=== PATIENT | female | born 1940 | race Caucasian/White ===

== ENCOUNTER 2018-04-20 10:36 | Emergency (ER) | payer OTHER, MEDICARE ==
--- OUTSIDE RECORDS SUMMARY | 2018-04-20 10:37 | XMS REPORT | Clinical Summary ---
:1940 Author Organization [facility] Address [address] [place] [address] Care Team Providers Name Role Phone Unavailable Primary Care Provider Unavailable Allergies Active Allergy Reactions Severity Noted Date Comments No Known Drug Allergies 01/16/2016 Current Medications Not on file Active Problems Not on file Family History Medical History Relation Name Comments Pancreatic cancer Father Relation Name Status Comments Father Social History Tobacco Use Types Packs/Day Years Used Date Never Smoker Alcohol Use Drinks/Week oz/Week Comments No Sex Assigned at Date Recorded Not on file Last Filed Vital Signs Not on file Plan of Treatment Health Maintenance Due Date Last Done Comments SHINGRIX VACCINE (#1) 1988 ZOSTER VACCINE 1998 PNEUMOCOCCAL POLYSACCHARIDE VACCINE AGE 65 AND OVER 2003 PNEUMOCOCCAL-13 2003 INFLUENZA VACCINE 02/19/2018 Results Not on fileafter 04/19/2017 Insurance Payer Benefit Plan / Group Subscriber ID Type Phone Address AARP AARP SUPPLEMENT xxxxxxxxxxx Commercial MEDICARE MEDICARE PART A AND B xxxxxxxxxx Medicare [place], [place] Home: Jim MONTILLA [phone] [place] [id number]
--- OUTSIDE RECORDS SUMMARY | 2018-04-20 10:39 | XMS REPORT | Continuity of Care Document ---
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, 2014 Active STATUS POST HYSTERECTOMY May 14, 2014 Active STATUS POST CHOLECYSTECTOMY May 14, 2014 Active STATUS POST APPENDECTOMY HX OF May 14, 2014 Active CERVICAL SPINAL STENOSIS May 14, 2014 Active CERVICAL RADICULOPATHY May 14, 2014 Active LOW BACK PAIN May 14, 2014 Active 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 14, 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 May 14, 2014 Active Procedures Date Description Comments May 14, 2014 smoking status never smoker May 14, 2014 smoking status Never smoker Aug 18, 2014 smoking status Never smoker December 16, 2014 smoking status Never smoker Medications Medication Instructions Start Date Status PREVACID 30 MG CPDR May 14, 2014 Active ATENOLOL 50 MG TABS 1 tab po bid May 14, 2014 Active CELEBREX 200 MG CAPS May 14, 2014 Active LEXAPRO 10 MG TABS May 14, 2014 Active LIPITOR 10 MG TABS May 14, 2014 Active PAMELOR 25 MG CAPS May 14, 2014 Active ASPIRIN 81 MG TABS May 14, 2014 Active TYLENOL WITH CODEINE #3 300-30 1 tab po q6h prn pain May 14, 2014 Inactive MG TABS LIDODERM 5 % PTCH apply to affected area 12h on May 14, 2014 Inactive 12h off per 24h period prn pain ZANAFLEX 4 MG TABS 1 tab q 8 hrs prn muscle spasms December 16, 2014 Active Vital Signs Date Description Test Result May 14, 2014 weight E&M - 3141-9 WEIGHT 196.4 lb May 14, 2014 height E&M - 8302-2 HEIGHT 65 in May 14, 2014 temperature E&M TEMPERATURE 96.4 deg f May 14, 2014 pulse rate E&M - 8867-4 PULSE RATE 57 /min May 14, 2014 blood pressure, systolic - 8480-6 BP SYSTOLIC 116 mm Hg May 14, 2014 blood pressure, diastolic - 8462-4 BP DIASTOLIC 67 mm Hg Aug 18, 2014 weight E&M - 3141-9 WEIGHT 197.2 lb Aug 18, 2014 temperature E&M TEMPERATURE 97.3 deg f Aug 18, 2014 respiratory rate E&M - 9279-1 RESP RATE 18 /min Aug 18, 2014 pulse rate E&M - 8867-4 PULSE RATE 62 /min Aug 18, 2014 height E&M - 8302-2 HEIGHT 65 in Aug 18, 2014 blood pressure, systolic - 8480-6 BP SYSTOLIC 97 mm Hg Aug 18, 2014 blood pressure, diastolic - 8462-4 BP DIASTOLIC 61 mm Hg May 15, 2014 weight E&M - 3141-9 WEIGHT 196 lb December 16, 2014 weight E&M - 3141-9 WEIGHT 200 lb December 16, 2014 temperature E&M TEMPERATURE 98.7 deg f December 16, 2014 respiratory rate E&M - 9279-1 RESP RATE 70 /min December 16, 2014 pulse rate E&M - 8867-4 PULSE RATE 18 /min December 16, 2014 height E&M - 8302-2 HEIGHT 65 in December 16, 2014 blood pressure, systolic - 8480-6 BP SYSTOLIC 134 mm Hg December 16, 2014 blood pressure, diastolic - 8462-4 BP DIASTOLIC 73 mm Hg
--- OUTSIDE RECORDS SUMMARY | 2018-04-20 10:39 | XMS REPORT | Continuity of Care Document ---
:1940 Author Organization Interface Problems Problem Status Onset Classification Date Comments Source Date Reported M54.5 - LOW BACK Active 06/10/20 [facility] PAIN 15 [place] 724.4 - Active 01/14/20 [facility] LUMBOSACRAL HEBER 15 [facility] ACUTE EMBOLISM AND Active 01/14/20 Condition 03/24/2015 [facility] THROMBOSIS OF 15 Neuro UNSPECIFIED DEEP VEINS OF UNSPECIFIED LOWER EXTREMITY SPONDYLOLISTHESIS, Active 01/13/20 Condition 03/24/2015 [facility] LUMBAR 15 Neuro LUMBAR Active 11/20/19 [place] SPODOLYTHIS, 15 Medical RIDICULOPATHY, LOW Center B STATUS POST KNEE Active 05/14/20 Condition 03/24/2015 [facility] REPLACEMENT 14 Neuro STATUS POST Active 05/14/20 Condition 03/24/2015 [facility] HYSTERECTOMY 14 Neuro STATUS POST Active 05/14/20 Condition 03/24/2015 [facility] CHOLECYSTECTOMY 14 Neuro STATUS POST Active 05/14/20 Condition 03/24/2015 [facility] APPENDECTOMY HX OF 14 Neuro CERVICAL SPINAL Active 05/14/20 Condition 03/24/2015 [facility] STENOSIS 14 Neuro CERVICAL Active 05/14/20 Condition 03/24/2015 [facility] RADICULOPATHY 14 Neuro LOW BACK PAIN Active 05/14/20 Condition 03/24/2015 [facility] 14 Neuro LUMBAR Active 05/14/20 Condition 03/24/2015 [facility] RADICULOPATHY 14 Neuro CERVICAL HNP W/O Active 05/14/20 Condition 03/24/2015 [facility] MYELOPHATHY 14 Neuro Low back Active 05/14/20 Problem 04/27/2017 Data OP[facility] pain<sup>1</sup> 14 migrated [facility] [place] [facility] OPID on 03/15/15. [place] Lumbar Active 05/14/20 Problem 04/27/2017 Data [facility] radiculopathy<sup> 14 migrated [facility] [place] 2</sup> from [facility] OPID on 03/15/15. [place] Spondylosis<sup>1< Active Problem 01/16/2015 1Lumbar OPID /sup> Kylah [place] OPID [place],[facility] Atrial Resolved Problem 06/25/2015 OP[facility] fibrillation Kylah [place] OP[facility] [place] GERD (<span Active Problem 06/25/2015 OPID ID="[id number]">C Kylah [place] onfirmed</span>) OPID [place] HLD (<span Active Problem 06/25/2015 OPID ID="[id number]">C Kylah [place] onfirmed</span>) OPID [place] HTN (<span Active Problem 06/25/2015 OPID ID="[id number]">C Kylah [place] onfirmed</span>) [facility] [place] Lumbar Active Problem 06/25/2015 [facility] radiculopathy [place] OP[facility] [place] Lumbar stenosis Active Problem 06/25/2015 OPID [place] OPID [place] Obesity Active Problem 06/25/2015 OPID [place] OPID [place] Pain Active Problem 06/25/2015 OPID [place] OPID [place] Atrial Resolved Problem 04/27/2017 [facility] [place] [facility] GERD (<span Active Problem 04/27/2017 OPID ID="[id number]">C Kylah [place] onfirmed</span>) [facility] OPID [facility] [place] [facility] HLD (<span Active Problem 04/27/2017 OPID ID="[id number]">C Kylah [place] onfirmed</span>) [facility] OPID [facility] [place] [facility] HTN (<span Active Problem 04/27/2017 OPID ID="[id number]">C [place],Kylah onfirmed</span>) [facility] OPID [facility] [place] [facility] Lumbar Active Problem 04/27/2017 OPID radiculopathy [facility] OPID [facility] [place] [facility] Lumbar stenosis Active Problem 04/27/2017 [facility] [place] [facility] Obesity Active Problem 04/27/2017 [facility], OP[facility] [place] [facility] Pain Active Problem 04/27/2017 JI [place],M [facility] [place] [facility], OPID [facility] [place] [facility] Spondylosis<sup>3< Active Problem 04/27/2017 Lumbar OPID /sup> [facility] [place] [facility], RAKANKassandra [place] LUMBOSACRAL Active [facility] SPONDYLOSIS [facility] LUMBOSACRAL Active [facility] NEURITIS NOS [facility] LUMBAGO Active [facility] Medications Medication Details Route Status Patient Ordering Order Source Instructions Provider Date ZANAFLEX 4 MG 1 tab q 8 hrs [facility] Active 2014 Neuro spasms tramadol 50 mg, 1 tab, No Longer 12/02/ [facility] hydrochloride 50 Route: PO, Drug Active 2014 Medical MG Oral Tablet form: TAB, Q6H, Center Dosing Weight 90.9, kg, PRN Pain Score 4-6, Start date: 12/01/14 21:03:00, Duration: 30 day, Stop date: 12/31/14 21:02:00Notes: . (Same As: Ultram) heparin 5,000 unit, 1 No Longer [facility] mL, Route: Active 2014 Medical SUB-Q, Drug Center form: INJ, Q8H, Dosing Weight 90.909, kg, Start date: 12/01/14 16:00:00, Duration: 30 day, Stop date: 12/31/14 8:00:00Notes: porcine heparin Valium 10 mg, 1 tab, Inactive [facility] Route: PO, Drug 2014 Medical form: TAB, ONCE, Center Start date: 12/01/14 10:30:00, Stop date: 12/01/14 10:30:00Notes: (Same as: Valium) Acetaminophen 325 1 tab, Route: [facility] Longer [facility] / Hydrocodone PO, Drug Form: Active 2014 Medical Bitartrate 5 MG TAB, Dosing Center Oral Tablet Weight 90.909, [[place] 5/325] kg, Q6H, Start date: 12/01/14 7:00:00, Duration: 30 day, Stop date: 12/31/14 6:00:00Notes: (Same as: [place] 325/5) Do not exceed 4gm/day of acetaminophen. Sodium Chloride 1,000 mL, 1,000 Inactive [place] 0.154 MEQ/ML ml/hr, Infuse 2014 Medical Injectable Over: 1 hr, Center Solution Route: IV, 1,000, Drug form: INJ, ONCE, Priority: STAT, Dosing Weight 90.909 kg, Start date: 12/01/14 5:18:00, Duration: 1 doses or times, Stop date: 12/01/14 5:18:00 Sodium Chloride 250 mL, 250 Inactive [place] 0.154 MEQ/ML ml/hr, Infuse 2014 Medical Injectable Over: 1 hr, Center Solution Route: IV, 250, Drug form: INJ, ONCE, Priority: STAT, Dosing Weight 90.909 kg, Start date: 12/01/14 4:28:00, Duration: 1 doses or times, Stop date: 12/01/14 4:28:00 Losartan 100 mg, 2 tab, No Longer [facility] Route: PO, Drug Active 2014 Medical form: TAB, Center Daily, Dosing Weight 90.909, kg, Start date: 11/30/14 9:00:00, Duration: 30 day, Stop date: 12/29/14 9:00:00Notes: (Same as: Dolly) Prevacid 30 mg, Route: No Longer [facility] PO, Drug form: Active 2014 Medical [facility], Daily, Center Dosing Weight 90.909, kg, Start date: 11/30/14 9:00:00, Duration: 30 day, Stop date: 12/29/14 9:00:00 Lexapro 10 mg, 1 tab, No Longer [facility] Route: PO, Drug Active 2014 Medical form: TAB, Center Daily, Dosing Weight 90.909, kg, Start date: 11/30/14 9:00:00, Duration: 30 day, Stop date: 12/29/14 9:00:00Notes: (Same as: Lexapro) Atenolol 50 MG 50 mg, 1 tab, No Longer [facility] Oral Tablet Route: PO, Drug Active 2014 Medical form: TAB, Center Daily, Dosing Weight 90.909, kg, Start date: 11/30/14 9:00:00, Duration: 30 day, Stop date: 12/29/14 9:00:00Notes: (Same As:Tenormin) Protonix 40 mg, 1 tab, No Longer [facility] Route: PO, Drug Active 2014 Medical form: ECTAB, Center Before Breakfast, Start date: 11/30/14 7:30:00, Duration: 30 day, Stop date: 12/29/14 7:30:00Notes: (Same as: Protonix) Acetaminophen 300 1 tab, PO, Q6H, Active [facility] MG / Codeine PRN pain, X 14 2014 Medical Phosphate 30 MG day, # 56 tab, 0 Center Oral Tablet Refill(s) [Tylenol with Codeine #3] senna 8.6 mg oral 8.6 mg=1 tab, Active [facility] tablet PO, Q12H, # 30 2014 Medical tab, 0 Refill(s) Center diazepam 10 mg 10 mg=1 tab, PO, No Longer [facility] oral tablet Q8H, # 50 tab, 0 Active 2014 Medical Refill(s) Center docusate sodium 100 mg=1 cap, Active [facility] 100 mg oral PO, Q12H, # 30 2014 Medical capsule cap, 0 Refill(s) Center Pamelor 25 mg, 1 cap, No Longer [facility] Route: PO, Drug Active 2014 Medical form: CAP, Center Bedtime, Dosing Weight 90.909, kg, Start date: 11/29/14 21:00:00, Duration: 30 day, Stop date: 12/28/14 21:00:00Notes: (Same as:Pamelor, Aventyl) gabapentin 300 MG 600 mg, 2 cap, No Longer [facility] Oral Capsule Route: PO, Drug Active 2014 Medical form: CAP, Center Bedtime, Dosing Weight 90.909, kg, Start date: 11/29/14 21:00:00, Duration: 30 day, Stop date: 12/28/14 21:00:00Notes: (Same as: Neurontin) Atenolol 50 MG 100 mg, 1 tab, No Longer [facility] Oral Tablet Route: PO, Drug Active 2014 Medical form: TAB, Center Bedtime, Dosing Weight 90.909, kg, Start date: 11/29/14 21:00:00, Duration: 30 day, Stop date: 12/28/14 21:00:00Notes: (Same As:Tenormin) Saline Flush 0.9% 10 ml, Route: No Longer [facility] IVP, Drug Form: Active 2014 Medical INJ, Dosing Center Weight 90.909, kg, Q12H, Start date: 11/29/14 21:00:00, Duration: 30 day, Stop date: 12/29/14 9:00:00Notes: Same as: BD Posiflush Sterile sennosides, HALFWAY 8.6 mg, 1 tab, No Longer [facility] Route: PO, Drug Active 2014 Medical Form: TAB, Center Dosing Weight 90.909, kg, Q12H, Start date: 11/29/14 21:00:00, Duration: 30 day, Stop date: 12/29/14 9:00:00Notes: (Same as: Deepakot) Docusate 100 mg, 1 cap, No Longer [facility] Route: PO, Drug Active 2014 Medical form: CAP, Q12H, Center Dosing Weight 90.909, kg, Start date: 11/29/14 21:00:00, Duration: 30 day, Stop date: 12/29/14 9:00:00Notes: (Same as: Colace) (Do Not Crush) Acetaminophen 325 1 tab, Route: No Longer [facility] MG / Hydrocodone PO, Drug Form: Active 2014 Medical Bitartrate 10 MG TAB, Dosing Center Oral Tablet Weight 90.909, [[place] 10/325] kg, Q4H, Start date: 11/29/14 16:00:00, Duration: 30 day, Stop date: 12/29/14 12:00:00Notes: Do not exceed 4gm/day of acetaminophen. (Same as: [place] 325/10) ceFAZolin (SCIP) 1 gm, Route: No Longer [facility] IVPB, Drug form: Active 2014 Medical PDR/INJ, ABXQ8H, Center Dosing Weight 90.909, kg, Start date: 11/29/14 16:00:00, Duration: 3 doses or times, Stop date: 11/30/14 8:00:00Notes: (Same As: [place]) MEDICATION WASTE Product Size: 1000 mg Product Wasted: ___ mg Labetalol 10 mg, 2 mL, Inactive [facility] Route: IVP, Drug 2014 Medical form: INJ, Center Q5Min, Dosing Weight 90.909, kg, PRN Elevated BP, Start date: 11/29/14 14:50:00, Duration: 5 doses or times, Stop date: 11/30/14 0:00:00 Hydromorphone 0.5 mg, 0.25 mL, Inactive [facility] Route: IVP, Drug 2014 Medical form: INJ, Center Q5Min, Dosing Weight 90.909, kg, PRN Pain Score 7-10, Start date: 11/29/14 14:50:00, Duration: 4 doses or times, Stop date: 11/30/14 0:00:00Notes: Same as: Dilaudid Flumazenil 0.2 mg, 2 mL, Inactive [facility] Route: IVP, Drug 2014 Medical form: INJ, PRN, Center Dosing Weight 90.909, kg, PRN Benzodiazepine Reversal, Initial dose, Start date: 11/29/14 14:50:00, Duration: 30 day, Stop date: 12/29/14 14:49:00Notes: (Same as: Romazicon) Naloxone 0.04 mg, 0.1 mL, Inactive [facility] Route: IVP, Drug 2014 Medical form: INJ, Center Q2MIN, Dosing Weight 90.909, kg, PRN Narcotic Reversal, Start date: 11/29/14 14:50:00, Duration: 8 doses or times, Stop date: 11/30/14 0:00:00Notes: Same as Narcan Ondansetron 4 mg, 2 mL, Inactive [facility] Route: IVP, Drug 2014 Medical form: INJ, ONCE, Center Dosing Weight 90.909, kg, PRN Nausea & Vomiting, Start date: 11/29/14 14:50:00Notes: (Same as: Zofran) MEDICATION WASTE Product Size: 4 mg Product Wasted: __0_ mg Valium 10 mg, 1 tab, No Longer [place] Route: PO, Drug Active 2014 Medical form: TAB, Q8H, Center Dosing Weight 90.909, kg, Start date: 11/29/14 12:00:00, Duration: 30 day, Stop date: 12/29/14 8:00:00Notes: (Same as: Valium) Naloxone 0.04 mg, 0.1 mL, No Longer [facility] Route: IVP, Drug Active 2014 Medical form: INJ, Center Q2MIN, Dosing Weight 90.909, kg, PRN Narcotic Reversal, Start date: 11/29/14 12:00:00, Duration: 30 day, Stop date: 12/29/14 11:59:00Notes: Same as Narcan Morphine 30 mg, 30 mL, No Longer [facility] Route: IV, Active 2014 Medical Initial Loading Center Dose: 2 mg, 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 Dose: 1 mg, 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 TEACHER Lockout: 10 minutes, Continuous Basal Rate: 0 mg, 4 Hour Limit (In MG): 30, Drug Form: INJ, Continuous, Start date: 11/29/14 12:00:00, Duration: 30 day, Stop date: 12/29/14 11:5...Notes: Dose: Delay: Basal rate: 4hr limit: (Same as:Edgardo-Eneida) Regular Insulin, 7 unit, 0.07 mL, No Longer [facility] Human 100 UNT/ML Route: SUB-Q, Active 2014 Medical Injectable Drug form: SOLN, Center Solution PRN, Dosing Weight 90.909, kg, PRN Abnormal Lab Result, Start date: 11/29/14 12:00:00, Duration: 30 day, Stop date: 12/29/14 11:59:00Notes: (Same as: Humulin R) Roll in palms of hands gently; Do not shake vigorously. "single patient use only" (Restricted to patients requiring a dose > 60 units) Stable for 28 days at room temperature Expires in days from Da te Dextrose 50% 12.5 gm, 25 mL, No Longer [place] Syringe Route: IVP, Drug Active 2014 Medical Form: INJ, Center Dosing Weight 90.909, kg, PRN, PRN Abnormal Lab Result, Start date: 11/29/14 12:00:00, Duration: 30 day, Stop date: 12/29/14 11:59:00 Saline Flush 0.9% 10 ml, Route: No Longer [facility] IVP, Drug Form: Active 2014 Medical INJ, Dosing Center Weight 90.909, kg, PRN, PRN Line Flush, Start date: 11/29/14 12:00:00, Duration: 30 day, Stop date: 12/29/14 11:59:00Notes: Same as: BD Posiflush Sterile Ondansetron 4 mg, 2 mL, No Longer [facility] Route: IVP, Drug Active 2014 Medical form: INJ, Q8H, Center Dosing Weight 90.909, kg, PRN Nausea & Vomiting, Start date: 11/29/14 12:00:00, Duration: 30 day, Stop date: 12/29/14 11:59:00Notes: (Same as: Brittany) MEDICATION WASTE Product Size: 4 mg Product Wasted: ___ mg Acetaminophen 325 1 tab, Route: Inactive [facility] MG / Hydrocodone PO, Drug Form: 2014 Medical Bitartrate 10 MG TAB, Dosing Center Oral Tablet Weight 90.909, kg, Q6H, Start date: 11/29/14 12:00:00, Duration: 30 day, Stop date: 12/29/14 6:00:00 Sodium Chloride 1,000 mL, Rate: No Longer [facility] 0.154 MEQ/ML 75 ml/hr, Infuse Active 2014 Medical Injectable over: 13.3 hr, Center Solution Route: IV, Dosing Weight 90.909 kg, Total Volume: 1,000, Start date: 11/29/14 12:00:00, Stop date: 12/29/14 11:59:00 bupivacaine 20 mL, Route: Inactive [facility] liposome InFILtration(loc 2014 Medical al), Drug Form: Center INJ, ONCE, Start date: 11/29/14 7:52:00, Stop date: 11/29/14 7:52:00Notes: (Same as: Exparel) NOT FOR IV use Postoperative analgesia: Infiltration (local): Dose is based on surgical site and volume required to cover the area (in general, the maximum total dose is 266 mg). Bunionectomy: 7 mL into the tissues surrounding the osteotomy and 1 mL into the subcutaneous tissue of the surgical site (total dose=8 mL [106 mg]) Hemorrhoidectomy : 30 mL (20 mL vial diluted with 10 mL NS) divided and administered as 6 injections of 5 mL each (total dose=30 mL [266 mg]) ceFAZolin 2 gm, 50 mL, No Longer [place] Route: IVPB, Active 2014 Medical Drug form: INJ, Center PRE OP, Start date: 11/29/14 7:00:00, Duration: 1 day, Stop date: 11/30/14 6:59:00 Bifidobacterium 4 mg=1 cap, PO, Active [facility] Infantis 4 MG Daily, # 28 cap, 2014 Medical Oral Capsule 0 Refill(s) Center [Align] Aspirin Low Dose PO, Daily, 0 Active [facility] 81 mg oral tablet Refill(s) 2014 [facility] Tylenol PO, PRN, 0 Active [facility] Refill(s) 2014 [facility] gabapentin 300 MG 300 mg=1 cap, Active [facility] Oral Capsule PO, TID, 0 2014 Medical Refill(s) [place] Nortriptyline 25 25 mg=1 cap, PO, Active [facility] MG Oral Capsule TID, 0 Refill(s) 2014 [facility] [Pamelor] [place] Atenolol 50 MG 100 mg=2 tab, Active [facility] Oral Tablet PO, Bedtime, 0 2014 Medical Refill(s) [place] biotin 5 mg oral 5 mg=1 cap, PO, Active [facility] capsule Daily, # 30 cap, 2014 Medical 0 Refill(s) [place] Centrum Silver 1 tab, PO, Active [facility] oral tablet Daily, # 30 tab, 2014 Medical 0 Refill(s) [place] lansoprazole 30 30 mg=1 cap, PO, Active [facility] MG Enteric Coated Daily, # 30 cap, 2014 Medical Capsule 0 Refill(s) [place] [Prevacid] losartan 100 mg 100 mg=1 tab, Active [place] oral tablet PO, Daily, # 30 2015 Medical tab, 0 Refill(s) Center Atenolol 50 MG 50 mg=1 tab, PO, Active [place] Oral Tablet Daily, # 30 tab, 2015 Medical 0 Refill(s) Center Escitalopram 10 10 mg=1 tab, PO, Active [place] MG Oral Tablet Daily, # 30 tab, 2015 Medical [Lexapro] 0 Refill(s) Center celecoxib 200 MG 200 mg=1 cap, Active [facility] Oral Capsule PO, Daily, # 30 2015 Medical [Celebrex] cap, 0 Refill(s) Center PREVACID 30 MG Active CPDR 2013 Neuro ATENOLOL 50 MG 1 tab po bid Active TABS 2013 Neuro CELEBREX 200 MG Active cher CAPS 2013 Neuro LEXAPRO 10 MG Active cher TABS 2013 Neuro LIPITOR 10 MG Active cher TABS 2013 Neuro PAMELOR 25 MG Active cher CAPS 2014 Neuro ASPIRIN 81 MG Active TABS 2013 Neuro TYLENOL WITH 1 tab po q6h prn No Longer CODEINE #3 300-30 pain Active 2013 Neuro MG TABS LIDODERM 5 % PTCH apply to No Longer affected area Active 2013 Neuro 12h on 12h off per 24h period prn pain PREVACID 30 MG Active CPDR 2013 Neuro ATENOLOL 50 MG 1 tab po bid Active cher TABS 2014 Neuro CELEBREX 200 MG Active cher CAPS 2014 Neuro ATENOLOL 50 MG 1 tab po bid Active cher TABS 2013 Neuro CELEBREX 200 MG Active cher CAPS 2014 Neuro LIPITOR 10 MG Active cher TABS 2013 Neuro LIDODERM 5 % PTCH apply to No Longer affected area Active 2013 Neuro 12h on 12h off per 24h period prn pain ATENOLOL 50 MG 1 tab po bid Active cher TABS 2013 Neuro ATENOLOL 50 MG 1 tab po bid Active 10/24/ [facility] TABS 2014 Neuro CELEBREX 200 MG Active 05/14/ [facility] CAPS 2014 Neuro Allergies, Adverse Reactions, Alerts Substance Category Reaction Severity Reaction Status Date Comments Source type Reported NKDA Assertion Drug Active [facility] allergy [facility] [place] [facility] Immunizations Immunization Date Given Site Status Last Updated Comments Source Results Order Name Results Value Reference Date Interpretation Comments Source Range Spine Spine lumbar EXAM: CT lumbar spine without contrast. 06/22 - OPID lumbar wo wo contrast - [place] contrast CT CT INDICATION: Pain with radiculopathy. Read by: Faith Reveles MD Dictated Date/time: 06/22/15 10:58 Electronically Signed by: Faith Reveles MD 06/22/15 11:05 FINAL REPORT COMPARISON: Radiograph March 24, 2015, CT November 29, 2014. TECHNIQUE: Noncontrast axial imaging of the lumbar spine was performed paracoronal and sagittal reconstructions were performed. DISCUSSION: Posterior stabilization hardware extending from L4 to S1 is redemonstrated without hardware fracture or perihardware lucencies. Laminectomies at L4-L5 and L5-S1 are redemonstrated. Disc spac er at L4-L5 is in stable alignment. Stable grade 1 anterolisthesis of L4 on L5. Stable retrolisthesis of L5 on S1. Stable retrolisthesis of T12 on L1 with collapse of the intervening disc. Loss of disc space height at L1-L2 and L2-L3 is redemonstrated. Slight progression of disc space height loss posteriorly at L3-L4. Stable nodule in the right adrenal gland with areas of fatty attenuation. Bilateral foraminal stenosis at L5-S1 is redemonstrated. The canal is difficult to evaluate at the postoperative levels. Canal stenosis at L3-L4 is evident secondary to annular bulge and ligamentum flavum redundancy. IMPRESSION: 1. Stable postoperative changes status post decompression and posterior stabilization from L4 to S1. 2. Slight progression of disc space height loss at L3-L4. Otherwise stable spondylosis throughout the lumbar spine. Spine Spine lumbar EXAM: XR LUMBAR SPINE 2 VIEWS 03/24 - OPID lumbar 2 or 2 or 3 views /2014 - [place] 3 views DX DX DATE: 03/24/2015 at 1017 hours Read by: Meghna Lopez MD Dictated Date/time: 03/24/15 14:20 Electronically Signed by: Meghna Lopez MD 03/24/15 14:22 FINAL REPORT INDICATION: 756.12 Spondylolisthesis, Congenital COMPARISON: 01/12/2015 TECHNIQUE: AP and lateral radiographs of the lumbar spine FINDINGS: 5 lumbar-type, nonrib-bearing vertebral bodies are identified. Vertebral body heights are overall preserved. Posterior stabilization rods and transpedicular screws are again identified L4-S1 w ith an interbody cage at L4-L5. Surrounding bone graft is present posteriorly. There is no perihardware lucency or evidence of failure. No new or superimposed bony abnormality is identified. There are scattered vascular calcifications of the aorta. Surgical clips overlie the gallbladder fossa. IMPRESSION: Unchanged, satisfactory alignment following posterior stabilization and laminectomy L4-S1. Ext Lower Ext Lower EXAM: US BILATERAL LOWER EXTREMITY VENOUS DOPPLER [facility] OPID Venous Venous /2014 - [place] Doppler Doppler Bilat US Bilat US DATE: 01/13/2015 at 1104. Read by: Karina Joshi MD Dictated Date/time: 01/13/15 12:01 Electronically Signed by: Karina Joshi MD 01/13/15 12:03 FINAL REPORT INDICATION: Bilateral lower extremity swelling recent surgery ADDITIONAL INFORMATION: None. COMPARISON: None. TECHNIQUE: Multiplanar grayscale, color Doppler and spectral Doppler ultrasound images of the bilateral lower extremity veins were obtained. FINDINGS: The bilateral common femoral, greater saphenous, superficial femoral, and popliteal veins demonstrate normal compressibility and color Doppler signal. Normal color flow and Doppler venous waveforms are seen in the bilateral anterior tibial, posterior tibial and peroneal veins. IMPRESSION: 1. Negative for bilateral lower extremity deep vein thrombosis. Spine Spine lumbar EXAM: XR LUMBAR SPINE 2 VIEWS 01/12 [facility] lumbar 2 or 2 or 3 views - [place] 3 views DX DX DATE: 01/12/2015 at 0951 hours Read by: Meghna Lopez MD Dictated Date/time: 01/12/15 10:12 Electronically Signed by: Meghna Lopez MD 01/12/15 10:14 FINAL REPORT INDICATION: 724.4 Thoracic or Lumbosacral Neuritis or Radiculitis, Unspecified COMPARISON: 11/29/2014 CT TECHNIQUE: AP and lateral radiographs of the lumbar spine FINDINGS: 5 lumbar-type, nonrib-bearing vertebral bodies are identified. Posterior stabilization rods are again identified L4-S1 interbody spacer at L4- L5. Laminectomies are also identified at L4-L5. Ho rrounding bone graft is undergone partial interim maturation. There is no perihardware lucency or evidence of failure. Alignment is unchanged. Multilevel disc height loss, severe at T12-L1 and L1 to is unchanged, with interspinous narrowing now most evident at L2-L3. Vascular calcifications are present at the aorta. IMPRESSION: Unchanged, satisfactory alignment of L4-S1 following laminectomy and posterior stabilization. HEMATOLOGY Hgb 8.4 g/dL 12.0 - 12/02 [facility] HEMATOLOGY Hct 24.8 % 36.0 - 12/02 [facility] HEMATOLOGY Hgb 8.5 g/dL 12. - 12/01 [facility] HEMATOLOGY Hct 25.4 % 36.0 12/01 [facility] BLOOD BANK RBC product Product available 12/01 [facility] (12/01/14 2:36 AM) [place] HEMATOLOGY Hct 21.1 % 36.0 - 12/01 [facility] HEMATOLOGY Hgb 6.9 g/dL .12/01 3Result [facility] Comment: [facility] Result(s) called to jolie martínez at 12/01/2014 02:00 by_[email or web address] Read back OK. CHEM PANEL eGFR 55 11/29 1Result Comment: The eGFR is calculated using the CKD-EPI formula. In most young, healthy individuals the eGFR will be >90 mL/ min/1.73m2. The eGFR declines with age. An eGFR of 60-89 may be normal in [facility] mL/min/1. some populations, particularly the elderly, for whom the CKD-EPI formula has not been extensively validated. Use of the eGFR is not recommended in the following populations: [place] [id number] Center Individuals with unstable creatinine concentrations, including patients and those with serious co-morbid conditions. Patients with extremes in muscle mass or diet. The data above are obtained from the National Kidney Disease Education Program (NKDEP) which additionally recommends that when the eGFR is used in patients with extremes of body mass index for purposes of drug dosing, the eGFR should be multiplied by the estimated BMI. CHEM PANEL Potassium 4.3 meq/L 3.5 - 5.1 05/11 l [facility] CHEM PANEL Chloride Lvl 112 meq/L 95 - 109 11/29 [facility] CHEM PANEL CO2 25 meq/L 24 - 32 11/29 [facility] CHEM PANEL Calcium Lvl 8.2 mg/dL 8.5 - 10.5 11/29 [facility] CHEM PANEL Glucose Lvl 141 mg/dL 70 - 99 11/29 2Interpretive Data: Adult reference range values reflect the clinical guidelines of the [employer]. [facility] CHEM PANEL Creatinine 1.0 mg/dL 0.5 - 1.4 11/29 [facility] Lvl [facility] CHEM PANEL Sodium Lvl 144 meq/L 135 - 145 11/29 [facility] CHEM PANEL BUN 19 mg/dL 7 - 22 11/29 [facility] CHEM PANEL AGAP 11.3 meq/L 10.0 - 11/29 20.0 [facility] HEMATOLOGY Monocytes 7.9 % 2.0 - 12.0 11/29 [facility] HEMATOLOGY Eosinophils 1.5 % 0.0 - 4.0 11/29 [facility] HEMATOLOGY Basophils 0.6 % 0.0 - 1.0 11/29 [facility] HEMATOLOGY Segs-Bands # 4.3 K/CMM 1.5 - 8.1 11/29 [facility] HEMATOLOGY Monocytes # 0.5 K/CMM 0.0 - 0.8 11/29 [facility] HEMATOLOGY Lymphocytes 1.6 K/CMM 1.0 - 5.5 11/29 [facility] HEMATOLOGY Lymphocytes 24.3 % 20.0 - 11/29 40.0 [facility] HEMATOLOGY Segs 65.7 % 45.0 - 11/29 75.0 [facility] HEMATOLOGY Eosinophils 0.1 K/CMM 0.0 - 0.5 11/29 [facility] HEMATOLOGY MPV 7.8 fL 7.4 - 10.4 11/29 [facility] HEMATOLOGY RBC 2.48 M/CMM 4.20 - 05 [place] 5.40 /2014 [facility] HEMATOLOGY Platelet 162 K/CMM 133 - 450 11/29 [facility] HEMATOLOGY MCHC 33.3 g/dL 32.0 - 11/29 [facility] 36.0 [facility] HEMATOLOGY RDW 13.5 % 11.5 - 11/29 [facility] 14.5 [facility] HEMATOLOGY MCH 31.7 pg 27.0 - 11/29 [facility] 31.0 [facility] HEMATOLOGY MCV 95.1 fL 80.0 - 11/29 [facility] 98.0 [facility] HEMATOLOGY WBC 6.6 K/CMM 3.7 - 10.4 11/29 [facility] /2014 [facility] Spine lumbar CT SCAN OF THE LUMBAR SPINE 11/29 - [facility] lumbar wo wo contrast - [facility] contrast CT CT Center DATE: 11/29/2014 at 5:43 p.m. Read by: Bentley Eddy MD Dictated Date/time: 11/30/14 00:17 Electronically Signed by: Bentley Eddy MD 11/30/14 00:35 FINAL REPORT HISTORY: Fracture. Postop. TECHNIQUE: Axial helical 2.5mm thick scans were obtained of the lumbar spine, without contrast. Sagittal and coronal reconstructions were made from thin-section axial data. FINDINGS: There are postoperative changes of bilateral laminectomy and posterior fusion from L4 to S1 with anterior fusion at L4-L5. Pedicle screws connected by longitudinal rods are noted in place bila terally from L4 to S1. A disc graft with metallic markers noted within the L4-L5 disc space on the left. There is a grade I, 6.5 mm spondylolisthesis of L4 upon L5. The left inferior facet of L4 has bee n resected. There is a mild thoracolumbar scoliosis with convexity to the left and apex of curvature at L1-L2. Degenerative spondylitic change is noted with multilevel marginal osteophyte formation, mos t prominent at T12-L1 and L1-L2. Periarticular sclerosis is noted at T12- L1 and L1-L2. Schmorl's nodes are noted within the inferior endplates from T10 to T12. T10-T11, T11-T12: The intervertebral discs are well-maintained. There are no disc bulges or disc protrusions. There is no compromise of the spinal canal or neural foramina. T12-L1: There is vacuum disc phenomenon a diffuse disc bulge extending into the neural foramina causing moderate bilateral neural foraminal stenosis. There is no compromise of the spinal canal. L1-L2: There is vacuum disc phenomenon and a right foraminal disc osteophyte complex causing moderate right-sided neural foraminal stenosis. Is no compromise of the spinal canal or left-sided neural foramen. L2-L3: There is vacuum disc phenomenon and a mild disc bulge indenting the ventral thecal sac causing minimal stenosis of the spinal canal, and mild bilateral neural foraminal stenosis. L3-L4: There is a mild disc bulge indenting the ventral thecal sac causing moderate stenosis of the spinal canal, and mild bilateral neural foraminal stenosis. L4-L5: There are postoperative changes of bilateral laminectomy and anterior and posterior fusion. The spinal canal is well the rest. There is no compromise of the spinal canal or neural foramina. L5-S1: There are postoperative changes of bilateral laminectomy and posterior fusion. Posterior osteophyte formation extends into the neural foramina causing moderate bilateral neural foraminal stenosis. A contour irregularity of the midpole of the right kidney is noted likely representing an isodense cyst. The kidney may further evaluated with ultrasound as clinically indicated. IMPRESSION: 1. Postoperative changes of bilateral laminectomy and posterior fusion from L4 to S1 anterior fusion at L4-L5. 2. Mild thoracolumbar scoliosis with convexity to the left and apex of curvature at L1-L2. 3. Degenerative spondylosis and degenerative disc disease as described above. 4. Probable isodense cyst of the midpole the right kidney. BLOOD BANK Antibody Negative 11/29 [facility] RESULTS Scr /2014 [facility] (11/29/14 5:49 AM) Center BLOOD BANK ABO/Rh O POS 11/29 [facility] RESULTS /2014 [facility] Center Vital Signs Vital Sign Value Date Comments Source Weight 207.4 03/24/2015 [facility] Height 65 03/24/2015 [facility] Temperature Oral (F) 97.5 F 03/24/2015 [facility] Heart Rate 62 03/24/2015 [facility] Systolic (mm Hg) 117 03/24/2015 [facility] Diastolic (mm Hg) 70 03/24/2015 [facility] Weight 200 01/12/2015 [facility] Height 65 01/12/2015 [facility] Heart Rate 59 01/12/2015 [facility] Systolic (mm Hg) 113 01/12/2015 [facility] Diastolic (mm Hg) 60 01/12/2015 [facility] Weight 200 12/16/2014 [facility] Temperature Oral (F) 98.7 F 12/16/2014 [facility] Respitory Rate 70 12/16/2014 [facility] Heart Rate 18 12/16/2014 [facility] Height 65 12/16/2014 [facility] Systolic (mm Hg) 134 12/16/2014 [facility] Diastolic (mm Hg) 73 12/16/2014 [facility] Temperature Oral (F) 94 F 12/02/2014 [facility] Respitory Rate 18 12/02/2014 [facility] Systolic (mm Hg) 98 12/02/2014 [facility] Diastolic (mm Hg) 56 12/02/2014 [facility] Heart Rate 86 12/02/2014 [facility] Systolic (mm Hg) 99 12/02/2014 [facility] Diastolic (mm Hg) 60 12/02/2014 [facility] Respitory Rate 12 12/02/2014 [facility] Heart Rate 76 12/02/2014 [facility] Temperature Oral (F) 98.8 F 12/02/2014 [facility] Temperature Oral (F) 99.0 F 12/02/2014 [facility] Respitory Rate 17 12/02/2014 [facility] Heart Rate 89 12/02/2014 [facility] Systolic (mm Hg) 99 12/02/2014 [facility] Diastolic (mm Hg) 51 12/02/2014 [facility] Weight 90.9 12/01/2014 [facility] BMI Calculated 33.35 11/29/2014 [facility] Weight 90.909 11/29/2014 [facility] Height 165.1 cm 11/29/2014 [facility] Weight 197.2 08/18/2014 [facility] Neuro Temperature Oral (F) 97.3 F 08/18/2014 [facility] Neuro Respitory Rate 18 08/18/2014 [facility] Heart Rate 62 08/18/2014 [facility] Height 65 08/18/2014 [facility] Systolic (mm Hg) 97 08/18/2014 [facility] Diastolic (mm Hg) 61 08/18/2014 [facility] Weight 196 05/15/2014 [facility] Weight 196.4 05/14/2014 [facility] Height 65 05/14/2014 [facility] Temperature Oral (F) 96.4 F 05/14/2014 [facility] Heart Rate 57 05/14/2014 [facility] Systolic (mm Hg) 116 05/14/2014 [facility] Diastolic (mm Hg) 67 05/14/2014 [facility] Encounters Location Location Encounter Encounter Reason Attending ADM DC Status Source Details Type Number For Provider Date Date Visit [facility] [id number] Maikel 05/14 05/14 [facility] [id number] Isael BARAKAT /2013 [facility] [id number] Maikel 08/18 08/18 [facility] [id number] Isael BARAKAT /2014 [facility] Inpatient [id number] Maikel 11/29 12/02 [facility] [place] [facility] Isael /2014 [facility] [id number] Maikel 12/16 12/16 [id number] [id number] Maikel 01/12 01/12 [facility] [id number] [facility] BARAKAT /2014 [facility] [id number] Maikel 01/12 01/13 [facility] [id number] Maikel 01/13 01/14 [facility] 1 [facility] [place] [facility] [id number] Maikel 03/24 03/24 [facility] [id number] Isael BARAKAT /2014 [facility] Outpt Diag [id number] Gildardo 03/24 03/25 [facility] 3 [facility] [id number] [facility] 06/22 [facility] [place] [facility] [id number] Gildardo 06/22 06/23 [facility] 4 [facility] [id number] Wendy 04/24 04/25 [facility] 0 [facility] [place] [facility] [place] Procedures Procedure Code Date Perfomer Comments Source Ablation [id number] [facility] [place] Appendectomy [id number] [facility] [place] Cholecystectomy [id number] [facility] [place] Hysterectomy [id number] [facility] [place] Knee arthroplasty [id number] [facility] [place] Ablation [id number] [facility] Appendectomy [id number] [facility] Cholecystectomy [id number] [facility] Hysterectomy [id number] [facility] [place] Knee arthroplasty [id number] [facility] Ablation [id number] [facility] Appendectomy [id number] [facility] Cholecystectomy [id number] [facility] Hysterectomy [id number] [facility] Knee arthroplasty [id number] [facility] Ablation [id number] [facility] [place] [facility] Appendectomy [id number] [facility] [place] [facility] Cholecystectomy [id number] [facility] [place] [facility] Hysterectomy [id number] [facility] [place] [facility] Knee arthroplasty [id number] [facility] [place] [facility]
--- OUTSIDE RECORDS SUMMARY | 2018-04-20 10:39 | XMS REPORT | Continuity of Care Document ---
:1940 Author Organization [facility] Care Team Providers Name Role Phone Isael BARAKAT, Maikel Dorantes Unavailable Insurance Providers Payer name Policy type / Policy ID Covered constitution party ID Policy [place] Coverage type [place] [employer] A[employer] HE[employer]CARE OPTION - PLAN F ([place]ARE [place] A[employer] HE[employer]CARE OPTION - PLAN F ([place] Encounters Encounter Performer Location Date Office Visit Maikel [facility] [place] Aug 18, 2014 Problems Problem Effective Dates Problem Status [...] Aug 18, 2014 smoking status Never smoker Medications Medication [...] 12h off per 24h period prn pain Vital Signs Date Description Test Result May [...]
--- OUTSIDE RECORDS SUMMARY | 2018-04-20 10:39 | XMS REPORT | Continuity of Care Document ---
:1940 Author Organization [facility] Care Team Providers Name Role Phone Isael BARAKAT, Maikel Dorantes Unavailable Insurance Providers Payer name Policy type / Policy ID Covered republican ID Policy [place]age type [place] [employer] A[employer] HEALTHCARE OPTION - PLAN F ([place] A[employer] HEALTHCARE OPTION - PLAN F ([place] Encounters Encounter Performer Location Date Office Visit Maikel Kirkland MD [facility] [place] May 14, 2014 Problems Problem Effective Dates Problem Status [...] May 14, 2014 smoking status Never smoker Medications Medication [...] po q6h prn pain May 14, 2014 Active MG TABS LIDODERM 5 % PTCH apply to affected area 12h on 12h May 14, 2014 Active off per 24h period prn pain Vital [...]
--- OUTSIDE RECORDS SUMMARY | 2018-04-20 10:40 | XMS REPORT | Continuity of Care Document ---
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 May 14, 2014 Active SPONDYLOLISTHESIS, LUMBAR Jan 12, 2015 Active ACUTE EMBOLISM AND THROMBOSIS OF UNSPECIFIED DEEP Jan 13, 2015 Active VEINS OF UNSPECIFIED LOWER EXTREMITY Procedures Date Description Comments May 14, 2014 smoking status never smoker May 14, 2014 smoking status Never smoker Aug 18, 2014 smoking status Never smoker December 16, 2014 smoking status Never smoker Jan 12, 2015 smoking status Never smoker Medications Medication Instructions [...] hrs prn muscle spasms December 16, 2014 Inactive Vital Signs Date Description Test Result May [...] - 8462-4 BP DIASTOLIC 73 mm Hg Jan 12, 2015 weight E&M - 3141-9 WEIGHT 200 lb Jan 12, 2015 height E&M - 8302-2 HEIGHT 65 in Jan 12, 2015 pulse rate E&M - 8867-4 PULSE RATE 59 /min Jan 12, 2015 blood pressure, systolic - 8480-6 BP SYSTOLIC 113 mm Hg Jan 12, 2015 blood pressure, diastolic - 8462-4 BP DIASTOLIC 60 mm Hg Mar 24, 2015 weight E&M - 3141-9 WEIGHT 207.4 lb Mar 24, 2015 height E&M - 8302-2 HEIGHT 65 in Mar 24, 2015 temperature E&M TEMPERATURE 97.5 deg f Mar 24, 2015 pulse rate E&M - 8867-4 PULSE RATE 62 /min Mar 24, 2015 blood pressure, systolic - 8480-6 BP SYSTOLIC 117 mm Hg Mar 24, 2015 blood pressure, diastolic - 8462-4 BP DIASTOLIC 70 mm Hg
--- OUTSIDE RECORDS SUMMARY | 2018-04-20 10:40 | XMS REPORT | Continuity of Care Document ---
:1940 Author Organization [facility] Care Team Providers Name Role Phone Isael BARAKAT, Maikel Dorantes Unavailable Insurance Providers Payer name Policy type / Policy ID Covered democrat ID Policy Dawson Coverage type [place] [employer] A[employer] HEALTHCARE OPTION - PLAN F ([place] A[employer] HEALTHCARE OPTION - PLAN F ([place] Encounters Encounter Performer Location Date Office Visit Maikel Kirkland [place] [facility] [place] Problems Problem Effective Dates Problem Status [...]
--- OUTSIDE RECORDS SUMMARY | 2018-04-20 10:40 | XMS REPORT | Summary of Care ---
:1940 Author Organization [facility] [place] [facility] Encounter [facility] Antonia_carmelita(FIN) [id number] Date(s): 04/24/17 - 04/24/17 [facility] [place] [facility] [address] [place] [address]- [place] [phone] Discharge Disposition: Home or Self Care Attending Physician: Wendy Brown MD Vital Signs No data available for this section Problem List Condition Effective Dates Status Health Status Informant Atrial fibrillation(Confirmed) Resolved GERD (gastroesophageal reflux Active disease)(Confirmed) HLD (hyperlipidemia)(Confirmed) Active HTN (hypertension)(Confirmed) Active Low back pain1 05/14/14 Active Lumbar radiculopathy2 05/14/14 Active Lumbar radiculopathy(Confirmed) Active Lumbar stenosis(Confirmed) Active Obesity(Confirmed) Active Pain(Confirmed) Active Spondylosis(Confirmed)3 Active 1Data migrated from [employer] on 03/15/15.2Data migrated from [employer] on 03/15/15.3Lumbar Allergies, Adverse Reactions, Alerts Substance Reaction Severity Status NKDA Active Medications No data available for this section Results No data available for this section Immunizations No data available for this section Procedures Procedure Date Related Diagnosis Body Site Ablation Appendectomy Cholecystectomy Hysterectomy Knee arthroplasty Social History Social History Type Response Alcohol Never Smoking Status Never smoker; Exposure to Tobacco Smoke None; Cigarette Smoking Last 365 Days No; Reg Smoking Cessation Counseling No Assessment and Plan No data available for this section
--- OUTSIDE RECORDS SUMMARY | 2018-04-20 10:40 | XMS REPORT | Summary of Care ---
:1940 Author Encounter HQ Antonia_carmelita(PARTH) [id number] Date(s): 01/13/15 - 01/13/15 [facility] Outpatient Imaging - [address] [address]- Discharge Disposition: Home Physician Attending: Maikel Kirkland MD Vital Signs No data available for this section Problem List Condition Effective Dates Status Health Status Informant Atrial fibrillation(Confirmed) Resolved GERD (gastroesophageal reflux Active disease)(Confirmed) HLD (hyperlipidemia)(Confirmed) Active HTN (hypertension)(Confirmed) Active Lumbar radiculopathy(Confirmed) Active Lumbar stenosis(Confirmed) Active Obesity(Confirmed) Active Pain(Confirmed) Active Spondylosis(Confirmed)1 Active 1Lumbar Allergies, Adverse Reactions, Alerts Substance Reaction Severity [...]
--- OUTSIDE RECORDS SUMMARY | 2018-04-20 10:40 | XMS REPORT | Summary of Care ---
:1940 Author Organization [facility] [place] Address [address] [place] [address]- Encounter HQ Isidrantr_carmelita(FIN) [id number] Date(s): 03/24/15 - 03/24/15 [facility] Outpatient Imaging [address] [address]- [phone] Discharge Disposition: Home Attending Physician: Gildardo Lovelace MD Vital Signs No data available for [...]
--- OUTSIDE RECORDS SUMMARY | 2018-04-20 10:40 | XMS REPORT | Summary of Care ---
:1940 Author Encounter HQ Antonia_carmelita(FIN) [id number] Date(s): 01/12/15 - 01/12/15 [facility] Outpatient Imaging [address] [address]- [phone] Discharge Disposition: Home Physician Attending: Maikel Kirkland [...]
--- OUTSIDE RECORDS SUMMARY | 2018-04-20 10:40 | XMS REPORT | Summary of Care ---
:1940 Author Organization [facility] Outpatient Imaging [place] Address [address] [place] [address]- Encounter HQ Daniir_carmelita(FIN) [id number] Date(s): 06/22/15 - 06/22/15 [facility] Outpatient Imaging [address] [address]- [phone] Discharge Disposition: Home Attending Physician: Gildardo Lovelace [...]
--- OUTSIDE RECORDS SUMMARY | 2018-04-20 10:40 | XMS REPORT | Summary of Care ---
:1940 Author Encounter HQ Agustin(PARTH) [id number] Date(s): 11/29/14 - 12/02/14 [facility] [address] [place] [address] Professional Services provided by [facility] [place] [address]- Discharge Disposition: Home Physician Attending: Maikel Kirkland MD Physician Admitting: Maikel Kirkland MD Physician_Referring: Maikel Kirkland MD Vital Signs Most recent to oldest 1 2 3 [Reference Range]: Height 165.1 cm (11/29/14 5:35 AM) Temperature Oral [96.4-99.1 94 DegF 98.8 DegF 99.0 DegF DegF] *LOW* (12/02/14 4:09 AM) (12/02/14 2:02 AM) (12/02/14 9:15 AM) Blood Pressure [90-140/60-90 98/56 mmHg 99/60 mmHg 99/51 mmHg mmHg] (12/02/14 9:15 AM) (12/02/14 4:09 AM) (12/02/14 1:42 AM) Respiratory Rate [14-20 BRMIN] 18 BRMIN 12 BRMIN 17 BRMIN (12/02/14 9:15 AM) *LOW* (12/02/14 1:42 AM) (12/02/14 4:09 AM) Peripheral Pulse Rate [60-100 86 bpm 76 bpm 89 bpm bpm] (12/02/14 9:15 AM) (12/02/14 4:09 AM) (12/02/14 1:42 AM) Weight 90.9 kg 90.909 kg (12/01/14 9:00 AM) (11/29/14 5:35 AM) Body Mass Index 33.35 m2 (11/29/14 5:35 AM) Problem List Condition Effective Dates Status Health Status Informant Atrial fibrillation(Confirmed) Resolved GERD (gastroesophageal reflux Active disease)(Confirmed) HLD (hyperlipidemia)(Confirmed) Active HTN (hypertension)(Confirmed) Active Lumbar radiculopathy(Confirmed) Active Lumbar stenosis(Confirmed) Active Obesity(Confirmed) Active Pain(Confirmed) Active Spondylosis(Confirmed)1 Active 1Lumbar Allergies, Adverse Reactions, Alerts Substance Reaction Severity Status NKDA Active Medications acetaminophen-hydrocodone 325 mg-10 mg oral tablet 1 tab, Route: PO, Drug Form: TAB, Dosing Weight 90.909, kg, Q6H, Start date: 06/05 12:00:00, Duration: 30 day, Stop date: 12/29/14 6:00:00 Start Date: 11/29/14 Stop Date: 11/29/14 Status: CanceledAlign 4 mg oral capsule 4 mg=1 cap, PO, Daily, # 28 cap, 0 Refill(s) Start Date: 11/25/14 Status: OrderedAspirin Low Dose 81 mg oral tablet PO, Daily, 0 Refill(s) Start Date: 11/25/14 Status: Orderedatenolol 50 mg oral tablet 50 mg, 1 tab, Route: PO, Drug form: TAB, Daily, Dosing Weight 90.909, kg, Start date: 11/30/14 9:00:00, Duration: 30 day, Stop date: 12/29/14 9:00:00 Notes: (Same As:Tenormin) Start Date: 11/30/14 Stop Date: 12/02/14 Status: Discontinuedatenolol 50 mg oral tablet 100 mg, 1 tab, Route: PO, Drug form: TAB, Bedtime, Dosing Weight 90.909, kg, Start date: 11/29/14 21:00:00, Duration: 30 day, Stop date: 12/28/14 21:00:00 Notes: (Same As:Tenormin) Start Date: 11/29/14 Stop Date: 12/02/14 Status: Discontinuedatenolol 50 mg oral tablet 100 mg=2 tab, PO, Bedtime, 0 Refill(s) Start Date: 11/25/14 Status: Orderedatenolol 50 mg oral tablet 50 mg=1 tab, PO, Daily, # 30 tab, 0 Refill(s) Start Date: 11/25/14 Status: Orderedbiotin 5 mg oral capsule 5 mg=1 cap, PO, Daily, # 30 cap, 0 Refill(s) Start Date: 11/25/14 Status: Orderedbupivacaine liposome 20 mL, Route: InFILtration(local), Drug Form: INJ, ONCE, Start date: 11/29/14 7: 52:00, Stop date: 11/29/14 7:52:00 Notes: (Same as: Exparel) NOT FOR IV use Postoperative analgesia: Infiltration (local): Dose is based on surgical site and volume required to cover the area (in general, the maximum total dose is 266 mg).Bunionectomy: 7 mL into the tissues surrounding the osteotomy and 1 mL into the subcutaneous tissue of the surgical site (total dose=8 mL [106 mg])Hemorrhoidectomy: 30 mL ( 20 mL vial diluted with 10 mL NS) divided and administered as 6 injections of 5 mL each (total dose=30 mL [266 mg]) Start Date: 11/29/14 Stop Date: 11/29/14 Status: CompletedceFAZolin 2 gm, 50 mL, Route: IVPB, Drug form: INJ, PRE OP, Start date: 11/29/14 7:00:00, Duration: 1 day, Stop date: 11/30/14 6:59:00 Start Date: 11/29/14 Stop Date: 12/02/14 Status: DiscontinuedceFAZolin (SCIP) 1 gm, Route: IVPB, Drug form: PDR/INJ, ABXQ8H, Dosing Weight 90.909, kg, Start date: 11/29/14 16:00:00, Duration: 3 doses or times, Stop date: 11/30/14 8:00:00 Notes: (Same As: [place]) MEDICATION WASTE Product Size: 1000 mgProduct Wasted: ___ mg Start Date: 11/29/14 Stop Date: 11/30/14 Status: CompletedCeleBREX 200 mg oral capsule 200 mg=1 cap, PO, Daily, # 30 cap, 0 Refill(s) Start Date: 11/25/14 Status: OrderedCentrum Silver oral tablet 1 tab, PO, Daily, # 30 tab, 0 Refill(s) Start Date: 11/25/14 Status: OrderedDextrose 50% Syringe 12.5 gm, 25 mL, Route: IVP, Drug Form: INJ, Dosing Weight 90.909, kg, PRN, PRN Abnormal Lab Result, Start date: 11/29/14 12:00:00, Duration: 30 day, Stop date : 12/29/14 11:59:00 Start Date: 11/29/14 Stop Date: 12/02/14 Status: DiscontinuedDextrose 50% Syringe 25 gm, 50 mL, Route: IVP, Drug Form: INJ, Dosing Weight 90.909, kg, PRN, PRN Abnormal Lab Result, Start date: 11/29/14 12:00:00, Duration: 30 day, Stop date : 12/29/14 11:59:00 Start Date: 11/29/14 Stop Date: 12/02/14 Status: DiscontinuedDextrose 50% Syringe 6.25 gm, 12.5 mL, Route: IVP, Drug Form: INJ, Dosing Weight 90.909, kg, PRN, PRN Abnormal Lab Result, Start date: 11/29/14 12:00:00, Duration: 30 day, Stop date: 12/29/14 11:59:00 Start Date: 11/29/14 Stop Date: 12/02/14 Status: Discontinueddiazepam 10 mg oral tablet 10 mg=1 tab, PO, Q8H, # 50 tab, 0 Refill(s) Start Date: 11/30/14 Stop Date: 12/01/14 Status: Discontinueddocusate 100 mg, 1 cap, Route: PO, Drug form: CAP, Q12H, Dosing Weight 90.909, kg, Start date: 11/29/14 21:00:00, Duration: 30 day, Stop date: 12/29/14 9:00:00 Notes: (Same as: Colace) (Do Not Crush) Start Date: 11/29/14 Stop Date: 12/02/14 Status: Discontinueddocusate sodium 100 mg oral capsule 100 mg=1 cap, PO, Q12H, # 30 cap, 0 Refill(s) Start Date: 11/30/14 Status: Orderedflumazenil 0.2 mg, 2 mL, Route: IVP, Drug form: INJ, PRN, Dosing Weight 90.909, kg, PRN Benzodiazepine Reversal, Initial dose, Start date: 11/29/14 14:50:00, Duration: 30 day, Stop date: 12/29/14 14:49:00 Notes: (Same as: Romazicon) Start Date: 11/29/14 Stop Date: 11/29/14 Status: Discontinuedgabapentin 300 mg oral capsule 600 mg, 2 cap, Route: PO, Drug form: CAP, Bedtime, Dosing Weight 90.909, kg, Start date: 11/29/14 21:00:00, Duration: 30 day, Stop date: 12/28/14 21:00:00 Notes: (Same as: Neurontin) Start Date: 11/29/14 Stop Date: 12/02/14 Status: Discontinuedgabapentin 300 mg oral capsule 300 mg=1 cap, PO, TID, 0 Refill(s) Start Date: 11/25/14 Status: Orderedheparin 5,000 unit, 1 mL, Route: SUB-Q, Drug form: INJ, Q8H, Dosing Weight 90.909, kg, Start date: 12/01/14 16:00:00, Duration: 30 day, Stop date: 12/31/14 8:00:00 Notes: porcine heparin Start Date: 12/01/14 Stop Date: 12/02/14 Status: Discontinuedhydromorphone 0.5 mg, 0.25 mL, Route: IVP, Drug form: INJ, Q5Min, Dosing Weight 90.909, kg, PRN Pain Score 7-10, Start date: 11/29/14 14:50:00, Duration: 4 doses or times, Stop date: 11/30/14 0:00:00 Notes: Same as: Dilaudid Start Date: 11/29/14 Stop Date: 11/29/14 Status: Discontinuedinsulin regular 100 units/mL human recombinant 7 unit, 0.07 mL, Route: SUB-Q, Drug form: SOLN, PRN, Dosing Weight 90.909, kg, PRN Abnormal Lab Result, Start date: 11/29/14 12:00:00, Duration: 30 day, Stop date: 12/29/14 11:59:00 Notes: (Same as: Humulin R) Roll in palms of hands gently; Do not shake vigorously. "single patientuse only"(Restricted to patients requiring a dose > 60 units) Stable for 28 days at room temperatureExpires in days from ___ Date Start Date: 11/29/14 Stop Date: 12/02/14 Status: Discontinuedinsulin regular 100 units/mL human recombinant 5 unit, 0.05 mL, Route: SUB-Q, Drug form: SOLN, PRN, Dosing Weight 90.909, kg, PRN Abnormal Lab Result, Start date: 11/29/14 12:00:00, Duration: 30 day, Stop date: 12/29/14 11:59:00 Notes: (Same as: Humulin R) Roll in palms of hands gently; Do not shake vigorously. "single patientuse only"(Restricted to patients requiring a dose > 60 units) Stable for 28 days at room temperatureExpires in days from ___ Date Start Date: 11/29/14 Stop Date: 12/02/14 Status: Discontinuedinsulin regular 100 units/mL human recombinant 3 unit, 0.03 mL, Route: SUB-Q, Drug form: SOLN, PRN, Dosing Weight 90.909, kg, PRN Abnormal Lab Result, Start date: 11/29/14 12:00:00, Duration: 30 day, Stop date: 12/29/14 11:59:00 Notes: (Same as: Humulin R) Roll in palms of hands gently; Do not shake vigorously. "single patientuse only"(Restricted to patients requiring a dose > 60 units) Stable for 28 days at room temperatureExpires in days from ___ Date Start Date: 11/29/14 Stop Date: 12/02/14 Status: Discontinuedlabetalol 10 mg, 2 mL, Route: IVP, Drug form: INJ, Q5Min, Dosing Weight 90.909, kg, PRN Elevated BP, Start date: 11/29/14 14:50:00, Duration: 5 doses or times, Stop date: 11/30/14 0:00:00 Start Date: 11/29/14 Stop Date: 11/29/14 Status: DiscontinuedLexapro 10 mg, 1 tab, Route: PO, Drug form: TAB, Daily, Dosing Weight 90.909, kg, Start date: 11/30/14 9:00:00, Duration: 30 day, Stop date: 12/29/14 9:00:00 Notes: (Same as: Lexapro) Start Date: 11/30/14 Stop Date: 12/02/14 Status: DiscontinuedLexapro 10 mg oral tablet 10 mg=1 tab, PO, Daily, # 30 tab, 0 Refill(s) Start Date: 11/25/14 Status: Orderedlosartan 100 mg, 2 tab, Route: PO, Drug form: TAB, Daily, Dosing Weight 90.909, kg, Start date: 11/30/14 9:00:00, Duration: 30 day, Stop date: 12/29/14 9:00:00 Notes: (Same as: Cozaar) Start Date: 11/30/14 Stop Date: 12/02/14 Status: Discontinuedlosartan 100 mg oral tablet 100 mg=1 tab, PO, Daily, # 30 tab, 0 Refill(s) Start Date: 11/25/14 Status: Orderedmorphine 1 mg/ml MANAGER PHP (30 mg/30 mL) INJ Syringe 30 mg 30 mg, 30 mL, Route: IV, Initial Loading Dose: 2 mg, MANAGER PHP Dose: 1 mg, MANAGER PHP Lockout: 10 minutes, Continuous Basal Rate: 0 mg, 4 Hour Limit (In MG): 30, Drug Form: INJ, Continuous, Start date: 11/29/14 12:00:00, Duration: 30 day, Stop date: 12/29/14 11:5... Notes: Dose: Delay: Basal rate: 4hr limit:( Same as:Edgardo-Eneida) Start Date: 11/29/14 Stop Date: 12/01/14 Status: Discontinuedmorphine Sulfate 2 mg, Route: IVP, Q1H, Dosing Weight 90.909, kg, PRN Pain Score 7-10, Start date : 11/29/14 12:00:00,Duration: 30 day, Stop date: 12/29/14 11:59:00 Start Date: 11/29/14 Stop Date: 11/29/14 Status: Cancelednaloxone 0.04 mg, 0.1 mL, Route: IVP, Drug form: INJ, Q2MIN, Dosing Weight 90.909, kg, PRN Narcotic Reversal,Start date: 11/29/14 14:50:00, Duration: 8 doses or times , Stop date: 11/30/14 0:00:00 Notes: Same as Narcan Start Date: 11/29/14 Stop Date: 11/29/14 Status: Discontinuednaloxone 0.04 mg, 0.1 mL, Route: IVP, Drug form: INJ, Q2MIN, Dosing Weight 90.909, kg, PRN Narcotic Reversal,Start date: 11/29/14 12:00:00, Duration: 30 day, Stop date : 12/29/14 11:59:00 Notes: Same as Narcan Start Date: 11/29/14 Stop Date: 12/01/14 Status: DiscontinuedNorco 10/325 oral tablet 1 tab, Route: PO, Drug Form: TAB, Dosing Weight 90.909, kg, Q4H, Start date: 06/05 16:00:00, Duration: 30 day, Stop date: 12/29/14 12:00:00 Notes: Do not exceed 4gm/day of acetaminophen. (Same as: [place] 325/10) Start Date: 11/29/14 Stop Date: 12/01/14 Status: DiscontinuedNorco 5/325 oral tablet 1 tab, Route: PO, Drug Form: TAB, Dosing Weight 90.909, kg, Q6H, Start date: 7:00:00, Duration: 30 day, Stop date: 12/31/14 6:00:00 Notes: (Same as: [place] 325/5) Do not exceed 4gm/day of acetaminophen. Start Date: 12/01/14 Stop Date: 12/02/14 Status: DiscontinuedNS (Bolus) IV 250 mL, 250 ml/hr, Infuse Over: 1 hr, Route: IV, 250, Drug form: INJ, ONCE, Priority: STAT, Dosing Weight 90.909 kg, Start date: 12/01/14 4:28:00, Duration : 1 doses or times, Stop date: 12/01/14 4:28:00 Start Date: 12/01/14 Stop Date: 12/01/14 Status: Orderedondansetron 4 mg, 2 mL, Route: IVP, Drug form: INJ, ONCE, Dosing Weight 90.909, kg, PRN Nausea & Vomiting, Start date: 11/29/14 14:50:00 Notes: (Same as: Brittany) MEDICATION WASTE Product Size: 4 mgProduct Wasted: __0_ mg Start Date: 11/29/14 Stop Date: 11/29/14 Status: Discontinuedondansetron 4 mg, 2 mL, Route: IVP, Drug form: INJ, Q8H, Dosing Weight 90.909, kg, PRN Nausea & Vomiting, Start date: 11/29/14 12:00:00, Duration: 30 day, Stop date: 12/29/14 11:59:00 Notes: (Same as: Brittany) MEDICATION WASTE Product Size: 4 mgProduct Wasted: ___ mg Start Date: 11/29/14 Stop Date: 12/02/14 Status: DiscontinuedPamelor 25 mg, 1 cap, Route: PO, Drug form: CAP, Bedtime, Dosing Weight 90.909, kg, Start date: 11/29/14 21:00:00, Duration: 30 day, Stop date: 12/28/14 21:00:00 Notes: (Same as:Margarita Nelsontyl) Start Date: 11/29/14 Stop Date: 12/02/14 Status: DiscontinuedPamelor 25 mg oral capsule 25 mg=1 cap, PO, TID, 0 Refill(s) Start Date: 11/25/14 Status: OrderedPrevacid 30 mg, Route: PO, Drug form: DRC, Daily, Dosing Weight 90.909, kg, Start date: 11/30/14 9:00:00, Duration: 30 day, Stop date: 12/29/14 9:00:00 Start Date: 11/30/14 Stop Date: 11/29/14 Status: DeletedPrevacid 30 mg oral delayed release capsule 30 mg=1 cap, PO, Daily, # 30 cap, 0 Refill(s) Start Date: 11/25/14 Status: OrderedProtonix 40 mg, 1 tab, Route: PO, Drug form: ECTAB, Before Breakfast, Start date: 7:30:00, Duration:30 day, Stop date: 12/29/14 7:30:00 Notes: (Same as: Protonix) Start Date: 11/30/14 Stop Date: 12/02/14 Status: DiscontinuedSaline Flush 0.9% 10 ml, Route: IVP, Drug Form: INJ, Dosing Weight 90.909, kg, Q12H, Start date: 11/29/14 21:00:00, Duration: 30 day, Stop date: 12/29/14 9:00:00 Notes: Same as: BD Posiflush Sterile Start Date: 11/29/14 Stop Date: 12/02/14 Status: DiscontinuedSaline Flush 0.9% 10 ml, Route: IVP, Drug Form: INJ, Dosing Weight 90.909, kg, PRN, PRN Line Flush , Start date: 11/29/14 12:00:00, Duration: 30 day, Stop date: 12/29/14 11:59:00 Notes: Same as: BD Posiflush Sterile Start Date: 11/29/14 Stop Date: 12/02/14 Status: Discontinuedsenna 8.6 mg, 1 tab, Route: PO, Drug Form: TAB, Dosing Weight 90.909, kg, Q12H, Start date: 11/29/14 21:00:00, Duration: 30 day, Stop date: 12/29/14 9:00:00 Notes: (Same as: Senokot) Start Date: 11/29/14 Stop Date: 12/02/14 Status: Discontinuedsenna 8.6 mg oral tablet 8.6 mg=1 tab, PO, Q12H, # 30 tab, 0 Refill(s) Start Date: 11/30/14 Stop Date: 12/14/14 Status: OrderedSodium Chloride 0.9% (Bolus) IV 1,000 mL, 1,000 ml/hr, Infuse Over: 1 hr, Route: IV, 1,000, Drug form: INJ, ONCE , Priority: STAT, Dosing Weight 90.909 kg, Start date: 12/01/14 5:18:00, Duration: 1 doses or times, Stop date: 12/01/14 5:18:00 Start Date: 12/01/14 Stop Date: 12/01/14 Status: OrderedSodium Chloride 0.9% IV 1,000 mL 1,000 mL, Rate: 75 ml/hr, Infuse over: 13.3 hr, Route: IV, Dosing Weight 90.909 kg, Total Volume: 1,000, Start date: 11/29/14 12:00:00, Stop date: 12/29/14 11: 59:00 Start Date: 11/29/14 Stop Date: 12/02/14 Status: Discontinuedtramadol 50 mg oral tablet 50 mg, 1 tab, Route: PO, Drug form: TAB, Q6H, Dosing Weight 90.9, kg, PRN Pain Score 4-6, Start date: 12/01/14 21:03:00, Duration: 30 day, Stop date: 12/31/14 21:02:00 Notes: . (Same As: Ultram) Start Date: 12/01/14 Stop Date: 12/02/14 Status: DiscontinuedTylenol PO, PRN, 0 Refill(s) Start Date: 11/25/14 Status: OrderedTylenol with Codeine #3 oral tablet 1 tab, PO, Q6H, PRN pain, X 14 day, # 56 tab, 0 Refill(s) Start Date: 11/30/14 Stop Date: 12/14/14 Status: OrderedValium 10 mg, 1 tab, Route: PO, Drug form: TAB, Q8H, Dosing Weight 90.909, kg, Start date: 11/29/14 12:00:00, Duration: 30 day, Stop date: 12/29/14 8:00:00 Notes: (Same as: Valium) Start Date: 11/29/14 Stop Date: 12/01/14 Status: DiscontinuedValium 10 mg, 1 tab, Route: PO, Drug form: TAB, ONCE, Start date: 12/01/14 10:30:00, Stop date: 12/01/14 10:30:00 Notes: (Same as: Valium) Start Date: 12/01/14 Stop Date: 12/01/14 Status: Discontinued Results BLOOD BANK RESULTS Most recent to oldest [Reference Range]: 1 2 3 ABO/Rh O POS *Unknown* (11/29/14 5:49 AM) Antibody Scrn Negative (11/29/14 5:49 AM) RBC product Product available (12/01/14 2:36 AM) ELECTROLYTES Most recent to oldest [Reference Range]: 1 2 3 Sodium Lvl [135-145 mEq/L] 144 mEq/L (11/29/14 2:46 PM) Potassium Lvl [3.5-5.1 mEq/L] 4.3 mEq/L (11/29/14 2:46 PM) Chloride Lvl [95-109 mEq/L] 112 mEq/L *HI* (11/29/14 2:46 PM) CO2 [24-32 mEq/L] 25 mEq/L (11/29/14 2:46 PM) AGAP [10.0-20.0 mEq/L] 11.3 mEq/L (11/29/14 2:46 PM) CHEM PANEL Most recent to oldest [Reference Range]: 1 2 3 Creatinine Lvl [0.5-1.4 mg/dL] 1.0 mg/dL (11/29/14 2:46 PM) eGFR 55 mL/min/1.73m2 1 *NA* (11/29/14 2:46 PM) BUN [7-22 mg/dL] 19 mg/dL (11/29/14 2:46 PM) Glucose Lvl [70-99 mg/dL] 141 mg/dL 2 *HI* (11/29/14 2:46 PM) Calcium Lvl [8.5-10.5 mg/dL] 8.2 mg/dL *LOW* (11/29/14 2:46 PM) 1Result Comment: The eGFR is calculated using the CKD-EPI formula. In most young , healthy individualsthe eGFR will be >90 mL/min/1.73m2. The eGFR declines with age. An eGFR of 60-89 may be normal in some populations, particularly the elderly, for whom the CKD-EPI formula has not been extensively validated. Use of the eGFR is not recommended in the following populations: Individuals with unstable creatinine concentrations, including patients and those with serious co-morbid conditions. Patients with extremes in muscle mass or diet. The data above are obtained from the National Kidney Disease Education Program ( NKDEP) which additionally recommends that when the eGFR is used in patients with extremes of body mass index for purposesof drug dosing, the eGFR should be multiplied by the estimated BMI.2Interpretive Data: Adult reference range values reflect the clinical guidelines of the [place] [employer].HEMATOLOGY Most recent to oldest 1 2 3 [Reference Range]: WBC [3.7-10.4 K/CMM] 6.6 K/CMM (11/29/14 2:46 PM) RBC [4.20-5.40 M/CMM] 2.48 M/CMM *LOW* (11/29/14 2:46 PM) Hgb [12.0-16.0 g/dL] 8.4 g/dL 8.5 g/dL 6.9 g/dL 3 *LOW* *LOW* *CRIT* (12/02/14 12:12 AM) (12/01/14 12:23 PM) (12/01/14 12:55 AM) Hct [36.0-48.0 %] 24.8 % 25.4 % 21.1 % *LOW* *LOW* *LOW* (12/02/14 12:12 AM) (12/01/14 12:23 PM) (12/01/14 12:55 AM) MCV [80.0-98.0 fL] 95.1 fL (11/29/14 2:46 PM) MCH [27.0-31.0 pg] 31.7 pg *HI* (11/29/14 2:46 PM) MCHC [32.0-36.0 g/dL] 33.3 g/dL (11/29/14 2:46 PM) RDW [11.5-14.5 %] 13.5 % (11/29/14 2:46 PM) Platelet [133-450 K/CMM] 162 K/CMM (11/29/14 2:46 PM) MPV [7.4-10.4 fL] 7.8 fL (11/29/14 2:46 PM) Segs [45.0-75.0 %] 65.7 % (11/29/14 2:46 PM) Lymphocytes [20.0-40.0 %] 24.3 % (11/29/14 2:46 PM) Monocytes [2.0-12.0 %] 7.9 % (11/29/14 2:46 PM) Eosinophils [0.0-4.0 %] 1.5 % (11/29/14 2:46 PM) Basophils [0.0-1.0 %] 0.6 % (11/29/14 2:46 PM) Segs-Bands # [1.5-8.1 K/CMM] 4.3 K/CMM (11/29/14 2:46 PM) Lymphocytes # [1.0-5.5 K/CMM] 1.6 K/CMM (11/29/14 2:46 PM) Monocytes # [0.0-0.8 K/CMM] 0.5 K/CMM (11/29/14 2:46 PM) Eosinophils # [0.0-0.5 K/CMM] 0.1 K/CMM (11/29/14 2:46 PM) 3Result Comment: Critical Result(s) called to jolie martínez at 12/01/2014 02:00 by_ s.o Read back OK. Immunizations No data available for this section [...]
[2018-04-20 11:21] LABS: Protime INR 1.01
[2018-04-20 11:24] LABS: Absolute Lymphocytes (CBC) 0.7 K/uL (0.7-4.9); Absolute Monocytes 0.4 K/uL (0.1-1.3); Absolute Neutrophil 2.8 K/uL (1.8-8.0); Basophils % 0.7 % (0-1.3); Eosinophils % 4.3 % (0-4.4); Hematocrit 37.8 % (36.0-45.0); Lymphocytes % 17.2 % (15.3-44.8); MCH 30.9 pg (27.0-35.0); MCV 90.4 fL (80-100); MPV 7.5 fL (7.6-11.3); Monocytes % 10.4 % (3.3-12.3); RBC Red Blood Cell Count 4.18 M/uL (3.86-4.86)
[2018-04-20 11:39] LABS: ALT/SGPT 25 U/L (12-78); AST/SGOT 31 U/L (15-37); Albumin 3.7 g/dL (3.4-5.0); Alkaline Phosphatase 87 U/L (45-117); BUN Blood Urea Nitrogen 19 mg/dL (7-18); Bicarbonate 26 mmol/L (21-32); Bilirubin Direct 0.2 mg/dL (0-0.2); Bilirubin Total 0.6 mg/dL (0.2-1.0); Glucose Level 95 mg/dL (74-106); NT PRO-BNP 49 pg/mL (<450); Potassium 4.4 mmol/L (3.5-5.1); Protein, Total 7.1 g/dL (6.4-8.2); Sodium Level 142 mmol/L (136-145); Troponin (Emerg Dept Use Only) < 0.02 ng/mL (0.0-0.045)
--- NOTE | 2018-04-20 12:19 | RAD REPORT ---
EXAM DESCRIPTION: RAD - Chest Single View - 04/20/2018 12:14 pm CLINICAL HISTORY: CHEST PAIN Chest pain. COMPARISON: CHEST PA AND LAT 2 VIEW dated 11/19/2010; CHEST SINGLE VIEW dated 11/18/2010; CHEST PA AND LAT 2 VIEW dated 09/05/2005 FINDINGS: Portable technique limits examination quality. The lungs are grossly clear. The heart is normal in size. No displaced fractures. IMPRESSION: No acute intrathoracic process suspected.
--- NOTE | 2018-04-20 14:05 | ER ---
Nurse's Notes [facility] Name: Mary Norris Age: 77 yrs Sex: Female : 1940 Arrival Date: 04/20/2018 Time: 10:37 Bed 8 Private MD: out of town, doctor Diagnosis: Chest pain, unspecified Presentation: 04/20 10:41 Presenting complaint: Patient states: Chest pressure x 3 episodes today that have aj resolved. Denies N/V SOB. Transition of care: patient was not received from another setting of care. Onset of symptoms was April 20, 2018. Risk Assessment: Do you want to hurt yourself or someone else? Patient reports no desire to harm self or others. Initial Sepsis Screen: Does the patient meet any 2 criteria? No. Patient's initial sepsis screen is negative. Does the patient have a suspected source of infection? No. Patient's initial sepsis screen is negative. Care prior to arrival: Medication(s) given: ASA, 325 mg, x 1. 10:41 Method Of Arrival: EMS: [facility] 10:41 Acuity: DENNIS 3 aj Triage Assessment: 10:45 General: Appears in no apparent distress. comfortable, Behavior is calm, cooperative, aj appropriate for age. Pain: Denies pain. Neuro: Level of Consciousness is awake, alert, obeys commands, Oriented to person, place, time, situation, Appropriate for age. Cardiovascular: Reports chest pain, Capillary refill < 3 seconds in bilateral fingers Patient's skin is warm and dry. Rhythm is regular Chest pain is described as mild, quality is pressure, is located in epigastric area episodes are intermittent Since resolved. Respiratory: Airway is patent Respiratory effort is even, unlabored, Respiratory pattern is regular, symmetrical. Derm: Skin is intact, is healthy with good turgor, Skin is pink, warm \T\ dry. normal. Historical: - Allergies: 10:45 No Known Allergies; aj - Home Meds: 10:45 aspirin 325 mg Oral tab 1 tab once daily [Active]; Lipitor Oral [Active]; valsartan aj Oral [Active]; Lyrica Oral [Active]; Nexium Oral [Active]; Lisinopril Oral [Active]; - PMHx: 10:45 GERD; Hyperlipidemia; Irritable bowel syndrome; Hypertension; aj - PSHx: 10:45 Cardiac Ablation; aj - Immunization history:: Adult Immunizations up to date. - Social history:: Smoking status: Patient/guardian denies using tobacco. - Ebola Screening: : Patient negative for fever greater than or equal to 101.5 degrees Fahrenheit, and additional compatible Ebola Virus Disease symptoms Patient denies exposure to infectious person Patient denies travel to an Ebola-affected area in the 21 days before illness onset No symptoms or risks identified at this time. Screenin:06 Abuse screen: Denies threats or abuse. Denies injuries from another. Nutritional aj screening: No deficits noted. Tuberculosis screening: No symptoms or risk factors identified. Fall Risk None identified. Assessment: 11:06 Reassessment: Patient appears in no apparent distress at this time. No changes from aj previously documented assessment. Patient and/or family updated on plan of care and expected duration. Pain level reassessed. Patient is alert, oriented x 3, equal unlabored respirations, skin warm/dry/pink. is at bedside. Patient denies pain at this time. Patient states feeling better. Patient states symptoms have improved. 12:05 Reassessment: Patient appears in no apparent distress at this time. No changes from aj previously documented assessment. Patient and/or family updated on plan of care and expected duration. Pain level reassessed. Patient is alert, oriented x 3, equal unlabored respirations, skin warm/dry/pink. and daughters at bedside Patient denies pain at this time. Patient states feeling better. 13:49 Reassessment: Patient appears in no apparent distress at this time. No changes from aj previously documented assessment. Patient and/or family updated on plan of care and expected duration. Pain level reassessed. Patient is alert, oriented x 3, equal unlabored respirations, skin warm/dry/pink. and daughters are at bedside Patient denies pain at this time. Patient states feeling better. Patient states symptoms have improved. 14:58 Reassessment: Patient appears in no apparent distress at this time. No changes from aj previously documented assessment. Patient and/or family updated on plan of care and expected duration. Pain level reassessed. Patient is alert, oriented x 3, equal unlabored respirations, skin warm/dry/pink. Patient denies pain at this time. Patient states feeling better. Patient states symptoms have improved. Vital Signs: 10:45 BP 146 / 76; Pulse 79; Resp 20; Temp 98.0; Pulse Ox 98% on R/A; Weight 83.46 kg; Height aj 5 ft. 3 in. (160.02 cm); 12:01 BP 129 / 84; Pulse 73; Resp 18; Pulse Ox 98% on R/A; aj 12:42 BP 134 / 79; Pulse 77; Resp 17; Pulse Ox 99% on R/A; jb1 13:48 BP 123 / 76; Pulse 77; Resp 17; Pulse Ox 100% on R/A; aj 10:45 Body Mass Index 32.59 (83.46 kg, 160.02 cm) aj Vitals: 11:06 Cardiac Rhythm Assessment Regular. aj ED Course: 10:37 Patient arrived in ED. mr 10:38 out of town, doctor is Private Physician. mr 10:41 Laura Diamond, RN is Primary Nurse. aj 10:42 Triage completed. aj 10:45 Arm band placed on right wrist. Patient placed in an exam room, on a stretcher. EKG aj completed in triage. Results shown to MD. 10:49 Ander Michaels MD is Attending Physician. gs 11:06 Patient has correct armband on for positive identification. Placed in gown. Bed in low aj position. Call light in reach. Side rails up X 1. Adult w/ patient. awake overnight monitor on. Pulse ox on. NIBP on. 11:06 Inserted saline lock: 20 gauge in right forearm, using aseptic technique. Blood aj collected. Patient maintains SpO2 saturation greater than 95% on room air. 11:33 X-ray completed. Portable x-ray completed in exam room. Patient tolerated procedure tm4 well. 11:35 XRAY Chest (1 view) In Process Unspecified. tm4 12:09 XRAY Chest (1 view) Sent. aj 14:04 Davis Kulkarni MD is Referral Physician. gs 14:58 No provider procedures requiring assistance completed. IV discontinued, intact, aj bleeding controlled, No redness/swelling at site. Pressure dressing applied. Administered Medications: No medications were administered Outcome: 14:04 Discharge ordered by MD. gs 14:58 Discharged to home ambulatory, with family. aj 14:58 Condition: good 14:58 Discharge instructions given to patient, family, Instructed on discharge instructions, follow up and referral plans. Demonstrated understanding of instructions, follow-up care, medications. 15:00 Patient left the ED. aj Signatures: Dispatcher [employer] [place] jb1 Laura Diamond RN RN aj Rivera, Mary mr LaraJoy king tm4 Ander Michaels MD MD gs Corrections: (The following items were deleted from the chart) 12:24 12:14 In radiology for Chest Single View+RAD.RAD.[email or web address]. TATIANA tm4
--- NOTE | 2018-04-20 14:05 | EDPHYS ---
Physician Documentation [facility] Name: Mary Norris Age: 77 yrs Sex: Female : 1940 Arrival Date: 04/20/2018 Time: 10:37 Bed 8 Private MD: out of town, doctor ED Physician Ander Michaels HPI: 04/20 13:15 This 77 yrs old Female presents to ER via EMS with complaints of Chest gs Pressure. 13:15 The patient or guardian reports chest pain that is located primarily in the anterior gs chest wall, right. Onset: acutely, just prior to arrival. The pain does not radiate. Associated signs and symptoms: Pertinent negatives: abdominal pain, diaphoresis, dizziness, shortness of breath. The chest pain is described as a heaviness. Duration: The patient or guardian reports a single episode, that lasted 5 second(s). Modifying factors: The symptoms are alleviated by nothing. the symptoms are aggravated by nothing. Severity of pain: At its worst the pain was moderate in the emergency department the pain has resolved and did so earlier today. The patient has experienced similar episodes in the past, a few times. Historical: - Allergies: 10:45 No Known Allergies; aj - Home Meds: 10:45 aspirin 325 mg Oral tab 1 tab once daily [Active]; Lipitor Oral [Active]; valsartan aj Oral [Active]; Lyrica Oral [Active]; Nexium Oral [Active]; Lisinopril Oral [Active]; - PMHx: 10:45 GERD; Hyperlipidemia; Irritable bowel syndrome; Hypertension; aj - PSHx: 10:45 Cardiac Ablation; aj - Immunization history:: Adult Immunizations up to date. - Social history:: Smoking status: Patient/guardian denies using tobacco. - Ebola Screening: : Patient negative for fever greater than or equal to 101.5 degrees Fahrenheit, and additional compatible Ebola Virus Disease symptoms Patient denies exposure to infectious person Patient denies travel to an Ebola-affected area in the 21 days before illness onset No symptoms or risks identified at this time. ROS: 13:15 All other systems are negative. gs Exam: 13:15 Head/Face: Normocephalic, atraumatic. Eyes: Pupils equal round and reactive to light, gs extra-ocular motions intact. Lids and lashes normal. Conjunctiva and sclera are non-icteric and not injected. Cornea within normal limits. Periorbital areas with no swelling, redness, or edema. ENT: Nares patent. No nasal discharge, no septal abnormalities noted. Tympanic membranes are normal and external auditory canals are clear. Oropharynx with no redness, swelling, or masses, exudates, or evidence of obstruction, uvula midline. Mucous membranes moist. Neck: Trachea midline, no thyromegaly or masses palpated, and no cervical lymphadenopathy. Supple, full range of motion without nuchal rigidity, or vertebral point tenderness. No Meningismus. Chest/axilla: Normal chest wall appearance and motion. Nontender with no deformity. No lesions are appreciated. Cardiovascular: Regular rate and rhythm with a normal S1 and S2. No gallops, murmurs, or rubs. Normal PMI, no JVD. No pulse deficits. Respiratory: Lungs have equal breath sounds bilaterally, clear to auscultation and percussion. No rales, rhonchi or wheezes noted. No increased work of breathing, no retractions or nasal flaring. Abdomen/GI: Soft, non-tender, with normal bowel sounds. No distension or tympany. No guarding or rebound. No evidence of tenderness throughout. Back: No spinal tenderness. No costovertebral tenderness. Full range of motion. Skin: Warm, dry with normal turgor. Normal color with no rashes, no lesions, and no evidence of cellulitis. MS/ Extremity: Pulses equal, no cyanosis. Neurovascular intact. Full, normal range of motion. Neuro: Awake and alert, GCS 15, oriented to person, place, time, and situation. Cranial nerves II-XII grossly intact. Motor strength 5/5 in all extremities. Sensory grossly intact. Cerebellar exam normal. Normal gait. 13:15 Constitutional: The patient appears alert, awake. 15:06 ECG was reviewed by the Attending Physician. Vital Signs: 10:45 BP 146 / 76; Pulse 79; Resp 20; Temp 98.0; Pulse Ox 98% on R/A; Weight 83.46 kg; Height aj 5 ft. 3 in. (160.02 cm); 12:01 BP 129 / 84; Pulse 73; Resp 18; Pulse Ox 98% on R/A; aj 12:42 BP 134 / 79; Pulse 77; Resp 17; Pulse Ox 99% on R/A; jb1 13:48 BP 123 / 76; Pulse 77; Resp 17; Pulse Ox 100% on R/A; aj 10:45 Body Mass Index 32.59 (83.46 kg, 160.02 cm) aj MDM: 11:00 Patient medically screened. 13:15 Differential diagnosis: acute myocardial infarction, anxiety, chest wall pain, stable gs angina, unstable angina. Data reviewed: vital signs, nurses notes. Response to treatment: the patient's symptoms have resolved after treatment, the patient's pain is gone. 04/20 11:01 Order name: Basic Metabolic Panel; Complete Time: 11: 04/20 11:01 Order name: CBC with Diff; Complete Time: 04/20 11: Order name: LFT's; Complete Time: 04/20 11: Order name: Magnesium; Complete Time: 04/20 11:01 Order name: NT PRO-BNP; Complete Time: 04/20 11:01 Order name: PT-INR; Complete Time: 04/20 11:01 Order name: Troponin (emerg Dept Use Only); Complete Time: : 04/20 11:01 Order name: XRAY Chest (1 view); Complete Time: 12:39 04/20 11:01 Order name: EKG; Complete Time: 11: 04/20 11:01 Order name: Cardiac monitoring; Complete Time: 11: 04/20 11:01 Order name: EKG - Nurse/Tech; Complete Time: 11: 04/20 11:01 Order name: IV Saline Lock; Complete Time: : 04/20 11:01 Order name: Labs collected and sent; Complete Time: 11: 04/20 12:42 Order name: Troponin (emerg Dept Use Only); Complete Time: 14:04 04/20 11: Order name: O2 Per Protocol; Complete Time: : 04/20 11:01 Order name: O2 Sat Monitoring; Complete Time: 11: EC:06 Rate is 74 beats/min. Rhythm is regular. MD interval is prolonged. QRS interval is gs prolonged. T waves are Normal. No ST changes noted. Clinical impression: Abnormal EKG without significant change. Interpreted by me. Administered Medications: No medications were administered Disposition: 04/20/18 14:04 Discharged to Home. Impression: Chest pain, unspecified. - Condition is Stable. - Discharge Instructions: Nonspecific Chest Pain. - Medication Reconciliation Form, Thank You Letter, Antibiotic Education, Prescription Opioid Use form. - Follow up: Davis Kulkarni MD; When: 2 - 3 days; Reason: Re-evaluation by your physician. Signatures: Dispatcher [employer] Laura Singh RN RN aj Starr, Gregory, MD MD Corrections: (The following items were deleted from the chart) 15:00 14:04 04/20/2018 14:04 Discharged to Home. Impression: Chest pain, unspecified. aj Condition is Stable. Forms are Medication Reconciliation Form, Thank You Letter, Antibiotic Education, Prescription Opioid Use. Follow up: Davis Kulkarni; When: 2 - 3 days; Reason: Re-evaluation by your physician. gs
--- NOTE | 2018-04-21 06:48 | EKG ---
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
== END 2018-04-20 15:00 | disposition home or self-care (01) ==
LOC: ER 10:36
DX: R07.9 Chest pain, unspecified (principal); I10 Essential (primary) hypertension; E78.5 Hyperlipidemia, unspecified; K21.9 Gastro-esophageal reflux disease without esophagitis; Z79.82 Long term (current) use of aspirin
CPT/HCPCS: 36415; 71045; 80048; 80076; 83735; 83880; 84484; 85025; 85610; 93005; 99285

== ENCOUNTER 2018-08-09 17:36 | Observation (INO) | payer OTHER, MEDICARE ==
--- OUTSIDE RECORDS SUMMARY | 2018-08-09 17:38 | XMS REPORT | Clinical Summary ---
:1940 Author Organization [facility] Address [address] [place] [address] Care Team Providers Name Role Phone Unavailable Primary Care Provider Unavailable Allergies Active Allergy Reactions Severity Noted Date Comments No Known Drug Allergies 01/16/2016 Medications Not on file Active Problems Not on file Family History Medical History Relation Name Comments Pancreatic cancer Father Relation Name Status Comments Father Social History Tobacco Use Types Packs/Day Years Used Date Never Smoker Alcohol Use Drinks/Week oz/Week Comments No Sex Assigned at Date Recorded Not on file Job Start Date Occupation Industry Not on file Not on file Not on file Travel History Travel Start Travel End No recent travel history available. Last Filed Vital Signs Not on file Plan of Treatment Health Maintenance Due Date Last Done Comments SHINGLES VACCINES (1 of 2) 1988 PNEUMOCOCCAL POLYSACCHARIDE VACCINE AGE 65 AND OVER 2003 PNEUMOCOCCAL-13 2003 INFLUENZA VACCINE 02/19/2018 Results Not on fileafter 08/08/2017 Insurance Payer Benefit Plan / Group Subscriber ID Type Phone Address AARP AARP SUPPLEMENT xxxxxxxxxxx Commercial MEDICARE MEDICARE PART A AND B xxxxxxxxxx Medicare [place], [place] [address] (Home) [place] [address] Advance Directives Patient has advance care planning documents on file. For more information, please contact:[facility] [place] [address]
--- OUTSIDE RECORDS SUMMARY | 2018-08-09 17:39 | XMS REPORT | Continuity of Care Document ---
:1940 Author Organization Interface Problems Problem Status Onset Classification Date Comments Source Date Reported M54.5 - LOW BACK Active 06/10/20 [facility] PAIN 15 [place] 724.4 - Active 01/14/20 [facility] LUMBOSACRAL HEBER [...] Problem 04/27/2017 Data [facility] pain<sup>1</sup> 14 migrated [place] [facility] on 03/15/15. [place] Lumbar Active 05/14/20 Problem 04/27/2017 Data [facility] radiculopathy<sup> 14 migrated [place] 2</sup> from [facility] on 03/15/15. [place] Spondylosis<sup>1< Active Problem 01/16/2015 1Lumbar [facility] /sup> [place]vie, JI [place] Atrial Resolved Problem 04/27/2017 OPIKassandra fibrillation [facility] [place] [facility] GERD (<span Active Problem 04/27/2017 [facility] ID="[id number]">Kenneth Hubbard onfirmed</span>) [facility] [place] [facility] HLD (<span Active Problem 04/27/2017 [facility] ID="[id number]">Kenneth Hubbard onfirmed</span>) [facility] [place] [facility] HTN (<span Active Problem 04/27/2017 [facility] ID="[id number]">Kenneth Hubbard onfirmed</span>) [facility] [place] [facility] Lumbar Active Problem 04/27/2017 [facility] radiculopathy Stevie, JI [place],[facility], [facility] [place] [facility] Lumbar stenosis Active Problem 04/27/2017 [facility]I Hubbard[facility] [place] [facility] Obesity Active Problem 04/27/2017 JI Hubbard, JI [place],[facility], [facility] [place] [facility] Pain Active Problem 04/27/2017 [facility]I Hubbard[facility] [place] [facility] Spondylosis<sup>3< Active Problem 04/27/2017 Lumbar [facility] /sup> [facility], JI Hubbard LUMBOSACRAL Active [facility] LUMBOSACRAL Active [facility] NEURITIS [facility] LUMBAGO Active [facility] Medications Medication Details Route Status Patient Ordering Order Source Instructions Provider Date ZANAFLEX 4 MG 1 tab q 8 hrs No Longer 12/16/ [place] TABS prn muscle Active 2014 Neuro spasms tramadol 50 mg, 1 tab, No Longer 12/02/ [place] hydrochloride 50 Route: PO, Drug Active 2014 Medical MG Oral Tablet form: TAB, Q6H, Center Dosing Weight 90.9, kg, PRN Pain Score 4-6, Start date: 12/01/14 21:03:00, Duration: 30 day, Stop date: 12/31/14 21:02:00Notes: . (Same As: Ultram) heparin 5,000 unit, 1 No Longer [facility] mL, Route: Active 2014 Medical SUB-Q, Drug Center form: INJ, Q8H, Dosing Weight 90.909, kg, Start date: 12/01/14 16:00:00, Duration: 30 day, Stop date: 12/31/14 8:00:00Notes: porcine heparin Valium 10 mg, 1 tab, Inactive [facility] Route: PO, Drug 2014 Medical form: TAB, ONCE, Center Start date: 12/01/14 10:30:00, Stop date: 12/01/14 10:30:00Notes: (Same as: Valium) Acetaminophen 325 1 tab, Route: No Longer [facility] MG / Hydrocodone PO, Drug Form: Active 2014 Medical Bitartrate 5 MG TAB, Dosing Center Oral Tablet Weight 90.909, [Farnam 5/325] kg, Q6H, Start date: 12/01/14 7:00:00, Duration: 30 day, Stop date: 12/31/14 6:00:00Notes: (Same as: Farnam 325/5) Do not exceed 4gm/day of acetaminophen. Sodium Chloride 1,000 mL, 1,000 Inactive [facility] 0.154 MEQ/ML ml/hr, Infuse 2014 Medical Injectable Over: 1 hr, Center Solution Route: IV, 1,000, Drug form: INJ, ONCE, Priority: STAT, Dosing Weight 90.909 kg, Start date: 12/01/14 5:18:00, Duration: 1 doses or times, Stop date: 12/01/14 5:18:00 Sodium Chloride 250 mL, 250 Inactive [facility] 0.154 MEQ/ML ml/hr, Infuse 2014 Medical Injectable Over: 1 hr, Center Solution Route: IV, 250, Drug form: INJ, ONCE, Priority: STAT, Dosing Weight 90.909 kg, Start date: 12/01/14 4:28:00, Duration: 1 doses or times, Stop date: 12/01/14 4:28:00 Losartan 100 mg, 2 tab, No Longer [facility] Route: PO, Drug Active 2014 Medical form: TAB, Center Daily, Dosing Weight 90.909, kg, Start date: 11/30/14 9:00:00, Duration: 30 day, Stop date: 12/29/14 9:00:00Notes: (Same as: Cozaar) Prevacid 30 mg, Route: No Longer [facility] PO, Drug form: Active 2014 Medical DRC, Daily, Center Dosing Weight 90.909, kg, Start date: 11/30/14 9:00:00, Duration: 30 day, Stop date: 12/29/14 9:00:00 Lexapro 10 mg, 1 tab, No Longer [facility] Route: PO, Drug Active 2014 Medical form: TAB, Center Daily, Dosing Weight 90.909, kg, Start date: 11/30/14 9:00:00, Duration: 30 day, Stop date: 12/29/14 9:00:00Notes: (Same as: Lexapro) Atenolol 50 MG 50 mg, 1 tab, No Longer [facility] Oral Tablet Route: PO, Drug Active 2014 Medical form: TAB, Center Daily, Dosing Weight 90.909, kg, Start date: 11/30/14 9:00:00, Duration: 30 day, Stop date: 12/29/14 9:00:00Notes: (Same As:Tenormin) Protonix 40 mg, 1 tab, No Longer [facility] Route: PO, Drug Active 2014 Medical form: ECTAB, Center Before Breakfast, Start date: 11/30/14 7:30:00, Duration: 30 day, Stop date: 12/29/14 7:30:00Notes: (Same as: Protonix) Acetaminophen 300 1 tab, PO, Q6H, Active [facility] MG / Codeine PRN pain, X 14 2014 Medical Phosphate 30 MG day, # 56 tab, 0 Center Oral Tablet Refill(s) [Tylenol with Codeine #3] senna 8.6 mg oral 8.6 mg=1 tab, Active [facility] tablet PO, Q12H, # 30 2014 Medical tab, 0 Refill(s) Center diazepam 10 mg 10 mg=1 tab, PO, No Longer [facility] oral tablet Q8H, # 50 tab, 0 Active 2014 Medical Refill(s) Center docusate sodium 100 mg=1 cap, Active [place] 100 mg oral PO, Q12H, # 30 2015 Medical capsule cap, 0 Refill(s) Center Pamelor 25 mg, 1 cap, No Longer [facility] Route: PO, Drug Active 2014 Medical form: CAP, Center Bedtime, Dosing Weight 90.909, kg, Start date: 11/29/14 21:00:00, Duration: 30 day, Stop date: 12/28/14 21:00:00Notes: (Same as:Pamelor, Aventyl) gabapentin 300 MG 600 mg, 2 cap, No Longer [facility] Oral Capsule Route: PO, Drug Active 2014 Medical form: CAP, Center Bedtime, Dosing Weight 90.909, kg, Start date: 11/29/14 21:00:00, Duration: 30 day, Stop date: 12/28/14 21:00:00Notes: (Same as: Neurontin) Atenolol 50 MG 100 mg, 1 tab, No Longer [facility] Oral Tablet Route: PO, Drug Active 2014 Medical form: TAB, Center Bedtime, Dosing Weight 90.909, kg, Start date: 11/29/14 21:00:00, Duration: 30 day, Stop date: 12/28/14 21:00:00Notes: (Same As:Tenormin) Saline Flush 0.9% 10 ml, Route: No Longer [facility] IVP, Drug Form: Active 2014 Medical INJ, Dosing Center Weight 90.909, kg, Q12H, Start date: 11/29/14 21:00:00, Duration: 30 day, Stop date: 12/29/14 9:00:00Notes: Same as: BD Posiflush Sterile sennosides, CHCF 8.6 mg, 1 tab, No Longer [facility] Route: PO, Drug Active 2014 Medical Form: TAB, Center Dosing Weight 90.909, kg, Q12H, Start date: 11/29/14 21:00:00, Duration: 30 day, Stop date: 12/29/14 9:00:00Notes: (Same as: Chidi) Docusate 100 mg, 1 cap, No Longer [place] Route: PO, Drug Active 2014 Medical form: CAP, Q12H, Center Dosing Weight 90.909, kg, Start date: 11/29/14 21:00:00, Duration: 30 day, Stop date: 12/29/14 9:00:00Notes: (Same as: Colace) (Do Not Crush) Acetaminophen 325 1 tab, Route: No Longer [place] MG / Hydrocodone PO, Drug Form: Active 2014 Medical Bitartrate 10 MG TAB, Dosing Center Oral Tablet Weight 90.909, [Farnam 10/325] kg, Q4H, Start date: 11/29/14 16:00:00, Duration: 30 day, Stop date: 12/29/14 12:00:00Notes: Do not exceed 4gm/day of acetaminophen. (Same as: Farnam 325/10) ceFAZolin (SCIP) 1 gm, Route: No Longer [place] IVPB, Drug form: Active 2014 Medical PDR/INJ, ABXQ8H, Center Dosing Weight 90.909, kg, Start date: 11/29/14 16:00:00, Duration: 3 doses or times, Stop date: 11/30/14 8:00:00Notes: (Same As: [place]) MEDICATION WASTE Product Size: 1000 mg Product Wasted: ___ mg Labetalol 10 mg, 2 mL, Inactive [facility] Route: IVP, Drug 2014 Medical form: INJ, Center Q5Min, Dosing Weight 90.909, kg, PRN Elevated BP, Start date: 11/29/14 14:50:00, Duration: 5 doses or times, Stop date: 11/30/14 0:00:00 Hydromorphone 0.5 mg, 0.25 mL, Inactive [facility] Route: IVP, Drug 2014 Medical form: INJ, Center Q5Min, Dosing Weight 90.909, kg, PRN Pain Score 7-10, Start date: 11/29/14 14:50:00, Duration: 4 doses or times, Stop date: 11/30/14 0:00:00Notes: Same as: Dilaudid Flumazenil 0.2 mg, 2 mL, Inactive [place] Route: IVP, Drug 2014 Medical form: INJ, PRN, Center Dosing Weight 90.909, kg, PRN Benzodiazepine Reversal, Initial dose, Start date: 11/29/14 14:50:00, Duration: 30 day, Stop date: 12/29/14 14:49:00Notes: (Same as: Romazicon) Naloxone 0.04 mg, 0.1 mL, Inactive [place] Route: IVP, Drug 2014 Medical form: INJ, Center Q2MIN, Dosing Weight 90.909, kg, PRN Narcotic Reversal, Start date: 11/29/14 14:50:00, Duration: 8 doses or times, Stop date: 11/30/14 0:00:00Notes: Same as Narcan Ondansetron 4 mg, 2 mL, Inactive [place] Route: IVP, Drug 2014 Medical form: INJ, ONCE, Center Dosing Weight 90.909, kg, PRN Nausea & Vomiting, Start date: 11/29/14 14:50:00Notes: (Same as: Zofran) MEDICATION WASTE Product Size: 4 mg Product Wasted: __0_ mg Valium 10 mg, 1 tab, No Longer [place] Route: PO, Drug Active 2014 Medical form: TAB, Q8H, Center Dosing Weight 90.909, kg, Start date: 11/29/14 12:00:00, Duration: 30 day, Stop date: 12/29/14 8:00:00Notes: (Same as: Valium) Naloxone 0.04 mg, 0.1 mL, No Longer [facility] Route: IVP, Drug Active 2014 Medical form: INJ, Center Q2MIN, Dosing Weight 90.909, kg, PRN Narcotic Reversal, Start date: 11/29/14 12:00:00, Duration: 30 day, Stop date: 12/29/14 11:59:00Notes: Same as Narcan Morphine 30 mg, 30 mL, No Longer [facility] Route: IV, Active 2014 Medical Initial Loading Center Dose: 2 mg, [employer] Dose: 1 mg, [employer] Lockout: 10 minutes, Continuous Basal Rate: 0 mg, 4 Hour Limit (In MG): 30, Drug Form: INJ, Continuous, Start date: 11/29/14 12:00:00, Duration: 30 day, Stop date: 12/29/14 11:5...Notes: Dose: Delay: Basal rate: 4hr limit: (Same as:[place]) Regular Insulin, 7 unit, 0.07 mL, No Longer [facility] Human 100 UNT/ML Route: SUB-Q, Active 2014 [...] 50% 12.5 gm, 25 mL, No Longer [facility] Syringe Route: IVP, Drug Active 2014 Medical Form: INJ, Center Dosing Weight 90.909, kg, PRN, PRN Abnormal Lab Result, Start date: 11/29/14 12:00:00, Duration: 30 day, Stop date: 12/29/14 11:59:00 Saline Flush 0.9% 10 ml, Route: No Longer [facility] IVP, Drug Form: Active 2014 Medical INJ, Dosing Center Weight 90.909, kg, PRN, PRN Line Flush, Start date: 11/29/14 12:00:00, Duration: 30 day, Stop date: 12/29/14 11:59:00Notes: Same as: BD Posiflush Sterile Ondansetron 4 mg, 2 mL, No Longer [facility] Route: IVP, Drug Active 2014 Medical form: [...] 20 mL, Route: Inactive [facility] liposome InFILtration(loc 2015 Medical al), Drug Form: Center INJ, ONCE, [...] ceFAZolin 2 gm, 50 mL, No Longer [facility] Route: IVPB, Active 2014 Medical Drug form: INJ, Center PRE OP, Start date: 11/29/14 7:00:00, Duration: 1 day, Stop date: 11/30/14 6:59:00 Bifidobacterium 4 mg=1 cap, PO, Active [facility] Infantis 4 MG Daily, # 28 cap, 2014 Medical Oral Capsule 0 Refill(s) Center [Align] Aspirin Low Dose PO, Daily, 0 Active [facility] 81 mg oral tablet Refill(s) 2014 Medical Center Tylenol PO, PRN, 0 Active [place] Refill(s) 2014 Medical Center gabapentin 300 MG 300 mg=1 cap, Active [facility] Oral Capsule PO, TID, 0 2014 Medical Refill(s) Center Nortriptyline 25 25 mg=1 cap, PO, Active [facility] MG Oral Capsule TID, 0 Refill(s) 2014 Medical [Pamelor] Center Atenolol 50 MG 100 mg=2 tab, Active [facility] Oral Tablet PO, Bedtime, 0 2014 Medical Refill(s) Center biotin 5 mg oral 5 mg=1 cap, PO, Active [facility] capsule Daily, # 30 cap, 2014 Medical 0 Refill(s) Center Centrum Silver 1 tab, PO, Active [facility] oral tablet Daily, # 30 tab, 2015 Medical 0 Refill(s) Center lansoprazole 30 30 mg=1 cap, PO, Active [facility] MG Enteric Coated Daily, # 30 cap, 2014 Medical Capsule 0 Refill(s) Center [Prevacid] losartan 100 mg 100 mg=1 tab, Active [facility] oral tablet PO, Daily, # 30 2015 Medical tab, 0 Refill(s) Center Atenolol 50 MG 50 mg=1 tab, PO, Active [facility] Oral Tablet Daily, # 30 tab, 2015 Medical 0 Refill(s) Center Escitalopram 10 10 mg=1 tab, PO, Active [facility] MG Oral Tablet Daily, # 30 tab, 2015 Medical [Lexapro] 0 Refill(s) Center celecoxib 200 MG 200 mg=1 cap, Active [facility] Oral Capsule PO, Daily, # 30 2015 Medical [Celebrex] cap, 0 Refill(s) Center PREVACID 30 MG Active [facility] CPDR 2014 Neuro ATENOLOL 50 MG 1 tab po bid Active TABS 2014 Neuro CELEBREX 200 MG Active 10/24/ [facility] CAPS 2013 Neuro LEXAPRO 10 MG Active [place] TABS 2013 Neuro LIPITOR 10 MG Active [facility] TABS 2013 Neuro PAMELOR 25 MG Active [facility] CAPS 2013 Neuro ASPIRIN 81 MG Active [facility] TABS 2013 Neuro TYLENOL WITH 1 tab po q6h prn No Longer CODEINE #3 300-30 pain Active 2013 Neuro MG TABS LIDODERM 5 % PTCH apply to No Longer 05/14/ cher affected area Active 2013 Neuro 12h on 12h off per 24h period prn pain PREVACID 30 MG Active cher CPDR 2013 Neuro ATENOLOL 50 MG 1 tab po bid Active cher TABS 2013 Neuro CELEBREX 200 MG Active [facility] CAPS 2014 Neuro LIPITOR 10 MG Active [facility] TABS 2014 Neuro ATENOLOL 50 MG 1 tab po bid Active [place] TABS 2013 Neuro CELEBREX 200 MG Active cher CAPS 2014 Neuro ATENOLOL 50 MG 1 tab po bid Active [facility] TABS 2014 Neuro ATENOLOL 50 MG 1 tab po bid Active cher TABS 2013 Neuro CELEBREX 200 MG Active [facility] 2013 Neuro LIDODERM 5 % PTCH apply to No Longer affected area Active 2013 Neuro 12h on 12h off per 24h period prn pain Allergies, Adverse Reactions, Alerts Substance Category Reaction Severity Reaction Status Date Comments Source type Reported Immunizations Immunization Date Given Site Status Last Updated Comments Source Results Order Name Results Value Reference Date Interpretation Comments Source Range Spine Spine lumbar EXAM: CT lumbar spine without contrast. 06/22 - [facility] lumbar wo wo contrast /2014 - [place] contrast CT CT INDICATION: Pain with radiculopathy. [...] [facility] /2014 - [place] 3 views DX DX DATE: 03/24/2015 at [...] EXAM: US BILATERAL LOWER EXTREMITY VENOUS DOPPLER - [facility] Venous Venous /2014 - [place] Doppler [...] EXAM: XR LUMBAR SPINE 2 VIEWS 01/12 - [facility] lumbar 2 or 2 or 3 views /2014 - [place] 3 views DX DX DATE: 01/12/2015 at [...] HEMATOLOGY Hgb 8.4 g/dL 12.0 - 12/02 [facility] 16. [facility] HEMATOLOGY Hct 24.8 % 36.0 - 12/02 [facility] . [facility] HEMATOLOGY Hgb 8.5 g/dL 12.0 - 12/01 [facility] HEMATOLOGY Hct 25.4 % 36.0 - 12/01 [facility] 48. [facility] BLOOD BANK RBC product Product available 12/01 [facility] (12/01/14 2:36 AM) Center HEMATOLOGY Hct 21.1 % 36.0 - 12/01 [facility] 48.0 [facility] HEMATOLOGY Hgb 6.9 g/dL 12.0 - 12/01 3Result [facility] 16. Comment: [place] [facility] Center Result(s) called to jolie martínez at 12/01/2014 02:00 by_[email or web address] Read back OK. CHEM PANEL eGFR 55 11/29 1Result Comment: The eGFR is calculated using the CKD-EPI formula. In most young, healthy individuals the eGFR will be >90 mL/ min/1.73m2. The eGFR declines with age. An eGFR of 60-89 may be normal in [facility] mL/min/1.7 some populations, particularly the elderly, for whom the CKD-EPI formula has not been extensively validated. Use of the eGFR is not recommended in the following populations: [place] [id number] Center Individuals with unstable creatinine concentrations, including [...] PANEL Potassium 4.3 meq/L 3.5 - 5.1 11/29 [facility] Lvl [facility] CHEM PANEL Chloride Lvl 112 meq/L 95 - 109 11/29 [facility] CHEM PANEL CO2 25 meq/L 24 - 32 11/29 [facility] CHEM PANEL Calcium Lvl 8.2 mg/dL 8.5 - 10.5 11/29 [facility] CHEM PANEL Glucose Lvl 141 mg/dL 70 - 99 11/29 2Interpretive Data: Adult reference range values reflect the clinical guidelines of the [place] [employer]. [facility] CHEM PANEL Creatinine 1.0 mg/dL 0.5 - 1.4 11/29 [facility] CHEM PANEL Sodium Lvl 144 meq/L 135 - 145 11/29 [facility] CHEM PANEL BUN 19 mg/dL 7 - 22 11/29 [facility] CHEM PANEL AGAP 11.3 meq/L 10.0 - 11/29 [facility] [place] 20.0 [facility] HEMATOLOGY Monocytes 7.9 % 2.0 - 12.0 05 [facility] HEMATOLOGY Eosinophils 1.5 % 0.0 - 4.0 11/29 [facility] HEMATOLOGY Basophils 0.6 % 0.0 - 1.0 11/29 [facility] HEMATOLOGY Segs-Bands # 4.3 K/CMM 1.5 - 8.1 11/29 [facility] HEMATOLOGY Monocytes # 0.5 K/CMM 0.0 - 0.8 11/29 /2014 [facility] HEMATOLOGY Lymphocytes 1.6 K/CMM 1.0 - 5.5 11/29 # /2014 [facility] HEMATOLOGY Lymphocytes 24.3 % 20.0 - 11/29 [place] 40.0 [facility] HEMATOLOGY Segs 65.7 % 45.0 - 11/29 [place] 75.0 /2014 [facility] HEMATOLOGY Eosinophils 0.1 K/CMM 0.0 - 0.5 11/29 # /2014 [facility] HEMATOLOGY MPV 7.8 fL 7.4 - 10.4 11/29 [facility] HEMATOLOGY RBC 2.48 M/CMM 4.20 - 11/29 [place] 5.40 /2014 [facility] HEMATOLOGY Platelet 162 K/CMM 133 - 450 11/29 /2014 [facility] HEMATOLOGY MCHC 33.3 g/dL 32.0 - 11/29 36.0 /2014 [facility] HEMATOLOGY RDW 13.5 % 11.5 - 11/29 14.5 [facility] HEMATOLOGY MCH 31.7 pg 27.0 - 11/29 31.0 [facility] HEMATOLOGY MCV 95.1 fL 80.0 - 11/29 [place] 98.0 /2014 [facility] HEMATOLOGY WBC 6.6 K/CMM 3.7 - 10.4 11/29 [facility] Spine Spine lumbar CT SCAN OF THE LUMBAR SPINE 11/29 - [facility] lumbar wo wo contrast - [facility] contrast CT CT Center DATE: 11/29/2014 at 5:43 p.m. Read by: Bentley Eddy MD [facility] Date/time: 11/30/14 00:17 Electronically Signed by: Bentley [...] right kidney. BLOOD BANK Antibody Negative 11/29 [facility] RESULTS Scrn [facility] (11/29/14 5:49 AM) [place] BLOOD BANK ABO/Rh O POS 11/29 [facility] RESULTS /2014 [facility] Vital Signs Vital Sign Value Date Comments Source Weight 207.4 03/24/2015 [facility] Height 65 03/24/2015 [facility] Temperature Oral (F) 97.5 F 03/24/2015 [facility] Heart Rate 62 03/24/2015 [facility] Systolic (mm Hg) 117 03/24/2015 [facility] Diastolic (mm Hg) 70 03/24/2015 [facility] Weight 200 01/12/2015 [facility] Height 65 01/12/2015 [facility] Heart Rate 59 01/12/2015 [facility] Systolic (mm Hg) 113 01/12/2015 [facility] Diastolic (mm Hg) 60 01/12/2015 [facility] Weight 200 12/16/2014 [facility] Temperature Oral (F) 98.7 F 12/16/2014 [facility] Respitory Rate 70 12/16/2014 [facility] Heart Rate 18 12/16/2014 [facility] Height 65 12/16/2014 [facility] Systolic (mm Hg) 134 12/16/2014 [facility] Diastolic (mm Hg) 73 12/16/2014 [facility] Temperature Oral (F) 94 F 12/02/2014 [facility] Respitory Rate 18 12/02/2014 [facility] Systolic (mm Hg) 98 12/02/2014 [facility] Diastolic (mm Hg) 56 12/02/2014 [facility] Heart Rate 86 12/02/2014 [facility] Systolic (mm Hg) 99 12/02/2014 [facility] Diastolic (mm Hg) 60 12/02/2014 [facility] Respitory Rate 12 12/02/2014 [facility] Heart Rate 76 12/02/2014 [facility] Temperature Oral (F) 98.8 F 12/02/2014 [facility] Temperature Oral (F) 99.0 F 12/02/2014 [facility] Respitory Rate 17 12/02/2014 [facility] Heart Rate 89 12/02/2014 [facility] Systolic (mm Hg) 99 12/02/2014 [facility] Diastolic (mm Hg) 51 12/02/2014 [facility] Weight 90.9 12/01/2014 [facility] BMI Calculated 33.35 11/29/2014 [facility] Weight 90.909 11/29/2014 [facility] Height 165.1 cm 11/29/2014 [facility] Weight 197.2 08/18/2014 [facility] Temperature Oral (F) 97.3 F 08/18/2014 [facility] Respitory Rate 18 08/18/2014 [facility] Heart Rate 62 08/18/2014 [facility] Height 65 08/18/2014 [facility] Systolic (mm Hg) 97 08/18/2014 [facility] Diastolic (mm Hg) 61 08/18/2014 [facility] Weight 196 05/15/2014 [facility] Weight 196.4 05/14/2014 [facility] Height 65 05/14/2014 [facility] Temperature Oral (F) 96.4 F 05/14/2014 [facility] Heart Rate 57 05/14/2014 [facility] Systolic (mm Hg) 116 05/14/2014 [facility] Diastolic (mm Hg) 67 05/14/2014 [facility] Encounters Location Location Encounter Encounter Reason Attending ADM DC Status Source Details Type Number For Provider Date Date Visit [facility] [id number] Maikel 05/14 05/14 [facility] [id number] Isael BARAKAT /2013 [facility] [id number] Maikel 08/18 08/18 [facility] [id number] [facility]AT [id number] Maikel 11/29 12/02 [facility] 0 Isael /2014 [facility] [id number] Maikel 12/16 12/16 [facility] [id number] Isael BARAKAT /2014 [facility] [id number] Maikel 01/12 01/12 [facility] [id number] Isael BARAKAT /2014 [facility] [id number] Maikel 01/12 01/13 [facility] [place] [facility] [place] [facility] Outpt Diag [id number] Maikel 01/13 01/14 [facility] [place] [facility] [id number] Maikel 03/24 03/24 [facility] [id number] Isael BARAKAT /2014 [facility] Out[facility] [id number] G[place] 03/24 03/25 [facility] [place] [facility] [id number] G[facility]ARDO 06/22 [facility] Out[facility] Di[facility] [id number] G[place] 06/22 06/23 [facility] [place] [facility] [place] [facility] Outpt Diag [id number] [facility] 04/24 04/25 [facility] 0 [facility] [place] [facility] [place] Procedures Procedure Code Date Perfomer Comments Source Ablation [id number] [facility] [facility] Appendectomy [id number] [facility] [place] Cholecystectomy [id number] [facility] [place] Hysterectomy [id number] [facility] [place] Knee arthroplasty [id number] [facility] [place] Ablation [id number] [facility] [place] Appendectomy [id number] [facility] [place] Cholecystectomy [id number] [facility] [place] Hysterectomy [id number] [facility] [place] Knee arthroplasty [id number] [facility] [place] Ablation [id number] [facility] Appendectomy [id number] [facility] Cholecystectomy [id number] [facility] Hysterectomy [id number] [facility] Knee arthroplasty [id number] [facility] Ablation [id number] [facility] Appendectomy [id number] [facility] Cholecystectomy [id number] [facility] Hysterectomy [id number] [facility] Knee arthroplasty [id number] [facility]
--- OUTSIDE RECORDS SUMMARY | 2018-08-09 17:40 | XMS REPORT | Continuity of Care Document ---
[...] Location Date Office Visit Maikel Kirkland MD [facility] [place] Aug 18, 2014 Problems Problem Effective Dates [...]
--- OUTSIDE RECORDS SUMMARY | 2018-08-09 17:40 | XMS REPORT | Continuity of Care Document ---
[...] Office Visit Maikel Kirkland MD [facility] [place] Jan 12, 2015 Problems Problem Effective Dates [...]
--- OUTSIDE RECORDS SUMMARY | 2018-08-09 17:40 | XMS REPORT | Continuity of Care Document ---
[...] Encounters Encounter Performer Location Date Office Visit Miakel Kirkland MD [facility] [place] Problems Problem Effective Dates [...]
--- OUTSIDE RECORDS SUMMARY | 2018-08-09 17:40 | XMS REPORT | Continuity of Care Document ---
[...] Office Visit Maikel Kirkland MD [facility] [place] 2014 Problems Problem Effective Dates [...]
--- OUTSIDE RECORDS SUMMARY | 2018-08-09 17:40 | XMS REPORT | Continuity of Care Document ---
[...] Location Date Office Visit Maikel Kirkland MD [facility] [place] [facility] [place] December 16, 2014 Problems Problem Effective Dates [...]
[2018-08-09 18:04] LABS: Absolute Lymphocytes (CBC) 0.5 K/uL (0.7-4.9); Absolute Monocytes 0.6 K/uL (0.1-1.3); Absolute Neutrophil 2.4 K/uL (1.8-8.0); Basophils % 0.5 % (0-1.3); Eosinophils % 5.8 % (0-4.4); Hematocrit 40.1 % (36.0-45.0); Lymphocytes % 14.3 % (15.3-44.8); MPV 7.7 fL (7.6-11.3); Monocytes % 15.4 % (3.3-12.3); RBC Red Blood Cell Count 4.43 M/uL (3.86-4.86)
[2018-08-09 18:05] LABS: Protime INR 1.03
[2018-08-09] MEDS ORDERED: NITROGLYCERIN 0.4 MG/TAB SL ONE (18:21)
[2018-08-09] MEDS ORDERED: ASPIRIN 81 MG CHEWABLE TABLET ONE (18:21)
[2018-08-09 18:30] LABS: ALT/SGPT 35 U/L (12-78); AST/SGOT 38 U/L (15-37); Alkaline Phosphatase 89 U/L (45-117); BUN Blood Urea Nitrogen 20 mg/dL (7-18); Bicarbonate 28 mmol/L (21-32); Bilirubin Direct 0.1 mg/dL (0-0.2); Bilirubin Total 0.4 mg/dL (0.2-1.0); Glucose Level 119 mg/dL (74-106); Magnesium 2.1 mg/dL (1.8-2.4); NT PRO-BNP 40 pg/mL (<450); Protein, Total 7.7 g/dL (6.4-8.2); Sodium Level 142 mmol/L (136-145); Troponin (Emerg Dept Use Only) < 0.02 ng/mL (0.0-0.045)
[2018-08-09 18:44] LABS: Blood Morphology Comment NOT SEEN (NOT SEEN); Platelet Estimate INCR
--- NOTE | 2018-08-09 20:16 | RAD REPORT ---
EXAM DESCRIPTION: CT - Angio Aorta For Dissection - 08/09/2018 7:47 pm CLINICAL HISTORY: . Chest and abdominal pain COMPARISON: 2010 CT chest TECHNIQUE: Computed tomography angiography of the chest, abdomen pelvis were obtained. 100 cc Isovue 370 was administered intravenously. Coronal and sagittal reconstruction were performed. MIP 3D reconstruction was performed All CT scans are performed using dose optimization technique as appropriate and may include automated exposure control or mA/KV adjustment according to patient size. FINDINGS: An aortic dissection is not seen. An aortic aneurysm is not displayed. The aortic arch has a width of 3.6 centimeters. The proximal descending thoracic aorta has a diameter of 3.4 centimeters. Mild narrowing of the celiac artery is present. , SMA and JESSICA are patent . A lung consolidation is not present. A pericardial effusion is not seen. A pleural effusion is not n oted. The liver,spleen, pancreas adrenals kidneys demonstrate no significant abnormality. A 14 millimeter right adrenal nodule is present The liver, spleen, pancreas, left adrenal, kidneys and bladder demonstrate no significant abnormality . Postsurgical changes involve the lumbar spine. Small ventral hernia within the abdomen contains fat. Spondylosis L3-4 results in spinal stenosis IMPRESSION: Negative for an aortic dissection. 14 millimeter right adrenal nodule is nonspecific. Nonemergent MRI could be obtained for further eval uation
--- NOTE | 2018-08-09 20:26 | RAD REPORT ---
EXAM DESCRIPTION: [place] Single View08/09/2018 6:14 pm CLINICAL HISTORY: Chest pain COMPARISON: March 2018 FINDINGS: The lungs appear clear of acute infiltrate. The heart is normal size IMPRESSION: No acute abnormalities displayed
--- NOTE | 2018-08-09 21:09 | ER ---
Nurse's Notes [facility] Name: Mary Norris Age: 78 yrs Sex: Female : 1940 Arrival Date: 08/09/2018 Time: 17:38 Bed 6 Private MD: out of town, doctor Diagnosis: Chest pain, unspecified Presentation: 08/09 17:46 Presenting complaint: Patient states: Chest pain for the last hour, made worse with la1 deep breaths. Transition of care: patient was not received from another setting of care. Onset of symptoms was August 09, 2018. Risk Assessment: Do you want to hurt yourself or someone else? Patient reports no desire to harm self or others. Initial Sepsis Screen: Does the patient meet any 2 criteria? No. Patient's initial sepsis screen is negative. Does the patient have a suspected source of infection? No. Patient's initial sepsis screen is negative. Care prior to arrival: None. 17:46 Method Of Arrival: Ambulatory la1 17:46 Acuity: DENNIS 3 la1 Historical: - Allergies: 17:47 No Known Allergies; la1 - PMHx: 17:47 GERD; Hyperlipidemia; Hypertension; Irritable bowel syndrome; la1 - Immunization history:: Adult Immunizations up to date. - Social history:: Smoking status: Patient/guardian denies using tobacco. - Ebola Screening: : No symptoms or risks identified at this time. Screenin:52 Abuse screen: Denies threats or abuse. Denies injuries from another. Nutritional ca1 screening: No deficits noted. Tuberculosis screening: No symptoms or risk factors identified. Fall Risk None identified. Assessment: 17:49 General: Appears in no apparent distress. comfortable, Behavior is calm, cooperative, ca1 appropriate for age. Pain: Complains of pain in chest Pain does not radiate. Pain began 1 hour ago. 17:50 Neuro: Level of Consciousness is awake, alert, obeys commands, Oriented to person, ca1 place, time, situation, Appropriate for age. Cardiovascular: Rhythm is sinus rhythm. Respiratory: Airway is patent Respiratory effort is even, unlabored, Respiratory pattern is regular, symmetrical. GI: No signs and/or symptoms were reported involving the gastrointestinal system. : No signs and/or symptoms were reported regarding the genitourinary system. EENT: No deficits noted. Derm: No deficits noted. Musculoskeletal: Circulation, motion, and sensation intact. Range of motion: intact in all extremities. 18:34 Reassessment: Patient appears in no apparent distress at this time. Patient and/or ca1 family updated on plan of care and expected duration. Pain level reassessed. Patient is alert, oriented x 3, equal unlabored respirations, skin warm/dry/pink. 19:20 Reassessment: Patient appears in no apparent distress at this time. Patient and/or tl2 family updated on plan of care and expected duration. Pain level reassessed. Patient is alert, oriented x 3, equal unlabored respirations, skin warm/dry/pink. Constantino at bedside for reassessment. 20:40 Reassessment: Patient appears in no apparent distress at this time. Patient and/or tl2 family updated on plan of care and expected duration. Pain level reassessed. Patient is alert, oriented x 3, equal unlabored respirations, skin warm/dry/pink. repeat troponin sent, pending result for dispo. 21:26 Reassessment: Pt became nauseated and anxious. PA notified and went back to bedside for tl2 reassessment. 22:46 Reassessment: Patient appears in no apparent distress at this time. No changes from jd3 previously documented assessment. Patient and/or family updated on plan of care and expected duration. Pain level reassessed. Patient is alert, oriented x 3, equal unlabored respirations, skin warm/dry/pink. 23:24 Reassessment: Patient appears in no apparent distress at this time. Patient and/or tl2 family updated on plan of care and expected duration. Pain level reassessed. Patient is alert, oriented x 3, equal unlabored respirations, skin warm/dry/pink. pt stable and ready for transport to floor Patient states feeling better. Vital Signs: 17:47 BP 155 / 87; Pulse 86; Resp 18; Temp 97.5; Pulse Ox 98% on R/A; Weight 86.18 kg; Height la1 5 ft. 5 in. (165.10 cm); Pain 6/10; 18:34 BP 124 / 60; Pulse 77; Resp 21; Pulse Ox 95% on R/A; ca1 19:41 BP 95 / 73; Pulse 75; Resp 18; Pulse Ox 97% on R/A; tl2 20:40 BP 121 / 78; Pulse 80; Resp 14; Pulse Ox 97% on R/A; tl2 21:37 BP 131 / 33; Pulse 82; Resp 20; Pulse Ox 98% on R/A; tl2 22:45 BP 123 / 66; Pulse 75; Resp 17 S; Pulse Ox 98% on R/A; jd3 17:47 Body Mass Index 31.62 (86.18 kg, 165.10 cm) la1 ED Course: 17:38 Patient arrived in ED. mr 17:38 out of town, doctor is Private Physician. mr 17:42 Rosana Bain, RN is Primary Nurse. ca1 17:43 Constantino Martinez PA is PHCP. jr8 17:43 Fortunato Mckeon MD is Attending Physician. jr8 17:46 Triage completed. la1 17:48 Arm band placed on left wrist. la1 17:49 Inserted saline lock: 20 gauge in right antecubital area, using aseptic technique. ca1 Blood collected. Patient maintains SpO2 saturation greater than 95% on room air. 17:52 Patient has correct armband on for positive identification. Placed in gown. Bed in low ca1 position. Call light in reach. Side rails up X2. Adult w/ patient. food service specialist on. Pulse ox on. NIBP on. 18:15 XRAY Chest (1 view) In Process Unspecified. EDMS 19:46 CT completed. Patient moved to CT via stretcher. Patient moved back from CT. bq 19:52 CT Aorta for Dissection In Process Unspecified. EDMS 21:08 Jon Lawson MD is Referral Physician. jr8 21:28 Aleksandr Munoz MD is Hospitalizing Provider. jr8 23:24 No provider procedures requiring assistance completed. Patient admitted, IV remains in tl2 place. Administered Medications: 18:12 Drug: Aspirin Chewable Tablet 324 mg Route: PO; ca1 22:00 Follow up: Response: No adverse reaction tl2 18:14 Drug: Nitroglycerin 0.4 mg Route: Sublingual; ca1 19:00 Follow up: Response: No adverse reaction; Pain is decreased tl2 21:44 Drug: Zofran 4 mg Route: IVP; Site: right antecubital; tl2 22:00 Follow up: Response: No adverse reaction; Nausea is decreased tl2 22:01 Drug: Tylenol 1000 mg Route: PO; tl2 22:52 Follow up: Response: No adverse reaction tl2 Outcome: 21:09 Discharge ordered by MD. bradshaw 21:28 Decision to Hospitalize by Provider. augustine 23:24 Admitted to Tele accompanied by tech, family with patient, via wheelchair, room 403, tl2 with chart, Report called to JAM Gonzales 23:24 Condition: stable 23:24 Discharge instructions given to patient, family, Instructed on the need for admit. 23:29 Patient left the ED. tl2 Signatures: Dispatcher [employer] TRACIEWendy Flowers mr AquilesSue Josh, PA PA jr8 Gm Caballero RN RN la1 Leanne Rodriguez RN RN tl2 João Orona RN RN jd3 Acob, Cheryl, RN RN ca1 Corrections: (The following items were deleted from the chart) 17:51 17:49 Pain: Complains of pain in chest Pain does not radiate. Pain began ca1 ca1
--- NOTE | 2018-08-09 21:10 | EDPHYS ---
Physician Documentation [facility] Name: Mary Norris Age: 78 yrs Sex: Female : 1940 Arrival Date: 08/09/2018 Time: 17:38 Bed 6 Private MD: out of town, doctor ED Physician Fortunato Mckeon HPI: 08/09 18:56 This 78 yrs old Female presents to ER via Ambulatory with complaints of Chest jr8 Pain. 18:56 The patient or guardian reports chest pain that is located primarily in the anterior jr8 chest wall, right. Onset: acutely, today, at 16:30. The pain radiates to right back. Associated signs and symptoms: The patient has no apparent associated signs or symptoms. The chest pain is described as sharp. Duration: The patient or guardian reports a single episode. Modifying factors: The symptoms are alleviated by nothing. the symptoms are aggravated by deep breath. Severity of pain: At its worst the pain was moderate in the emergency department the pain is unchanged. The patient has experienced a previous episode. The patient has not recently seen a physician. Historical: - Allergies: 17:47 No Known Allergies; la1 - PMHx: 17:47 GERD; Hyperlipidemia; Hypertension; Irritable bowel syndrome; la1 - Immunization history:: Adult Immunizations up to date. - Social history:: Smoking status: Patient/guardian denies using tobacco. - Ebola Screening: : No symptoms or risks identified at this time. ROS: 18:56 Eyes: Negative for injury, pain, redness, and discharge, ENT: Negative for injury, jr8 pain, and discharge, Neck: Negative for injury, pain, and swelling, Respiratory: Negative for shortness of breath, cough, wheezing, and pleuritic chest pain, Abdomen/GI: Negative for abdominal pain, nausea, vomiting, diarrhea, and constipation, Back: Negative for injury and pain, MS/Extremity: Negative for injury and deformity, Skin: Negative for injury, rash, and discoloration, Neuro: Negative for headache, weakness, numbness, tingling, and seizure. 18:56 Cardiovascular: Positive for chest pain, Negative for edema, orthopnea, palpitations, paroxysmal nocturnal dyspnea. Exam: 18:56 Eyes: Pupils equal round and reactive to light, extra-ocular motions intact. Lids and jr8 lashes normal. Conjunctiva and sclera are non-icteric and not injected. Cornea within normal limits. Periorbital areas with no swelling, redness, or edema. ENT: Nares patent. No nasal discharge, no septal abnormalities noted. Tympanic membranes are normal and external auditory canals are clear. Oropharynx with no redness, swelling, or masses, exudates, or evidence of obstruction, uvula midline. Mucous membranes moist. Neck: Trachea midline, no thyromegaly or masses palpated, and no cervical lymphadenopathy. Supple, full range of motion without nuchal rigidity, or vertebral point tenderness. No Meningismus. Chest/axilla: Normal chest wall appearance and motion. Nontender with no deformity. No lesions are appreciated. Cardiovascular: Regular rate and rhythm with a normal S1 and S2. No gallops, murmurs, or rubs. Normal PMI, no JVD. No pulse deficits. Respiratory: Lungs have equal breath sounds bilaterally, clear to auscultation and percussion. No rales, rhonchi or wheezes noted. No increased work of breathing, no retractions or nasal flaring. Abdomen/GI: Soft, non-tender, with normal bowel sounds. No distension or tympany. No guarding or rebound. No evidence of tenderness throughout. Back: No spinal tenderness. No costovertebral tenderness. Full range of motion. Skin: Warm, dry with normal turgor. Normal color with no rashes, no lesions, and no evidence of cellulitis. MS/ Extremity: Pulses equal, no cyanosis. Neurovascular intact. Full, normal range of motion. Neuro: Awake and alert, GCS 15, oriented to person, place, time, and situation. Cranial nerves II-XII grossly intact. Motor strength 5/5 in all extremities. Sensory grossly intact. Cerebellar exam normal. Normal gait. Vital Signs: 17:47 BP 155 / 87; Pulse 86; Resp 18; Temp 97.5; Pulse Ox 98% on R/A; Weight 86.18 kg; Height la1 5 ft. 5 in. (165.10 cm); Pain 6/10; 18:34 BP 124 / 60; Pulse 77; Resp 21; Pulse Ox 95% on R/A; ca1 19:41 BP 95 / 73; Pulse 75; Resp 18; Pulse Ox 97% on R/A; tl2 20:40 BP 121 / 78; Pulse 80; Resp 14; Pulse Ox 97% on R/A; tl2 21:37 BP 131 / 33; Pulse 82; Resp 20; Pulse Ox 98% on R/A; tl2 22:45 BP 123 / 66; Pulse 75; Resp 17 S; Pulse Ox 98% on R/A; jd3 17:47 Body Mass Index 31.62 (86.18 kg, 165.10 cm) la1 MDM: 17:43 Patient medically screened. jr8 19:24 Differential diagnosis: abnormal EKG, acute myocardial infarction, acute pericarditis, jr8 chest wall pain, cholecystitis, Cholelithiasis costochondritis, esophagitis, gastritis, pancreatitis, pneumonia, pulmonary embolus, thoracic aortic disection, unstable angina. HEART Score: History: Moderately Suspicious (1), ECG: Normal (0), Age: > or = 65 years (2), Risk Factors: > or = 3 Risk factors for atherosclerotic disease (2), [Hypercholesterolemia] [Hypertension] [Obesity] Troponin: < or = 1 x Normal Limit (0). The patient was given aspirin in the Emergency Department. Data reviewed: vital signs, nurses notes, lab test result(s), EKG, radiologic studies, plain films. 20:27 ED course: Discussed with patient and that at this time there are no acute jr8 findings with labs or imaging. Advised them that observation over night would be best but if they did not want to stay we could do another troponin and as long as patient was feeling well and second troponin was negative. That they could go home if they wanted as long as they followed up with mail order biller early this week. If she were to have pain again to come back. Family wants to go home so we will do another troponin. 21:08 ED course: second troponin negative. Patient feeling well and still wants to go home. . jr8 21:29 ED course: Patient started to become nauseated and not feel well again. Advised her jr8 that she really should stay the night which she is ok with now . 08/09 17:44 Order name: Basic Metabolic Panel; Complete Time: 18:46 jr8 08/09 17:44 Order name: CBC with Diff; Complete Time: 18:46 jr8 08/09 17:44 Order name: LFT's; Complete Time: 18:46 jr8 08/09 17:44 Order name: Magnesium; Complete Time: 18:46 jr8 08/09 17:44 Order name: NT PRO-BNP; Complete Time: 18:46 jr8 08/09 17:44 Order name: PT-INR; Complete Time: 18:19 jr8 08/09 17:44 Order name: Troponin (emerg Dept Use Only); Complete Time: 18:46 jr8 08/09 18:08 Order name: Manual Differential; Complete Time: 18:46 EDMS 08/09 20:27 Order name: Troponin (emerg Dept Use Only); Complete Time: 21:08 jr8 08/09 22:26 Order name: Basic Metabolic Panel EDMS 08/09 22:26 Order name: Basic Metabolic Panel EDMS 08/09 22:26 Order name: CBC with Automated Diff EDMS 08/09 22:26 Order name: CBC with Automated Diff EDMS 08/09 22:26 Order name: Lipid Profile EDLA 08/09 17:44 Order name: XRAY Chest (1 view); Complete Time: 20:29 8 08/09 17:44 Order name: EKG; Complete Time: 17:46 8 08/09 17:44 Order name: Cardiac monitoring; Complete Time: 17:48 jr8 08/09 19:21 Order name: CT Aorta for Dissection; Complete Time: 20:18 jr8 08/09 22:26 Order name: Heart Healthy EDLA 08/09 22:26 Order name: Echo with Doppler EDLA 08/09 22:26 Order name: EKG Electrocardiogram EDLA 08/09 22:26 Order name: EKG Electrocardiogram EDLA 08/09 22:26 Order name: Lipid Profile EDLA 08/09 22:26 Order name: Troponin I EDLA 08/09 22:26 Order name: Troponin I EDLA 08/09 22:26 Order name: Troponin I EDLA 08/09 17:44 Order name: EKG - Nurse/Tech; Complete Time: 17:48 jr8 08/09 17:44 Order name: IV Saline Lock; Complete Time: 17:48 jr8 08/09 17:44 Order name: Labs collected and sent; Complete Time: 17:48 jr8 08/09 17:44 Order name: O2 Per Protocol; Complete Time: 17:48 8 08/09 17:44 Order name: O2 Sat Monitoring; Complete Time: 17:48 jr8 Administered Medications: 18:12 Drug: Aspirin Chewable Tablet 324 mg Route: PO; ca1 22:00 Follow up: Response: No adverse reaction tl2 18:14 Drug: Nitroglycerin 0.4 mg Route: Sublingual; ca1 19:00 Follow up: Response: No adverse reaction; Pain is decreased tl2 21:44 Drug: Zofran 4 mg Route: IVP; Site: right antecubital; tl2 22:00 Follow up: Response: No adverse reaction; Nausea is decreased tl2 22:01 Drug: Tylenol 1000 mg Route: PO; tl2 22:52 Follow up: Response: No adverse reaction tl2 Disposition: 08/09/18 21:28 Hospitalization ordered by Aleksandr Munoz for Observation. Preliminary diagnosis is Chest pain, unspecified. - Bed requested for Telemetry/MedSurg (observation). - Status is Observation. tl2 - Condition is Stable. - Problem is new. - Symptoms have improved. UTI on Admission? No Addendum: 08/11/2018 07:48 Co-signature as Attending Physician, Fortunato Mckeon MD I agree with the assessment and c henning plan of care. Signatures: Dispatcher [employer] EDLA Sydney Miller RN RN mw Anderson, Corey, MD MD cha Roszak, Josh, PA PA jr8 Gm Caballero RN RN la1 Leanne Rodriguez RN RN tl2 Rosana Bain, RN RN ca1 Corrections: (The following items were deleted from the chart) 08/09 20:29 18:56 Onset: acutely, today, jr8 jr8 21:28 21:09 08/09/2018 21:09 Discharged to Home. Impression: Chest pain, unspecified. jr8 Condition is Stable. Forms are Medication Reconciliation Form, Thank You Letter, Antibiotic Education, Prescription Opioid Use. Follow up: Jon Lawson; When: 2 - 3 days; Reason: Recheck today's complaints, Continuance of care, Re-evaluation by your physician. Problem is new. Symptoms have improved. jr8 21:40 21:28 Hospitalization Ordered by Aleksandr Munoz MD for Observation. Preliminary diagnosis is Chest pain, unspecified. Bed requested for Telemetry/MedSurg (observation). Status is Observation. Condition is Stable. Problem is new. Symptoms have improved. UTI on Admission? No. jr8 23:29 21:40 08/09/2018 21:28 Hospitalization Ordered by Aleksandr Munoz MD for Observation. tl2 Preliminary diagnosis is Chest pain, unspecified. Bed requested for Telemetry/MedSurg (observation). Status is Observation. Condition is Stable. Problem is new. Symptoms have improved. UTI on Admission? No. mw
[2018-08-09] MEDS ORDERED: ONDANSETRON 4 MG/2 ML VIAL ONE (21:51)
[2018-08-09] MEDS ORDERED: ACETAMINOPHEN 500 MG TAB ONE (22:12)
[2018-08-09] MEDS ORDERED: ALPRAZOLAM 0.25 MG TABLET PO PRN (22:23)
[2018-08-09] MEDS ORDERED: ACETAMINOPHEN 500 MG TAB PO PRN (22:23)
[2018-08-09] MEDS: MORPHINE 4 MG/ML SYR IV PRN (23:35)
[2018-08-10 00:35] VITALS: BMI 31.6
[2018-08-10] MEDS: MORPHINE 4 MG/ML SYR IV PRN ×2 (03:25→11:26)
[2018-08-10 05:55] LABS: Absolute Lymphocytes (CBC) 0.5 K/uL (0.7-4.9); Absolute Monocytes 0.6 K/uL (0.1-1.3); Absolute Neutrophil 3.5 K/uL (1.8-8.0); Basophils % 0.5 % (0-1.3); Eosinophils % 1.4 % (0-4.4); Hematocrit 36.9 % (36.0-45.0); Lymphocytes % 10.8 % (15.3-44.8); MPV 7.8 fL (7.6-11.3); Monocytes % 12.2 % (3.3-12.3); RBC Red Blood Cell Count 4.08 M/uL (3.86-4.86)
[2018-08-10] MEDS ORDERED: METOPROLOL TAR 50 MG TAB PO SCH (06:00)
[2018-08-10 06:09] LABS: BUN Blood Urea Nitrogen 18 mg/dL (7-18); Bicarbonate 28 mmol/L (21-32); Glucose Level 118 mg/dL (74-106); Potassium 4.4 mmol/L (3.5-5.1); Sodium Level 139 mmol/L (136-145); Troponin I < 0.02 ng/mL (0.0-0.045)
[2018-08-10] MEDS ORDERED: HYDROCORTISONE SUC 100 MG INJ IV ONE (06:18)
--- NOTE | 2018-08-10 06:19 | P.HP ---
Certification for Inpatient Patient admitted to: Observation With expected LOS: <2 Midnights Patient will require the following post-hospital care: None Practitioner: I am a practitioner with admitting privileges, knowledge of patient current condition, hospital course, and medical plan of care. Services: Services provided to patient in accordance with Admission requirements found in Title 42 Section 412.3 of the Code of Federal Regulations Patient History Date of Service: 08/09/18 Reason for admission: CP r/o ACS Allergies No Known Drug Allergies Allergy (Verified 08/09/18 23:39) Unknown Home Medications: Atorvastatin Calcium [Lipitor*] 40 mg PO BEDTIME 08/09/18 Celecoxib [Celebrex*] 200 mg PO DAILY 08/09/18 Escitalopram [Lexapro*] 10 mg PO DAILY 08/09/18 Esomeprazole Mag Trihydrate [Nexium] 40 mg PO DAILY 08/09/18 Multivitamin/Iron/Folic Acid [Centrum Women Tablet] 1 tab PO DAILY 08/09/18 Nortriptyline HCl [Pamelor*] 25 mg PO BEDTIME 08/09/18 Pregabalin [Lyrica*] 100 mg PO TIDWM 08/09/18 Olmesartan Medoxomil [Benicar] 40 mg PO DAILY 08/10/18 - Past Medical/Surgical History Has patient received pneumonia vaccine in the past: Yes Diabetic: No -: GERD -: hyperlipidemia -: HTN -: IBS -: cardiac ablation -: art -: appy -: geni knee replacement -: hysterectomy -: dental surgery- implants - Family History Father Medical History: Heart disease Brother Medical History: Lung disease Notes: asthma - Social History Smoking Status: Never smoker Alcohol use: No CD- Drugs: No Caffeine use: Yes Place of Residence: Home Physical Examination - Vital Signs Temperature: 98.2 F Blood Pressure: 152/68 Pulse: 83 Respirations: 18 Pulse Ox (%): 95 - Studies Laboratory Data (last 24 hrs) 08/09/18 17:45: PT 12.2, INR 1.03 08/09/18 17:45: WBC 3.8 L, Hgb 13.7, Hct 40.1, Plt Count 206 08/09/18 17:45: Sodium 142, Potassium 4.0, BUN 20 H, Creatinine 0.95, Glucose 119 H, Magnesium 2.1, Total Bilirubin 0.4, AST 38 H, ALT 35, Alkaline Phosphatase 89 Assessment & Plan - Advance Directives Does patient have a Living Will: Yes Does patient have a Durable POA for Healthcare: Yes
[2018-08-10] MEDS ORDERED: PANTOPRAZOLE 40MG TABLET PO SCH (06:30)
[2018-08-10] MEDS ORDERED: TRAMADOL HCL 50 MG TAB PO PRN (07:53)
[2018-08-10] MEDS: PREGABALIN 75 MG CAP PO SCH ×2 (08:16→12:49)
[2018-08-10] MEDS ORDERED: LIDOCAINE 5% PATCH TOP SCH (09:00)
[2018-08-10] MEDS ORDERED: ESCITALOPRAM 20 MG TAB PO SCH (09:00)
[2018-08-10] MEDS ORDERED: CELECOXIB 100 MG CAPSULE PO SCH (09:00)
[2018-08-10] MEDS ORDERED: MULTIVIT W/ MINERAL TAB PO SCH (09:00)
[2018-08-10] MEDS ORDERED: VALSARTAN 160 MG TAB PO SCH (09:00)
[2018-08-10] MEDS ORDERED: ASPIRIN EC 81 MG TAB PO SCH (09:00)
[2018-08-10] MEDS ORDERED: ENOXAPARIN 40 MG/0.4 ML SQ SCH (09:00)
[2018-08-10] MEDS ORDERED: VALSARTAN 80 MG TAB PO SCH (09:00)
--- NOTE | 2018-08-10 09:53 | P.DS ---
Admission Date: 08/09/18 Discharge Date: 08/10/18 Primary Care Provider: Dr. Alegria([place], [place]) Disposition: ROUTINE DISCHARGE Discharge Condition: GOOD Reason for Admission: CP r/o ACS Consultations: Cardiology-Dr. Kulkarni Procedures: CXR: COMPARISON: March 2018 FINDINGS: The lungs appear clear of acute infiltrate. The heart is normal size IMPRESSION: No acute abnormalities displayed CT scan: COMPARISON: 2010 CT chest TECHNIQUE: Computed tomography angiography of the chest, abdomen pelvis were obtained. 100 cc Isovue 370 was administered intravenously. Coronal and sagittal reconstruction were performed. MIP 3D reconstruction was performed All CT scans are performed using dose optimization technique as appropriate and may include automated exposure control or mA/KV adjustment according to patient size. FINDINGS: An aortic dissection is not seen. An aortic aneurysm is not displayed. The aortic arch has a width of 3.6 centimeters. The proximal descending thoracic aorta has a diameter of 3.4 centimeters. Mild narrowing of the celiac artery is present. , SMA and JESSICA are patent . A lung consolidation is not present. A pericardial effusion is not seen. A pleural effusion is not noted. The liver,spleen, pancreas adrenals kidneys demonstrate no significant abnormality. A 14 millimeter right adrenal nodule is present The liver, spleen, pancreas, left adrenal, kidneys and bladder demonstrate no significant abnormality. Postsurgical changes involve the lumbar spine. Small ventral hernia within the abdomen contains fat. Spondylosis L3-4 results in spinal stenosis IMPRESSION: Negative for an aortic dissection. 14 millimeter right adrenal nodule is nonspecific. 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 Patient was lifting a rug yesterday. Patient has chronic back pain with spinal stenosis. Patient was admitted for further evaluation. Patient with history of hypertension, hyperlipidemia, GERD. Hospital Course: Patient presented with chest pain. Cardiac enzymes unremarkable. No significant EKG changes noted. Cardiology was consulted. No cardiac intervention required. Chest pain likely noncardiac. Patient had elevated blood pressure. Metoprolol added. Patient may continue with aspirin 81 mg daily. Patient may follow up with cardiology as an outpatient to further evaluate. Patient has hypertension. Blood pressures were elevated during her stay. Medications added. This included metoprolol. At discharge, Patient will continue with Benicar 40 mg daily and metoprolol 25 mg 1 pill twice daily. Recommendation is to maintain blood pressures less 150/80. She is to hold blood pressure medication if blood pressure systolic less than 120. Further adjustment can be done by her PCP. Patient has hyperlipidemia. This has remained stable. Patient will continue with Lipitor 40 mg daily. Patient with chronic back pain with lumbar spinal stenosis and neuropathy. Patient to have MRI done soon to further assess. Patient also to see pain management soon. Patient may require injections for pain control. At discharge patient will continue with Celebrex 200 mg daily as needed for pain and Pamelor 25 mg at bedtime and Lyrica 100 mg 1 pill 3 times a day. No heavy lifting, pushing or pulling is recommended. Patient will be provided lidocaine patch to be use as needed for pain. Patient has depression. Patient will continue with Lexapro 10 mg 1 pill daily. Patient has GERD. Patient will continue with Nexium 40 mg daily. Incidental finding of right adrenal nodule measuring 14 mm in size was seen on CT scan. Recommendation is for outpatient MRI to further address. This can be done with the help of her PCP. Vital Signs/Physical Exam: Temp Pulse Resp BP Pulse Ox 97.9 F 71 20 135/66 93 08/10/18 08:00 08/10/18 08:17 08/10/18 08:00 08/10/18 08:17 08/10/18 08:00 General: Alert, In no apparent distress, Oriented x3, Cooperative HEENT: Atraumatic Neck: Supple Respiratory: Clear to auscultation bilaterally, Normal air movement Cardiovascular: Normal pulses, Regular rate/rhythm Gastrointestinal: Normal bowel sounds, Soft and benign, Non-distended, No tenderness, No masses, No rebound, No guarding Musculoskeletal: No erythema, No warmth, Tenderness (Back pain noted) Integumentary: No tenderness/swelling, No erythema, No warmth, No cyanosis Neurological: Normal speech, Normal strength at 5/5 x4 extr, Normal tone, Normal affect Laboratory Data at Discharge: WBC 4.7 K/uL (4.3-10.9) D 08/10/18 05:32 Hgb 12.5 g/dL (12.0-15.0) 08/10/18 05:32 Hct 36.9 % (36.0-45.0) 08/10/18 05:32 Plt Count 179 K/uL (152-406) 08/10/18 05:32 PT 12.2 SECONDS (9.5-12.5) 08/09/18 17:45 INR 1.03 08/09/18 17:45 Sodium 139 mmol/L (136-145) 08/10/18 04:26 Potassium 4.4 mmol/L (3.5-5.1) 08/10/18 04:26 BUN 18 mg/dL (7-18) 08/10/18 04:26 Creatinine 0.83 mg/dL (0.55-1.3) 08/10/18 04:26 Glucose 118 mg/dL (74-106) H 08/10/18 04:26 Magnesium 2.1 mg/dL (1.8-2.4) 08/09/18 17:45 Total Bilirubin 0.4 mg/dL (0.2-1.0) 08/09/18 17:45 AST 38 U/L (15-37) H 08/09/18 17:45 ALT 35 U/L (12-78) 08/09/18 17:45 Alkaline Phosphatase 89 U/L (45-117) 08/09/18 17:45 Troponin I < 0.02 ng/mL (0.0-0.045) 08/10/18 04:26 Triglycerides 78 mg/dL (<150) 08/10/18 05:32 Cholesterol 132 mg/dL (<200) 08/10/18 05:32 HDL Cholesterol 46 mg/dL (40-60) 08/10/18 05:32 Cholesterol/HDL Ratio 2.87 08/10/18 05:32 Home Medications: Atorvastatin Calcium [Lipitor*] 40 mg PO BEDTIME 08/09/18 Celecoxib [Celebrex*] 200 mg PO DAILY 08/09/18 Escitalopram [Lexapro*] 10 mg PO DAILY 08/09/18 Esomeprazole Mag Trihydrate [Nexium] 40 mg PO DAILY 08/09/18 Multivitamin/Iron/Folic Acid [Centrum Women Tablet] 1 tab PO DAILY 08/09/18 Nortriptyline HCl [Pamelor*] 25 mg PO BEDTIME 08/09/18 Pregabalin [Lyrica*] 100 mg PO TIDWM 08/09/18 Lidocaine 5% Patch [Lidoderm 5% Patch*] 1 patch TOP DAILY #30 patch 08/10/18 Metoprolol Tartrate [Lopressor*] 25 mg PO BID #60 tab 08/10/18 Olmesartan Medoxomil [Benicar] 40 mg PO DAILY 08/10/18 New Medications: Lidocaine 5% Patch [Lidoderm 5% Patch*] 1 patch TOP DAILY #30 patch Metoprolol Tartrate [Lopressor*] 25 mg PO BID #60 tab Patient Discharge Instructions: 1. Patient will follow up with her PCP in 1 week to follow up this hospitalization. 2. Patient presented with chest pain. Cardiac enzymes unremarkable. No significant EKG changes noted. Cardiology was consulted. No cardiac intervention required. Chest pain likely noncardiac. Patient had elevated blood pressure. Metoprolol added. Patient may continue with aspirin 81 mg daily. Patient may follow up with cardiology as an outpatient to further evaluate. 3. Patient has hypertension. Blood pressures were elevated during her stay. Medications added. This included metoprolol. At discharge, Patient will continue with Benicar 40 mg daily and metoprolol 25 mg 1 pill twice daily. Recommendation is to maintain blood pressures less 150/ 80. She is to hold blood pressure medication if blood pressure systolic less than 120. Further adjustment can be done by her PCP. 4. Patient has hyperlipidemia. This has remained stable. Patient will continue with Lipitor 40 mg daily. 5. Patient with chronic back pain with lumbar spinal stenosis and neuropathy. Patient to have MRI done soon to further assess. Patient also to see pain management soon. Patient may require injections for pain control. At discharge patient will continue with Celebrex 200 mg daily as needed for pain and Pamelor 25 mg at bedtime and Lyrica 100 mg 1 pill 3 times a day. No heavy lifting, pushing or pulling is recommended. Patient will be provided lidocaine patch to be use as needed for pain. 6. Patient has depression. Patient will continue with Lexapro 10 mg 1 pill daily. 7. Patient has GERD. Patient will continue with Nexium 40 mg daily. 8. Incidental finding of right adrenal nodule measuring 14 mm in size was seen on CT scan. Recommendation is for outpatient MRI to further address. This can be done with the help of her PCP. Diet: AHA Activity: Ad carlos Time spent managing pt's care (in minutes): 55
--- NOTE | 2018-08-10 11:23 | EKG ---
Test Date: 2018-08-10 Test Time: 00:03:02 Owner Oral Surgeon: RT MEASUREMENT RESULTS: Intervals: Rate: 73 MN: 246 QRSD: 108 QT: 416 QTc: 458 [place]: P: 49 MN: 246 QRS: -40 T: 41 INTERPRETIVE STATEMENTS: Sinus rhythm with 1st degree AV block Left axis deviation Minimal voltage criteria for LVH, may be normal variant Abnormal ECG Compared to ECG 04/20/2018 11:00:52 First degree AV block now present Left ventricular hypertrophy now present Electronically Signed On 08-10-18 11:22:37 ACCOUNTS RECEIVABLE ASSISTANT by aDvis Kulkarni
[2018-08-10 12:12] VITALS: O2SAT 92
[2018-08-10 12:41] VITALS: BP 138/65; TEMP 98.3
[2018-08-10] MEDS ORDERED: METOPROLOL TAR 25 MG TAB PO SCH (18:00)
[2018-08-10] MEDS ORDERED: ATORVASTATIN 20 MG TAB PO SCH (21:00)
[2018-08-10] MEDS ORDERED: NORTRIPTYLINE HCL 25 MG CAP PO SCH (21:00)
--- NOTE | 2018-08-11 00:22 | CON ---
Date of Consultation: 08/10/[address] Nicholson' service on 08/09/2018. I saw the patient on 08/10/2018. Reason For Consultation: Chest pain. History Of Present Illness: Ms. Norris is an 78-year-old white woman, who has a history of dyslipid emia, hypertension, depression, neuropathy, irritable bowel syndrome, gastroesophageal reflux disease , and osteoarthritis. Came in with right-sided chest pain, mostly in the breast area that radiated t o the right shoulder. No nausea, vomiting, diaphoresis, PND, orthopnea, pedal edema, palpitation, or syncope. Already had a chest x-ray that was negative, EKG that was negative, CTA that was negative for pulmonary embolus. She was found to have a small mass in the adrenal gland. Followup was recomm ended urgently. Allergies: NONE. Review of Systems: Negative. Social History: Negative. Family History: Noncontributory. Medications: Include Lipitor, Lexapro, Celebrex, Nexium, lidocaine patch, metoprolol, Benicar, Maria Esther a, and Pamelor. Physical Examination: General: Ms. Norris appeared much younger than stated age. Vital Signs: Stable, afebrile, sinus rhythm. HEENT: Negative. Neck: Supple. No bruit. Chest: Clear. Cardiac: Revealed a regular rhythm and rate. No murmurs, gallops, or rubs. Abdomen: Benign. Extremities: Revealed no clubbing, cyanosis, or edema. Diagnostic Data: As stated earlier. Impression And Plan: 1.Noncardiac chest pain, most likely musculoskeletal. 2.Dyslipidemia. 3.Hypertension. 4.Osteoarthritis. 5.Irritable bowel syndrome. 6.Gastroesophageal reflux disease. 7.Neuropathy. History Of Present Illness: Ms. Norris is 78 and according to her family she had a negative stress test in December of 2016 and a negative echocardiogram. Here she had a negative chest x-ray and EKG and troponin as well as MBs and CPKs and BNP. I doubt that this is cardiac in any way, and I feel comfor table with her going home and follow up with me in the near future. RAY/ANTOINE Voice ID: [id number] Report ID: [id number]
--- NOTE | 2018-08-11 11:48 | EKG ---
Test Date: 2018-08-09 Test Time: 17:45:30 Pain Medicine Physician: HUMBERTO MEASUREMENT RESULTS: Intervals: Rate: 80 CT: 202 QRSD: 104 QT: 392 QTc: 452 [place]: P: 59 CT: 202 QRS: -44 T: 65 INTERPRETIVE STATEMENTS: Normal sinus rhythm Left axis deviation Minimal voltage criteria for LVH, may be normal variant Abnormal ECG Compared to ECG 04/20/2018 11:00:52 Left ventricular hypertrophy now present Electronically Signed On 08-11-18 11:43:19 COMPOUND WORKER by Davis Kulkarni
== END 2018-08-10 14:00 | disposition home or self-care (01) ==
LOC: ER 17:36 → ERHOLD 22:35 → 4TH 22:55
PROVIDERS: ADMIT Hospitalist; ATTEND Hospitalist
DX: R07.9 Chest pain, unspecified (principal); K21.9 Gastro-esophageal reflux disease without esophagitis; E78.5 Hyperlipidemia, unspecified; I10 Essential (primary) hypertension; Z96.653 Presence of artificial knee joint, bilateral; M48.061 Spinal stenosis, lumbar region without neurogenic claudication; G62.9 Polyneuropathy, unspecified; J38.2 Nodules of vocal cords; F32.9 Major depressive disorder, single episode, unspecified
CPT/HCPCS: 36415; 71045; 71275; 74175; 80048 ×2; 80061; 80076; 83735; 83880; 84484 ×4; 85025 ×2; 85610; 93005 ×2; 96374; G0378 ×2; J1650; J1720; J2405; Q9967

== ENCOUNTER 2019-06-01 17:49 | Observation (INO) | payer OTHER, MEDICARE ==
--- OUTSIDE RECORDS SUMMARY | 2019-06-01 17:51 | XMS REPORT ---
:1940 Author Organization [facility] Address [address] [place] [address] Care Team Providers Name Role Phone Unavailable Unavailable Unavailable Payers Payer Name Policy Type Policy Number Effective Date Expiration Date Problems This patient has no known problems. Allergies, Adverse Reactions, Alerts Allergy Allergy Status Severity Reaction(s) Onset Inactive Treating Comments Name Type Date Date Clinician No Known DA Active U 2018-09 Allergies - 00:00:0 0 No Known DA Active U 2012-06 Allergies - 00:00:0 0 Medications This patient has no known medications. Results Test Description Test Time Test Comments Text Results Atomic Results Result Comments - XR FLUORO FOR SPINE 2019-05-27 13:54:00 Patient Name: PATSY ACE INJ Unit No: [id number] EXAMS: CPT CODE: [id number] XR FLUORO FOR SPINE INJ 89258 LUMBAR TRANSFORAMINAL INJECTION REFERRING PHYSICIAN: PREOPERATIVE DIAGNOSIS: Degenerative Lumbar Disc Disease. POSTOPERATIVE DIAGNOSIS: Left lumbar radiculopathy PROCEDURES PERFORMED 1. Fluoroscopically guided needle localization of the left L3, left L4, left L5, left S1 spinal nerve/nerves with transforaminal epidural steroid injection/injections. 2. Transforaminal epidurogram/epidurograms at left L3, left L4, left L5, left S1. FINDINGS: Poor filling all. Concordant provocation left L4 anterior thigh, left S1 buttock. Pain relief-100%. ANTIBIOTIC: Cefazolin ESTIMATED BLOOD LOSS: Minimal ANESTHESIA: (TIVA )Total intravenous anesthetic (patient intolerant to sedatives and hypnotics) COMPLICATIONS: None DETAILS OF PROCEDURE: After obtaining stable vital signs, informed consent and IV access, with no known contraindications to proceeding, the patient was taken to the fluoroscopy suite and placed in a prone position with all extremities padded and appropriate monitors placed. A sterile prep and drape was performed over the lumbosacral spine. Using fluoroscopic visualization at each level the insertion site was marked for a paravertebral approach to the foramen. Using standard technique, a 25 gauge needle was advanced to the base of the pedicle. In AP view, final positioning was obtained outside the 6 on the clock position on the pedicle. Then, 1 ml of Isovue-300 contrast was injected to produce the epidurograms. No paresthesias were elicited with needle insertion or injection and there were no signs of intravascular or intrathecal uptake. Then, with 1 ml of 4% lidocaine and 10 mg of triamcinolone was injected incrementally with frequent negative aspirations. There were no signs of intravascular or intrathecal uptake. Each subsequent level was done using the same technique and medications. The patient's vital signs remained stable. The patient was taken to the PACU in good condition. at 2112 Reported and signed by: Jasiel Mccormick M.D. [facility] NAME: PATSY ACE [address] [facility] PHYS: SLEVIN - Jasiel Mccormick MD [place], [place] [address] : 1940 AGE: 78 SEX: F LOC: PraveenaKIMBERLYN PHONE #: [phone] EXAM DATE: 05/27/2019 STATUS: REG [facility] FAX #: [phone] RAD #: [id number] D/C DT PAGE 1 Signed Report (CONTINUED) Patient Name: PATSY ACE Unit No: [id number] EXAMS: CPT CODE: [id number] XR FLUORO FOR SPINE INJ 93384 <Continued> CC: Technologist: Milana Melgar(R) Transcribed D/ (8885) tBRIGITTEUVD [facility] NAME: PATSY ACE [address] [facility] PHYS: Jasiel Rahman MD [place], [place] [address] : 1940 AGE: 78 SEX: F LOC: RENNY PHONE #: [phone] EXAM DATE: 05/27/2019 STATUS: REG [facility] FAX #: [phone] RAD #: [id number] D/C DT PAGE 2 Signed Report Patient Name: PATSY ACE Unit No: [id number] EXAMS: CPT CODE: [id number] XR FLUORO FOR SPINE INJ 59133 <Continued> Orig Print D/T: S: 05/27/2019 (1357) [facility] NAME: PATSY ACE [address] [facility] PHYS: Jasiel Rahman MD [place], [place] [address] : 1940 AGE: 78 SEX: F LOC: RENNY PHONE #: [phone] EXAM DATE: 05/27/2019 STATUS: REG [facility] FAX #: [phone] RAD #: [id number] D/C DT PAGE 3 Signed Report - XR FLUORO FOR SPINE 2018-09-24 12:09:00 Patient Name: PATSY ACE INJ Unit No: [id number] EXAMS: CPT CODE: [id number] XR FLUORO FOR SPINE INJ 15457 CERVICAL TRANSFORAMINAL INJECTION REFERRING PHYSICIAN: PREOPERATIVE DIAGNOSIS: Cervical radiculitis POSTOPERATIVE DIAGNOSIS: Bilateral cervical radiculopathy PROCEDURES PERFORMED: Fluoroscopically guided needle localization of the bilateral C5, bilateral C6 spinal nerves with transforaminal epidural steroid injection/injections. 2. Transforaminal epidurogram/epidurograms at bilateral C5, bilateral C6 FINDINGS: Poor filling all. Concordant provocation bilateral C6 shoulders, left C5 neck. Pain relief-80%. Some mild shoulder pain consider bilateral C7 nerve roots ANTIBIOTICS:Cefazolin ESTIMATED BLOOD LOSS: Minimal ANESTHESIA: (TIVA ) Total intravenous anesthetic (patient intolerant to sedatives and hypnotics) COMPLICATIONS: None DETAILS OF PROCEDURE: After obtaining stable vital signs, informed consent and IV access, with no known contraindications to proceeding, the patient was taken to the fluoroscopy suite and placed in a supine position with all extremities padded and appropriate monitors placed. A sterile prep and drape was performed over the cervical spine. Using fluoroscopic visualization at each level the insertion site was marked for a paravertebral approach to the foramen. Using standard technique, a 27gauge needle was advanced to the base of the pedicle. In AP view, final positioning was obtained outside the 6 on a clock position on the pedicle. Then, 0.5 ml of Isovue-300 contrast was injected to produce the epidurograms. No paresthesias were elicited with needle insertion or injection and there were no signs of intravascular or intrathecal uptake. Then, 0.5 ml of 4% lidocaine was injected as a test dose with no signs of intravascular or intrathecal uptake. Next, 10 mg of Decadron was injected incrementally with frequent negative aspirations.Each subsequent cervical nerve root sleeve was done with the same technique and medications were used.There were no signs of intravascular or intrathecal uptake. The patient's vital signs remained stable. The patient was taken to the PACU in good condition. [facility] NAME: PATSY ACE [address] [place] [address] PHYS: Jasiel Rahman MD [place], [place] [address] : 1940 AGE: 78 SEX: F LOC: RENNY PHONE #: [phone] EXAM DATE: 09/24/2018 STATUS: REG [facility] FAX #: [phone] RAD #: [id number] D/C DT PAGE 1 Signed Report (CONTINUED) Patient Name: PATSY ACE Unit No: [id number] EXAMS: CPT CODE: [id number] XR FLUORO FOR SPINE INJ 60210 <Continued> at 1209 Reported and signed by: Jasiel Mccormick M.D. CC: Jasiel Mccormick MD Technologist: OSORIO GARCÍA RT(R) Transcribed D/ (0511) t.DUSTIN.FLACO [facility] NAME: PATSY ACE [address] [facility] PHYS: Jasiel Rahman MD [place], [place] [address] : 1940 AGE: 78 SEX: F LOC: RENNY PHONE #: [phone] EXAM DATE: 09/24/2018 STATUS: REG [facility] FAX #: [phone] RAD #: [id number] D/C DT PAGE 2 Signed Report Patient Name: PATSY ACE Unit No: [id number] EXAMS: CPT CODE: [id number] XR FLUORO FOR SPINE INJ 17792 <Continued> Orig Print D/T: S: 09/24/2018 (1212) [facility] NAME: PATSY ACE [address] [facility] [address] PHYS: DOCUD - Doctor,Jasiel Arellano MD [place], [place] [address] : 1940 AGE: 78 SEX: F LOC: RENNY PHONE #: [phone] EXAM DATE: 09/24/2018 STATUS: REG [facility] FAX #: [phone] RAD #: [id number] D/C DT PAGE 3 Signed Report - XR C-SPINE 6+V 2018-09-09 16:44:00 Patient Name: PATSY ACE Unit No: [id number] EXAMS: CPT CODE: [id number] XR C-SPINE 6+V 20835 MRI OF THE CERVICAL SPINE: DIAGNOSIS: 1. At C2-3, moderate disc degeneration. Mild disc bulging. No central canal stenosis. Moderate to marked left foraminal moderate right foraminal stenosis. Moderate facet arthropathy. 2. At C3-4, mild/moderate disc degeneration. No central canal stenosis. Moderate to marked left foraminal and moderate right foraminal stenosis. Moderate to marked right facet and moderate left facet arthropathy. 3. At C4-5, there is solid interbody fusion. Moderate central canal stenosis. Moderate to marked bilateral bony foraminal stenosis. 4. At C5-6,moderate disc degeneration. Mild central canal stenosis. Moderate to marked left foraminal moderate right foraminal stenosis. Moderate facet arthropathy. 5. At C6-7, marked disc degeneration. 3 to 4 mm disc osteophyte complex flattens the ventral thecal sac. Moderate to marked central canal stenosis. Left foraminal moderate to marked right foraminal stenosis. Mild to moderate facet arthropathy. 6. At C7-T1, there is solid interbody fusion. Mild central canal stenosis. Moderate foraminal stenosis. COMMENT: COMPARISON: No prior exams available. Sagittal T1, T2 and STIR and axial T2 and gradient-echo sequences are obtained of the cervical spine. Cervical vertebrae are within normal limits in signal. The findings are as above. 7 view cervical spine with flexion and extension COMMENT: Marked degeneration of the C4-5, C5-6 and C6-7 discs. No abnormal motion seen on flexion or extension. Solid interbody fusion C7-T1 and T1-2 levels. Prevertebral soft tissues are within normal is. No abnormal motion is seen on flexion or extension. at 1344 Reported and signed by: Cruz Galvan MD [facility] NAME: PATSY ACE [address] [place] [address] PHYS: Jasiel Rahman MD : 1940 AGE: 78 SEX: F [place] [address] LOC: Y.MRI PHONE #: [phone] EXAM DATE: 09/09/2018 STATUS: REG CLI FAX #: [phone] RAD #: [id number] D/C DT PAGE 1 Signed Report (CONTINUED) Patient Name: PATSY ACE Unit No: [id number] EXAMS: CPT CODE: [id number] XR C-SPINE 6+V 62372 <Continued> CC: Jasiel Mccormick MD Technologist: RT. Pranay(R) Transcribed D/ (1224) tBRIGITTEGVG [facility] NAME: PATSY ACE [address] [place] [address] PHYS: Jasiel Rahman MD : 1940 AGE: 78 SEX: F [place] [address] LOC: Y.MRI PHONE #: [phone] EXAM DATE: 09/09/2018 STATUS: REG CLI FAX #: [phone] RAD #: [id number] D/C DT PAGE 2 Signed Report Patient Name: PATSY ACE Unit No: [id number] EXAMS: CPT CODE: [id number] XR C-SPINE 6+V 54942 <Continued> Orig Print D/T: S: 09/09/2018 (1647) [facility] NAME: PATSY ACE [address] [facility] PHYS: DOCUD - DoctorJasiel MD : 1940 AGE: 78 SEX: F [place], [place] [address] LOC: Y.MRI PHONE #: [phone] EXAM DATE: 09/09/2018 STATUS: REG CLI FAX #: [phone] RAD #: [id number] D/C DT PAGE 3 Signed Report - MRI C-SPINE W/O CONT 2018-09-09 16:44:00 Patient Name: PATSY ACE Unit No: [id number] EXAMS: CPT CODE: [id number] MRI C-SPINE W/O CONT 30569 MRI OF THE CERVICAL SPINE: DIAGNOSIS: 1. At C2-3, moderate disc degeneration. Mild disc bulging. No central canal stenosis. Moderate to marked left foraminal moderate right foraminal stenosis. Moderate facet arthropathy. 2. At C3-4, mild/moderate disc degeneration. No central canal stenosis. Moderate to marked left foraminal and moderate right foraminal stenosis. Moderate to marked right facet and moderate left facet arthropathy. 3. At C4-5, there is solid interbody fusion. Moderate central canal stenosis. Moderate to marked bilateral bony foraminal stenosis. 4. At C5-6,moderate disc degeneration. Mild central canal stenosis. Moderate to marked left foraminal moderate right foraminal stenosis. Moderate facet arthropathy. 5. At C6-7, marked disc degeneration. 3 to 4 mm disc osteophyte complex flattens the ventral thecal sac. Moderate to marked central canal stenosis. Left foraminal moderate to marked right foraminal stenosis. Mild to moderate facet arthropathy. 6. At C7-T1, there is solid interbody fusion. Mild central canal stenosis. Moderate foraminal stenosis. COMMENT: COMPARISON: No prior exams available. Sagittal T1, T2 and STIR and axial T2 and gradient-echo sequences are obtained of the cervical spine. Cervical vertebrae are within normal limits in signal. The findings are as above. 7 view cervical spine with flexion and extension COMMENT: Marked degeneration of the C4-5, C5-6 and C6-7 discs. No abnormal motion seen on flexion or extension. Solid interbody fusion C7-T1 and T1-2 levels. Prevertebral soft tissues are within normal is. No abnormal motion is seen on flexion or extension. at 1644 Reported and signed by: Cruz Galvan MD [facility] NAME: PATSY ACE [address] [place] [address] PHYS: Jasiel Rahman MD : 1940 AGE: 78 SEX: F [place] [address] LOC: Y.MRI PHONE #: [phone] EXAM DATE: 09/09/2018 STATUS: REG CLI FAX #: [phone] RAD #: [id number] D/C DT PAGE 1 Signed Report (CONTINUED) Patient Name: PATSY ACE Unit No: [id number] EXAMS: CPT CODE: [id number] MRI C-SPINE W/O CONT 24050 <Continued> CC: Jasiel Mccormick MD Technologist: Latosha Nielsen, RT(R) Transcribed D/ (960) SamaraG [facility] NAME: PATSY ACE [address] [place] [address] PHYS: Jasiel Rahman MD : 1940 AGE: 78 SEX: F [place] [address] LOC: Y.MRI PHONE #: [phone] EXAM DATE: 09/09/2018 STATUS: REG CLI FAX #: [phone] RAD #: [id number] D/C DT PAGE 2 Signed Report Patient Name: PATSY ACE Unit No: [id number] EXAMS: CPT CODE: [id number] MRI C-SPINE W/O CONT 17116 <Continued> Orig Print D/T: S: 09/09/2018 (1986) [facility] NAME: PATSY ACE [address] [place] [address] PHYS: Jasiel Rahman MD : 1940 AGE: 78 SEX: F [place] [address] LOC: PraveenaMRI PHONE #: [phone] EXAM DATE: 09/09/2018 STATUS: REG CLI FAX #: [phone] RAD #: [id number] D/C DT PAGE 3 Signed Report - XR FLUORO FOR SPINE 2018-08-19 12:30:00 Patient Name: PATSY ACE INJ Unit No: [id number] EXAMS: CPT CODE: [id number] XR FLUORO FOR SPINE INJ 04226 LUMBAR DISCOGRAM AND PLACEMENT OF INTRADISCAL STEROIDS REFERRING PHYSICIAN: PREOPERATIVE DIAGNOSIS: Degenerative lumbar disc disease. POSTOPERATIVE DIAGNOSIS: Symptomatic discs L3-4 . 2. PROCEDURE PERFORMED: Fluoroscopically guided needle localization of the level L3-4 discs with provocative discography, placement of intradiscal steroids . FINDINGS: The level L3-4 discogram showed: a) Provocation was positive for back pain b) Differential pressure was : Low pressure disc c) Injectate volume:4 ml,1 cc Omnipaque dye, 10 g Kenalog, 10 mg Ancef, 1 cc of 0.75% Marcaine d) L3-4 disc mild back pain with annular tear ANTIBIOTIC: Cefazolin IV and intradiscal ESTIMATED BLOOD LOSS:Minimal ANESTHESIA:(TIVA) Total intravenous anesthetic (patient intolerant to sedatives and hypnotics) COMPLICATIONS:None DETAILS OF PROCEDURE: After obtaining stable vital signs, informed consent and IV access, there were no laboratory, radiographic or other contraindications to proceeding. The patient received preoperative antibiotics and was taken to the fluoroscopy suite where the patient was placed in a prone position with all extremities padded and appropriate monitors placed. The patient was sterilely prepped and draped over the lumbosacral spine. Under fluoroscopic visualization the levels l3-4 discs were visualized and the insertion sites were marked for paramedian approaches. Lidocaine 1.5%, 2 ml, was infiltrated into the skin, subcutaneous tissue, and superficial musculature after which a 20 gauge spinal introducer needle was advanced to the level of the facets. A 25 gauge curved B-bevel needle was then passed through the introducer and [facility] NAME: PATSY ACE [address] [facility] PHYS: DOCUD - DoctorJasiel MD [place], [place] [address] : 1940 AGE: 78 SEX: F LOC: RENNY PHONE #: [phone] EXAM DATE: 08/19/2018 STATUS: REG [facility] FAX #: [phone] RAD #: [id number] D/C DT PAGE 1 Signed Report (CONTINUED) Patient Name: PATSY ACE Unit No: [id number] EXAMS: CPT CODE: [id number] XR FLUORO FOR SPINE INJ 35973 <Continued> advanced into the center of the disc. No paresthesias were elicited. Isovue 300 contrast was then injected with a manometric syringe to produce the discogram. Opening, symptomatic and peak pressures were recorded. Each disc was then injected with antibiotics and the symptomatic discs were also injected with triamcinolone/bupivacaine. The needles were removed and sterile Band-Aids were placed over the insertion sites. The patient was taken to the recovery room in stable condition. LUMBAR TRANSFORAMINAL INJECTION REFERRING PHYSICIAN: PREOPERATIVE DIAGNOSIS: Degenerative Lumbar Disc Disease. POSTOPERATIVE DIAGNOSIS: Left L4 radiculopathy PROCEDURES PERFORMED 1. Fluoroscopically guided needle localization of the left L4 spinal nerve/nerves with transforaminal epidural steroid injection/injections. 2. Transforaminal epidurogram/epidurograms at left L4. FINDINGS: Poor filling left L4. Concordant provocation left L4 hip. Pain relief-100%. ANTIBIOTIC: Cefazolin ESTIMATED BLOOD LOSS: Minimal ANESTHESIA: (TIVA )Total intravenous anesthetic (patient intolerant to sedatives and hypnotics) COMPLICATIONS: None DETAILS OF PROCEDURE: After obtaining stable vital signs, informed consent and IV access, with no known contraindications to proceeding, the patient was taken to the fluoroscopy suite and placed in a prone position with all extremities padded and appropriate monitors placed. A sterile prep and drape was performed over the lumbosacral spine. Using fluoroscopic visualization at each level the insertion site was marked for a paravertebral approach to the foramen. Using standard technique, a 25 gauge needle was advanced to the base of the pedicle. In AP view, final positioning was obtained outside the 6 on the clock position on the pedicle. Then, 1 ml of Isovue-300 contrast was injected to produce the epidurograms. No paresthesias were elicited with needle insertion or injection and there were no signs of intravascular or intrathecal uptake. Then, with 1 ml of 4% lidocaine and 10 mg of triamcinolone was injected incrementally with frequent negative aspirations. There were no signs of intravascular or intrathecal uptake. Each subsequent level was done using the same [facility] NAME: PATSY ACE [address] [facility] PHYS: Jasiel Rahman MD [place], [place] [address] : 1940 AGE: 78 SEX: F LOC: RENNY PHONE #: [phone] EXAM DATE: 08/19/2018 STATUS: REG [facility] FAX #: [phone] RAD #: [id number] D/C DT PAGE 2 Signed Report (CONTINUED) Patient Name: PATSY ACE Unit No: [id number] EXAMS: CPT CODE: [id number] XR FLUORO FOR SPINE INJ 79251 <Continued> technique and medications. The patient's vital signs remained stable. The patient was taken to the PACU in good condition. at 1230 Reported and signed by: Jasiel Mccormick M.D. CC: Jasiel Mccormick MD Technologist: OSORIO GARCÍA RT(R) Transcribed D/ (1230) Mari[place] [facility] NAME: PATSY ACE [address] [facility] PHYS: Jasiel Rahman MD [place], [place] [address] : 1940 AGE: 78 SEX: F LOC: RENNY PHONE #: [phone] EXAM DATE: 08/19/2018 STATUS: REG [facility] FAX #: [phone] RAD #: [id number] D/C DT PAGE 3 Signed Report Patient Name: PATSY ACE Unit No: [id number] EXAMS: CPT CODE: [id number] XR FLUORO FOR SPINE INJ 65634 <Continued> Orig Print D/T: S: 08/19/2018 (1234) [facility] NAME: PATSY ACE [address] [facility] PHYS: SELVIN - Doctor,Jasiel Arellano MD [place], [place] [address] : 1940 AGE: 78 SEX: F LOC: RENNY PHONE #: [phone] EXAM DATE: 08/19/2018 STATUS: REG [facility] FAX #: [phone] RAD #: [id number] D/C DT PAGE 4 Signed Report
[2019-06-01 18:44] LABS: Protime INR 1.04
[2019-06-01 18:52] LABS: Absolute Lymphocytes (CBC) 0.8 K/uL (0.7-4.9); Basophils % 0.5 % (0-1.3); Hematocrit 42.6 % (36.0-45.0); Lymphocytes % 11.4 % (15.3-44.8); MPV 7.9 fL (7.6-11.3); RBC Red Blood Cell Count 4.73 M/uL (3.86-4.86)
[2019-06-01 19:02] LABS: ALT/SGPT 38 U/L (12-78); AST/SGOT 39 U/L (15-37); Alkaline Phosphatase 86 U/L (45-117); BUN Blood Urea Nitrogen 29 mg/dL (7-18); Bicarbonate 23 mmol/L (21-32); Bilirubin Direct 0.3 mg/dL (0-0.2); Bilirubin Total 0.9 mg/dL (0.2-1.0); Glucose Level 102 mg/dL (74-106); Magnesium 2.2 mg/dL (1.8-2.4); NT PRO-BNP 116 pg/mL (<450); Protein, Total 7.6 g/dL (6.4-8.2); Sodium Level 140 mmol/L (136-145); Troponin (Emerg Dept Use Only) < 0.02 ng/mL (0.0-0.045)
[2019-06-01] MEDS ORDERED: NITROGLYCERIN 0.4 MG/TAB SL ONE (19:05)
--- NOTE | 2019-06-01 19:41 | RAD REPORT ---
EXAM DESCRIPTION: RAD - Chest Single View - 06/01/2019 6:30 pm CLINICAL HISTORY: Chest pain COMPARISON: July 2018 TECHNIQUE: AP portable chest image was obtained 1823 hours . FINDINGS: Lungs are clear. Heart and vasculature are normal. No measurable pleural effusion and no p neumothorax. No acute bony abnormality seen. No acute aortic findings suspected. IMPRESSION: No acute cardiopulmonary process.
--- NOTE | 2019-06-01 19:44 | RAD REPORT ---
EXAM DESCRIPTION: CT - Chest For Pe Angio - 06/01/2019 7:29 pm CLINICAL HISTORY: CHEST PAIN COMPARISON: CTANGIO CHEST FOR PE dated 11/18/2010 TECHNIQUE: Dynamically enhanced 3 mm thick images of the chest were obtained during administration o f approximately 150mL Isovue 370 IV contrast. Coronal and oblique MIP reconstruction images were gene rated and reviewed. Exam utilizes a protocol to evaluate the pulmonary arterial tree. All CT scans are performed using dose optimization technique as appropriate and may include automated exposure control or mA/KV adjustment according to patient size. FINDINGS: No pulmonary emboli are identified. No acute aortic finding. Ascending aorta is 3.9 cm in diameter. Arch is ectatic at 3.9 cm. midthoraci c descending aorta is 3.4 cm in diameter with the aorta at the diaphragm measuring 3.1 cm. No displac ed calcifications. No pericardial thickening or effusion. No focal mass or consolidation. Respiratory motion degradation limits interstitial assessment. No sig nificant interstitial edema or infiltrate suspected. No pleural effusion or pleural thickening. No mediastinal or hilar suspicious masses. No chest wall masses or abnormal axillary lymphadenopathy. Thoracic spine degenerative change present. No acute or destructive finding. IMPRESSION: No pulmonary emboli identified. Ectatic aortic changes are present with no aneurysmal dilatation. No displaced calcification, dissect ion or acute aortic finding. No acute lung parenchymal process seen.
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
--- NOTE | 2019-06-01 20:01 | EDPHYS ---
Physician Documentation [facility] Name: Mary Norris Age: 78 yrs Sex: Female : 1940 Arrival Date: 06/01/2019 Time: 17:55 Bed 23 Private MD: ED Physician Cachorro Sánchez HPI: 06/01 18:18 This 78 yrs old Female presents to ER via EMS with complaints of chest pain. rn 18:18 The patient or guardian reports chest pain that is located primarily in the substernal rn area. Onset: just prior to arrival. The pain does not radiate. Associated signs and symptoms: Pertinent positives: diaphoresis, lightheadedness, shortness of breath, Pertinent negatives: abdominal pain, headache, palpitations, syncope, vomiting. The chest pain is described as dull. Duration: The patient or guardian reports a single episode, that is still ongoing. Modifying factors: The symptoms are alleviated by nothing. the symptoms are aggravated by deep breath, palpation of area. Severity of pain: At its worst the pain was moderate in the emergency department the pain has improved. The patient has not experienced similar symptoms in the past. Reports sudden onset of chest pain, substernal, non-radiating, dull, assoc with sob, lightheaded, and diaphoresis. Reports pain and symptoms have near resolved. No trauma. No fever. + mild cough. No vomiting/diarrhea. Recently had back injection for sciatica, not moving around as much, but not immobilized. . Historical: - Allergies: 18:09 No Known Allergies; mg2 - Home Meds: 18:09 Lexapro 5 mg Oral tab 1 tab once daily [Active]; Nexium 40 mg oral cpDR 1 cap once mg2 daily [Active]; Centrum oral oral [Active]; Benicar 40 mg oral tab 1 tab once daily [Active]; Lyrica Oral [Active]; Pamelor 25 mg Oral cap [Active]; Lipitor 40 mg Oral tab 1 tab once daily [Active]; - PMHx: 18:09 GERD; Hyperlipidemia; Hypertension; Irritable bowel syndrome; Migraines; skin cancer on mg2 the nose; - PSHx: 18:09 Appendectomy; Hysterectomy; Cholecystectomy; left knee replacement; heart ablation; mg2 - Immunization history:: Flu vaccine is up to date. - Social history:: Smoking status: Patient/guardian denies using tobacco. - Ebola Screening: : No symptoms or risks identified at this time. - Family history:: not pertinent. - Hospitalizations: : No recent hospitalization is reported. ROS: 18:18 Constitutional: Negative for fever, chills, and weight loss, Eyes: Negative for injury, rn pain, redness, and discharge, Neck: Negative for injury, pain, and swelling, Cardiovascular: Negative for palpitations, and edema, Respiratory: Negative for wheezing, and pleuritic chest pain, Abdomen/GI: Negative for nausea, vomiting, diarrhea, and constipation, MS/Extremity: Negative for injury and deformity, Skin: Negative for injury, rash, and discoloration, Neuro: Negative for headache, weakness, numbness, tingling, and seizure. Exam: 18:18 Constitutional: This is a well developed, well nourished patient who is awake, alert, rn and in no acute distress. Head/Face: Normocephalic, atraumatic. Eyes: Pupils equal round and reactive to light, extra-ocular motions intact. ENT: Mucous membranes moist. Cardiovascular: Regular rate and rhythm. No pulse deficits. Respiratory: Mild tachypnea, no retractions, clear bilaterally Abdomen/GI: soft, mild epigastric tenderness MS/ Extremity: Pulses equal, no cyanosis. Neurovascular intact. Full, normal range of motion. Equal circumference. Neuro: Awake and alert, GCS 15, oriented to person, place, time, and situation. Cranial nerves II-XII grossly intact. Motor strength 5/5 in all extremities. Sensory grossly intact. Cerebellar exam normal. 18:18 ECG was reviewed by the Attending Physician. Vital Signs: 18:02 BP 143 / 69; Pulse 72; Resp 18; Temp 98; Pulse Ox 98% on R/A; Weight 80.74 kg; Height 5 mg2 ft. 4 in. (162.56 cm); Pain 0/10; 19:00 BP 150 / 66; Pulse 78; Resp 18; Pulse Ox 98% on R/A; mg2 20:13 Pulse 74; Resp 18; Pulse Ox 98% on R/A; Pain 0/10; mg2 22:07 BP 140 / 71; Pulse 75; Resp 18; Temp 99.4; Pulse Ox 100% on R/A; mg2 18:02 Body Mass Index 30.55 (80.74 kg, 162.56 cm) mg2 MDM: 18:06 Patient medically screened. rn 19:59 Data reviewed: vital signs. Data interpreted: Pulse oximetry: on room air is 98 %. pm1 Interpretation: normal. Counseling: I had a detailed discussion with the patient and/or guardian regarding: the historical points, exam findings, and any diagnostic results supporting the discharge/admit diagnosis, lab results, radiology results, the need for further work-up and treatment in the hospital. 20:06 Physician consultation: Brenton Hadley was called at 20:06, was contacted at 20:06, pm1 regarding admission, patient's condition, and will see patient. 06/01 18:03 Order name: Basic Metabolic Panel; Complete [place]: 19:03 [facility] [place] 18:03 Order name: CBC with Diff; Complete Time: 19:03 [facility] [place] 18:03 Order name: LFT's; Complete Time: 19:03 [facility] [place] 18:03 Order name: Magnesium; Complete Time: 19:03 [facility] 18:03 Order name: NT PRO-BNP; Complete Time: 19:03 [facility] [place] 18:03 Order name: PT-INR; Complete Time: 19:03 [facility] [place] 18:03 Order name: Troponin (emerg Dept Use Only); Complete Time: 19:03 [facility] [place] 18:03 Order name: XRAY Chest (1 view); Complete Time: 19:56 [facility] [place] 18:03 Order name: EKG; Complete Time: 18:04 [facility] [place] 18:03 Order name: Cardiac monitoring; Complete Time: 18:23 [facility] [place] 18:17 Order name: Lipase; Complete Time: 19:03 06/01 18:27 Order name: CT Chest For PE Angio; Complete Time: 19:56 rn 06/01 21:18 Order name: Urine Dipstick--Ancillary (enter results); Complete Time: 21:48 [facility] 06/01 18:03 Order name: EKG - Nurse/Tech; Complete Time: 18:23 [facility] 18:03 Order name: IV Saline Lock; Complete Time: 18:23 [facility] 18:03 Order name: Labs collected and sent; Complete Time: 18:23 [facility] 18:03 Order name: O2 Per Protocol; Complete Time: 18:23 [facility] 18:03 Order name: O2 Sat Monitoring; Complete Time: 18:24 mg2 EC:18 Rate is 70 beats/min. Rhythm is regular. Left axis deviation noted. QRS is positive in rn lead I and negative in lead aVF. NM interval is normal. QRS interval is normal. QT interval is normal. No Q waves. T waves are Normal. No ST changes noted. Clinical impression: NSR w/ Non-specific ST/T Changes and LVH. Interpreted by me. Reviewed by me. Administered Medications: 19:08 Drug: Nitroglycerin 0.4 mg Route: Sublingual; mg2 21:57 Follow up: Response: No adverse reaction; Marked relief of symptoms mg2 Disposition: 06/02 08:08 Co-signature as Attending Physician, Cachorro Sánchez MD. rn Disposition: 06/01/19 20:00 Hospitalization ordered by Brenton Hadley for Observation. Preliminary diagnosis is Chest pain, unspecified. - Bed requested for Telemetry/MedSurg (observation). - Status is Observation. mg2 - Condition is Stable. - Problem is new. - Symptoms have improved. UTI on Admission? No Signatures: Dispatcher [employer] EDMS Sydney Miller RN RN mw Nieto, Roman, MD MD rn Marinas, Patrick, JULIA CVICU RN pm1 Maikel Tapia RN RN mg2 Corrections: (The following items were deleted from the chart) 06/01 21:33 20:00 Hospitalization Ordered by Brenton Hadley for Observation. Preliminary diagnosis mw is Chest pain, unspecified. Bed requested for Telemetry/MedSurg (observation). Status is Observation. Condition is Stable. Problem is new. Symptoms have improved. UTI on Admission? No. pm1 22:17 21:33 06/01/2019 20:00 Hospitalization Ordered by Brenton Hadley for Observation. mg2 Preliminary diagnosis is Chest pain, unspecified. Bed requested for Telemetry/MedSurg (observation). Status is Observation. Condition is Stable. Problem is new. Symptoms have improved. UTI on Admission? No. mw
--- NOTE | 2019-06-01 21:25 | P.HP ---
Certification for Inpatient Patient admitted to: Observation With expected LOS: <2 Midnights Practitioner: I am a practitioner with admitting privileges, knowledge of patient current condition, hospital course, and medical plan of care. Services: Services provided to patient in accordance with Admission requirements found in Title 42 Section 412.3 of the Code of Federal Regulations Patient History Date of Service: 06/02/19 Reason for admission: Chest pain History of Present Illness: 78-year-old woman with a history of hypertension, GERD, chronic back pain, spinal stenosis presented to the emergency department with a complaint of chest pain of onset this evening. Patient described a dull anterior chest pain, mostly in the sternal area, which occurred at rest, nonradiating, aggravated by deep breathing. She stated she could not breath well due to the chest pain. She was given aspirin which per patient helped. She denied any nausea or diaphoresis or palpitation or lightheadedness. She has a history of AFib status post cardiac ablation and since then has been in sinus rhythm. In the ED, initial troponin is negative, EKG unremarkable with no ischemic changes. Chest x-ray was negative. CTA thorax was performed which was also negative for pulmonary embolus or infiltrate. Cardiac risk factors include hypertension and hyperlipidemia. Patient is placed under observation for ACS rule out. Allergies No Known Drug Allergies Allergy (Verified 08/09/18 23:39) Unknown Home Medications: Atorvastatin Calcium [Lipitor*] 40 mg PO BEDTIME 08/09/18 Escitalopram [Lexapro*] 5 mg PO DAILY 08/09/18 Esomeprazole Mag Trihydrate [Nexium] 40 mg PO DAILY 08/09/18 Multivitamin/Iron/Folic Acid [Centrum Women Tablet] 1 tab PO DAILY 08/09/18 Nortriptyline HCl [Pamelor*] 25 mg PO BEDTIME 08/09/18 Pregabalin [Lyrica*] 100 mg PO TIDWM 08/09/18 Olmesartan Medoxomil [Benicar] 40 mg PO DAILY 08/10/18 Celecoxib [Celebrex] 200 mg PO DAILY 06/01/19 - Past Medical/Surgical History Diabetic: No -: GERD -: hyperlipidemia -: HTN -: IBS -: cardiac ablation -: art -: appy -: geni knee replacement -: hysterectomy -: dental surgery- implants - Family History Father -: Heart disease Brother -: Lung disease Notes: asthma - Social History Alcohol use: No CD- Drugs: No Caffeine use: Yes Review of Systems Other: General: No fever, no malaise, no unintentional weight loss. Eyes: No eye discharge, Respiratory: No cough, no shortness of breath. GI: No abdominal pain, no nausea no vomit, no constipation, no diarrhea. Genitourinary: No dysuria, no urinary frequency, no incontinence, no hematuria. Musculoskeletal: No joint pains, or joint swelling, no gait instability. Neurology: No headache, no asymmetric, weakness, no problem with swallowing. Except as documented, all other systems reviewed and negative. Physical Examination - Physical Exam General: Alert, In no apparent distress, Oriented x3 HEENT: Atraumatic, Normocephalic, PERRLA, Mucous membr. moist/pink Neck: Supple, JVD not distended, No Thyromegaly Respiratory: Clear to auscultation bilaterally, Normal air movement Cardiovascular: No edema, Normal pulses, Regular rate/rhythm, Normal S1 S2, No murmurs Capillary refill: <2 Seconds Gastrointestinal: Normal bowel sounds, Soft and benign, Non-distended, No tenderness Musculoskeletal: No swelling, No erythema Integumentary: No rashes Neurological: Normal speech, Normal strength at 5/5 x4 extr, Cranial nerves 3- 12 intact - Studies Laboratory Data (last 24 hrs) 06/01/19 18:20: Lipase 271 06/01/19 18:20: PT 12.2, INR 1.04 06/01/19 18:20: WBC 7.1, Hgb 14.4, Hct 42.6, Plt Count 232 06/01/19 18:20: Sodium 140, Potassium 4.0, BUN 29 H, Creatinine 1.00, Glucose 102, Magnesium 2.2, Total Bilirubin 0.9, AST 39 H, ALT 38, Alkaline Phosphatase 86 Assessment and Plan - Problems (Diagnosis) (1) Chest pain, rule out acute myocardial infarction Current Visit: Yes Status: Acute (2) Hypertension Current Visit: Yes Status: Chronic (3) Hyperlipidemia Current Visit: Yes Status: Chronic (4) Chronic back pain Current Visit: Yes Status: Chronic - Plan Place under observation Trend troponin Aspirin 81 mg daily Continue lipitor Continue Benicar for hypertension. Stress test in a.m. Continue home dose Celebrex and Lyrica for chronic back pain. Continue Omeprazole for GERD. - Advance Directives Does patient have a Living Will: Yes Does patient have a Durable POA for Healthcare: Yes
[2019-06-01 21:28] LABS: Urine Blood NEGATIVE (NEG); Urine Glucose NEGATIVE (NEG); Urine Protein NEGATIVE (NEG)
[2019-06-01] MEDS ORDERED: ACETAMINOPHEN 500 MG TAB PO PRN (22:34)
[2019-06-01] MEDS ORDERED: NITROGLYCERIN 0.4 MG/TAB SL PRN (22:34)
[2019-06-01] MEDS ORDERED: CODEINE 30MG/APAP 300MG TAB PO PRN (22:52)
[2019-06-01 23:30] LABS: HDL Cholesterol 60 mg/dL (40-60); LDL Cholesterol, Calculated 79 (<130); Troponin I < 0.02 ng/mL (0.0-0.045)
[2019-06-02 01:18] VITALS: BMI 32.1
[2019-06-02 06:49] LABS: Absolute Lymphocytes (CBC) 0.6 K/uL (0.7-4.9); Basophils % 0.3 % (0-1.3); Hematocrit 40.7 % (36.0-45.0); Lymphocytes % 10.1 % (15.3-44.8); MPV 7.7 fL (7.6-11.3); RBC Red Blood Cell Count 4.49 M/uL (3.86-4.86)
[2019-06-02 07:09] LABS: Potassium 4.4 mmol/L (3.5-5.1)
[2019-06-02] MEDS ORDERED: REGADENOSON 0.4 MG/5 ML SYR IV ONE (08:29)
--- NOTE | 2019-06-02 08:48 | EKG ---
Test Date: 2019-06-01 Test Time: 18:20:41 Sleeve Separator: MEASUREMENT RESULTS: Intervals: Rate: 70 VT: 194 QRSD: 104 QT: 414 QTc: 447 Kenneth: P: 79 VT: 194 QRS: -43 T: 33 INTERPRETIVE STATEMENTS: Normal sinus rhythm Left axis deviation Voltage criteria for left ventricular hypertrophy Abnormal ECG Compared to ECG 08/10/2018 00:03:02 First degree AV block no longer present Electronically Signed On 06-02-19 08:45:36 LAUNDERETTE ATTENDANT by Dvais Kulkarni
[2019-06-02] MEDS ORDERED: ENOXAPARIN 40 MG/0.4 ML SQ SCH (09:00)
[2019-06-02] MEDS ORDERED: ASPIRIN EC 81 MG TAB PO SCH (09:00)
[2019-06-02] MEDS ORDERED: ESCITALOPRAM 20 MG TAB PO SCH (09:57)
[2019-06-02 10:02] VITALS: O2SAT 96
--- NOTE | 2019-06-02 10:05 | RAD REPORT ---
EXAM DESCRIPTION: NM - Rest Stress Cardiac Imaging - 06/02/2019 9:42 am CLINICAL HISTORY: Chest pain COMPARISON: November 2010 TECHNIQUE: The patient was administered approximately 10 mCi of Tc 99m Sestamibi prior to resting SP ECT imaging of the heart. The patient was then administered approximately 30 mCi of Tc 99m Sestamibi following exercise or pharmacologic stress. Multiplanar SPECT images were reviewed. FINDINGS: The end diastolic volume is 71 ml, the end systolic volume is 28 ml, and the ejection frac tion is 60 %. Ventricular volumes are similar to the 2011 study. Ejection fraction has decreased but is still normal range. No stress-induced ischemic changes identifiable. Decreased activity along the inferior wall on rest i maging is believed to be diaphragm attenuation artifact. IMPRESSION: No stress ischemic a or other significant finding. Ventricular volumes are normal range in similar to the 2011 study. Ejection fraction is normal range at 60%, decreased from a 72% value in 2011.
[2019-06-02] MEDS ORDERED: VALSARTAN 160 MG TAB PO SCH (10:15)
[2019-06-02] MEDS ORDERED: PANTOPRAZOLE 40MG TABLET PO SCH (10:15)
[2019-06-02] MEDS ORDERED: PREGABALIN 50 MG CAP PO SCH (12:00)
[2019-06-02 12:22] VITALS: BP 130/61; TEMP 97.4
--- NOTE | 2019-06-02 14:11 | TREADPHA ---
DX: CHEST PAIN Date of Study: 06/02/2019 Ht: 5 4 Wt: 186 lb 14.4 oz Consulting Physician: AYLEEN MEDICATIONS: TYLENOL, ASPIRIN, NITROSTAT, LOVENOX, LIPITOR, NEXIUM, PAMELOR HISTORY: MEDICAL HISTORY OF HYPERTENSION, GERD, AND HIGH CHOLESTEROL PHYSICIAL EXAMINATION: RESTING B.P.: 147/68 RESTING H.R.: 70 RESTING EKG: NORMAL RHTHYM, LEFT AXIS DEVIATION. PROTOCOL: LEXISCAN EXERCISE TIME: 3:30 B.P. AT PEAK STRESS: 132/71 IMPRESSION: LEXISCAN STRESS TEST PERFORMED. CARDIOLITE PER PROTOCOL. NO SUPRAVENTRICULAR TACHYCARDIA, VENTRICULAR TACHYCARDIA OR ARRYTHMIAS NOTED. PATIENT DENIED CHEST PAIN. TOLERATED WELL. SEE NUCLEAR MEDICINE REPORT.
[2019-06-02] MEDS ORDERED: NORTRIPTYLINE HCL 25 MG CAP PO SCH (21:00)
[2019-06-02] MEDS ORDERED: ATORVASTATIN 40 MG TAB PO SCH (21:00)
--- NOTE | 2019-06-03 02:35 | DS ---
Date of Discharge: 06/02/2019 Consultants: Davis Kulkarni M.D., Cardiology. Procedures: Cardiac stress test, no stress-induced ischemia. Discharge Diagnoses: 1.Chest pain, rule out acute coronary syndrome. 2.Essential hypertension. 3.Mixed hyperlipidemia. 4.Chronic back pain. 5.Obesity, BMI of 32. Hospital Course: Patient is an 78-year-old female with past medical history of hypertension, GERD, c hronic back pain, spinal stenosis, who had sudden onset of chest pain. She recently received some in jections in her back. Patient also had history of atrial fibrillation status post cardiac ablation t herapy. Patient was in sinus rhythm. CT angio thorax was done, which was negative for PE or infiltr ate. She was admitted for further workup. Her cardiac enzymes were negative. Lipid panel was halima l. ACS was ruled out. Cardiac stress test was done due to her risk factors including obesity, hyper tension, hyperlipidemia, which did not show any stress-induced ischemia. Echocardiogram was also don e. Patient denies any further chest pain. She was then cleared for discharge. She will need to fol low up with her primary care physician in 2-3 days, follow up with provider relations consultant, Dr. Kulkarni in 2 wee ks. Return to ER for worsening condition. Activity: As tolerated. Medications: As per medication reconciliation list. Physical Examination: General: Awake, alert, and oriented x3, in no acute distress. CV: S1, S2. No murmurs. Respiratory: Moving air well bilaterally, no wheezing. Gastrointestinal: Abdomen is soft, nontender, nondistended. Positive bowel sounds. Extremities: No clubbing, cyanosis, or edema. Neurologic: Nonfocal. The patient was recommended to discontinue Celebrex due to risk factors for AR. She voiced understan cate. She will switch to alternative medication for her arthritis pain. SA/MODL Voice ID: [id number] Report ID: [id number]
== END 2019-06-02 14:45 | disposition home or self-care (01) ==
LOC: ER 17:49 → ERHOLD 21:28 → 4TH 22:06
PROVIDERS: ADMIT Internal Medicine; ATTEND Internal Medicine
DX: R07.9 Chest pain, unspecified (principal); I10 Essential (primary) hypertension; E78.2 Mixed hyperlipidemia; M54.9 Dorsalgia, unspecified; E66.9 Obesity, unspecified; Z68.34 Body mass index [BMI] 34.0-34.9, adult; K21.9 Gastro-esophageal reflux disease without esophagitis; M48.00 Spinal stenosis, site unspecified; Z96.653 Presence of artificial knee joint, bilateral
CPT/HCPCS: 93005; 93017; 85025 ×2; 80048 ×2; 36415; 83735; 85610; 80061; 80076; 81003; 84484 ×3; 83690; 83880; 71275; 71045; 94760 ×2; 78452; 99285; Q9967; J1650; J2785; A9500; G0378 ×3

== ENCOUNTER 2022-02-20 08:40 | Emergency (ER) | payer OTHER, MEDICARE ==
--- NOTE | 2022-02-20 09:58 | RAD REPORT ---
EXAM DESCRIPTION: CT - CTHCSPWOC - 02/20/2022 9:27 am CLINICAL HISTORY: head injury, slip and fall, headache, neck pain COMPARISON: Head C Spine Mpr Wo Con dated 12/24/2015 TECHNIQUE: Axial 5 mm thick images of the head were obtained. Axial 2 mm thick images of the cervic al spine were obtained with sagittal and coronal reconstruction images generated and reviewed. All CT scans are performed using dose optimization technique as appropriate and may include automated exposure control or mA/KV adjustment according to patient size. FINDINGS: No intracranial hemorrhage, mass, edema or acute intracranial finding. No suspicion for ac thanh infarction. No extra-axial fluid collections. Mastoid air cells and paranasal sinuses are clear. No globe or orbit abnormality seen. Patient has mild underlying atrophy is not significantly differen t from 2016. Ventricles remain in proportion to the volume loss. Chronic ischemic changes are present , mild in degree and similar to 2016. Cervical bodies are normal in height. No subluxation abnormality seen. C7-T2 fusion is present. There is no hardware in place. 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 Slight anterior subluxation of C4 on C5 note d. C4-5 disc space is significantly narrowed. There is likely bony bridging across the disc space fus ing these 2 vertebrae. Advanced degenerative changes are present with thickening and calcification of the transverse ligament posterior to the dens. Prominent right facet joint degenerative changes caus e mild bony foraminal stenosis at C2-3 and on the left at C3-4. Moderate left-sided foraminal stenosi s C4-5 from facet hypertrophy and uncovertebral joint hypertrophy. Bilateral moderate severity C6-7 b gabo foraminal stenosis. C5-6 disc space is narrowed. No fracture or acute bony abnormality. Central canal detail is inherently limited. No paraspinal mass or hematoma. IMPRESSION: No hemorrhage, edema or acute intracranial finding identified. Mild atrophy and chronic ischemic changes match 2016. Cervical spine degenerative changes are present. No acute findings seen and degenerative pattern is n ot substantially different from 2016.
[2022-02-20 10:33] VITALS: BP 114/68; TEMP 98.1; O2SAT 98
--- OUTSIDE RECORDS SUMMARY | 2022-02-20 11:28 | XMS REPORT | Continuity of Care Document ---
:1940 Author Organization [facility] t Address [address] [place] [address] Care Team Providers Name Role Phone Unavailable Unavailable Unavailable Payers Payer Name Policy Type Policy Number Effective Date Expiration Date S ource Problems This patient has no known problems. Allergies, Adverse Reactions, Alerts Allergy Allergy Status Severity Reaction(s) Onset Inactive Treating Comm ents Source Name Type Date Date Clinician No Known DA Active U 2018-07 [facility]- [facility] No Known DA Active U [facility] 09-24 [facility] 00:00: Orthope 00 [facility] No Known DA Active U 2011-07 [facility] 09-17 [facility] 00:00: Orthope 00 dic H[facility] Medications This patient has no known medications. Procedures This patient has no known procedures. Encounters Start End Encounter Admission Attending Care Care Encounter Source Date/Time Date/Time Type Type Clinicians Facility Department ID 2020-08-29 2020-08-29 Outpatient [facility] [id number] [address] [place] 00:00:00 00:00:[address] 2020-08-08 2020-08-08 Outpatient [facility] [id number] [address] [place] 00:00:00 00:00:[address] Results Test Description Test Time Test Comments Results Result [facility] e Comments - XR FLUORO FOR 2019-06-26 Patient Name: SPINE INJ 12:19:00 PATSY ACE Unit No: [id number] EXAMS: CPT CODE: [id number] XR FLUORO FOR SPINE INJ 82113 LUMBAR TRANSFORAMINAL INJECTION REFERRING PHYSICIAN: PREOPERATIVE DIAGNOSIS: Degenerative Lumbar Disc Disease. POSTOPERATIVE DIAGNOSIS: Lumbar radiculopathy PROCEDURES PERFORMED 1. Fluoroscopically guided needle localization of the left L3, left L4, left S1 spinal nerve/nerves with transforaminal epidural steroid injection/injections. 2. Transforaminal epidurogram/epidurogram s at left L3, left L4, left S1. FINDINGS: Poor filling all. Concordant provocation left L4 leg. Pain relief-100%. ANTIBIOTIC: Cefazolin ESTIMATED BLOOD LOSS: [...] to the PACU in good condition. at 1219 Reported and signed by: Jasiel Mccormick M.D. [facility] NAME: PATSY ACE [address] [facility] PHYS: DOCUD - DoctorJasiel MD [place], [place] [address] : 1940 AGE: 78 SEX: F LOC: RENNY PHONE #: [phone] EXAM DATE: 06/26/2019 STATUS: [place] [facility] [place] #: [phone] RAD #: [id number] D/C DT PAGE 1 Signed Report (CONTINUED) Patient Name: PATSY ACE Unit No: [id number] EXAMS: CPT CODE: [id number] XR FLUORO FOR SPINE INJ 61179 <Continued> CC: Jasiel Mccormick MD Technologist: RONALD CAZARES RT(R) Transcribed D/ (1219) tBRIGITTEUVD [facility] NAME: PATSY ACE[address] PHYS: Jasiel Rahman MD [place] [address] : 1940 AGE: 78 SEX: F LOC: RENNY PHONE #: [phone] EXAM DATE: 06/26/2019 STATUS: REG [employer] FAX #: [phone] RAD #: [id number] D/C DT PAGE 2 Signed Report Patient Name: PATSY ACE Unit No: [id number] EXAMS: CPT CODE: [id number] XR FLUORO FOR SPINE INJ 90027 <Continued> Orig Print D/T: S: 06/26/2019 (1222) [facility] [place] NAME: PATSY ACE[address] PHYS: Jasiel Rahman MD [place] [address] : 1940 AGE: 78 SEX: F LOC: RENNY PHONE #: [phone] EXAM DATE: 06/26/2019 STATUS: REG [employer] FAX #: [phone] RAD #: [id number] D/C DT PAGE 3 Signed Report - XR FLUORO FOR 2019-05-27 Patient Name: SPINE INJ 13:54:00 PATSY ACE Unit No: [id number] EXAMS: CPT CODE: [id number] XR FLUORO FOR SPINE INJ 77380 LUMBAR TRANSFORAMINAL INJECTION REFERRING PHYSICIAN: PREOPERATIVE DIAGNOSIS: Degenerative Lumbar Disc Disease. POSTOPERATIVE DIAGNOSIS: Left lumbar radiculopathy PROCEDURES PERFORMED 1. Fluoroscopically guided needle localization of the left L3, left L4, left L5, left S1 spinal nerve/nerves with transforaminal epidural steroid injection/injections. 2. Transforaminal epidurogram/epidurogram s at left L3, left L4, left L5, [...] to the PACU in good condition. at 1354 Reported and signed by: Jasiel Mccormick M.D. [facility] NAME: MALKAPATSY GARCÍA [address] [facility] PHYS: SELVIN - DoctorJasiel MD [place], [place] [address] : 1940 AGE: 78 SEX: F LOC: PraveenaKIMBERLYN PHONE #: [phone] EXAM DATE: 05/27/2019 STATUS: [place] [facility] [place] #: [phone] RAD #: [id number] D/C DT PAGE 1 Signed Report (CONTINUED) Patient Name: PATSY ACE Unit No: [id number] EXAMS: CPT CODE: [id number] XR FLUORO FOR SPINE INJ 13968 <Continued> CC: Technologist: Milana Melgar(R) Transcribed D/ (7813) AvinashUVD [facility] NAME: PATSY ACE [address] [place] [address] PHYS: Jasiel Rahman MD [place] [address] : 1940 AGE: 78 SEX: F LOC: RENNY PHONE #: [phone] EXAM DATE: 05/27/2019 STATUS: REG [facility] [place] #: [phone] RAD #: [id number] D/C DT PAGE 2 Signed Report Patient Name: PATSY ACE Unit No: [id number] EXAMS: CPT CODE: [id number] XR FLUORO FOR SPINE INJ 55398 <Continued> Orig Print D/T: S: 05/27/2019 (1236) [facility] NAME: PATSY ACE [address] [place] [address] PHYS: Jasiel Rahman MD [place] [address] : 1940 AGE: 78 SEX: F LOC: RENNY PHONE #: [phone] EXAM DATE: 05/27/2019 STATUS: [place] [facility] [place] #: [phone] RAD #: [id number] D/C DT PAGE 3 Signed Report - XR FLUORO FOR 2018-09-24 Patient Name: SPINE INJ 12:09:00 PATSY ACE Unit No: [id number] EXAMS: CPT CODE: [id number] XR FLUORO FOR SPINE INJ 99370 CERVICAL TRANSFORAMINAL INJECTION REFERRING PHYSICIAN: PREOPERATIVE DIAGNOSIS: Cervical radiculitis POSTOPERATIVE DIAGNOSIS: Bilateral cervical radiculopathy PROCEDURES PERFORMED: Fluoroscopically guided needle localization of the bilateral C5, bilateral C6 spinal nerves with transforaminal epidural steroid injection/injections. 2. Transforaminal epidurogram/epidurogram s at bilateral C5, bilateral C6 FINDINGS: Poor [...] taken to the PACU in good condition. [facility] NAME: PATSY ACE [address] [facility] PHYS: DOCUD - Jasiel Mccormick MD [place], [place] [address] : 1940 AGE: 78 SEX: F LOC: RENNY PHONE #: [phone] EXAM DATE: 09/24/2018 STATUS: REG [facility] [place]X #: [phone] RAD #: [id number] D/C DT PAGE 1 Signed Report (CONTINUED) Patient Name: PATSY ACE Unit No: [id number] EXAMS: CPT CODE: [id number] XR FLUORO FOR SPINE INJ 79743 <Continued> at 1209 Reported and signed by: Jasiel Mccormick M.D. CC: Jasiel Mccormick MD Technologist: OSORIO GARCÍA RT(R) Transcribed D/ (1209) tWILLIAMD [facility] NAME: PATSY ACE [address] [place] [address] PHYS: Jasiel Rahman MD [place] [address] : 1940 AGE: 78 SEX: F LOC: RENNY PHONE #: [phone] EXAM DATE: 09/24/2018 STATUS: REG [facility] [place] #: [phone] RAD #: [id number] D/C DT PAGE 2 Signed Report Patient Name: PATSY ACE Unit No: [id number] EXAMS: CPT CODE: [id number] XR FLUORO FOR SPINE INJ 87680 <Continued> Orig Print D/T: S: 09/24/2018 (1212) [facility] NAME: PATSY ACE [address] [place] [address] PHYS: Jasiel Rahman MD [place], [place] [address] : 1940 AGE: 78 SEX: F LOC: RENNY PHONE #: [phone] EXAM DATE: 09/24/2018 STATUS: [place] [facility] [place] #: [phone] RAD #: [id number] D/C DT PAGE 3 Signed Report - XR C-SPINE 6+V 2018-09-09 Patient Name: 16:44:00 PATSY ACE Unit No: [id number] EXAMS: CPT CODE: [id number] XR C-SPINE 6+V 26144 MRI OF THE CERVICAL SPINE: DIAGNOSIS: 1. [...] is seen on flexion or extension. at 4917 Reported and signed by: Cruz Galvan MD [facility] NAME: PATSY ACE [address] [facility] PHYS: DOCUD - Jasiel Mccormick MD : 1940 AGE: 78 SEX: F [place], [place] [address] LOC: Y.MRI PHONE #: [phone] EXAM DATE: 09/09/2018 STATUS: REG [facility] FAX #: [phone] RAD #: [id number] D/C DT PAGE 1 Signed Report (CONTINUED) Patient Name: PATSY ACE Unit No: [id number] EXAMS: CPT CODE: [id number] XR C-SPINE 6+V 12736 <Continued> CC: Jasiel Mccormick MD Technologist: Katelynn Benavides RT.(R) Transcribed D/ (6203) tNAVIN [facility] NAME: PATSY ACE [address] [facility] PHYS: Jasiel Rahman MD : 1940 AGE: 78 SEX: F [place], [place] [address] LOC: Y.MRI PHONE #: [phone] EXAM DATE: 09/09/2018 STATUS: REG [facility] FAX #: [phone] RAD #: [id number] D/C DT PAGE 2 Signed Report Patient Name: PATSY ACE Unit No: [id number] EXAMS: CPT CODE: [id number] XR C-SPINE 6+V 36424 <Continued> Orig Print D/T: S: 09/09/2018 (1647) [facility] NAME: PATSY ACE [address] [facility] PHYS: Jasiel Rahman MD : 1940 AGE: 78 SEX: F [place], [place] [address] LOC: Y.MRI PHONE #: [phone] EXAM DATE: 09/09/2018 STATUS: REG [facility] FAX #: [phone] RAD #: [id number] D/C DT PAGE 3 Signed Report - MRI C-SPINE W/O 2018-09-09 Patient Name: CONT 16:44:00 PATSY ACE Unit No: [id number] EXAMS: CPT CODE: [id number] MRI C-SPINE W/O CONT 92809 MRI OF THE CERVICAL SPINE: DIAGNOSIS: 1. [...] is seen on flexion or extension. at 4605 Reported and signed by: Cruz Galvan MD [facility] NAME: PATSY ACE [address] [place] [address] PHYS: Jasiel Rahman MD : 1940 AGE: 78 SEX: F [place] [address] LOC: Y.MRI PHONE #: [phone] EXAM DATE: 09/09/2018 STATUS: REG CLI FAX #: [phone] RAD #: [id number] D/C DT PAGE 1 Signed Report (CONTINUED) Patient Name: PATSY ACE Unit No: [id number] EXAMS: CPT CODE: [id number] MRI C-SPINE W/O CONT 47140 <Continued> CC: Jasiel Mccormick MD Technologist: Latosha Nielsen, RT(R) Transcribed D/ (1103) tJESÚSG [facility] NAME: PATSY ACE [address] [place] [address] PHYS: Jasiel Rahman MD : 1940 AGE: 78 SEX: F [place] [address] LOC: Y.MRI PHONE #: [phone] EXAM DATE: 09/09/2018 STATUS: REG CLI FAX #: [phone] RAD #: [id number] D/C DT PAGE 2 Signed Report Patient Name: PATSY ACE Unit No: [id number] EXAMS: CPT CODE: [id number] MRI C-SPINE W/O CONT 18138 <Continued> Orig Print D/T: S: 09/09/2018 (1647) [facility] NAME: PATSY ACE [address] [facility] PHYS: SELVIN - Jasiel Mccormick MD : 1940 AGE: 78 SEX: F [place], [place] [address] LOC: Y.MRI PHONE #: [phone] EXAM DATE: 09/09/2018 STATUS: REG CLI FAX #: [phone] RAD #: [id number] D/C DT PAGE 3 Signed Report - XR FLUORO FOR 2018-08-19 Patient Name: SPINE INJ 12:30:00 PATSY ACE Unit No: [id number] EXAMS: CPT CODE: [id number] XR FLUORO FOR SPINE INJ 82458 LUMBAR DISCOGRAM AND PLACEMENT OF INTRADISCAL STEROIDS [...] then passed through the introducer and [facility] NAME: PATSY ACE [address] [facility] PHYS: DOCUD - DoctorJasiel MD [place], [place] [address] : 1940 AGE: 78 SEX: F LOC: RENNY PHONE #: [phone] EXAM DATE: 08/19/2018 STATUS: [place] [facility] [place] #: [phone] RAD #: [id number] D/C DT PAGE 1 Signed Report (CONTINUED) Patient Name: PATSY ACE Unit No: [id number] EXAMS: CPT CODE: [id number] XR FLUORO FOR SPINE INJ 92118 <Continued> advanced into the center of the disc. No paresthesias were elicited. Isovue 300 contrast was then injected with a manometric syringe to produce the discogram. Opening, symptomatic and peak pressures were recorded. Each disc was then injected with antibiotics and the symptomatic discs were also injected with triamcinolone/bupivacai ne. The needles were removed and sterile Band-Aids were placed over the insertion sites. The patient was taken to the recovery room in stable condition. LUMBAR TRANSFORAMINAL INJECTION REFERRING PHYSICIAN: PREOPERATIVE DIAGNOSIS: Degenerative Lumbar Disc Disease. POSTOPERATIVE DIAGNOSIS: Left L4 radiculopathy PROCEDURES PERFORMED 1. Fluoroscopically guided needle localization of the left L4 spinal nerve/nerves with transforaminal epidural steroid injection/injections. 2. Transforaminal epidurogram/epidurogram s at left L4. FINDINGS: Poor filling left [...] subsequent level was done using the same [facility] NAME: PATSY ACE [address] [facility] PHYS: SELVIN - Jasiel Mccormick MD [place], [place] [address] : 1940 AGE: 78 SEX: F LOC: Y.KIMBERLYN PHONE #: [phone] EXAM DATE: 08/19/2018 STATUS: REG [facility] [place]X #: [phone] RAD #: [id number] D/C DT PAGE 2 Signed Report (CONTINUED) Patient Name: PATSY ACE Unit No: [id number] EXAMS: CPT CODE: [id number] XR FLUORO FOR SPINE INJ 68653 <Continued> technique and medications. The patient's vital signs remained stable. The patient was taken to the PACU in good condition. at 1230 Reported and signed by: Jasiel Mccormick M.D. CC: Jasiel Mccormick MD Technologist: OSORIO GARCÍA RT(R) Transcribed D/ (1230) [email or web address] [facility] NAME: PATSY ACE [address] [facility] PHYS: SELVIN - Jasiel Mccormick MD [place], [place] [address] : 1940 AGE: 78 SEX: F LOC: RENNY PHONE #: [phone] EXAM DATE: 08/19/2018 STATUS: [place] [facility] [place] #: [phone] RAD #: [id number] D/C DT PAGE 3 Signed Report Patient Name: PATSY ACE Unit No: [id number] EXAMS: CPT CODE: [id number] XR FLUORO FOR SPINE INJ 88879 <Continued> Orig Print D/T: S: 08/19/2018 (1234) [facility] NAME: PATSY ACE [address] [facility] PHYS: DOCUD - Doctor,Jasiel Arellano MD [place], [place] [address] : 1940 AGE: 78 SEX: F LOC: RENNY PHONE #: [phone] EXAM DATE: 08/19/2018 STATUS: REG [facility] FAX #: [phone] RAD #: [id number] D/C DT PAGE 4 Signed Report
--- NOTE | 2022-02-21 10:06 | EDPHYS ---
Physician Documentation [facility] Name: Mary Norris Age: 81 yrs Sex: Female : 1940 Arrival Date: 02/20/2022 Time: 08:45 Bed 24 Private MD: ED Physician Fortunato Mckeon HPI: 02/20 08:58 This 81 yrs old Female presents to ER via Ambulatory with complaints of Fall Injury, jmm Head Injury-Adult. 08:58 Details of fall: The patient fell from seated position, out of a chair. Onset: The jmm symptoms/episode began/occurred acutely. Associated injuries: The patient sustained injury to the head. The patient has not experienced similar symptoms in the past. Is an 81-year-old female with history of hyperlipidemia, hypertension, irritable bowel syndrome the presents emerged department with complaints of posterior headache beginning earlier today. Patient states she fell hitting the back of her head while attempting to sit in a rocking chair this past Saturday. Denies loss conscious, vomiting, nausea. Patient does not take anticoagulants.. Historical: - Allergies: 09:10 No Known Allergies; iw - PMHx: 09:10 GERD; Hyperlipidemia; Hypertension; Irritable bowel syndrome; Migraines; skin cancer on iw the nose; - Immunization history:: Adult Immunizations up to date. - Social history:: Smoking status: Patient denies any tobacco usage or history of. ROS: 08:58 Constitutional: Negative for fever, chills, and weight loss, Cardiovascular: Negative jmm for chest pain, palpitations, and edema, Respiratory: Negative for shortness of breath, cough, wheezing, and pleuritic chest pain. 08:58 Neuro: Positive for headache. 08:58 All other systems are negative. Exam: 08:58 Constitutional: This is a well developed, well nourished patient who is awake, alert, jmm and in no acute distress. 08:58 Eyes: EOMI, no conjunctival erythema appreciated ENT: Moist Mucus Membranes Neck: Trachea midline, Supple Chest/axilla: Normal chest wall appearance and motion. Cardiovascular: Regular rate and rhythm. No edema appreciated Respiratory: Normal respirations, no respiratory distress appreciated Abdomen/GI: Non distended Back: Normal ROM 08:58 Head/face: Noted is abrasion(s), that are mild, of the left side of the back of head and right side of the back of head. 08:58 Skin: Abrasion noted the posterior scalp. 08:58 Neuro: Orientation: is normal, Mentation: is normal, Memory: is normal. 08:58 Psych: Behavior/mood is pleasant, cooperative. Vital Signs: 09:25 BP 114 / 68; Pulse 68; Resp 17; Temp 98.1(O); Pulse Ox 98% on R/A; Weight 77.11 kg; henning Height 5 ft. 2 in. (157.48 cm); 09:25 Body Mass Index 31.09 (77.11 kg, 157.48 cm) henning MDM: 08:58 Patient medically screened. [facility] 10:06 Data reviewed: vital signs, nurses notes. Counseling: I had a detailed discussion with nancy the patient and/or guardian regarding: the historical points, exam findings, and any diagnostic results supporting the discharge/admit diagnosis, radiology results, the need for outpatient follow up, to return to the emergency department if symptoms worsen or persist or if there are any questions or concerns that arise at home. 10:49 ED course: CT is negative. Patient advised to follow-up with PCP for reevaluation jmm otherwise given strict return precautions. Patient understood agrees plan of care.. 02/20 09:04 Order name: CT Head C Spine; Complete Time: 10:[address] [facility] Administered Medications: No medications were administered Disposition Summary: 02/20/22 10:06 Discharge Ordered Location: Home [facility] Condition: Stable [facility] Diagnosis - Acute Head Injury [facility] Followup: [facility] - With: Private Physician - When: 2 - 3 days - Reason: Recheck today's complaints, Continuance of care, Re-evaluation by your physician Discharge Instructions: - Discharge Summary Sheet [facility] - Head Injury, Adult [facility] Forms: - Medication Reconciliation Form [facility] - Thank You Letter [facility] - Antibiotic Education [facility] - Prescription Opioid Use [facility] Signatures: Dispatcher [employer] EDFortunato Stallings MD MD cha Mickail, Joel, PA PA jmm Williams, Irene, RN Alejandra Waggoner RN RN ha
--- NOTE | 2022-02-21 10:06 | ER ---
Nurse's Notes [facility] Name: Mary Norris Age: 81 yrs Sex: Female : 1940 Arrival Date: 02/20/2022 Time: 08:45 Bed 24 Private MD: Diagnosis: Acute Head Injury Presentation: 02/20 09:08 Chief complaint: Patient states: yesterday she went to sit in a rocking chair and iw missed th chair, fell back and hit her head, no LOC, woke up with a headache today. Coronavirus screen: At this time, the client does not indicate any symptoms associated with coronavirus-19. Ebola Screen: Patient negative for fever greater than or equal to 101.5 degrees Fahrenheit, and additional compatible Ebola Virus Disease symptoms Patient denies exposure to infectious person. Patient denies travel to an Ebola-affected area in the 21 days before illness onset. No symptoms or risks identified at this time. Risk Assessment: Do you want to hurt yourself or someone else? Patient reports no desire to harm self or others. Onset of symptoms was February 20, 2022. 09:08 Method Of Arrival: Ambulatory iw 09:08 Acuity: DENNIS 4 iw 09:09 Initial Sepsis Screen: Does the patient meet any 2 criteria? No. Patient's initial iw sepsis screen is negative. Does the patient have a suspected source of infection? No. Patient's initial sepsis screen is negative. Triage Assessment: 09:25 General: Appears in no apparent distress. Behavior is calm, cooperative. henning Historical: - Allergies: 09:10 No Known Allergies; iw - PMHx: 09:10 GERD; Hyperlipidemia; Hypertension; Irritable bowel syndrome; Migraines; skin cancer on iw the nose; - Immunization history:: Adult Immunizations up to date. - Social history:: Smoking status: Patient denies any tobacco usage or history of. Screenin:24 Abuse screen: Denies threats or abuse. Denies injuries from another. Nutritional henning screening: No deficits noted. Tuberculosis screening: No symptoms or risk factors identified. Fall Risk Assessment: 09:24 Pain: Complains of pain in head. Neuro: Level of Consciousness is awake, alert, obeys henning commands, Oriented to person, place, time, situation, Reports headache. Vital Signs: 09:25 BP 114 / 68; Pulse 68; Resp 17; Temp 98.1(O); Pulse Ox 98% on R/A; Weight 77.11 kg; henning Height 5 ft. 2 in. (157.48 cm); 09:25 Body Mass Index 31.09 (77.11 kg, 157.48 cm) henning ED Course: 08:45 Patient arrived in ED. mr 08:45 Rafael Mcdonald PA is PHCP. [facility] 08:45 Fortunato Mckeon MD is Attending Physician. [facility] 09:09 Triage completed. iw 09:09 Arm band placed on. iw 09:11 Alejandra Valentin, RN is Primary Nurse. henning 09:24 Patient has correct armband on for positive identification. Bed in low position. henning 09:24 No provider procedures requiring assistance completed. henning 09:28 CT Head C Spine In Process Unspecified. EDMS 10:13 Patient did not have IV access during this emergency room visit. henning Administered Medications: No medications were administered Medication: 10:13 VIS not applicable for this client. henning Outcome: 10:06 Discharge ordered by . [facility] 10:13 Discharged to home ambulatory. hennign 10:13 Condition: good 10:13 Discharge instructions given to patient. 10:13 Patient left the ED. henning Signatures: Dispatcher [employer] EDMS Rafael Mcdonald PA PA jmm Rivera, Mary Carline Stephens, JAM POLK Alejandra Valentin RN RN henning
== END 2022-02-20 10:13 | disposition home or self-care (01) ==
LOC: ER 08:40
DX: S09.90XA Unspecified injury of head, initial encounter (principal); R51.9 Headache, unspecified; I10 Essential (primary) hypertension
CPT/HCPCS: 70450; 72125; 99283

== ENCOUNTER 2022-03-16 22:19 | Emergency (ER) | payer OTHER, MEDICARE ==
--- OUTSIDE RECORDS SUMMARY | 2022-03-16 22:24 | XMS REPORT | Continuity of Care Document ---
:1940 Author Organization [facility] t Address [address] [place] [address] Care Team Providers Name Role Phone Aby Francis MD Primary Care Physician Wendy Brown Attending Clinician Gildardo Lovelace Attending Clinician Maikel Kirkland Attending Clinician Maikel Kirkland Admitting Clinician Payers Payer Name Policy Type Policy Number Effective Date Expiration Date S ource Problems Condition Condition Condition Status Onset Resolution Last Treating Co mments Source Name Details Category Date Date Treatment Clinician Date M54.5 - M54.5 - Diagnosis Active 2014-072015-06-22 Memoria LOW BACK LOW BACK 08-10 09:55:00 l PAIN PAIN 00:01: Stevie Active 06/10/2015 DIANA Hubbard 724.4 - 724.4 - Diagnosis Active 2015-04-09 Memoria LUMBOSACRA LUMBOSACRA 01-13 15:58:00 l L HEBER L HEBER 00:01: Stevie Active 01/13/2015 DIANA Hubbard LUMBAR LUMBAR Diagnosis Active 2014-12-08 Oh makayla SPODOLYTHI SPODOLYTHI - 21:54:00 l S, S, 00:00: [place] RIDICULOPA RIDICULOPA 00 THY, LOW B THY, LOW B Active 11/19/2014 [facility] Low back Low back Problem Active 2013-072021-07-28 Memoria pain pain 0-24 01:24:14 l (disorder) (disorder) 00:00: He rmann Active 00 05/14/2014 Problem 07/28/2021 Data migrated from [employer] on 03/15/15. JI Hubbard, OPIKassandra [facility] Lumbar Lumbar Problem Active 2013-072021-07-28 Royce macario radiculopa radiculopa 0-24 01:24:14 l thy thy 00:00: Stevie (disorder) (disorder) 00 Active 05/14/2014 Problem 07/28/2021 Data migrated from [employer] on 03/15/15. [facility], JI Hubbard, JI Davenport,M Lexi OPID [facility] No known No known Disease Metho di active active st problems problems Hospit a l Atrial Atrial Problem Resolve 2021-07-28 Mem oria fibrillati fibrillati d 01:24:14 l on on Stevie (disorder) (disorder) Resolved Problem 07/28/2021 [facility], JI Hubbard, JI Davenport,M H OPID [facility] Gastroesop Gastroeso Problem Active 2021-07-28 Memoria hageal phageal 01:24:14 l reflux reflux Stevie disease disease (disorder) (disorder) Active Problem 07/28/2021 [facility], JI Hubbard, JI Davenport,M H OPID [facility] Hyperlipid Hyperlipi Problem Active 2021-07-28 Memoria emia demia 01:24:14 l (disorder) (disorder) He rmann Active Problem 07/28/2021 [facility], JI Hubbard, JI Davenport,M H OPID [facility] Hypertensi Hypertens Problem Active 2021-07-28 Memoria ve geni 01:24:14 l disorder, disorder, Herm hipolito systemic systemic arterial arterial (disorder) (disorder) Active Problem 07/28/2021 [facility], JI Hubbard, JI Davenport,M OPID [facility] Spinal Spinal Problem Active 2021-07-28 Royce macario stenosis stenosis 01:24:14 l of lumbar of lumbar Herm hipolito region region (disorder) (disorder) Active Problem 07/28/2021 [facility], JI Hubbard, JI Davenport,M OPID [facility] Obesity Obesity Problem Active 2021-07-28 Me moria (disorder) (disorder) 01:24:14 l Active [place] Problem 07/28/2021 [facility], JI Hubbard, JI Davenport,M OPID [facility] Pain Pain Problem Active 2021-07-28 Memor ia (finding) (finding) 01:24:14 l Active Stevie Problem 07/28/2021 [facility], JI Hubbard, JI Davenport,[facility] OPID [facility] Spondylosi Spondylos Problem Active 2021-07-28 Memoria s is 01:24:14 l (disorder) (disorder) He rmann Active Problem 07/28/2021 Lumbar [facility], JI Hubbard, JI Davenport,[facility] OPID [facility] LUMBOSACRA LUMBOSACR Diagnosis Active 2014-12-08 Memoria L AL 21:54:00 l SPONDYLOSI SPONDYLOSI He rmann S S Active [facility] LUMBOSACRA LUMBOSACR Diagnosis Active 2014-12-08 Memoria L NEURITIS AL 21:54:00 l NOS NEURITIS Stevie NOS Active [facility] LUMBAGO LUMBAGO Diagnosis Active 2014-12-08 Memoria Active 21:54:00 l [facility] Allergies, Adverse Reactions, Alerts Allergy Allergy Status Severity Reaction(s) Onset Inactive Treating Comm ents Source Name Type Date Date Clinician No Known DA Active U 2018-07 [facility] [place] [facility] No Known DA Active U [facility] 09[facility]24 [place] [facility] 00:[facility] No Known Propensi Active Method i Drug ty to 01-15 st Allergie adverse 00:00: Hospita s reaction 00 l s to drug No Known DA Active U 2011-07 [facility]ie 09-17 [place] 00:[facility] l Family History Family Member Diagnosis Comments Start Date Stop Date Source Natural father Pancreatic cancer Met [facility] Social History Social Habit Start Date Stop Date Quantity Comments Source Tobacco use and 2019-04-21 2019-04-21 Smokeless tobacco Me [facility]odist exposure 00:00:00 00:00:00 non-user Hospital Alcohol intake 2019-04-21 2019-04-21 Current [facility] 00:00:00 00:00:00 non-drinker of Hospital alcohol (finding) Social History 2014-11-29 2014-11-29 [facility] 12:41:06 12:41:06 Sex Ass[birth year] [employer] 00:00:00 00:00:00 [facility] Smoking Status Start Date Stop Date Source Never smoked tobacco [facility] ospital Medications Ordered Filled Start Stop Current Ordering Indication Dosage Frequency Signature Comments Components Source Medication Medication Date Date Medication? Clinician (SIG) Name Name esomeprazol 2018-07 Yes 40mg QD Take 40 mg Methodi e (NexIUM) 0-[address] 40 MG 15:24: daily Hospita capsule 22 before l breakfast. olmesartan 2018-07 Yes 40mg QD Take 40 mg M ethodi (BENICAR) 0-[address] 40 MG 15:24: daily. Hospita tablet 22 l nortriptyli 2018-07 Yes 25mg QD Take 25 mg Methodi ne 0-[address] (PAMELOR) 15:24: nightly. Hosp karina 25 MG 22 l capsule pregabalin 2018-07 Yes 100mg [id number] Take 100 Methodi (LYRICA) 0-[id number] 100 MG 15:24: 3D mouth 3 Hospita capsule 22 (three) l times a day. atorvastati 2018-07 Yes 40mg QD Take 40 mg Methodi n (LIPITOR) 0-[address] 40 MG 15:24: daily. Hospita tablet 22 l acetaminoph 2018-07 Yes 500mg Q6H Take 500 M ethodi en 0-[address] (TYLENOL) 15:24: mouth Hospita 500 MG 22 every 6 l tablet (six) hours as needed for mild pain or moderate pain. escitalopra 2018-07 Yes 5mg QD Take 5 mg M ethodi m (LEXAPRO) [address] 10 MG 15:24: daily. Hospita tablet 22 l tramadol No Notes: . Memor ia hydrochlori 5-14 (Same As: l de 50 MG 02:03: Ultram) Renato n Oral Tablet 00 heparin No Notes: Memoria 5-13 porcine l 21:00: heparin Stevie Valium No Notes: Memoria 5-13 (Same as: l 15:30: Valium) [place] Acetaminoph No Notes: Royce macario en 325 MG / - (Same as: l Hydrocodone 12:00: [place] Mildred nn Bitartrate 00 325/5) Do 5 MG Oral not exceed Tablet 4gm/day of [[place] acetaminop 5/325] hen. Sodium Yes 1,000 mL, Memori a Chloride -13 1,000 l 0.154 10:18: ml/hr, [place] MEQ/ML 00 Infuse Injectable Over: 1 Solution hr, Route: IV, 1,000, Drug form: INJ, ONCE, Priority: STAT, Dosing Weight 90.909 kg, Start date: 12/01/14 5:18:00, Duration: 1 doses or times, Stop date: 12/01/14 5:18:00 Sodium Yes 250 mL, Memoria Chloride - 250 ml/hr, l 0.154 09:28: Infuse Stevie MEQ/ML 00 Over: 1 Injectable hr, Route: Solution IV, 250, Drug form: INJ, ONCE, Priority: STAT, Dosing Weight 90.909 kg, Start date: 12/01/14 4:28:00, Duration: 1 doses or times, Stop date: 12/01/14 4:28:00 Losartan No Notes: Memoria 5-12 (Same as: l 14:00: Cozaar) Prevacid No 30 mg, Memoria 5-12 Route: PO, l 14:00: Drug form: [place] 00 DRC, Daily, Dosing Weight 90.909, kg, Start date: 11/30/14 9:00:00, Duration: 30 day, Stop date: 12/29/14 9:00:00 Lexapro No Notes: Memoria 5-12 (Same as: l 14:00: Lexapro) [place] Atenolol 50 No Notes: Royce macario MG Oral 5-12 (Same l Tablet 14:00: As:Tenormi Mildred nn 00 n) Protonix No Notes: Memoria 5-12 (Same as: l 12:30: Protonix) Stevie Acetaminoph Yes 1 tab, PO, Memoria en 300 MG / 5-12 Q6H, PRN l Codeine 10:33: pain, X 14 Herm hipolito Phosphate 00 day, # 56 30 MG Oral tab, 0 Tablet Refill(s) [Tylenol with Codeine #3] senna 8.6 Yes 8.6 mg = 1 Me moria mg oral 5-12 tab, PO, l tablet 10:33: Q12H, # 30 Mildred nn 00 tab, 0 Refill(s) diazepam 10 No 10 mg = 1 M emoria mg oral 5-12 tab, PO, l tablet 10:33: Q8H, # 50 Renato n 00 tab, 0 Refill(s) docusate Yes 100 mg = 1 Mem oria sodium 100 5-12 cap, PO, l mg oral 10:33: Q12H, # 30 Herm hipolito capsule 00 cap, 0 Refill(s) Pamelor No Notes: Memoria 5-12 (Same l 02:00: as:Pamelor Stevie , Aventyl) gabapentin No Notes: Memor ia 300 MG Oral 5-12 (Same as: l Capsule 02:00: Neurontin) Herm hipolito Atenolol 50 No Notes: Royce macario MG Oral 5-12 (Same l Tablet 02:00: As:Tenormi Mildred nn 00 n) Saline No Notes: Memoria Flush 0.9% 5-12 Same as: l 02:00: BD [place] Posiflush Sterile sennosides, No Notes: Royce macario SHELTER 5-12 (Same as: l 02:00: Senokot) Stevie Docusate No Notes: Memoria 11-30 (Same as: l 02:00: Colace) [place] (Do Not Crush) Acetaminoph No Notes: Do M emoria en 325 MG / 11-29 not exceed l Hydrocodone 21:00: 4gm/day of Stevie Bitartrate 00 acetaminop 10 MG Oral hen. (Same Tablet as: [place] [[place] 325/10) 10/325] ceFAZolin No Notes: Memori a (SCIP) 11-29 (Same As: l 21:00: Ancef, Stevie Kefzol) MEDICATION WASTE Product Size: 1000 mg Product Wasted: ___ mg Labetalol No 10 mg, 2 Royce macario 5-11 mL, Route: l 19:50: IVP, Drug form: INJ, Q5Min, Dosing Weight 90.909, kg, PRN Elevated BP, Start date: 11/29/14 14:50:00, Duration: 5 doses or times, Stop date: 11/30/14 0:00:00 Hydromorpho No Notes: Royce macario ne -11 Same as: l 19:50: Dilaudid Flumazenil No Notes: Memor ia -11 (Same as: l 19:50: Romazicon) Naloxone No Notes: Memoria -11 Same as l 19:50: Narcan Ondansetron No Notes: Royce macario -11 (Same as: l 19:50: Zofran) MEDICATION WASTE Product Size: 4 mg Product Wasted: __0_ mg Valium No Notes: Memoria 5-11 (Same as: l 17:00: Valium) Naloxone No Notes: Memoria 5-11 Same as l 17:00: Narcan Morphine No Notes: Memoria 5-11 Dose: l 17:00: Delay: Basal rate: 4hr limit: (Same as:Rapi-Je ct) Regular No 60 units) Royce macario Insulin, 5-11 Stable for l Human 100 17:00: 28 days at He rmann UNT/ML 00 room Injectable temperatur Solution e Expires in days from ____Date Dextrose No 12.5 gm, Memor ia 50% Syringe 5-11 25 mL, l 17:00: Route: Stevie 00 IVP, Drug Form: INJ, Dosing Weight 90.909, kg, PRN, PRN Abnormal Lab Result, Start date: 11/29/14 12:00:00, Duration: 30 day, Stop date: 12/29/14 11:59:00 Saline No Notes: Memoria Flush 0.9% 5-11 Same as: l 17:00: BD Stevie 00 Posiflush Sterile Ondansetron No Notes: Royce macario 5-11 (Same as: l 17:00: Zofran) MEDICATION WASTE Product Size: 4 mg Product Wasted: ___ mg Acetaminoph No 1 tab, Royce macario en 325 MG / 5-11 Route: PO, l Hydrocodone 17:00: Drug Form: Stevie Bitartrate 00 TAB, 10 MG Oral Dosing Tablet Weight 90.909, kg, Q6H, Start date: 11/29/14 12:00:00, Duration: 30 day, Stop date: 12/29/14 6:00:00 Sodium No 1,000 mL, Memori a Chloride 5-11 Rate: 75 l 0.154 17:00: ml/hr, [place] MEQ/ML 00 Infuse Injectable over: 13.3 Solution hr, Route: IV, Dosing Weight 90.909 kg, Total Volume: 1,000, Start date: 11/29/14 12:00:00, Stop date: 12/29/14 11:59:00 bupivacaine No Notes: Royce macario liposome 5-11 (Same as: l 12:52: Exparel) [place] 00 NOT FOR IV use Postoperat geni analgesia: Infiltrati on (local): Dose is based on surgical site and volume required to cover the area (in general, the maximum total dose is 266 mg). Bunionecto my: 7 mL into the tissues surroundin g the osteotomy and 1 mL into the subcutaneo us tissue of the surgical site (total dose = 8 mL [106 mg]) Hemorrhoid ectomy: 30 mL (20 mL vial diluted with 10 mL NS) divided and administer ed as 6 injections of 5 mL each (total dose = 30 mL [266 mg]) ceFAZolin No 2 gm, 50 Royce macario 5-11 mL, Route: l 12:00: IVPB, Drug Stevie 00 form: INJ, PRE OP, Start date: 11/29/14 7:00:00, Duration: 1 day, Stop date: 11/30/14 6:59:00 Bifidobacte Yes 4 mg = 1 Me moria rium 5-07 cap, PO, l Infantis 4 15:18: Daily, # Her bacon MG Oral 00 28 cap, 0 Capsule Refill(s) [Align] Aspirin Low Yes PO, Daily, Memoria Dose 81 mg 5-07 0 l oral tablet 15:15: Refill(s) H ermann 00 Tylenol Yes PO, PRN, 0 Royce macario 5-07 Refill(s) l 15:15: Stevie 00 gabapentin Yes 300 mg = 1 M emoria 300 MG Oral 5-07 cap, PO, l Capsule 15:15: TID, 0 [place] 00 Refill(s) Nortriptyli Yes 25 mg = 1 M emoria ne 25 MG 5-07 cap, PO, l Oral 15:14: TID, 0 [place] Capsule 00 Refill(s) [Pamelor] Atenolol 50 Yes 100 mg = 2 Memoria MG Oral 5-07 tab, PO, l Tablet 15:14: Bedtime, 0 Mildred nn 00 Refill(s) biotin 5 mg 0 Yes 5 mg = 1 Me moria oral 5-07 cap, PO, l capsule 15:14: Daily, # Renato n 00 30 cap, 0 Refill(s) Centrum 2014-0 Yes 1 tab, PO, Royce macario Silver oral 5-07 Daily, # l tablet 15:13: 30 tab, 0 Renato n 00 Refill(s) lansoprazol Yes 30 mg = 1 M emoria e 30 MG 5-07 cap, PO, l Enteric 15:13: Daily, # Renato n Coated 00 30 cap, 0 Capsule Refill(s) [Prevacid] losartan Yes 100 mg = 1 Mem oria 100 mg oral 5-07 tab, PO, l tablet 15:13: Daily, # [place] 00 30 tab, 0 Refill(s) Atenolol 50 Yes 50 mg = 1 M emoria MG Oral 5-07 tab, PO, l Tablet 15:13: Daily, # Stevie 00 30 tab, 0 Refill(s) Escitalopra Yes 10 mg = 1 M emoria m 10 MG 5-07 tab, PO, l Oral Tablet 15:12: Daily, # Louie rmann [Lexapro] 00 30 tab, 0 Refill(s) celecoxib Yes 200 mg = 1 Me moria 200 MG Oral 5-07 cap, PO, l Capsule 15:11: Daily, # Renato ortiz [Celebrex] 00 30 cap, 0 Refill(s) Immunizations Ordered Immunization Filled Immunization Date Status Commen ts Source Name Name PFIZER COVID-19 MRNA 2020-08-29 Completed [facility] VACCINATION 00:00:00 Hospital PFIZER COVID-19 MRNA 2020-08-08 Completed Meth odist VACCINATION 00:00:00 [facility] FLUCELVAX QUAD PF 2019-04-[address] 00:00:00 Hospital Pneumococcal 2019-04-21 Completed [facility] Conjugate 13-Valent 00:00:00 Hospi bonnie Vital Signs Vital Name Observation Time Observation Value Comments Source Temperature Oral (F) 2014-12-02 14:15:00 94 F [facility] [place] Respitory Rate 2014-12-02 14:15:00 Memori al [place] Systolic (mm Hg) 2014-12-02 14:15:00 Royce rial Ste[place] Diastolic (mm Hg) 2014-12-02 14:15:00 Mem orial [place] Heart Rate 2014-12-02 14:15:00 [facility] [place] Systolic (mm Hg) 2014-12-02 09:09:00 Royce rial [place] Diastolic (mm Hg) 2014-12-02 09:09:00 Mem orial Stevie Respitory Rate 2014-12-02 09:09:00 Memori al Stevie Heart Rate 2014-12-02 09:09:00 [facility] [place] Temperature Oral (F) 2014-12-02 09:09:00 98.8 F [facility] Ste[place] Temperature Oral (F) 2014-12-02 07:02:00 99.0 F [facility] Ste[place] Respitory Rate 2014-12-02 06:42:00 Memori al Stevie Heart Rate 2014-12-02 06:42:00 [facility] [place] Systolic (mm Hg) 2014-12-02 06:42:00 Royce rial Stevie Diastolic (mm Hg) 2014-12-02 06:42:00 Mem orial [place] Weight 2014-12-01 14:00:00 [facility] [place] BMI Calculated 2014-11-29 10:35:00 Memori al Stevie Weight 2014-11-29 10:35:00 [facility] Stevie Height 2014-11-29 10:35:00 [facility] Procedure Date / Time Performed Performing Clinician Sourc e Ablation [facility] Appendectomy [facility] [place] Cholecystectomy [facility] Stevie Hysterectomy [facility] Stevie Knee arthroplasty [facility] Mildred nn Plan of Care Planned Activity Planned Date Details Comments Source Future Scheduled 2022-03-08 HEPATITIS B VACCINES [facility] Test 12:57:49 (1 of 3 - 3-dose series) [code = HEPATITIS B VACCINES (1 of 3 - 3-dose series)] Future Scheduled 2022-03-08 SHINGLES VACCINES ([address] [facility] Test 12:57:49 of 2) [code = SHINGLES VACCINES (1 of 2)] Future Scheduled 2022-03-08 65+ [facility] 12:57:49 VACCINE (2 - PPSV23 or PCV20) [code = 65+ PNEUMOCOCCAL VACCINE (2 - PPSV23 or PCV20)] Future Scheduled 2022-03-08 COVID-19 VACCINE (3 - [facility] Test 12:57:49 Booster for Pfizer series) [code = COVID-19 VACCINE (3 - Booster for Pfizer series)] Future Scheduled 2022-03-08 INFLUENZA VACCINE [facility] Test 12:57:49 [code = INFLUENZA VACCINE] Encounters Start End Encounter Admission Attending Care Care Encounter Source Date/Time Date/Time Type Type Clinicians Facility Department ID 2021-07-25 2021-07-26 Outpt Diag nullFlavo [facility] [id number] Memoria 18:11:00 05:59:00 Services r Outpatient 05 l Imaging Terrell Calle 2021-07-25 2021-07-25 [id number] 12:11:00 23:59:00 Wendy Bojorquez 2020-08-29 2020-08-29 Outpatient [facility] [id number] [place] 00:00:00 00:00:[address] 2020-08-08 2020-08-08 Outpatient [facility] [id number] [address] [place] [address] 00:00:00 00:00:[address] 2017-04-24 2017-04-25 Outpt Diag nullFlavo [facility] [id number] Memoria 16:37:00 04:59:00 Services r Outpatient 00 l Odin Calle 2017-04-24 2017-04-24 [facility] [id number] 11:37:00 23:59:00 Wendy Bojorquez 2015-06-22 2015-06-23 Outpt Diag nullFlavo [facility] [id number] Memoria 15:46:00 05:59:00 Services r Outpatient 04 l Odin Hubbard 2015-06-22 2015-06-22 Outpatient [place] [facility] [id number] 09:46:00 23:59:00 Gildardo Duke 2015-06-22 2015-06-22 Outpatient [facility] [id number] Memoria 13:15:00 13:15:00 00 mauricio Hubbard 2015-03-24 2015-03-25 Outpt Diag nullFlavo [facility] [id number] Memoria 15:26:00 04:59:00 Services r Outpatient 03 l Odin Hubbard 2015-03-24 2015-03-24 Outpatient Lovelace, [facility] [id number] 10:26:00 23:59:00 Gildardo Gonzalez 2015-01-13 2015-01-14 Outpt Diag nullFlavo [facility] [id number] Memoria 15:10:00 04:59:00 Services r Outpatient 01 l Imaging Terrell Swann 2015-01-13 2015-01-13 Outpatient Isael, 2.16.840. 2.16.840.1. [id number] 10:10:00 23:59:00 Maikel [id number]. [id number] Sachi 3.615.0.1 5.0.223 22 5680-06-24 2015-01-13 Outpt Diag nullFlavo [facility] [id number] Memoria 14:48:00 04:59:[address] 2015-01-12 2015-01-12 Outpatient Isael, 2.16.840. 2.16.840.1. [id number] 09:48:00 23:59:00 Maikel [id number]. [id number] Sachi 3.615.0.1 5.0.102 [id number] 5550-05-11 2014-12-02 Inpatient [facility] [id number] Memoria 10:15:00 16:20:[address] 2014-11-29 2014-12-02 Outpatient Isael, 2.16.840. 2.16.840.1. [id number] 05:15:00 11:20:00 Maikel [id number]. [id number] Sachi 3.615.0.1 5.0.101 01 Results Test Description Test Time Test Comments Results Result [facility] e Comments - XR FLUORO FOR 2019-06-26 Patient Name: SPINE INJ 12:19:00 PATSY ACE Unit No: [id number] EXAMS: CPT CODE: [id number] XR FLUORO FOR SPINE INJ 03397 LUMBAR TRANSFORAMINAL INJECTION REFERRING PHYSICIAN: PREOPERATIVE DIAGNOSIS: [...] Reported and signed by: Jasiel Mccormick M.D. [facility] NAME: PATSY ACE [address] [place] [address] PHYS: Jasiel Rahman MD [place], [place] [address] : 1940 AGE: 78 SEX: F LOC: RENNY PHONE #: [phone] EXAM DATE: 06/26/2019 STATUS: [facility] FAX #: [phone] RAD #: [id number] D/C DT PAGE 1 Signed Report (CONTINUED) Patient Name: PATSY ACE RICKY Unit No: [id number] EXAMS: CPT CODE: [id number] XR FLUORO FOR SPINE INJ 01647 (Continued) CC: Jasiel Mccormick MD Technologist: RONALD CAZARES RT(R) Transcribed D/ (1219) tWILLIAMD [facility] NAME: KRISTINJOSUEPATSY [address] [facility] PHYS: Jasiel Rahman MD [place], [place] [address] : 1940 AGE: 78 SEX: F LOC: RENNY PHONE #: [phone] EXAM DATE: 06/26/2019 STATUS: [facility] [place]X #: [phone] RAD #: [id number] D/C DT PAGE 2 Signed Report Patient Name: PATSY ACE Unit No: [id number] EXAMS: CPT CODE: [id number] XR FLUORO FOR SPINE INJ 68906 (Continued) Orig Print D/T: S: 06/26/2019 (1222) [facility] NAME: PATSY ACE [address] [facility] PHYS: SELVIN - DoctorJasiel MD [place], [place] [address] : 1940 AGE: 78 SEX: F LOC: RENNY PHONE #: [phone] EXAM DATE: 06/26/2019 STATUS: [facility] FAX #: [phone] RAD #: [id number] D/C DT PAGE 3 Signed Report - XR FLUORO FOR 2019-05-27 Patient Name: SPINE INJ 13:54:00 PATSY ACE Unit No: [id number] EXAMS: CPT CODE: [id number] XR FLUORO FOR SPINE INJ 08183 LUMBAR TRANSFORAMINAL INJECTION REFERRING PHYSICIAN: PREOPERATIVE DIAGNOSIS: [...] to the PACU in good condition. at 7432 Reported and signed by: Jasiel Mccormick M.D. [facility] NAME: PATSY ACE [address] [place] [address] PHYS: SELVIN - Jasiel Mccormick MD [place], [place] [address] : 1940 AGE: 78 SEX: F LOC: PraveenaKIMBERLYN PHONE #: [phone] EXAM DATE: 05/27/2019 STATUS: [facility] [place]X #: [phone] RAD #: [id number] D/C DT PAGE 1 Signed Report (CONTINUED) Patient Name: PATSY ACE Unit No: [id number] EXAMS: CPT CODE: [id number] XR FLUORO FOR SPINE INJ 58222 (Continued) CC: Technologist: Milana Melgar(Abdulaziz) Transcribed D/ (6086) TerryD [facility] NAME: PATSY ACE [address] [place] [address] PHYS: Jasiel Rahman MD [place], [place] [address] : 1940 AGE: 78 SEX: F LOC: PraveenaKIMBERLYN PHONE #: [phone] EXAM DATE: 05/27/2019 STATUS: [facility] FAX #: [phone] RAD #: [id number] D/C DT PAGE 2 Signed Report Patient Name: PATSY ACE Unit No: [id number] EXAMS: CPT CODE: [id number] XR FLUORO FOR SPINE INJ 75888 (Continued) Orig Print D/T: S: 05/27/2019 (1357) [facility] NAME: PATSY ACE [address] [facility] PHYS: SELVIN - DoctorJasiel MD [place], [place] [address] : 1940 AGE: 78 SEX: F LOC: RENNY PHONE #: [phone] EXAM DATE: 05/27/2019 STATUS: [facility] [place]X #: [phone] RAD #: [id number] D/C DT PAGE 3 Signed Report - XR FLUORO FOR 2018-09-24 Patient Name: SPINE INJ 12:09:00 PATSY ACE Unit No: [id number] EXAMS: CPT CODE: [id number] XR FLUORO FOR SPINE INJ 16164 CERVICAL TRANSFORAMINAL INJECTION REFERRING PHYSICIAN: PREOPERATIVE DIAGNOSIS: [...] taken to the PACU in good condition. [facility] NAME: PATSY ACE [address] [facility] PHYS: Jasiel Rahman MD [place], [place] [address] : 1940 AGE: 78 SEX: F LOC: RENNY PHONE #: [phone] EXAM DATE: 09/24/2018 STATUS: [facility] FAX #: [phone] RAD #: [id number] D/C DT PAGE 1 Signed Report (CONTINUED) Patient Name: PATSY ACE Unit No: [id number] EXAMS: CPT CODE: [id number] XR FLUORO FOR SPINE INJ 84413 (Continued) at 1209 Reported and signed by: Jasiel Mccormick M.D. CC: Jasiel Mccormick MD Technologist: OSORIO GARCÍA RT(R) Transcribed D/ (1209) [email or web address] [facility] NAME: PATSY ACE [address] [facility] PHYS: Jasiel Rahman MD [place], [place] [address] : 1940 AGE: 78 SEX: F LOC: RENNY PHONE #: [phone] EXAM DATE: 09/24/2018 STATUS: [facility] [place]X #: [phone] RAD #: [id number] D/C DT PAGE 2 Signed Report Patient Name: PATSY ACE Unit No: [id number] EXAMS: CPT CODE: [id number] XR FLUORO FOR SPINE INJ 93941 (Continued) Orig Print D/T: S: 09/24/2018 (1212) [facility] NAME: PATSY ACE [address] [facility] PHYS: DOCUD - DoctorJasiel MD [place], [place] [address] : 1940 AGE: 78 SEX: F LOC: [facility]NY PHONE #: [phone] EXAM DATE: 09/24/2018 STATUS: REG [facility] FAX #: [phone] RAD #: [id number] D/C DT PAGE 3 Signed Report - XR C-SPINE 6+V 2018-09-09 Patient Name: 16:44:00 PATSY ACE Unit No: [id number] EXAMS: CPT CODE: [id number] XR C-SPINE 6+V 37931 MRI OF THE CERVICAL SPINE: DIAGNOSIS: 1. [...] Reported and signed by: Cruz Galvan MD [facility] NAME: PATSY ACE [address] [place] [address] PHYS: Jasiel Rahman MD : 1940 AGE: 78 SEX: F [place] [address] LOC: Y.MRI PHONE #: [phone] EXAM DATE: 09/09/2018 STATUS: REG CLI FAX #: [phone] RAD #: [id number] D/C DT PAGE 1 Signed Report (CONTINUED) Patient Name: PATSY ACE Unit No: [id number] EXAMS: CPT CODE: [id number] XR C-SPINE 6+V 56511 (Continued) CC: Jasiel Mccormick MD Technologist: RT. Pranay(R) Transcribed D/ (797) AvinashGVG [facility] NAME: PATSY ACE [address] [place] [place] [address] PHYS: Jasiel Rahman MD : 1940 AGE: 78 SEX: F [place] [address] LOC: Y.MRI PHONE #: [phone] EXAM DATE: 09/09/2018 STATUS: REG CLI FAX #: [phone] RAD #: [id number] D/C DT PAGE 2 Signed Report Patient Name: PATSY ACE Unit No: [id number] EXAMS: CPT CODE: [id number] XR C-SPINE 6+V 37992 (Continued) Orig Print D/T: S: 09/09/2018 (7931) [facility] NAME: PATSY ACE [address] [place] [place] [address] PHYS: DOCUD - Doctor,Jasiel Arellano MD : 1940 AGE: 78 SEX: F [place], [place] [address] [facility]: [id number] LOC: PraveenaMRI PHONE #: [phone] EXAM DATE: 09/09/2018 STATUS: REG CLI FAX #: [phone] RAD #: [id number] D/C DT PAGE 3 Signed Report - MRI C-SPINE W/O 2018-09-09 Patient Name: CONT 16:44:00 PATSY ACE Unit No: [id number] EXAMS: CPT CODE: [id number] MRI C-SPINE W/O CONT 34498 MRI OF THE CERVICAL SPINE: DIAGNOSIS: 1. [...] Reported and signed by: Cruz Galvan MD [facility] NAME: PATSY ACE [address] [facility] [address] PHYS: SELVIN - Jasiel Mccormick MD : 1940 AGE: 78 SEX: F [place] [address] LOC: Y.MRI PHONE #: [phone] EXAM DATE: 09/09/2018 STATUS: REG CLI FAX #: [phone] RAD #: [id number] D/C DT PAGE 1 Signed Report (CONTINUED) Patient Name: PATSY ACE Unit No: [id number] EXAMS: CPT CODE: [id number] MRI C-SPINE W/O CONT 95494 (Continued) CC: Jasiel Mccormick MD Technologist: Latosha Nielsen, RT(R) Transcribed D/ (1643) tBRIGITTEGVG [facility] NAME: PATSY ACE [address] [place] [address] Main PHYS: Jasiel Rahman MD : 1940 AGE: 78 SEX: F [place] [address] LOC: Y.MRI PHONE #: [phone] EXAM DATE: 09/09/2018 STATUS: REG CLI FAX #: [phone] RAD #: [id number] D/C DT PAGE 2 Signed Report Patient Name: PATSY ACE Unit No: [id number] EXAMS: CPT CODE: [id number] MRI C-SPINE W/O CONT 85177 (Continued) Orig Print D/T: S: 09/09/2018 (1646) [facility] NAME: PATSY ACE [address] [place] [address] Main PHYS: Jasiel Rahman MD : 1940 AGE: 78 SEX: F [place] [address] LOC: Y.MRI PHONE #: [phone] EXAM DATE: 09/09/2018 STATUS: REG CLI FAX #: [phone] RAD #: [id number] D/C DT PAGE 3 Signed Report - XR FLUORO FOR 2018-08-19 Patient Name: SPINE INJ 12:30:00 PATSY ACE Unit No: [id number] EXAMS: CPT CODE: [id number] XR FLUORO FOR SPINE INJ 93250 LUMBAR DISCOGRAM AND PLACEMENT OF INTRADISCAL STEROIDS [...] then passed through the introducer and [facility] NAME: PATSY ACE [address] [facility] PHYS: DOCUD - DoctorJasiel MD [place], [place] [address] : 1940 AGE: 78 SEX: F LOC: RENNY PHONE #: [phone] EXAM DATE: 08/19/2018 STATUS: REG SDC FAX #: [phone] RAD #: [id number] D/C DT PAGE 1 Signed Report (CONTINUED) Patient Name: PATSY ACE Unit No: [id number] EXAMS: CPT CODE: [id number] XR FLUORO FOR SPINE INJ 32879 (Continued) advanced into the center of the disc. [...] subsequent level was done using the same [facility] NAME: PATSY ACE [address] [facility] [address] PHYS: Jasiel Rahman MD [place], [place] [address] : 1940 AGE: 78 SEX: F LOC: RENNY PHONE #: [phone] EXAM DATE: 08/19/2018 STATUS: REG [facility] FAX #: [phone] RAD #: [id number] D/C DT PAGE 2 Signed Report (CONTINUED) Patient Name: PATSY ACE Unit No: [id number] EXAMS: CPT CODE: [id number] XR FLUORO FOR SPINE INJ 80553 (Continued) technique and medications. The patient's vital signs remained stable. The patient was taken to the PACU in good condition. at 1230 Reported and signed by: Jasiel Mccormick M.D. CC: Jasiel Mccormick MD Technologist: OSORIO GARCÍA RT(R) Transcribed D/ (1230) Mariama [facility] NAME: PATSY ACE [address] [facility] [address] PHYS: Jasiel Rahman MD [place], [place] [address] : 1940 AGE: 78 SEX: F LOC: RENNY PHONE #: [phone] EXAM DATE: 08/19/2018 STATUS: REG [facility] FAX #: [phone] RAD #: [id number] D/C DT PAGE 3 Signed Report Patient Name: PATSY ACE Unit No: [id number] EXAMS: CPT CODE: [id number] XR FLUORO FOR SPINE INJ 58591 (Continued) Orig Print D/T: S: 08/19/2018 (1234) [facility] NAME: PATSY ACE [address] [facility] [address] PHYS: Jasiel Rahman MD [place], [place] [address] : 1940 AGE: 78 SEX: F LOC: RENNY PHONE #: [phone] EXAM DATE: 08/19/2018 STATUS: REG [facility] FAX #: [phone] [facility] #: [id number] D/C DT PAGE 4 Signed Report HEMATOLOGY 2014-12-02 05:12:00 Test Item Value Reference Range Interpretation Comme nts Hgb (test code = Hgb) 8.4 12.0-16.0 [facility] FallsGjfzohrOEJSSIMMOJ3359-97-29 05:12:00 Test Item Value Reference Range Interpretation Comments Hct (test code = Hct) 24.8 36.0-48.0 [facility] FallsCwwkbeaNWOVPAYWIB3273-72-61 17:23:00 Test Item Value Reference Range Interpretation Comments Hgb (test code = Hgb) 8.5 12.0-16.0 [facility] FallsIlnerdcOCNCZAXNDF1289-21-97 17:23:00 Test Item Value Reference Range Interpretation Comments Hct (test code = Hct) 25.4 36.0-48.0 [facility] UIWOTIN0807-03-05 07:36:33 Test Item Value Reference Range Interpretation Comments RBC product (test code Product available = RBC product) (12/01/14 2:36 AM) [facility] FallsCsisypcYIKKEFBVBN9455-23-89 05:55:00 Test Item Value Reference Range Interpretation Comments Hct (test code = Hct) 21.1 36.0-48.0 [facility] FallsFjrcecgGIDGFBCKPJ5336-45-03 05:55:00 Test Item Value Reference Range Interpretation Comments Hgb (test code = Hgb) 6.9 12.0-16.0 [facility] FallsIynbphpNRRNLFERVU3987-33-21 19:46:00 Test Item Value Reference Range Interpretation Comments Eosinophils (test code = 1.5 See_Comment [A utomated message] The Eosinophils) system which ge nerated this result tra nsmitted reference range : <=4.0. The reference r shanthi was not used to int erpret this result as normal/abnormal . [facility] FallsAsbumkfYCHAEBEJPJ1035-21-48 19:46:00 Test Item Value Reference Range Interpretation Comments Basophils (test code = 0.6 See_Comment [Aut omated message] The Basophils) system which ge nerated this result tra nsmitted reference range : <=1.0. The reference r shanthi was not used to int erpret this result as normal/abnormal . [facility] FallsPdfeowgCLTDDBLUII0866-41-07 19:46:00 Test Item Value Reference Range Interpretation Comments Segs-Bands # (test code = Segs-Bands #) 4.3 1.5-8.1 [facility] FallsFlghenxDEUXSARNYF6346-68-76 19:46:00 Test Item Value Reference Range Interpretation Comments Monocytes # (test code 0.5 See_Comment [Aut omated message] The = Monocytes #) system which generated this result tra nsmitted reference range : <=0.8. The reference r shanthi was not used to int erpret this result as normal/abnormal . [facility] FallsBqpgetnWDVSYFKXRF4790-36-24 19:46:00 Test Item Value Reference Range Interpretation Comments Lymphocytes # (test code = Lymphocytes 1.6 1.0-5.5 #) [facility] FallsUwlnfzbSUAKFQGULN3144-09-12 19:46:00 Test Item Value Reference Range Interpretation Comments Lymphocytes (test code = Lymphocytes) 24.3 20.0-40.0 [facility] FallsFwfuqkgZMFQMRDVAT3421-29-90 19:46:00 Test Item Value Reference Range Interpretation Comments Segs (test code = Segs) 65.7 45.0-75.0 [facility] FallsZlehxkzLFOAKXOFAC8154-68-18 19:46:00 Test Item Value Reference Range Interpretation Comments Eosinophils # (test code 0.1 See_Comment [A utomated message] The = Eosinophils #) system whic h generated this result tra nsmitted reference range : <=0.5. The reference r shanhti was not used to int erpret this result as normal/abnormal . [facility] FallsRcxwwjwIZMJODMWXL4945-83-83 19:46:00 Test Item Value Reference Range Interpretation Comments MPV (test code = MPV) 7.8 7.4-10.4 [facility] FallsSctekfxNIHHPTTHNW9699-96-67 19:46:00 Test Item Value Reference Range Interpretation Comments RBC (test code = RBC) 2.48 4.20-5.40 [facility] FallsBauzypmBTVWEVOYQL9188-95-88 19:46:00 Test Item Value Reference Range Interpretation Comments Platelet (test code = Platelet) 162 133-450 [facility] FallsDewvunlVZMGVDMSBZ9993-67-62 19:46:00 Test Item Value Reference Range Interpretation Comments MCHC (test code = MCHC) 33.3 32.0-36.0 [facility] FallsRvpgwpzBKESGDBKZA3447-50-31 19:46:00 Test Item Value Reference Range Interpretation Comments RDW (test code = RDW) 13.5 11.5-14.5 [facility] FallsDrjmtdqHYNGQLYPOO5768-88-25 19:46:00 Test Item Value Reference Range Interpretation Comments MCH (test code = MCH) 31.7 pg 27.0-31.0 [facility] FallsVgtciimBJHOREGLNC3715-51-86 19:46:00 Test Item Value Reference Range Interpretation Comments MCV (test code = MCV) 95.1 80.0-98.0 [facility] FallsWqycuzbHTQTIZSRFT8286-35-24 19:46:00 Test Item Value Reference Range Interpretation Comments WBC (test code = WBC) 6.6 3.7-10.4 [facility]2015-05-11 19:46:00 Test Item Value Reference Range Interpretation Comments eGFR (test code = eGFR) 55 [facility]2015-05-11 19:46:00 Test Item Value Reference Range Interpretation Comments Potassium Lvl (test code = Potassium 4.3 3.5-5.1 Lvl) [facility]2015-05-11 19:46:00 Test Item Value Reference Range Interpretation Comments Chloride Lvl (test code = Chloride Lvl) 112 95-109 [facility]2015-05-11 19:46:00 Test Item Value Reference Range Interpretation Comments CO2 (test code = CO2) 25 24-32 [facility]2015-05-11 19:46:00 Test Item Value Reference Range Interpretation Comments Calcium Lvl (test code = Calcium Lvl) 8.2 8.5-10.5 [facility]2015-05-11 19:46:00 Test Item Value Reference Range Interpretation Comments Glucose Lvl (test code = Glucose Lvl) 141 70-99 [facility]2015-05-11 19:46:00 Test Item Value Reference Range Interpretation Comments Creatinine Lvl (test code = Creatinine 1.0 0.5-1.4 Lvl) [facility]2015-05-11 19:46:00 Test Item Value Reference Range Interpretation Comments Sodium Lvl (test code = Sodium Lvl) 144 135-145 [facility]2015-05-11 19:46:00 Test Item Value Reference Range Interpretation Comments BUN (test code = BUN) 19 7-22 [facility] [id number] 19:46:00 Test Item Value Reference Range Interpretation Comments AGAP (test code = AGAP) 11.3 10.0-20.0 [facility] AustinYninusrCDFCBOLFJB9740-40-85 19:46:00 Test Item Value Reference Range Interpretation Comments Monocytes (test code = Monocytes) 7.9 2.0-12.0 [facility] [id number] 10:49:00 Test Item Value Reference Range Interpretation Comments Antibody Scrn (test Negative (11/29/14 5:49 code = Antibody Scrn) AM) [facility] [id number] 10:49:00 Test Item Value Reference Range Interpretation Comments ABO/Rh (test code = ABO/Rh) O POS [facility]
[2022-03-16 22:55] LABS: Absolute Lymphocytes (CBC) 1.1 K/uL (0.7-4.9); Hematocrit 36.7 % (36.0-45.0); Lymphocytes % 29.4 % (15.3-44.8); MCV 90.7 fL (80-100); MPV 7.1 fL (7.6-11.3); RBC Red Blood Cell Count 4.05 M/uL (3.86-4.86)
[2022-03-16 23:08] LABS: Potassium 3.4 mmol/L (3.5-5.1); Troponin High Sensitivity 10.3 pg/mL (<58.9)
[2022-03-17] MEDS ORDERED: ASPIRIN 325 MG TAB ONE (00:54)
[2022-03-17] MEDS ORDERED: MORPHINE 2 MG/ML SYR ONE (00:54)
[2022-03-17] MEDS ORDERED: ONDANSETRON 4 MG/2 ML VIAL ONE (00:54)
--- NOTE | 2022-03-17 02:09 | ER ---
Nurse's Notes [facility] Name: Mary Norris Age: 81 yrs Sex: Female : 1940 Arrival Date: 03/16/2022 Time: 22:22 Bed 17 Private MD: Diagnosis: Chest pain, unspecified Presentation: 03/16 22:22 Chief complaint: Patient states: Chest pain/pressure began 30 minutes ago. Coronavirus eh3 screen: At this time, the client does not indicate any symptoms associated with coronavirus-19. Ebola Screen: No symptoms or risks identified at this time. Initial Sepsis Screen: Does the patient meet any 2 criteria? No. Patient's initial sepsis screen is negative. Does the patient have a suspected source of infection? No. Patient's initial sepsis screen is negative. Risk Assessment: Do you want to hurt yourself or someone else? Patient reports no desire to harm self or others. Onset of symptoms was March 16, 2022. 22:22 Method Of Arrival: Ambulatory [facility] 22:22 Acuity: DENNIS 3 eh3 Triage Assessment: 22:22 General: Appears in no apparent distress. uncomfortable, Behavior is cooperative, eh3 appropriate for age, anxious. Pain: Complains of pain in anterior aspect of left upper chest and left breast Pain does not radiate. Pain at worst was 8 out of 10 on a pain scale. Quality of pain is described as heavy, pressure, Pain began 30 min ago. Is continuous. EENT: No signs and/or symptoms were reported regarding the EENT system. Neuro: Level of Consciousness is awake, alert, obeys commands, Oriented to person, place, time, situation. Cardiovascular: Capillary refill < 3 seconds Patient's skin is warm and dry. Rhythm is sinus rhythm Chest pain is described as severe. Respiratory: Airway is patent Respiratory effort is even, unlabored. GI: Abdomen is round non-distended. : No signs and/or symptoms were reported regarding the genitourinary system. Derm: No signs and/or symptoms reported regarding the dermatologic system. Musculoskeletal: No signs and/or symptoms reported regarding the musculoskeletal system. Historical: - Allergies: : No Known Allergies; eh3 - PMHx: 22:22 GERD; Hyperlipidemia; Hypertension; Migraines; Irritable bowel syndrome; skin cancer on eh3 the nose; - PSHx: 22:22 Total abdominal hysterectomy; Cholecystectomy; Appendectomy; eh3 - Immunization history:: Adult Immunizations up to date, Client reports receiving the 2nd dose of the Covid vaccine. - Social history:: Smoking status: Patient denies any tobacco usage or history of. Patient/guardian denies using alcohol. Screenin/27 00:18 Abuse screen: Denies threats or abuse. Nutritional screening: No deficits noted. fu Tuberculosis screening: No symptoms or risk factors identified. Fall Risk None identified. Assessment: 03/16 22:30 General: Appears uncomfortable, Behavior is calm, cooperative, appropriate for age. fu Pain: Complains of pain in chest Pain radiates to back Pain currently is 8 out of 10 on a pain scale. Neuro: Level of Consciousness is awake, alert, obeys commands, Oriented to person, place, time, situation, Moves all extremities. Gait is steady, Speech is normal, Facial symmetry appears normal. Cardiovascular: Reports chest pain. Respiratory: Respiratory effort is even, unlabored, Respiratory pattern is regular. Derm: Skin is intact. 03/17 00:19 Reassessment: Patient is alert, oriented x 3, equal unlabored respirations, skin fu warm/dry/pink. Patient states feeling better. Vital Signs: 03/16 22:22 BP 167 / 122; Pulse 64; Resp 18; Temp 98.1(O); Pulse Ox 100% on R/A; Weight 79.83 kg; [facility] Height 5 ft. 3 in. (160.02 cm); Pain 8/10; 23:00 BP 153 / 83; Pulse 68; Resp 25; Pulse Ox 97% ; Pain 8/10; fu 23:30 BP 165 / 77; Pulse 68; Resp 23; Pulse Ox 97% ; fu 03/17 00:00 BP 171 / 69; Pulse 71; Resp 20; Pulse Ox 96% on R/A; Pain 7/10; fu 01:23 Pain 3/10; fu 03/16 22:22 Body Mass Index 31.18 (79.83 kg, 160.02 cm) [facility] ED Course: 03/16 22:22 Patient arrived in ED. [email or web address] 22:22 Arm band placed on right wrist. EKG completed in triage. Results shown to MD. [facility] 22:25 Triage completed. [facility] 22:28 Parish Alves is PHCP. [email or web address] 22:28 Salvador Stephenson DO is Attending Physician. jl9 22:32 Inserted saline lock: 20 gauge in right antecubital area, using aseptic technique. ld1 Blood collected. 23:22 Shane Ruano, RN is Primary Nurse. fu 03/17 00:15 Chest Single View In Process Unspecified. EDMS 00:19 Patient has correct armband on for positive identification. Bed in low position. Side fu rails up X 1. phototypesetting equipment monitor on. Pulse ox on. NIBP on. 00:19 No provider procedures requiring assistance completed. Patient maintains SpO2 fu saturation greater than 95% on room air. 02:55 IV discontinued, bleeding controlled, Pressure dressing applied. fu Administered Medications: 00:53 Drug: morphine 2 mg Route: IVP; Infused Over: 4 mins; Site: right antecubital; fu 01:23 Follow up: Pain 3/10 Adult; Response: Pain is decreased fu 00:53 Drug: Ondansetron 4 mg Route: IVP; Site: right antecubital; fu 01:53 Follow up: Response: No adverse reaction fu 00:53 Drug: Aspirin 325 mg Route: PO; fu 01:53 Follow up: Response: No adverse reaction fu Medication: 02:55 VIS not applicable for this client. fu Outcome: 02:08 Discharge ordered by jl9 02:55 Discharged to home ambulatory, with family. fu 02:55 Condition: stable 02:55 Discharge instructions given to patient, Instructed on discharge instructions, follow up and referral plans. Demonstrated understanding of instructions, follow-up care, Prescriptions given X 0 02:56 Patient left the ED. fu Signatures: Dispatcher [employer] EDHI Shane Ruano, RN JAM Carol Klein RN RN ld1 Danuta Perryj6 Kenia Gonzales RN RN 3 Parish Alves jl9 Corrections: (The following items were deleted from the chart) 03/16 22:37 22:36 Inserted saline lock: 20 gauge in right antecubital area, using aseptic ld1 technique. Blood collected. ld1 03/17 00:17 03/16 23:30 BP 171 / 69; Pulse 71bpm; Resp 20bpm; Pulse Ox 96% RA; Pain 7/10; fu fu
--- NOTE | 2022-03-17 02:09 | EDPHYS ---
Physician Documentation [facility] Name: Mary Norris Age: 81 yrs Sex: Female : 1940 Arrival Date: 03/16/2022 Time: 22:22 Bed 17 Private MD: ED Physician Salvador Stephenson HPI: 03/17 00:35 This 81 yrs old Female presents to ER via Ambulatory with complaints of Chest jl9 Pain. Patient reports being off of her blood pressure medication for about a month now. . 00:35 Onset: The symptoms/episode began/occurred suddenly, just prior to arrival. Associated jl9 signs and symptoms: The patient has no apparent associated signs or symptoms. Modifying factors: The patient symptoms are alleviated by nothing, the patient symptoms are aggravated by nothing. Historical: - Allergies: 03/16 22:22 No Known Allergies; eh3 - PMHx: 22:22 GERD; Hyperlipidemia; Hypertension; Migraines; Irritable bowel syndrome; skin cancer on eh3 the nose; - PSHx: 22:22 Total abdominal hysterectomy; Cholecystectomy; Appendectomy; eh3 - Immunization history:: Adult Immunizations up to date, Client reports receiving the 2nd dose of the Covid vaccine. - Social history:: Smoking status: Patient denies any tobacco usage or history of. Patient/guardian denies using alcohol. ROS: 03/17 00:35 Constitutional: Negative for fever, chills, and weight loss, Eyes: Negative for injury, jl9 pain, redness, and discharge, ENT: Negative for injury, pain, and discharge, Neck: Negative for injury, pain, and swelling. Respiratory: Negative for shortness of breath, cough, wheezing, and pleuritic chest pain, Abdomen/GI: Negative for abdominal pain, nausea, vomiting, diarrhea, and constipation, Back: Negative for injury and pain, : Negative for injury, bleeding, discharge, and swelling, MS/Extremity: Negative for injury and deformity, Skin: Negative for injury, rash, and discoloration, Neuro: Negative for headache, weakness, numbness, tingling, and seizure, Psych: Negative for depression, anxiety, suicide ideation, homicidal ideation, and hallucinations, Allergy/Immunology: Negative for hives, rash, and allergies, Endocrine: Negative for neck swelling, polydipsia, polyuria, polyphagia, and marked weight changes, Hematologic/Lymphatic: Negative for swollen nodes, abnormal bleeding, and unusual bruising. Cardiovascular: Positive for chest pain, Negative for edema, orthopnea, palpitations. Exam: 00:35 Constitutional: This is a well developed, well nourished patient who is awake, alert, jl9 and in no acute distress. Head/Face: Normocephalic, atraumatic. Eyes: Pupils equal round and reactive to light, extra-ocular motions intact. Lids and lashes normal. Conjunctiva and sclera are non-icteric and not injected. Cornea within normal limits. Periorbital areas with no swelling, redness, or edema. ENT: Mucous membranes moist. Neck: Trachea midline, no thyromegaly or masses palpated, and no cervical lymphadenopathy. Supple, full range of motion without nuchal rigidity, or vertebral point tenderness. No Meningismus. 00:35 Chest/axilla: Normal chest wall appearance and motion. Nontender with no deformity. No lesions are appreciated. 00:35 Respiratory: Lungs have equal breath sounds bilaterally, clear to auscultation and percussion. No rales, rhonchi or wheezes noted. No increased work of breathing, no retractions or nasal flaring. Abdomen/GI: Soft, non-tender, with normal bowel sounds. No distension or tympany. No guarding or rebound. No evidence of tenderness throughout. Back: No spinal tenderness. No costovertebral tenderness. Full range of motion. Skin: Warm, dry with normal turgor. Normal color with no rashes, no lesions, and no evidence of cellulitis. MS/ Extremity: Pulses equal, no cyanosis. Neurovascular intact. Full, normal range of motion. Neuro: Awake and alert, GCS 15, oriented to person, place, time, and situation. Cranial nerves II-XII grossly intact. Motor strength 5/5 in all extremities. Sensory grossly intact. Cerebellar exam normal. Normal gait. Psych: Awake, alert, with orientation to person, place and time. Behavior, mood, and affect are within normal limits. 00:35 Cardiovascular: Exam negative for Rate: normal, Rhythm: regular, Pulses: Pulses are 2+ in . Heart sounds: normal, Edema: is not appreciated. Vital Signs: 03/16 22:22 BP 167 / 122; Pulse 64; Resp 18; Temp 98.1(O); Pulse Ox 100% on R/A; Weight 79.83 kg; 3 Height 5 ft. 3 in. (160.02 cm); Pain 8/10; 23:00 BP 153 / 83; Pulse 68; Resp 25; Pulse Ox 97% ; Pain 8/10; fu 23:30 BP 165 / 77; Pulse 68; Resp 23; Pulse Ox 97% ; fu 03/17 00:00 BP 171 / 69; Pulse 71; Resp 20; Pulse Ox 96% on R/A; Pain 7/10; fu 01:23 Pain 3/10; fu 03/16 22:22 Body Mass Index 31.18 (79.83 kg, 160.02 cm) [facility] MDM: 03/16 22:28 Patient medically screened. jl9 03/17 00:36 Data reviewed: vital signs, nurses notes. Test interpretation: by ED physician or 9 midlevel provider: ECG. 02:07 Counseling: I had a detailed discussion with the patient and/or guardian regarding: the jl9 historical points, exam findings, and any diagnostic results supporting the discharge/admit diagnosis, lab results, radiology results, the need for outpatient follow up, to return to the emergency department if symptoms worsen or persist or if there are any questions or concerns that arise at home. Response to treatment: the patient's symptoms have resolved after treatment. 02:16 Counseling: I had a detailed discussion with the patient and/or guardian regarding: jl9 Patient and family at bedside and they wish to go home. . 03/16 22:46 Order name: Basic Metabolic Panel; Complete Time: 00:11 [facility] 03/16 22:46 Order name: Troponin High Sensitivity; Complete Time: 00:11 [facility] 03/16 22:46 Order name: CBC with Automated Diff; Complete Time: 00:11 [facility] 03/16 22:26 Order name: EKG; Complete Time: 23:48 [facility] 03/16 22:26 Order name: Cardiac monitoring; Complete Time: 22:37 [facility] 03/16 22:26 Order name: EKG - Nurse/Tech; Complete Time: 22:26 [facility] 03/16 23:37 Order name: Chest Single View [facility] 03/16 22:26 Order name: IV Saline Lock; Complete Time: 22:30 [facility] 03/16 22:26 Order name: Labs collected and sent; Complete Time: 22:32 [facility] 03/16 22:26 Order name: O2 Per Protocol; Complete Time: 22:37 3 03/16 22:26 Order name: O2 Sat Monitoring; Complete Time: 22:37 [facility] Administered Medications: 00:53 Drug: morphine 2 mg Route: IVP; Infused Over: 4 mins; Site: right antecubital; fu 01:23 Follow up: Pain 3/10 Adult; Response: Pain is decreased fu 00:53 Drug: Ondansetron 4 mg Route: IVP; Site: right antecubital; fu 01:53 Follow up: Response: No adverse reaction fu 00:53 Drug: Aspirin 325 mg Route: PO; fu 01:53 Follow up: Response: No adverse reaction fu Disposition: 09:13 Co-signature as Attending Physician, Salvador MOORE was immediately available on-site ms3 in the emergency department for consultation in the care of the patient. Disposition Summary: 03/17/22 02:08 Discharge Ordered Location: Home jl9 Condition: Stable jl9 Diagnosis - Chest pain, unspecified jl9 Followup: jl9 - With: Private Physician - When: 1 - 2 days - Reason: Recheck today's complaints, Continuance of care, Re-evaluation by your physician Discharge Instructions: - Discharge Summary Sheet jl9 - Nonspecific Chest Pain, Adult jl9 Forms: - Medication Reconciliation Form jl9 - Thank You Letter jl9 - Antibiotic Education jl9 - Prescription Opioid Use jl9 Signatures: Dispatcher [employer] [facility] Shane Ruano RN RN fu Sims, Marcus, DO DO ms3 Kenia Gonzales RN RN [facility] [place] jl9 Corrections: (The following items were deleted from the chart) 00:09 03/16 23:48 BASIC METABOLIC PANEL+C.LAB.BRZ ordered. [facility] 03/17 00:09 03/16 23:48 CBC+H.LAB.BRZ ordered. [facility] 03/17 00:09 03/16 23:48 Troponin High Sensitivity+C.LAB.BRZ ordered. [facility] 03/17 00:16 03/16 23:48 Chest Single View+RAD.RAD.BRZ ordered. [facility] 03/17 01:20 00:35 This 81 yrs old Female presents to ER via Ambulatory with complaints of jl9 Chest Pain. jl9
[2022-03-17 05:19] VITALS: TEMP 98.1
[2022-03-17 05:38] VITALS: BP 171/69; O2SAT 96
--- NOTE | 2022-03-17 15:19 | EKG ---
Test Date: 2022-03-16 Test Time: 22:28:29 [employer] Representative: JORDON MEASUREMENT RESULTS: Intervals: Rate: 59 MO: 242 QRSD: 108 QT: 432 QTc: 427 [place]: P: 60 MO: 242 QRS: -51 T: 52 INTERPRETIVE STATEMENTS: Sinus bradycardia with 1st degree AV block Left anterior fascicular block Minimal voltage criteria for LVH, may be normal variant Abnormal ECG Compared to ECG 06/01/2019 18:20:41 First degree AV block now present Left anterior fascicular block now present Sinus rhythm no longer present Left-axis deviation no longer present Electronically Signed On 03-17-22 15:18:10 CDT by Vlad Reyes
--- NOTE | 2022-03-17 15:46 | RAD REPORT ---
EXAM DESCRIPTION: RAD - Chest Single View - 03/17/2022 12:13 am CLINICAL HISTORY: The patient is 26 years old and is Male; chest pain TECHNIQUE: Frontal view of the chest. COMPARISON: No relevant prior studies available. FINDINGS: Lungs: Mildly prominent interstitial and vascular markings. No consolidation. Pleural space: Mild blunting of the right costophrenic angle which may indicate a small right ple ural effusion. No pneumothorax. Heart: Unremarkable. Mediastinum: Unremarkable. Bones/joints: Unremarkable. IMPRESSION: 1. Mildly prominent interstitial and vascular markings. No consolidation. 2. Mild blunting of the right costophrenic angle which may indicate a small right pleural effusion. Electronically signed by: Denilson Mathias MD 03/17/2022 12:26 AM CDT Due to temporary technical issues with the PACS/Fluency reporting system, reports are being signed by the in house radiologists without review as a courtesy to insure prompt reporting. The interpreting radiologist is fully responsible for the content of the report.
== END 2022-03-17 02:56 | disposition home or self-care (01) ==
LOC: ER 22:19
DX: R07.9 Chest pain, unspecified (principal); I10 Essential (primary) hypertension
CPT/HCPCS: 93005; 85025; 80048; 36415; 84484; 71045; 96375; 96374; 99285; J2270; J2405

== ENCOUNTER 2022-09-06 19:18 | Emergency (ER) | payer OTHER, MEDICARE ==
--- OUTSIDE RECORDS SUMMARY | 2022-09-06 19:29 | XMS REPORT | Continuity of Care Document ---
:1940 Author Organization [facility] t Address [address] [place] [address] Care Team Providers Name Role Phone Luz Marina Gallo MD Primary Care Physician [phone] GABBI TIPTON Attending Clinician Unavailable Uyen Giraldo MD Attending Clinician Nguyen POLK, Kymberly Attending Clinician Unavailable Maeve Reyes MA Attending Clinician Unavailable Agustín BARAKAT, Phyllis Harry Attending Clinician Carson Lopez MD Attending Clinician [phone] Caity Maldonado MD Attending Clinician John Vasquez MD Attending Clinician Daniela BARAKAT, Lalito Guaman Attending Clinician Wendy Brown Attending Clinician Gildardo Lovelace Attending Clinician Maikel Kirkland Attending Clinician GABBI TIPTON Admitting Clinician Unavailable CARSON LOPEZ Admitting Clinician Unavailable Maikel Kirkland Admitting Clinician Payers Payer Name Policy Type Policy Number Effective Date Expiration Date Michelle benavides MEDICARE A B [id number] 2022 00:00:00 [facility] [id number] 2021 HEALTHCARE 00:00:00 Problems Condition Condition Condition Status Onset Resolution Last Treating Co mments Source Name Details Category Date Date Treatment Clinician Date Dissection Dissection Disease Active M ethodi of aorta, of aorta, 03-22 st unspecifie unspecifie 00:00: Ho spita d portion d portion 00 l of aorta of aorta M54.5 - M54.5 - Diagnosis Active 2014-072015-06-22 Memoria LOW BACK LOW BACK 08-10 09:55:00 l PAIN PAIN 00:01: Stevie Active 00 06/10/2015 DIANA Hubbard 724.4 - 724.4 - Diagnosis Active 2015-04-09 Memoria LUMBOSACRA LUMBOSACRA 01-13 15:58:00 l L HEBER L HEBER 00:01: Stevie Active 00 01/13/2015 DIANA Hubbard LUMBAR LUMBAR Diagnosis Active 2014-12-08 Me moria SPODOLYTHI SPODOLYTHI 11-19 21:54:00 l S, S, 00:00: Stevie RIDICULOPA RIDICULOPA 00 THY, LOW B THY, LOW B Active 11/19/2014 [facility] Low back Low back Problem Active 2013-072021-07-28 Memoria pain pain 0-24 01:24:14 l (disorder) (disorder) 00:00: He rmann Active 00 05/14/2014 Problem 07/28/2021 Data migrated from cisimple on 03/15/15. JI Hubbard, JI [facility] Lumbar Lumbar Problem Active 2013-072021-07-28 Royce macario radiculopa radiculopa 0-24 01:24:14 l thy thy 00:00: Stevie (disorder) (disorder) 00 Active 05/14/2014 Problem 07/28/2021 Data migrated from cisimple on 03/15/15. [facility], JI Hubbard, JI Davenport,M Lexi OPID [facility] Atrial Atrial Problem Resolve 2021-07-28 Mem oria fibrillati fibrillati d 01:24:14 l on on Stevie (disorder) (disorder) Resolved Problem 07/28/2021 [facility], JI Hubbard, JI Davenport,M H OPID [facility] Gastroesop Problem Active 2021-07-28 M emoria hageal Gastroesop 01:24:14 l reflux hageal Stevie disease reflux (disorder) disease (disorder) Active Problem 07/28/2021 [facility], JI Hubbard, JI Davenport,M H OPID [facility] Hyperlipid Hyperlipi Problem Active 2021-07-28 Memoria emia demia 01:24:14 l (disorder) (disorder) He rmann Active Problem 07/28/2021 [facility], JI Hubbard, JI Davenport,M OPID [facility] Hypertensi Hypertens Problem Active 2021-07-28 Memoria ve geni 01:24:14 l disorder, disorder, Herm hipolito systemic systemic arterial arterial (disorder) (disorder) Active Problem 07/28/2021 [facility], JI Hubbard, JI Davenport,M H OPID [facility] Spinal Spinal Problem Active 2021-07-28 Royce macario stenosis stenosis 01:24:14 l of lumbar of lumbar Herm hipolito region region (disorder) (disorder) Active Problem 07/28/2021 [facility], JI Hubbard, JI Dvaenport,M OPID [facility] Obesity Obesity Problem Active 2021-07-28 Me moria (disorder) (disorder) 01:24:14 l Active [place] Problem 07/28/2021 [facility], JI Hubbard, JI Davenport,M H OPID [facility] Pain Pain Problem Active 2021-07-28 Memor ia (finding) (finding) 01:24:14 l Active Stevie Problem 07/28/2021 [facility], JI Hubbard, JI Davenport,M H OPID [facility] Spondylosi Spondylos Problem Active 2021-07-28 Memoria s is 01:24:14 l (disorder) (disorder) He rmann Active Problem 07/28/2021 Lumbar [facility], JI Hubbard, JI Davenport,M H [facility] LUMBOSACRA LUMBOSACR Diagnosis Active 2014-12-08 Memoria L AL 21:54:00 l SPONDYLOSI SPONDYLOSI He rmann S S Active [facility] LUMBOSACRA LUMBOSACR Diagnosis Active 2014-12-08 Memoria L NEURITIS AL 21:54:00 l NOS NEURITIS Stevie NOS Active [facility] LUMBAGO LUMBAGO Diagnosis Active 2014-12-08 Memoria Active 21:54:00 l [facility] No known No known Disease Metho di active active st problems problems Hospit a l Allergies, Adverse Reactions, Alerts Allergy Allergy Status Severity Reaction(s) Onset Inactive Treating Comm ents Source Name Type Date Date Clinician No Known DA Active U 2018-07 [facility] 08-27 [place] [facility] No Known DA Active U [facility] Allergie 09-24 [place] [facility] 00:[facility] No Known Propensi Active Method i Drug ty to 01-15 st Allergie adverse 00:00: Hospita s reaction 00 l s to drug No Known DA Active U 2011-07 [facility] Allergie 09-17 [place] [facility] 00:[facility] 00 dic Hospita l Family History Family Member Diagnosis Comments Start Date Stop Date Source Natural father Pancreatic cancer Met [facility] Social History Social Habit Start Date Stop Date Quantity Comments Source Tobacco use and 2022-04-26 2022-04-26 Smokeless tobacco Me thodist exposure 00:00:00 00:00:00 non-user Hospital Alcohol intake 2022-04-26 2022-04-26 Current Religion 00:00:00 00:00:00 non-drinker of Hospital alcohol (finding) Social History 2014-11-29 2014-11-29 [facility] feng 12:41:06 12:41:06 Sex [birth year] Religion 00:00:00 00:00:00 Hospital Smoking Status Start Date Stop Date Source Never smoked tobacco Religion ospital Medications Ordered Filled Start Stop Current Ordering Indication Dosage Frequency Signature Comments Components Source Medication Medication Date Date Medication? Clinician (SIG) Name Name escitalopra 2021-07 Yes 5mg QD Take 1 Meth inés m (LEXAPRO) 0-06 tablet (5 st 5 MG tablet 10:52: mg total) H ospita 38 by mouth l daily. nortriptyli 2021-07 Yes 25mg QD Take 25 mg Methodi ne 0-[address] (PAMELOR) 10:52: nightly. Hosp karina 25 MG 38 l capsule pregabalin 2021-07 Yes 150mg Q.5D Take 1 Meth inés (LYRICA) 0-[address] 150 MG 10:52: (150 mg Hospita capsule 38 total) by l mouth 2 (two) times a day. atorvastati 2021-07 Yes 40mg QD Take 40 mg Methodi n (LIPITOR) 0-[address] 40 MG 10:52: daily. Hospita tablet 38 l famotidine 2021-07 Yes 1{tbl} QD Take 1 Met hodi (PEPCID 0-[address] ORAL) 10:52: mouth Hospita 38 daily. l azelastine 2021-07 Yes 1{spray Q.5D 1 spray M ethodi (ASTELIN) 0-06 } into each st 137 mcg 10:52: nostril 2 Hospi ta (0.1 %) 38 (two) l nasal spray times a day as needed for rhinitis or allergies. Use in each nostril as directed traZODone 2021-07 Yes 75mg QD Take 1.5 Meth inés (DESYREL) 0-[address] 50 MG 10:52: (75 mg Hospita tablet 38 total) by l mouth nightly as needed for sleep. amlodipine 2021-07 Yes Take by Meth inés besylate 0-[address] (AMLODIPINE 10:52: Hospit a ORAL) 38 l famotidine Yes 1{tbl} QD Take 1 Met hodi (PEPCID 9-[address] ORAL) 16:40: mouth Hospita 05 daily. l azelastine Yes 1{spray Q.5D 1 spray M ethodi (ASTELIN) 9-14 } into each st 137 mcg 16:40: nostril 2 Hospi ta (0.1 %) 05 (two) l nasal spray times a day as needed for rhinitis or allergies. Use in each nostril as directed traZODone Yes 75mg QD Take 1.5 Meth inés (DESYREL) 04-[address] 50 MG 16:40: (75 mg Hospita tablet 05 total) by l mouth nightly as needed for sleep. UNABLE TO 2021- No Med Name: Me nath FIND 04-[address] 16:40: 00:00 Shots - Hospita 05 :00 weekly l clopidogreL 2021-2021- No 75mg QD Take 1 Met hodi (PLAVIX) 75 04-04 tablet (75 s t mg tablet 16:40: 00:00 mg total) Ho spita 05 :00 by mouth l daily. amLODIPine 2021- No 2.5mg QD Take 1 Met hodi (NORVASC) 04-[address] 2.5 mg 16:40: 00:00 (2.5 mg Hospita tablet 05 :00 total) by l mouth daily. UNABLE TO 2021- No Med Name: Me nath FIND 04-[address] 16:40: 00:00 Shots - Hospita 05 :00 weekly l clopidogreL 2021-2021- No 75mg QD Take 1 Met hodi (PLAVIX) 75 04-04 tablet (75 s t mg tablet 16:40: 00:00 mg total) Ho spita 05 :00 by mouth l daily. amLODIPine 2021- No 2.5mg QD Take 1 Met hodi (NORVASC) 04-[address] 2.5 mg 16:40: 00:00 (2.5 mg Hospita tablet 05 :00 total) by l mouth daily. olmesartan 2021- No 40mg QD Take 40 mg Methodi (BENICAR) 04-[address] 40 MG 17:52: 00:00 daily. Hospita tablet 47 :00 l olmesartan 2021-2021- No 40mg QD Take 40 mg Methodi (BENICAR) 04-[address] 40 MG 17:52: 00:00 daily. Hospita tablet 47 :00 l escitalopra 0 Yes 5mg QD Take 1 Meth inés m (LEXAPRO) 04-03 tablet (5 st 5 MG tablet 17:52: mg total) H ospita 40 by mouth l daily. nortriptyli 0 Yes 25mg QD Take 25 mg Methodi ne -[address] (PAMELOR) 17:52: nightly. Hosp karina 25 MG 40 l capsule pregabalin 0 Yes 150mg Q.5D Take 1 Meth inés (LYRICA) 04-[address] 150 MG 17:52: (150 mg Hospita capsule 40 total) by l mouth 2 (two) times a day. atorvastati Yes 40mg QD Take 40 mg Methodi n (LIPITOR) 04-[address] 40 MG 17:52: daily. Hospita tablet 40 l traMADoL [place] [id number] 50mg Q8H Take 1 Method i (ULTRAM) 50 -13 tablet (50 st mg tablet 00:00: mg total) Hos angela 00 by mouth l every 8 (eight) hours as needed for severe pain .acute pain. traMADoL 0 Yes [id number] 50mg Q8H Take 1 Method i (ULTRAM) 50 -13 tablet (50 st mg tablet 00:00: mg total) Hos angela 00 by mouth l every 8 (eight) hours as needed for severe pain .acute pain. valsartan 2021- No 60mg Q.5D Take 1.5 Met hodi (DIOVAN) 40 04-03-[address] MG tablet 00:00: 04:59 (60 mg Hospi ta 00 :00 total) by l mouth 2 (two) times a day for 30 days. sennosides- 2021- No 2{tbl} QD Take 2 M ethodi docusate 04-03-[address] sodium 00:00: 04:59 mouth Hospita (SENOKOT-S) 00 :00 nightly l 8.6-50 mg for 30 per tablet days. polyethylen 0 2021- No 17g Q.5D Take 17 g Methodi e glycol 04-03-[address] (MIRALAX) 00:00: 04:59 (two) Hospit a 17 gram 00 :00 times a l packet day for 30 days. valsartan 2021- No 60mg Q.5D Take 1.5 Met hodi (DIOVAN) 40 04-[address] MG tablet 00:00: 04:59 (60 mg Hospi ta 00 :00 total) by l mouth 2 (two) times a day for 30 days. sennosides- 2021- No 2{tbl} QD Take 2 M ethodi docusate 04-[address] sodium 00:00: 04:59 mouth Hospita (SENOKOT-S) 00 :00 nightly l 8.6-50 mg for 30 per tablet days. polyethylen 2021- No 17g Q.5D Take 17 g Methodi e glycol 04-[address] (MIRALAX) 00:00: 04:59 (two) Hospit a 17 gram 00 :00 times a l packet day for 30 days. esomeprazol 2021- No 40mg QD Take 40 mg Methodi e (NexIUM) 03-[address] 40 MG 10:30: 00:00 daily Hospita capsule 56 :00 before l breakfast. esomeprazol 2021- No 40mg QD Take 40 mg Methodi e (NexIUM) 03-[address] 40 MG 10:30: 00:00 daily Hospita capsule 56 :00 before l breakfast. acetaminoph 2021- No 500mg Q6H Take 500 Methodi en 03-23- mg by st (TYLENOL) 10:30: 00:00 mouth Hospit a 500 MG 36 :00 every 6 l tablet (six) hours as needed for mild pain or moderate pain. acetaminoph 2021- No 500mg Q6H Take 500 Methodi en 03-23- mg by st (TYLENOL) 10:30: 00:00 mouth Hospit a 500 MG 36 :00 every 6 l tablet (six) hours as needed for mild pain or moderate pain. escitalopra 2018-07 Yes 5mg QD Take 5 mg M ethodi m (LEXAPRO) 0-[address] 10 MG 15:24: daily. Hospita tablet 22 l esomeprazol 2018-07 Yes 40mg QD Take 40 [...] 22 l capsule pregabalin 2018-07 Yes 100mg Q.[id number] Take 100 Methodi (LYRICA) 0-[id number] 100 MG 15:24: 3D [...] needed for mild pain or moderate pain. tramadol No Notes: . Memor ia hydrochlori 5-14 (Same As: l de 50 MG 02:03: Ultram) Renato n Oral Tablet 00 tramadol No Notes: . Memor ia hydrochlori 5-14 (Same As: l de 50 MG 02:03: Ultram) Renato n Oral Tablet 00 heparin No Notes: Memoria 5-13 porcine l 21:00: heparin [place] heparin No Notes: Memoria 5-13 porcine l 21:00: heparin [place] Valium No Notes: Memoria 5-13 (Same as: l 15:30: Valium) [place] Valium No Notes: Memoria 5-13 (Same as: l 15:30: Valium) [place] Acetaminoph No Notes: Royce macario en 325 MG / 5-13 (Same as: l Hydrocodone 12:00: [place] Mildred nn Bitartrate 00 325/5) Do 5 MG Oral not exceed Tablet 4gm/day of [[place] acetaminop 5/325] hen. Acetaminoph No Notes: Royce macario en 325 MG / 12-01 (Same as: l Hydrocodone 12:00: [place] Mildred nn Bitartrate 00 325/5) Do 5 MG Oral not exceed Tablet 4gm/day of [[place] acetaminop 5/325] hen. Sodium 2015-0 Yes 1,000 mL, Memori a Chloride 5-13 1,000 l 0.154 10:18: ml/hr, [place] MEQ/ML 00 Infuse Injectable Over: 1 Solution hr, Route: IV, 1,000, Drug form: INJ, ONCE, Priority: STAT, Dosing Weight 90.909 kg, Start date: 12/01/14 5:18:00, Duration: 1 doses or times, Stop date: 12/01/14 5:18:00 Sodium 2015-0 Yes 1,000 mL, Memori a Chloride 5-13 1,000 l 0.154 10:18: ml/hr, Stevie MEQ/ML 00 Infuse Injectable Over: 1 Solution hr, Route: IV, 1,000, Drug form: INJ, ONCE, Priority: STAT, Dosing Weight 90.909 kg, Start date: 12/01/14 5:18:00, Duration: 1 doses or times, Stop date: 12/01/14 5:18:00 Sodium 2015-0 Yes 250 mL, Memoria Chloride 5-13 250 ml/hr, l 0.154 09:28: Infuse [place] MEQ/ML 00 Over: 1 Injectable hr, Route: Solution IV, 250, Drug form: INJ, ONCE, Priority: STAT, Dosing Weight 90.909 kg, Start date: 12/01/14 4:28:00, Duration: 1 doses or times, Stop date: 12/01/14 4:28:00 Sodium 2015-0 Yes 250 mL, Memoria Chloride 5-13 250 ml/hr, l 0.154 09:28: Infuse [place] MEQ/ML 00 Over: 1 Injectable hr, Route: Solution IV, 250, Drug form: INJ, ONCE, Priority: STAT, Dosing Weight 90.909 kg, Start date: 12/01/14 4:28:00, Duration: 1 doses or times, Stop date: 12/01/14 4:28:00 Losartan No Notes: Memoria 5-12 (Same as: l 14:00: Cozaar) Prevacid No 30 mg, Memoria 5-12 Route: PO, l 14:00: Drug form: Stevie 00 DRC, Daily, Dosing Weight 90.909, kg, Start date: 11/30/14 9:00:00, Duration: 30 day, Stop date: 12/29/14 9:00:00 Lexapro No Notes: Memoria 5-12 (Same as: l 14:00: Lexapro) Atenolol 50 No Notes: Royce macario MG Oral 5-12 (Same l Tablet 14:00: As:Germanormi Mildred nn 00 n) Losartan No Notes: Memoria 5-12 (Same as: l 14:00: Cozaar) Prevacid No 30 mg, Memoria 5-12 Route: PO, l 14:00: Drug form: Tsevie DRC, Daily, Dosing Weight 90.909, kg, Start date: 11/30/14 9:00:00, Duration: 30 day, Stop date: 12/29/14 9:00:00 Lexapro No Notes: Memoria 5-12 (Same as: l 14:00: Lexapro) Atenolol 50 No Notes: Royce macario MG Oral 5-12 (Same l Tablet 14:00: As:Germanormi Mildred nn 00 n) Protonix No Notes: Memoria 5-12 (Same as: l 12:30: Protonix) Protonix No Notes: Memoria 5-12 (Same as: l 12:30: Protonix) Acetaminoph Yes 1 tab, PO, Memoria en [...] mg oral 10:33: Q12H, # 30 Herm hpiolito capsule 00 cap, 0 Refill(s) Acetaminoph Yes 1 tab, PO, Memoria en [...] Notes: Memoria 5-12 (Same l 02:00: as:Pamelor [place] , Aventyl) gabapentin No Notes: Memor ia 300 MG Oral 5-12 (Same as: l Capsule 02:00: Neurontin) Herm hipolito 00 Atenolol 50 No Notes: Royce macario MG Oral 5-12 (Same l Tablet 02:00: As:Tenormi Mildred nn 00 n) Saline No Notes: Memoria Flush 0.9% 5-12 Same as: l 02:00: BD Stevie Posiflush Sterile sennosides, No Notes: Royce macario PENITENTIARY 5-12 (Same as: l 02:00: Senokot) Stevie 00 Docusate No Notes: Memoria 5-12 (Same as: l 02:00: Colace) Stevie 00 (Do Not Crush) Pamelor No Notes: Memoria 5-12 (Same l 02:00: as:Pamelor [place] 00 , Aventyl) gabapentin No Notes: Memor ia 300 MG Oral 5-12 (Same as: l Capsule 02:00: Neurontin) Herm hipolito Atenolol 50 No Notes: Royce macario MG Oral 5-12 (Same l Tablet 02:00: As:Tenormi Mildred nn 00 n) Saline No Notes: Memoria Flush 0.9% 11-30 Same as: l 02:00: BD [place] Posiflush Sterile sennosides, No Notes: Royce macario PENITENTIARY -12 (Same as: l 02:00: Senokot) Stevie Docusate No Notes: Memoria 5-12 (Same as: l 02:00: Colace) Stevie (Do Not Crush) Acetaminoph No Notes: Do M emoria en 325 MG / 5-11 not exceed l Hydrocodone 21:00: 4gm/day of Stevie Bitartrate 00 acetaminop 10 MG Oral hen. (Same Tablet as: [place] [[place] 325/10) 10/325] ceFAZolin No Notes: Memori a (SCIP) 5-11 (Same As: l 21:00: Ancef, [place] 00 Kefzol) MEDICATION WASTE Product Size: 1000 mg Product Wasted: ___ mg Acetaminoph No Notes: Do M emoria en 325 MG / 5-11 not exceed l Hydrocodone 21:00: 4gm/day of Stevie Bitartrate 00 acetaminop 10 MG Oral hen. (Same Tablet as: [place] [[place] 325/10) 10/325] ceFAZolin No Notes: Memori a (SCIP) 5-11 (Same As: l 21:00: Ancef, Stevie 00 Kefzol) MEDICATION WASTE Product Size: 1000 mg Product Wasted: ___ mg Labetalol No 10 mg, 2 Royce macario 5-11 mL, Route: l 19:50: IVP, Drug Stevie 00 form: INJ, Q5Min, Dosing Weight 90.909, kg, PRN Elevated BP, Start date: 11/29/14 14:50:00, Duration: 5 doses or times, Stop date: 11/30/14 0:00:00 Hydromorpho No Notes: Royce macario ne 5-11 Same as: l 19:50: Dilaudid Flumazenil No Notes: Memor ia 5-11 (Same as: l 19:50: Romazicon) Naloxone No Notes: Memoria 5-11 Same as l 19:50: Narcan Ondansetron No Notes: Royce macario 5-11 (Same as: l 19:50: Zofran) [place] 00 MEDICATION WASTE Product Size: 4 mg Product Wasted: __0_ mg Labetalol No 10 mg, 2 Royce macario 5-11 mL, Route: l 19:50: IVP, Drug Stevie 00 form: INJ, Q5Min, Dosing Weight 90.909, kg, PRN Elevated BP, Start date: 11/29/14 14:50:00, Duration: 5 doses or times, Stop date: 11/30/14 0:00:00 Hydromorpho No Notes: Royce macario ne 5-11 Same as: l 19:50: Dilaudid [place] 00 Flumazenil No Notes: Memor ia 5-11 (Same as: l 19:50: Romazicon) Naloxone No Notes: Memoria 5-11 Same as l 19:50: Narcan Stevie 00 Ondansetron No Notes: Royce macario 5-11 (Same as: l 19:50: Zofran) [place] 00 MEDICATION WASTE Product Size: 4 mg Product Wasted: __0_ mg Sodium No 1,000 mL, Memori a Chloride 11-29 Rate: 75 l 0.154 17:00: ml/hr, [place] MEQ/ML 00 Infuse Injectable over: 13.3 Solution hr, Route: IV, Dosing Weight 90.909 kg, Total Volume: 1,000, Start date: 11/29/14 12:00:00, Stop date: 12/29/14 11:59:00 Valium No Notes: Memoria 5-11 (Same as: l 17:00: Valium) [place] 00 Valium No Notes: Memoria 5-11 (Same as: l 17:00: Valium) Naloxone No Notes: Memoria 5-11 Same as l 17:00: Narcan Morphine No Notes: Memoria 5-11 Dose: l 17:00: Delay: Basal rate: 4hr limit: (Same as:Dima duarte) Naloxone No Notes: Memoria 5-11 Same as l 17:00: Narcan Regular No 60 units) Royce macario Insulin, 5-11 Stable for l Human 100 17:00: 28 days at rmann UNT/ML 00 room Injectable temperatur Solution e Expires in days from ____Date Dextrose No 12.5 gm, Memor ia 50% Syringe 5-11 25 mL, l 17:00: Route: [place] 00 IVP, Drug Form: INJ, Dosing Weight 90.909, kg, PRN, PRN Abnormal Lab Result, Start date: 11/29/14 12:00:00, Duration: 30 day, Stop date: 12/29/14 11:59:00 Saline No Notes: Memoria Flush 0.9% 5-11 Same as: l 17:00: BD Posiflush Sterile Ondansetron No Notes: Royce macario 5-11 (Same as: l 17:00: Zofran) MEDICATION WASTE Product Size: 4 mg Product Wasted: ___ mg Acetaminoph No 1 tab, Royce macario en 325 MG / 5-11 Route: PO, l Hydrocodone 17:00: Drug Form: [place] Bitartrate 00 TAB, 10 MG Oral Dosing Tablet Weight 90.909, kg, Q6H, Start date: 11/29/14 12:00:00, Duration: 30 day, Stop date: 12/29/14 6:00:00 Sodium 2015 No 1,000 mL, Memori a Chloride 5-11 Rate: 75 l 0.154 17:00: ml/hr, [place] MEQ/ML 00 Infuse Injectable over: 13.3 Solution hr, Route: IV, Dosing Weight 90.909 kg, Total Volume: 1,000, Start date: 11/29/14 12:00:00, Stop date: 12/29/14 11:59:00 Morphine No Notes: Memoria 5-11 Dose: l 17:00: Delay: [place] 00 Basal rate: 4hr limit: (Same as:Dima duarte) Regular No 60 units) Royce macario Insulin, 5-11 Stable for l Human 100 17:00: 28 days at rmann UNT/ML 00 room Injectable temperatur Solution [...] Route: PO, l Hydrocodone 17:00: Drug Form: [place] Bitartrate 00 TAB, 10 MG Oral Dosing Tablet Weight 90.909, kg, Q6H, Start date: 11/29/14 12:00:00, Duration: 30 day, Stop date: 12/29/14 6:00:00 bupivacaine 2014-0 No Notes: Royce macario liposome 5-11 (Same as: l 12:52: Exparel) NOT FOR IV use Postoperat geni analgesia: [...] (total dose = 30 mL [266 mg]) bupivacaine 2015-0 No Notes: Royce macario liposome 5-11 (Same as: l 12:52: Exparel) NOT FOR IV use Postoperat geni analgesia: [...] dose = 30 mL [266 mg]) ceFAZolin 2015-0 No 2 gm, 50 Royce macario 5-11 mL, Route: l 12:00: IVPB, Drug form: INJ, PRE OP, Start date: 11/29/14 7:00:00, Duration: 1 day, Stop date: 11/30/14 6:59:00 ceFAZolin 2015-0 No 2 gm, 50 Royce macario 5-11 mL, Route: l 12:00: IVPB, Drug form: INJ, PRE OP, Start date: 11/29/14 7:00:00, Duration: 1 day, Stop date: 11/30/14 6:59:00 Bifidobacte 2015-0 Yes 4 mg = 1 Me moria rium 5-07 cap, PO, l Infantis 4 15:18: Daily, # Her bacon MG Oral 00 28 cap, 0 Capsule Refill(s) [Align] Bifidobacte 2014-0 Yes 4 mg = 1 Me moria rium 5-07 cap, PO, l Infantis 4 15:18: Daily, # Her bacon MG Oral 00 28 cap, 0 Capsule Refill(s) [Align] Aspirin Low 2014-0 Yes PO, Daily, Memoria Dose 81 mg 5-07 0 l oral tablet 15:15: Refill(s) H ermann 00 Tylenol 0 Yes PO, PRN, 0 Royce macario 5-07 Refill(s) l 15:15: [place] 00 gabapentin Yes 300 mg = 1 M emoria 300 MG Oral 5-07 cap, PO, l Capsule 15:15: TID, 0 [place] 00 Refill(s) Aspirin Low 0 Yes PO, Daily, Memoria Dose 81 mg 5-07 0 l oral tablet 15:15: Refill(s) H ermann Tylenol 0 Yes PO, PRN, 0 Royce macario 5-07 Refill(s) l 15:15: Stevie 00 gabapentin Yes 300 mg = 1 M emoria 300 MG Oral 5-07 cap, PO, l Capsule 15:15: TID, 0 [place] 00 Refill(s) Nortriptyli Yes 25 mg = 1 M emoria ne 25 MG 5-07 cap, PO, l Oral 15:14: TID, 0 Stevie Capsule 00 Refill(s) [Pamelor] Atenolol 50 Yes 100 mg = 2 Memoria MG Oral 5-07 tab, PO, l Tablet 15:14: Bedtime, 0 Mildred nn 00 Refill(s) biotin 5 mg Yes 5 mg = 1 Me moria oral 5-07 cap, PO, l capsule 15:14: Daily, # Renato n 00 30 cap, 0 Refill(s) Nortriptyli Yes 25 mg = 1 M emoria ne 25 MG 5-07 cap, PO, l Oral 15:14: TID, 0 Stevie Capsule 00 Refill(s) [Pamelor] Atenolol 50 Yes 100 mg = 2 Memoria MG Oral 5-07 tab, PO, l Tablet 15:14: Bedtime, 0 Mildred nn 00 Refill(s) biotin 5 mg Yes 5 mg = 1 Me moria oral 5-07 cap, PO, l capsule 15:14: Daily, # Renato n 00 30 cap, 0 Refill(s) Centrum Yes 1 tab, PO, Royce macario Silver [...] tab, PO, l tablet 15:13: Daily, # [place] 00 30 tab, 0 Refill(s) Atenolol 50 Yes 50 mg = 1 M emoria MG Oral 5-07 tab, PO, l Tablet 15:13: Daily, # [place] 00 30 tab, 0 Refill(s) Centrum Yes 1 tab, PO, Royce macario Silver [...] tab, PO, l tablet 15:13: Daily, # Stevie 00 30 tab, 0 Refill(s) Atenolol 50 Yes 50 mg = 1 M emoria MG Oral 5-07 tab, PO, l Tablet 15:13: Daily, # [place] 00 30 tab, 0 Refill(s) Escitalopra Yes 10 mg = 1 M emoria m 10 MG 5-07 tab, PO, l Oral Tablet 15:12: Daily, # He rmann [Lexapro] 00 30 tab, 0 Refill(s) Escitalopra Yes 10 mg = 1 M emoria m 10 MG 5-07 tab, PO, l Oral Tablet 15:12: Daily, # Louie rmhipolito [Lexapro] 00 30 tab, 0 Refill(s) celecoxib Yes 200 mg = 1 Me moria 200 MG Oral 5-07 cap, PO, l Capsule 15:11: Daily, # Renato n [Celebrex] 00 30 cap, 0 Refill(s) celecoxib Yes 200 mg = 1 Me moria 200 MG Oral 5-07 cap, PO, l Capsule 15:11: Daily, # Renato n [Celebrex] 00 30 cap, 0 Refill(s) Immunizations Ordered Immunization Filled Immunization Date Status Commravindra ts Source Name Name PFIZER COVID-19 MRNA 2020-08-29 Completed Meth odist VACCINATION 00:00:00 [facility] PFIZER COVID-19 MRNA 2020-08-29 Completed Meth odist VACCINATION 00:00:00 [facility] PFIZER COVID-19 MRNA 2020-08-29 Completed Meth odist VACCINATION 00:00:00 [facility] PFIZER COVID-19 MRNA 2020-08-08 Completed Meth odist VACCINATION 00:00:00 [facility] PFIZER COVID-19 MRNA 2020-08-08 Completed Meth odist VACCINATION 00:00:00 [facility] PFIZER COVID-19 MRNA 2020-08-08 Completed Meth odist VACCINATION 00:00:00 [facility] FLUCELVAX QUAD PF 2019-04-[address] 00:00:00 Hospital Pneumococcal 2019-04-21 Completed Religion Conjugate 13-Valent 00:00:00 Hospi bonnie FLUCELVAX QUAD PF 2019-04-[address] 00:00:00 Hospital Pneumococcal 2019-04-21 Completed Religion Conjugate 13-Valent 00:00:00 Hospi bonnie FLUCELVAX QUAD PF 2019-04-[address] 00:00:00 Hospital Pneumococcal 2019-04-21 Completed Religion Conjugate 13-[facility]ent 00:00:00 Hospi bonnie Vital Signs Vital Name Observation Time Observation Value Comments Source Systolic blood 2022-04-26 15:48:00 135 mm[Hg] [facility] Hospital pressure Diastolic blood 2022-04-26 15:48:00 78 mm[Hg] [facility] pressure Heart rate 2022-04-26 15:48:00 73 /min [facility] Body temperature 2022-04-26 15:48:00 36.56 Petty [facility] Body height 2022-04-26 15:48:00 165.1 cm [facility] Body weight 2022-04-26 15:48:00 77.565 kg [facility] BMI 2022-04-26 15:48:00 28.46 kg/m2 [facility] Oxygen saturation in 2022-04-26 15:48:00 99 /min [facility] Arterial blood by Pulse oximetry Systolic blood 2022-04-03 20:45:28 123 mm[Hg] [facility] pressure Diastolic blood 2022-04-03 20:45:28 75 mm[Hg] [facility] pressure Heart rate 2022-04-03 20:45:28 96 /min [facility] Body temperature 2022-04-03 20:45:28 36.56 Petty [facility] Oxygen saturation in 2022-04-03 20:45:28 99 /min [facility] Arterial blood by Pulse oximetry Respiratory rate 2022-04-03 20:45:28 18 /min [facility] Body weight 2022-04-03 09:54:58 75.341 kg [facility] BMI 2022-04-03 09:54:58 27.64 kg/m2 [facility] Temperature Oral (F) 2014-12-02 14:15:00 94 F [facility] Respitory Rate 2014-12-02 14:15:00 Mem[facility] al [facility] Systolic (mm Hg) 2014-12-02 14:15:00 Royce rial [place] Diastolic (mm Hg) 2014-12-02 14:15:00 Mem orial [facility] Heart Rate 2014-12-02 14:15:00 [facility] Systolic (mm Hg) 2014-12-02 09:09:00 Royce rial [place] Diastolic (mm Hg) 2014-12-02 09:09:00 Mem orial [place] Respitory Rate 2014-12-02 09:09:00 Memori al [facility] Heart Rate 2014-12-02 09:09:00 [facility] [place] Temperature Oral (F) 2014-12-02 09:09:00 98.8 F [facility] Temperature Oral (F) 2014-12-02 07:02:00 99.0 F [facility] [place] Respitory Rate 2014-12-02 06:42:00 Gretta nazario [facility] Heart Rate 2014-12-02 06:42:00 [facility] Systolic (mm Hg) 2014-12-02 06:42:00 Royce anguiano [facility] Diastolic (mm Hg) 2014-12-02 06:42:00 Rsoy garsia [place] Weight 2014-12-01 14:00:00 [facility] BMI Calculated 2014-11-29 10:35:00 Gretta nazario [place] Weight 2014-11-29 10:35:00 [facility] [place] Height 2014-11-29 10:35:00 [facility] Procedures Procedure Date / Time Performing Clinician Source Performed CT ANGIOGRAM CHEST ABDOMEN 2022-04-26 15:23:51 [facility] W AND OR WITHOUT CONTRAST COVID-19 QUALITATIVE 2022-04-03 12:26:00 Vasquez [facility] RT-PCR HC COMPLETE BLD COUNT 2022-04-03 09:47:00 [facility] W/AUTO DIFF BASIC METABOLIC PANEL 2022-04-03 09:47:00 [facility] MAGNESIUM LEVEL 2022-04-03 09:47:00 [facility] PHOSPHORUS LEVEL 2022-04-03 09:47:00 [facility] ESTIMATED GFR 2022-04-03 09:47:00 [facility] SMEAR REVIEW 2022-04-03 09:47:00 [facility] HC COMPLETE BLD COUNT 2022-04-02 10:20:00 Lalito Suarez [facility] W/AUTO DIFF COMPREHENSIVE METABOLIC 2022-04-02 10:20:00 Lalito Suarez [facility] PANEL ESTIMATED GFR 2022-04-02 10:20:00 Lalito Suarez [facility] ospital CT ANGIOGRAM PE CHEST 2022-04-01 21:30:13 Lalito Suarez [facility] HC COMPLETE BLD COUNT 2022-04-01 10:17:00 Suarez, [facility] W/AUTO DIFF COMPREHENSIVE METABOLIC 2022-04-01 10:17:00 Suarez, Lalito Guaman [facility] PANEL ESTIMATED GFR 2022-04-01 10:17:00 Suarez, Lalito [facility] ospital MAGNESIUM LEVEL 2022-03-31 10:29:00 Octain, [facility] PHOSPHORUS LEVEL 2022-03-31 10:29:00 Octain, [facility] PROTHROMBIN TIME WITH INR 2022-03-31 10:29:00 Octain, [facility] PARTIAL THROMBOPLASTIN 2022-03-31 10:29:00 Octain, David [facility] TIME (PTT) HC COMPLETE BLD COUNT 2022-03-31 10:29:00 Suarez, [facility] W/AUTO DIFF COMPREHENSIVE METABOLIC 2022-03-31 10:29:00 Suarez, Lalito Guaman [facility] PANEL ESTIMATED GFR 2022-03-31 10:29:00 Suarez, Lalito [facility] ospital MAGNESIUM LEVEL 2022-03-30 09:48:00 Octain, [facility] PHOSPHORUS LEVEL 2022-03-30 09:48:00 Octain, [facility] PROTHROMBIN TIME WITH INR 2022-03-30 09:48:00 Octain, [facility] PARTIAL THROMBOPLASTIN 2022-03-30 09:48:00 Octain, David [facility] TIME (PTT) HC COMPLETE BLD COUNT 2022-03-30 09:48:00 Suarez, [facility] W/AUTO DIFF COMPREHENSIVE METABOLIC 2022-03-30 09:48:00 Suarez, Lalito Guaman [facility] PANEL ESTIMATED GFR 2022-03-30 09:48:00 Suarez, Lalito [facility] ospital PROTHROMBIN TIME WITH INR 2022-03-29 11:05:00 Octain, [facility] PARTIAL THROMBOPLASTIN 2022-03-29 11:05:00 Octain, David Jolley [facility] Hospital TIME (PTT) HC COMPLETE BLD COUNT 2022-03-29 11:05:00 Suarez, Lalito Deniz [facility] W/AUTO DIFF COMPREHENSIVE METABOLIC 2022-03-29 11:05:00 Suarez, Lalito Deniz [facility] PANEL ESTIMATED GFR 2022-03-29 11:05:00 Daniela, Lalito Deniz [facility] MAGNESIUM LEVEL 2022-03-29 11:05:00 Suarez, Lalito [facility] ospital PHOSPHORUS LEVEL 2022-03-29 11:05:00 Suarez, Lalito [facility] COMPREHENSIVE METABOLIC 2022-03-28 07:17:00 Octain, David [facility] PANEL HC COMPLETE BLD COUNT 2022-03-28 07:17:00 Octain, David Jolley [facility] W/AUTO DIFF MAGNESIUM LEVEL 2022-03-28 07:17:00 Octain, [facility] PHOSPHORUS LEVEL 2022-03-28 07:17:00 Octain, David [facility] PROTHROMBIN TIME WITH INR 2022-03-28 07:17:00 Octain, [facility] PARTIAL THROMBOPLASTIN 2022-03-28 07:17:00 Octain, David [facility] TIME (PTT) ESTIMATED GFR 2022-03-28 07:17:00 [facility] IONIZED CALCIUM 2022-03-28 07:17:00 [facility] POC GLUCOSE 2022-03-28 02:11:00 SuarezRobb brenneran [facility] ospital POTASSIUM LEVEL 2022-03-27 22:58:00 [facility] MAGNESIUM LEVEL 2022-03-27 22:58:00 [facility] PHOSPHORUS LEVEL 2022-03-27 22:58:00 [facility] IONIZED CALCIUM 2022-03-27 22:58:00 [facility] CV MRA ABDOMEN PELVIS W WO 2022-03-27 18:32:35 [facility] CONTRAST Dan[place] CV MRA CHEST (THORACIC 2022-03-27 18:32:06 [facility] AORTA OR PULMONARY ARTERY) Dan[place] US DUPLEX VENOUS UPPER 2022-03-27 14:27:00 David Russ Shola [facility] EXTREMITY LEFT HC COMPLETE BLD COUNT 2022-03-27 06:00:00 [facility] W/AUTO DIFF BASIC METABOLIC PANEL 2022-03-27 06:00:00 [facility] PHOSPHORUS LEVEL 2022-03-27 06:00:00 [facility] ESTIMATED GFR 2022-03-27 06:00:00 [facility] ospital IONIZED CALCIUM 2022-03-27 06:00:00 [facility] MAGNESIUM LEVEL 2022-03-27 06:00:00 [facility] ospital HEMOGLOBIN & HEMATOCRIT 2022-03-27 01:21:00 [facility] TRANSFERRIN LEVEL 2022-03-26 14:46:00 [facility] [place] TOTAL IRON BINDING 2022-03-26 14:46:00 [facility] CAPACITY [place] FERRITIN LEVEL 2022-03-26 14:46:00 [facility] spital Danuta HC COMPLETE BLD COUNT 2022-03-26 05:52:00 [facility] DIFF BASIC METABOLIC PANEL 2022-03-26 05:52:00 [facility] MAGNESIUM LEVEL 2022-03-26 05:52:00 [facility] PHOSPHORUS LEVEL 2022-03-26 05:52:00 [facility] IONIZED CALCIUM 2022-03-26 05:52:00 Maribeth Fraser [facility] spital ESTIMATED GFR 2022-03-26 05:52:00 [facility] HEMOGLOBIN & HEMATOCRIT 2022-03-25 23:40:00 Douglas Harrison [facility] XR PICC CHEST PORTABLE 2022-03-25 19:41:53 [facility] 2022-03-25 19:31:45 Helen Morales [facility] IN INSERT 2022-03-25 11:32:08 Maribeth Fraser CATH,ART,PERCUT,SHORTTERM HC COMPLETE BLD COUNT 2022-03-25 05:23:00 [facility] W/AUTO DIFF BASIC METABOLIC PANEL 2022-03-25 05:23:00 Vasquez, [facility] MAGNESIUM LEVEL 2022-03-25 05:23:00 [facility] PHOSPHORUS LEVEL 2022-03-25 05:23:00 Vasquez, [facility] ESTIMATED GFR 2022-03-25 05:23:00 [facility] IONIZED CALCIUM 2022-03-25 05:23:00 [facility] XR CHEST 1 VW PORTABLE 2022-03-24 12:02:26 Vasquez, [facility] POC GLUCOSE 2022-03-24 10:58:00 [facility] COVID-19 ANTI-SPIKE IGG 2022-03-24 10:18:00 Andrew Adams [facility] ANTIBODY TITER Prudencio HC COMPLETE BLD COUNT 2022-03-24 10:18:00 Vasquez, [facility] W/AUTO DIFF BASIC METABOLIC PANEL 2022-03-24 10:18:00 Vasquez, [facility] MAGNESIUM LEVEL 2022-03-24 10:18:00 Vasquez, [facility] PHOSPHORUS LEVEL 2022-03-24 10:18:00 Vasquez, [facility] COVID-19 SEROLOGY PATIENT 2022-03-24 10:18:00 Andrew Adams [facility] SURVEILLANCE Prudencio ESTIMATED GFR 2022-03-24 10:18:00 Vasquez, [facility] SMEAR REVIEW 2022-03-24 10:18:00 [facility], [facility] ECG 12-LEAD 2022-03-24 09:59:07 Maribeth Fraser TTE COMPLETE, W CONTRAST, 2022-03-24 09:00:00 Kaylah Hamlin [facility] W DOPPLER ([id number]) HC COMPLETE BLD COUNT 2022-03-23 09:55:00 Garcia, [facility] W/AUTO DIFF Rahul COMPREHENSIVE METABOLIC 2022-03-23 09:55:00 Garcia, [facility] PANEL Rahul LACTIC ACID LEVEL 2022-03-23 09:55:00 Garcia, [facility] Rahul MAGNESIUM LEVEL 2022-03-23 09:55:00 Garcia, [facility] ospital Rahul ESTIMATED GFR 2022-03-23 09:55:00 Garcia, [facility] 2022-03-23 09:55:00 Tu, [facility] LACTIC ACID LEVEL, SEPSIS 2022-03-23 04:55:00 Tu, [facility] - NOW AND REPEAT 2X EVERY 3 HOURS TROPONIN T 2022-03-23 04:55:00 Tu, [facility] TROPONIN T 2022-03-23 00:24:00 Tu, [facility] LACTIC ACID LEVEL, SEPSIS 2022-03-23 00:24:00 Tu, [facility] - NOW AND REPEAT 2X EVERY 3 HOURS IN CRITICAL CARE, E/M 2022-03-22 22:56:22 Tu, [facility] 30-74 MINUTES ECG ED PRELIMINARY 2022-03-22 22:56:22 Tu, [facility] INTERPRETATION COVID-19 QUALITATIVE 2022-03-22 22:38:00 Tu, [facility] RT-PCR CT ANGIOGRAM CHEST ABDOMEN 2022-03-22 21:50:00 Tu, [facility] PELVIS W AND OR WITHOUT CONTRAST XR CHEST 1 VW PORTABLE 2022-03-22 21:32:16 Tu, [facility] LACTIC ACID LEVEL, SEPSIS 2022-03-22 21:24:00 Tu, [facility] - NOW AND REPEAT 2X EVERY 3 HOURS HC COMPLETE BLD COUNT 2022-03-22 21:21:00 Tu, [facility] W/AUTO DIFF PROTHROMBIN TIME WITH INR 2022-03-22 21:21:00 Tu, [facility] PARTIAL THROMBOPLASTIN 2022-03-22 21:21:00 Tu, [facility] TIME (PTT) COMPREHENSIVE METABOLIC 2022-03-22 21:21:00 Tu, [facility] PANEL TROPONIN T 2022-03-22 21:21:00 Tu, [facility] B NATRIURETIC PEPTIDE 2022-03-22 21:21:00 Tu, [facility] ESTIMATED GFR 2022-03-22 21:21:00 Tu, [facility] TYPE AND SCREEN 2022-03-22 21:21:00 Tu, [facility] ECG 12-LEAD 2022-03-22 21:12:15 Tu, [facility] CT CHEST EXTERNAL STUDY 2022-03-22 18:29:00 Tu, [facility] Ablation [facility] Appendectomy [facility] Cholecystectomy [facility] Hysterectomy [facility] Knee arthroplasty [facility] nn Plan of Care Planned Activity Planned Date Details Comments Source Future Scheduled 2022-09-04 SHINGLES VACCINES ([address] [facility] Test 08:06:53 of 2) [code = SHINGLES VACCINES (1 of 2)] Future Scheduled 2022-09-04 65+ PNEUMOCOCCAL [facility] Test 08:06:53 VACCINE (2 - PPSV23 if available, else PCV20) [code = 65+ PNEUMOCOCCAL VACCINE (2 - PPSV23 if available, else PCV20)] Future Scheduled 2022-09-04 INFLUENZA VACCINE Method [facility] Test 08:06:53 [code = INFLUENZA VACCINE] Future Scheduled 2022-09-04 COVID-19 VACCINE (5 - Me [facility] Test 08:06:53 Booster for Pfizer series) [code = COVID-19 VACCINE (5 - Booster for Pfizer series)] Future Scheduled 2022-04-10 HEPATITIS B VACCINES [facility] Test 07:47:13 (1 of 3 - 3-dose series) [code = HEPATITIS B VACCINES (1 of 3 - 3-dose series)] Future Scheduled 2022-04-10 SHINGLES VACCINES (1 Met [facility] Test 07:47:13 of 2) [code = SHINGLES VACCINES (1 of 2)] Future Scheduled 2022-04-10 65+ [facility] 07:47:13 VACCINE (2 - PPSV23 or PCV20) [code = 65+ PNEUMOCOCCAL VACCINE (2 - PPSV23 or PCV20)] Future Scheduled 2022-04-10 INFLUENZA VACCINE Method [facility] Test 07:47:13 [code = INFLUENZA VACCINE] Future Scheduled 2022-04-10 COVID-19 VACCINE (5 - Me [facility] Test 07:47:13 Booster for Pfizer series) [code = COVID-19 VACCINE (5 - Booster for Pfizer series)] Future Scheduled 2022-03-08 HEPATITIS B VACCINES Met [facility] Test 12:57:49 (1 of 3 - 3-dose series) [code = HEPATITIS B VACCINES (1 of 3 - 3-dose series)] Future Scheduled 2022-03-08 SHINGLES VACCINES ([address] [facility] Test 12:57:49 of 2) [code = SHINGLES VACCINES (1 of 2)] Future Scheduled 2022-03-08 65+ [facility]OCOCCAL [facility] Test 12:57:49 VACCINE (2 - PPSV23 or PCV20) [code = 65+ PNEUMOCOCCAL VACCINE (2 - PPSV23 or PCV20)] Future Scheduled 2022-03-08 COVID-19 VACCINE (3 - Me [facility] Test 12:57:49 Booster for Pfizer series) [code = COVID-19 VACCINE (3 - Booster for Pfizer series)] Future Scheduled 2022-03-08 INFLUENZA VACCINE Method [facility] Test 12:57:49 [code = INFLUENZA VACCINE] Encounters Start End Encounter Admission Attending Care Care Encounter Source Date/Time Date/Time Type Type Clinicians Facility Department ID 2022-03-22 Outpatient [facility] [id number] [facility] 15:08:58 [place] 2022-04-26 2022-04-26 [facility] Uyen Giraldo 1.2.840.1 [id number] Methodi 08:39:52 23:59:[id number] 3.430.2.7 Hospit a .3.432657 l .8 2022-04-26 2022-04-26 Office Uyen Giraldo 1.2.840.1 [id number] Methodi 10:40:00 12:34:[address] 3.430.2.7 Hospit a .3.347585 l .8 2022-04-26 2022-04-26 [facility] Uyen Giraldo 1.2.840.1 [id number] Methodi 08:36:53 08:38:[address] 3.430.2.7 Hospit a .3.525848 l .8 2022-04-26 2022-04-26 Outpatient UYEN GIRALDO [facility] [id number] [place] 00:00:00 00:00:[address] 2022-04-26 2022-04-26 Outpatient LEUYEN [facility] [id number] [place] 00:00:00 00:00:[address] 2022-04-26 2022-04-26 Outpatient LEUYEN [facility] [id number] [place] 00:00:00 00:00:[address] 2022-04-26 2022-04-26 Telephone Nguyen 1.2.840.1 [id number] Methodi 00:00:00 00:00:00 , Kymberly [address]182.1.[address] 3.430.2.7 Hospit a .3.349736 l .8 2022-04-26 2022-04-26 Orders Eric, 1.2.840.1 [id number] Methodi 00:00:00 00:00:00 Only Maeve 20801.1.[address] 3.430.2.7 Hospit a .3.899141 l .8 2022-04-26 2022-04-26 Travel 1.2.840.1 1.2.135.131 [id number] Methodi 00:00:00 00:00:[address] 3.430.2.7 0.2.7.3.698 Ho spita .3.760021 084.8 l .8 2022-04-25 2022-04-25 Abstract Eric 1.2.840.1 [id number] Methodi 00:00:00 00:00:[address] 3.430.2.7 Hospit a .3.131483 l .8 2022-03-22 2022-04-03 Hospital Phyllis Randolph 1.2.840.1 [id number] Methodi 16:09:00 16:40:00 Encounter Autumn Uyen 80180.1.[address] [place], [place] Lynette [facility].430.2.7 [facility] .[facility].838[facility] .8 Lalito Suarez 2022-03-22 2022-04-03 [facility] [id number] [id number] [place] 00:00:00 00:00:00 Encounter [address] 2022-03-29 2022-03-29 Telephone [place] 1.2.840.1 [id number] Methodi 00:00:00 00:00:00 , Kymberly 10815.1.[address] 3.430.2.7 Hospit a .3.028711 l .8 2022-03-29 2022-03-29 Telephone [place] 1.2.840.1 [id number] Methodi 00:00:00 00:00:00 , Kymberly [address]882.1.[address] 3.430.2.7 Hospit a .3.574346 l .8 2021-07-25 2021-07-26 Outpt Diag nullFlavo [facility] [id number] Memoria 18:11:00 05:59:00 Services r Outpatient 05 l Odin Calle 2021-07-25 2021-07-26 Outpt Diag nullFlavo [facility] [id number] Memoria 18:11:00 05:59:00 Services r Outpatient 05 l Imaging Terrell Calle 2021-07-25 2021-07-25 Outpatient Stephanie MHHSOIB MH[facility]IB [id number] 12:11:00 23:59:00 Wendy Bojorquez 2020-08-29 2020-08-29 Outpatient [facility] [id number] [place] 00:00:00 00:00:[address] 2020-08-08 2020-08-08 Outpatient [facility] [id number] [address] [place] [address] 00:00:00 00:00:[address] 2017-04-24 2017-04-25 Outpt Diag nullFlavo [facility] [id number] Memoria 16:37:00 04:59:00 Services r Outpatient 00 l Odin Calle 2017-04-24 2017-04-25 Outpt Diag nullFlavo [facility] [id number] Memoria 16:37:00 04:59:00 Services r Outpatient 00 l Imaging Terrell Calle 2017-04-24 2017-04-24 [facility] [id number] 11:37:00 23:59:00 Wendy Bojorquez 2015-06-22 2015-06-23 Outpt Diag nullFlavo [facility] [id number] Memoria 15:46:00 05:59:00 Services r Outpatient 04 l Imaging Stevie Hubbard 2015-06-22 2015-06-23 Outpt Diag nullFlavo [facility] [id number] Memoria 15:46:00 05:59:00 Services r Outpatient 04 l Imaging Stevie Hubbard 2015-06-22 2015-06-22 Out[facility] [place] [id number] 09:46:00 23:59:00 Gildardo Duke 2015-06-22 2015-06-22 Outpatient MHIE MHIE [id number] Memoria 13:15:00 13:15:00 00 mauricio Hubbard 2015-06-22 2015-06-22 Outpatient MHIE MHIE [id number] Memoria 13:15:00 13:15:00 00 mauricio Hubbard 2015-03-24 2015-03-25 Outpt Diag nullFlavo [facility] [id number] Memoria 15:26:00 04:59:00 Services r Outpatient 03 l [facility] 2015-03-24 2015-03-25 Outpt Diag nullFlavo [facility] [id number] Memoria 15:26:00 04:59:00 Services r Outpatient 03 l Imaging [facility] 2015-03-24 2015-03-24 Outpatient [place]ace, [facility] [id number] 10:26:00 23:59:00 [place] [address] 2015-01-13 2015-01-14 Outpt Diag nullFlavo [facility] [id number] Memoria 15:10:00 04:59:00 Services r Outpatient 01 l Odin ortiz [facility] 2015-01-13 2015-01-14 Outpt Diag nullFlavo [facility] [id number] Memoria 15:10:00 04:59:00 Services r Outpatient 01 l [facility] Terrell ortiz [facility] 2015-01-13 2015-01-13 Outpatient Isael, 2.16.840. 2.16.840.1. [id number] 10:10:00 23:59:00 Maikel 1.401110. 031127.3.61 01 Sachi 3.615.0.1 5.0.177 98 3367-06-24 2015-01-13 Outpt Diag nullFlavo [facility] [id number] Memoria 14:48:00 04:59:00 Services r Outpatient 00 l [facility] 2015-01-12 2015-01-13 Outpt Diag nullFlavo [facility] [id number] Memoria 14:48:00 04:59:00 Services r Outpatient 00 l [facility] 2015-01-12 2015-01-12 Outpatient Isael 2.16.840. 2.16.840.1. [id number] 09:48:00 23:59:00 Maikel 1.902817. [id number] 00 Sachi 3.615.0.1 5.0.508 16 4847-05-11 2014-12-02 Inpatient nullFlavo [facility] [id number] Memoria 10:15:00 16:20:00 r [place] 00 [facility] 2014-11-29 2014-12-02 Inpatient [facility]Flavo [facility] [id number] Memoria 10:15:00 16:20:00 [facility] 00 l [facility] 2014-11-29 2014-12-02 Outpatient Isael, 2.16.840. 2.16.840.1. [id number] 05:15:00 11:20:00 Maikel 1.430404. [id number] 00 Sachi 3.615.0.1 5.0.101 01 Results Test Description Test Time Test Comments Results Result Comments Source SARS-CoV-2 (COVID-19) RNA [Presence] in Respiratory sp ecimen by 2022-04-03 13:04:58 MILY with probe detection Test Item Value Reference Range Interpretation Comme nts SARS-CoV-2 (COVID-19) RNA [Presence] in Respiratory specimen by Not detected MILY with probe detection (test code = 60779-7) Whether patient is employed in a healthcare setting (test code = Un known 48891-1) Whether the patient has symptoms related to condition of interest U nknown (test code = 11250-5) Whether the patient was hospitalized for condition of interest Unkn own (test code = 71649-2) Whether the patient was admitted to intensive care unit (ICU) for U nknown condition of interest (test code = 19137-6) Whether patient resides in a congregate care setting (test code = U nknown 03740-8) status (test code = 71575-8) Unknown Date and time of symptom onset (test code = 52097-3) Unknown [facility] [id number] 02:13:00 Test Item Value Reference Range Interpretation Comments POC glucose (test code = 118 mg/dL 65-99 H Ope rator Name: 68943-9) Christin Carpenter~De vice ID: [id number]~Chhaya tabl e: [facility] Notified vp of marketing Interpretation (test Abnormal code = 85609-3) [facility] [id number] 02:13:00 Test Item Value Reference Range Interpretation Comments POC glucose (test code = 118 mg/dL 65-99 H Ope rator Name: [id number]) Christin Carpenter~De vice ID: [id number]~Chhaya tabl e: [facility] Notified vp of marketing Interpretation (test Abnormal code = 07787-5) [address]2022-09-03 19:50:48 Test Item Value Reference Range Interpretation Comments Ventricular rate (test code = 253) Atrial rate (test code = 255) IN interval (test code = 266) QRSD interval (test code = 260) QT interval (test code = 264) QTC interval (test code = 265) P axis 1 (test code = 267) QRS axis 1 (test code = 268) T wave axis (test code = 270) EKG impression (test Sinus rhythm with 1st code = 273) degree AV block-Left anterior fascicular block-Abnormal ECG-In automated comparison with ECG of 22-MAR-2022 16:12,-No significant change was found- [address]2022-09-03 19:50:48 Test Item Value Reference Range Interpretation Comments Ventricular rate (test 68 code = 253) Atrial rate (test code 68 = 255) IN interval (test code 214 = 266) QRSD interval (test 110 code = 260) QT interval (test code 412 = 264) QTC interval (test code 438 = 265) P axis 1 (test code = 47 267) QRS axis 1 (test code = -49 268) T wave axis (test code 29 = 270) EKG impression (test Sinus rhythm with 1st code = 273) degree AV block-Left anterior fascicular block-Abnormal ECG-In automated comparison with ECG of 22-MAR-2022 16:12,-No significant change was found- [facility] Preliminary Interpretation - Not an [id number] 22:56:22 Test Item Value Reference Range Interpretation Comments DEVON (test code = DEVON) Phyllis Randolph MD 03/23/2022 1:47 [facility] Preliminary Interpretation - Not an OrderPerformed by: Phyllis Randolph MDAuthorized by: Phyllis Randolph MD ECG reviewed by ED Physician in the absence of a canopy stringer: yes Previous ECG: Previous ECG: UnavailableInterpretat ion: Interpretation: abnormal Quality: Tracing quality: Limited by artifactRate: ECG rate: 77 ECG rate assessment: normal Rhythm: Rhythm: sinus rhythm Ectopy: Ectopy: none QRS: QRS axis: Normal QRS intervals: NormalConduction: Conduction: normal ST segments: ST segments: NormalT waves: T waves: normal Other findings: Other findings: LVH Lab Interpretation Abnormal (test code = 76204-5) [facility] Preliminary Interpretation - Not an [id number] 22:56:22 Test Item Value Reference Range Interpretation Comments DEVON (test code = DEVON) Phyllis Randolph MD 03/23/2022 1:47 [facility] Preliminary Interpretation - Not an OrderPerformed by: Phyllis Randolph MDAuthorized by: Phyllis Randolph MD ECG reviewed by ED Physician in the absence of a canopy stringer: yes Previous ECG: Previous ECG: UnavailableInterpretat ion: Interpretation: abnormal Quality: Tracing quality: Limited by artifactRate: ECG rate: 77 ECG rate assessment: normal Rhythm: Rhythm: sinus rhythm Ectopy: Ectopy: none QRS: QRS axis: Normal QRS intervals: NormalConduction: Conduction: normal ST segments: ST segments: NormalT waves: T waves: normal Other findings: Other findings: LVH Lab Interpretation Abnormal (test code = 09791-6) [facility] [Presence] in Respiratory specimen by MILY with probe axzhvlnmu9216-13-80 21:44:48 Test Item Value Reference Range Interpretation Comments SARS-CoV-2 (COVID-19) RNA Not detected [Presence] in Respiratory specimen by MILY with probe detection (test code = 13418-7) Whether patient is employed in a Unknown healthcare setting (test code = 49110-2) Whether the patient has symptoms Unknown related to condition of interest (test code = 87624-5) Whether the patient was Unknown hospitalized for condition of interest (test code = 56700-4) Whether the patient was admitted Unknown to intensive care unit (ICU) for condition of interest (test code = 52161-1) Whether patient resides in a Unknown congregate care setting (test code = 71931-2) status (test code = Unknown 43162-4) Date and time of symptom onset Unknown (test code = 37696-0) [facility]- XR FLUORO FOR SPINE [id number] 12:19:00 Patient Name: PATSY NORRIS Unit No: [id number] EXAMS: CPT CODE: [id number] XR FLUORO FOR SPINE INJ 72021 LUMBAR TRANSFORAMINAL INJECTION REFERRING PHYSICIAN: PREOPERATIVE DIAGNOSIS: Degenerative Lumbar Disc Disease. POSTOPERATIVE DIAGNOSIS: Lumbar radiculopathy PROCEDURES PERFORMED 1. Fluoroscopically guided needle localization of the left L3, left L4, left S1 spinal nerve/nerves with transforaminal epidural steroid injection/injections. 2. Transforaminal epidurogram/epidurograms at left L3, left L4, left S1. [...] gauge needle was advanced to the base ofthe pedicle. In AP view, final positioning was obtained outside the 6 on the clock position on the pe dicle. Then, 1 ml of Isovue-300 contrast was [...] Reported and signed by: Jasiel Mccormick M.D. [facility] [place] [facility] NAME: PATSY NORRIS [address] [facility] PHYS: DOCJasiel Wiseman MD [place] [address] : 1940 AGE: 78 SEX: F LOC: RENNY PHONE #: [phone] EXAM DATE: 06/26/2019 [place] [facility] [place]: [phone] RAD #: [id number] D/C DT PAGE 1 Signed Report (CONTINUED) Patient Name: PATSY NORRIS Unit No: [id number] EXAMS: CPT CODE: [id number] XR FLUORO FOR SPINE INJ 74843 (Continued) CC: Jasiel Mccormick MD Technologist: RONALD CAZARES RT(R) Transcribed D/ (1219) TerryD [facility] [place] NAME: PATSY NORRIS [address] [place] [address] PHYS: Jasiel Rahman MD [place] [address] : 1940 AGE: 78 SEX: F LOC: RENNY PHONE #: [phone] EXAM DATE: 06/26/2019 STATUS: REG [facility] FAX #: [phone] RAD #: [id number] D/C DT PAGE 2 Signed Report Patient Name: PATSY NORRIS Unit No: [id number] EXAMS: CPT CODE: [id number] XR FLUORO FOR SPINE INJ 94533 (Continued) Orig Print D/T: S: 06/26/2019 (1222) [facility] [place] NAME: PATSY NORRIS [address] [place] [address] PHYS: Jasiel Rahman MD [place] [address] : 1940 AGE: 78 SEX: F LOC: RENNY PHONE #: [phone] EXAM DATE: 06/26/2019 STATUS: [facility] FAX #: [phone] RAD #: [id number] D/C DTPAGE 3 Signed Report- XR FLUORO FOR SPINE IMH1816-28-27 13:54:00 Patient Name: PATSY NORRIS Unit No: [id number] EXAMS: CPT CODE: [id number] XR FLUORO FOR SPINE INJ 27335 LUMBAR TRANSFORAMINAL INJECTION REFERRING PHYSICIAN: PREOPERATIVE DIAGNOSIS: [...] Pain relief-100%. ANTIBIOTIC: Cefazolin ESTIMATED BLOOD LOSS: Mini mal ANESTHESIA: (TIVA )Total intravenous anesthetic (patient intolerant to sedatives and hypnotics) COMPLICATIONS: None DETAILS OF PROCEDURE: After obtaining stable vital signs, informed consent and IVaccess, with no known contraindications to proceeding, the [...] level was done using the same technique andmedications. The patient's vital signs remained stable. The patient was taken to the PACU in good con dition. at 1354 Reported and signed by: Jasiel Mccormick M.D. [facility] NAME: MALKAPATSY GARCÍA [address] [facility] PHYS: DOCUD - DoctorJasiel MD [place], [place] [address] : 1940 AGE: 78 SEX: F LOC: RENNY PHONE #: [phone] EXAM DATE: 05/27/2019 [place] [facility] [place]: [phone] RAD #: [id number] D/C DT PAGE 1 Signed Report (CONTINUED) Patient Name: PATSY NORRIS Unit No: [id number] EXAMS: CPT CODE: [id number] XR FLUORO FOR SPINE INJ 24837 (Continued) CC: Technologist: Milana Melgar(R) Transcribed D/ (7621) AvinashUVD [facility] [place] NAME: PATSY NORRIS [address] [place] [address] PHYS: SELVIN - Jasiel Mccormick MD [place] [address] : 1940 AGE: 78 SEX: F LOC: RENNY PHONE #: [phone] EXAM DATE: 05/27/2019 [place]US: [place] [facility] [place]: [phone] RAD #: [id number] D/C DT PAGE 2 Signed Report Patient Name: PATSY NORRIS Unit No: [id number] EXAMS: CPT CODE: [id number] XR FLUORO FOR SPINE INJ 51030 (Continued) Orig Print D/T: S: 05/27/2019 (1355) [facility] NAME: PATSY NORRIS[address] PHYS: SELVIN - Jasiel Mccormick MD [place] [address] : 1940 AGE: 78SEX: F LOC: RENNY PHONE #: [phone] EXAM DATE: 05/27/2019 [place] [facility] [place]: [phone] RAD #: [id number] D/C DT PAGE 3 Signed Report - XR FLUORO FOR SPINE [id number] 12:09:00 Patient Name: PATSY NORRIS Unit No: [id number] EXAMS: CPT CODE: [id number] XR FLUORO FOR SPINE INJ 98487 CERVICAL TRANSFORAMINAL INJECTION REFERRING PHYSICIAN: PREOPERATIVE DIAGNOSIS: [...] shoulder pain consider bilateral C7 nerve roots ANTIBIOTICS:CefazolinESTIMATED BLOOD LOSS: Minimal ANESTHESIA: (TIVA ) Total [...] the base of the pedicle. In AP view,final positioning was obtained outside the 6 on [...] patient's vital signs remained stable. The patient wastaken to the PACU in good condition. [facility] [place] [facility] NAME: PATSY NORRIS [address] [facility] PHYS: DOCUD - DoctorJasiel MD [place], [place] [address] : 1940 AGE: 78 SEX: F LOC: RENNY PHONE #: [phone] EXAM DATE: 09/24/2018 [place] [facility] [place]: [phone] RAD #: [id number] D/C DT PAGE 1 Signed Report (CONTINUED) Patient Name: PATSY NORRIS Unit No: [id number] EXAMS: CPT CODE: [id number] XR FLUORO FOR SPINE INJ 77847 (Continued) at 1209 Reported and signed by: Jasiel Mccormick M.D. CC: Jasiel Mccormick MD Technologist: OSORIO GARCÍA RT(R) Transcribed D/ (1209)TerryD [facility] [place] [facility] NAME: PATSY NORRIS [address] [place] [address] PHYS: Jasiel Rahman MD [place] [address] : 1940 AGE: 78 SEX: F LOC: RENNY PHONE #: [phone] EXAM DATE: 09/24/2018 [place] [facility] [place]: [phone] RAD #: [id number]/C DT PAGE 2 Signed Report Patient Name: PATSY NORRIS Unit No: [id number] EXAMS: CPT CODE: [id number] XR FLUORO FOR SPINE INJ 22057 (Continued) Orig Print D/T: S: 09/24/2018 (1212) [facility] [place] [facility] NAME: PATSY NORRIS [address] [place] [address] PHYS: Jasiel Rahman MD [place] [address] : 1940 AGE: 78 SEX: F LOC: RENNY PHONE #: [phone] EXAM DATE: 09/24/2018 [place]US[place] [facility] [place]: [phone] RAD #: [id number] D/C DT PAGE 3 SignedReport- XR C-SPINE 6+[id number] 16:44:00 Patient Name: PATSY NORRIS Unit No: [id number] EXAMS: CPT CODE: [id number] XR C-SPINE 6+V 00147 MRI OF THE CERVICAL SPINE: DIAGNOSIS: 1. [...] to marked central canal stenosis. Left foraminal moderateto marked right foraminal stenosis. Mild to moderate facet arthropathy. 6. At C7-T1, there is solidinterbody fusion. Mild central canal stenosis. Moderate foraminal stenosis. COMMENT: COMPARISON: No prior exams available. Sagittal T1, T2 and STIR and axial T2 and gradient-echo sequences are obtained of the cervical spine. Cervical vertebrae are within normal limits in signal. The findings are as above. 7 view cervical spine with flexion and extension COMMENT: Marked degeneration of the C4-5, C5-6and C6-7 discs. No abnormal motion seen on flexion or extension. Solid interbody fusion C7-T1 and T1-2 levels. Prevertebral soft tissues are within normal is. No abnormal motion is seen on flexion or e xtension. at 1644 Reported and signed by: Cruz Galvan MD [facility] [place] [facility] NAME: PATSY NORRIS [address] [facility] PHYS: DOCUD - DoctorJasiel MD : 1940 AGE: 78 SEX: F [place], [place] [address] LOC: Y.MRI PHONE #: [phone] EXAM DATE: 09/09/2018 STATUS: REG CLI FAX #: [phone] RAD #: [id number] D/C DT PAGE 1 Signed Report (CONTINUED) Patient Name: PATSY NORRIS Unit No: [id number] EXAMS: CPT CODE: [id number] XR C- SPINE 6+V 95329 (Continued) CC: Jasiel Mccormick MD Technologist: RT. Pranay(R) Transcribed D/ (5645) AvinashGVG [facility] [place] [facility] NAME: PATSY NORRIS [address] [place] [address] PHYS: ESLVIN - Jasiel Mccormick MD : 1940 AGE: 78 SEX: F [place], [place] [address] LOC: Y.MRI PHONE #: [phone] EXAM DATE: 09/09/2018 STATUS: REG CLI FAX #: [phone] RAD #: [id number] D/C DT PAGE 2 Signed Report Patient Name: PATSY NORRIS Unit No: [id number] EXAMS: CPT CODE: [id number] XR C-SPINE 6+V 83933 (Continued) Orig Print D/T: S: 09/09/2018 (7200) [facility] [place] [facility] NAME: PATSY NORRIS [address] [place] [address] PHYS: Jasiel Rahman MD : 1940 AGE: 78 SEX: F [place], [place] [address]JMBB NO: [id number] LOC: Y.MRI PHONE #: [phone] EXAM DATE: 09/09/2018 STATUS: REG CLI FAX #:[phone] RAD #: [id number] D/C DT PAGE 3 Signed Report- MRI C- SPINE W/O [id number] 16:44:00 Patient Name: PATSY NORRIS Unit No: [id number] EXAMS: CPT CODE: [id number] MRI C-SPINE W/OCONT 37091 MRI OF THE CERVICAL SPINE: DIAGNOSIS: 1. At C2-3, moderate disc degeneration. Mild disc bu lging. No central canal stenosis. Moderate to marked [...] central canal stenosis. Moderate foraminal stenosis. COMMENT: COMPARISON:No prior exams available. Sagittal T1, T2 and [...] Reported and signed by: Cruz Galvan MD [facility] [place] [facility] NAME: PATSY NORRIS [address] [place] [address] PHY S: SELVIN - Jasiel Mccormick MD : 1940 AGE: 78 SEX: F [place], [place] [address] LOC: Y.MRI PHONE #: [phone] EXAM DATE: 09/09/2018 STATUS: REG CLI FAX #: [phone] RAD#: [id number] D/C DT PAGE 1 Signed Report (CONTINUED) Patient Name: PATSY NORRIS Unit No: [id number] EXAMS: CPT CODE: [id number] MRI C-SPINE W/O CONT 99255 (Continued) CC: Jasiel Mccormick MDTechnologist: Latosha Nielsen, RT(R) Transcribed D/ (1644) Celia [facility] [place] [facility] NAME: PATSY NORRIS [address] [place] [address] PHYS: SELVIN - Jasiel Mccormick MD : 1940 AGE: 78 SEX: F [place] [address] LOC: Y.MRI PHONE #: [phone] EXAMDATE: 09/09/2018 STATUS: REG CLI FAX #: [phone] RAD #: [id number] D/C DT PAGE 2 Signed Report Patient Name: PATSY NORRIS Unit No: [id number] EXAMS: CPT CODE: [id number] MRI C-SPINE W/O CONT 59006 (Continued) Orig Print D/T: S: 09/09/2018 (1647) [facility] [place] [facility] NAME: PATSY NORRIS [address] [facility] PHYS: SELVIN - DoctorJasiel MD : 1940 AGE: 78 SEX: F [place] [address] LOC: Y.MRI PHONE #: [phone] EXAM DATE: 09/09/2018 STATUS: REG CLI FAX #: [phone] RAD #: [id number] D/C DT PAGE 3 Signed Report- XR FLUORO FOR SPINE [id number] 12:30:00 Patient Name: PATSY NORRIS Unit No: [id number] EXAMS: CPT CODE: [id number] XR FLUORO FOR SPINE INJ 01217 LUMBAR DISCOGRAM AND PLACEMENT OF INTRADISCAL STEROIDS [...] ANTIBIOTIC: Cefazolin IV and intradiscal ESTIMATED BLOOD LOSS:MinimalANESTHESIA:(TIVA) Total intravenous anesthetic (patient intolerant to sedatives and hypnotics) COMPLICATIONS:None DETAILS OF PROCEDURE: After obtaining stable vital signs, informed consent and IV access, there were no laboratory, radiographic or other contraindications to proceeding. The patient received preoperative antibiotics and was taken to the fluoroscopy suite where the patient was placed in aprone position with all extremities padded and appropriate [...] then passed through the introducer and [facility] NAME: PATSY NORRIS [address] [facility] PHYS: DOCUD - Doctor,Jasiel Arellano MD [place], [place] [address] : 1940 AGE: 78SEX: F LOC: RENNY PHONE #: [phone] EXAM DATE: 08/19/2018 STATUS: REG SDCFAX #: [phone] RAD #: [id number] D/C DT PAGE 1 Signed Report (CONTINUED) Patient Name: PATSY NORRIS Unit No: [id number] EXAMS: CPT CODE: [id number] XR FLUORO FOR SPINE INJ 56380 (Continued) advanced into the center of the [...] the recovery room in stable condition. LUMBAR TRANSFORAMIN AL INJECTION REFERRING PHYSICIAN: PREOPERATIVE DIAGNOSIS: Degenerative Lumbar Disc Disease. POSTOPERATIVE DIAGNOSIS: Left L4 radiculopathy PROCEDURES PERFORMED 1. Fluoroscopically guided needle localization of the left L4 spinal nerve/nerves with transforaminal epidural steroid injection/injections.2. Transforaminal epidurogram/epidurograms at left L4. FINDINGS: Poor [...] was taken to the fluoroscopy suite and placedin a prone position with all extremities padded [...] with needle insertion or injection and there wereno signs of intravascular or intrathecal uptake. Then, with 1 ml of 4% lidocaine and 10 mg of triamcinolone was injected incrementally with frequent negative aspirations. There were no signs of intravascular or intrathecal uptake. Each subsequent level was done using the same [facility] NAME: PATSY NORRISNEY [address] [facility] PHYS: Jasiel Rahman MD [place], [place] [address] : 1940 AGE: 78 SEX: F LOC: RENNY PHONE #: [phone] EXAM DATE: 08/19/2018 [place] [facility] [place]: [phone] RAD #: [id number] D/C DT PAGE 2 Signed Report (CONTINUED) Patient Name: PATSY NORRIS Unit No: [id number] EXAMS: CPT CODE: [id number] XR FLUORO FORSPINE INJ 31899 (Continued) technique and medications. The patient's vital signs remained stable. The patient was taken to the PACU in good condition. Electronically Signed by Rock Mccormick on at 1230 Reported and signed by: Jasiel Mccormick M.D. CC: Jasiel Mccormick MD Technologist: OSORIO GARCÍA RT(R) Transcribed D/ (1230) [email or web address] [facility] [place] [facility] NAME: PATSY NORRISNEY [address] [facility] PHYS: Jasiel Rahman MD [place], [place] [address] : 1940 AGE: 78 SEX: F LOC: RENNY PHONE #: [phone] EXAM DATE: 08/19/2018 [place] [facility] [place] #: [phone] RAD #: [id number] D/C DT PAGE 3 Signed Report Patient Name: PATSY NORRIS Unit No: [id number] EXAMS: CPT CODE: [id number] XR FLUORO FOR SPINE INJ 12667 (Continued) Orig Print D/T: S: 08/19/2018 (1234) [facility] NAME: PATSY NORRIS [address] [facility] PHYS: Jasiel Rahman MD [place], [place] [address] : 1940 AGE: 78 SEX: F LOC: RENNY PHONE #: [phone] EXAM DATE: 08/19/2018 [place] [facility] [place]: [phone] RAD #: [id number] D/C DT PAGE 4 Signed SuqjnaBMERYNWMAW0308-42-60 05:12:00 Test Item Value Reference Range Interpretation Comments Hgb (test code = Hgb) 8.4 12.0-16.0 [facility] CenterYfzfsxtWZENYHQWDG9223-37-38 05:12:00 Test Item Value Reference Range Interpretation Comments Hct (test code = Hct) 24.8 36.0-48.0 [facility]GLZIKCJOC1287-86-72 05:12:00 Test Item Value Reference Range Interpretation Comments Hgb (test code = Hgb) 8.4 12.0-16.0 [facility]JmvcorqVRGAMFHDJE3528-28-19 05:12:00 Test Item Value Reference Range Interpretation Comments Hct (test code = Hct) 24.8 36.0-48.0 [facility] TylerZggbxvgBFSOIQAEFV7101-41-20 17:23:00 Test Item Value Reference Range Interpretation Comments Hgb (test code = Hgb) 8.5 12.0-16.0 [facility] TylerLznpeztOPFLGXIYWI0474-90-22 17:23:00 Test Item Value Reference Range Interpretation Comments Hct (test code = Hct) 25.4 36.0-48.0 [facility] McKinneyJctigznQKLSWERGUB6405-36-23 17:23:00 Test Item Value Reference Range Interpretation Comments Hgb (test code = Hgb) 8.5 12.0-16.0 [facility] McKinneyOlamhuuLIOUIGGMXH8339-63-97 17:23:00 Test Item Value Reference Range Interpretation Comments Hct (test code = Hct) 25.4 36.0-48.0 [facility] [employer] [facility] ITBSRWH2175-00-03 07:36:33 Test Item Value Reference Range Interpretation Comments RBC product (test code Product available = RBC product) (12/01/14 2:36 AM) [facility] CenterValopaa BANK ASBNPWR4915-75-08 07:36:33 Test Item Value Reference Range Interpretation Comments RBC product (test code Product available = RBC product) (12/01/14 2:36 AM) [facility] McKinneyDyzlzajBXLQGNMWGK5886-16-16 05:55:00 Test Item Value Reference Range Interpretation Comments Hct (test code = Hct) 21.1 36.0-48.0 [facility] McKinneyFaqvhptMJLWPOGFIR8967-99-27 05:55:00 Test Item Value Reference Range Interpretation Comments Hgb (test code = Hgb) 6.9 12.0-16.0 [facility] McKinneyYswxnogCNSWFGGIJE8265-10-23 05:55:00 Test Item Value Reference Range Interpretation Comments Hct (test code = Hct) 21.1 36.0-48.0 [facility] McKinneyVwesipuRPRBAQCTDF5835-46-16 05:55:00 Test Item Value Reference Range Interpretation Comments Hgb (test code = Hgb) 6.9 12.0-16.0 [facility] BUHVQ4455-58-73 19:46:00 Test Item Value Reference Range Interpretation Comments eGFR (test code = eGFR) 55 [facility] ZDMLO1985-85-97 19:46:00 Test Item Value Reference Range Interpretation Comments Potassium Lvl (test code = Potassium 4.3 3.5-5.1 Lvl) [facility]2015-05-11 19:46:00 Test Item Value Reference Range Interpretation Comments Chloride Lvl (test code = Chloride Lvl) 112 95-109 [facility] CenterSafeOp Surgical RQIFY8155-54-31 19:46:00 Test Item Value Reference Range Interpretation Comments CO2 (test code = CO2) 25 24-32 [facility] hospitalYFXEX2000-25-85 19:46:00 Test Item Value Reference Range Interpretation Comments Calcium Lvl (test code = Calcium Lvl) 8.2 8.5-10.5 [facility]2015-05-11 19:46:00 Test Item Value Reference Range Interpretation Comments Glucose Lvl (test code = Glucose Lvl) 141 70-99 [facility]2015-05-11 19:46:00 Test Item Value Reference Range Interpretation Comments Creatinine Lvl (test code = Creatinine 1.0 0.5-1.4 Lvl) [facility]2015-05-11 19:46:00 Test Item Value Reference Range Interpretation Comments Sodium Lvl (test code = Sodium Lvl) 144 135-145 [facility]2015-05-11 19:46:00 Test Item Value Reference Range Interpretation Comments BUN (test code = BUN) 19 7-22 [place] 683895-05-11 19:46:00 Test Item Value Reference Range Interpretation Comments AGAP (test code = AGAP) 11.3 10.0-20.0 [facility] McKinneyFsbcuubYLAZZGGCVJ7309-84-06 19:46:00 Test Item Value Reference Range Interpretation Comments Monocytes (test code = Monocytes) 7.9 2.0-12.0 [place] 771805-05-11 19:46:00 Test Item Value Reference Range Interpretation Comments Eosinophils (test code = 1.5 See_Comment [A utomated message] The Eosinophils) system which ge nerated this result tra nsmitted reference range : <=4.0. The reference r shanthi was not used to int erpret this result as normal/abnormal . [facility] McKinneyBfbydlgHCIHRURGNN8821-44-52 19:46:00 Test Item Value Reference Range Interpretation Comments Basophils (test code = 0.6 See_Comment [Aut omated message] The Basophils) system which ge nerated this result tra nsmitted reference range : <=1.0. The reference r shanthi was not used to int erpret this result as normal/abnormal . [facility] McKinneyBidtsgvFKTVWKCQEV5789-76-98 19:46:00 Test Item Value Reference Range Interpretation Comments Segs-Bands # (test code = Segs-Bands #) 4.3 1.5-8.1 [facility] McKinneyOzfbufdHVGZOQBIGB7550-66-87 19:46:00 Test Item Value Reference Range Interpretation Comments Monocytes # (test code 0.5 See_Comment [Aut omated message] The = Monocytes #) system which generated this result tra nsmitted reference range : <=0.8. The reference r shanthi was not used to int erpret this result as normal/abnormal . [facility] McKinneyZeogrjfNHLGZDBMNN4457-48-91 19:46:00 Test Item Value Reference Range Interpretation Comments Lymphocytes # (test code = Lymphocytes 1.6 1.0-5.5 #) [facility] McKinneyIujttewFMUGIIPVOJ6629-48-37 19:46:00 Test Item Value Reference Range Interpretation Comments Lymphocytes (test code = Lymphocytes) 24.3 20.0-40.0 [facility] McKinneyJrlrnorLZWITOQLKR9703-34-18 19:46:00 Test Item Value Reference Range Interpretation Comments Segs (test code = Segs) 65.7 45.0-75.0 [facility] McKinneyZzdqdkkTXBRCXEEVD5832-20-01 19:46:00 Test Item Value Reference Range Interpretation Comments Eosinophils # (test code 0.1 See_Comment [A utomated message] The = Eosinophils #) system whic h generated this result tra nsmitted reference range : <=0.5. The reference r shanthi was not used to int erpret this result as normal/abnormal . [id number] 19:46:00 Test Item Value Reference Range Interpretation Comments MPV (test code = MPV) 7.8 7.4-10.4 [id number] 19:46:00 Test Item Value Reference Range Interpretation Comments RBC (test code = RBC) 2.48 4.20-5.40 [facility] M[id number] 19:46:00 Test Item Value Reference Range Interpretation Comments Platelet (test code = Platelet) 162 133-450 [facility] M[id number] 19:46:00 Test Item Value Reference Range Interpretation Comments MCHC (test code = MCHC) 33.3 32.0-36.0 [facility] M[id number] 19:46:00 Test Item Value Reference Range Interpretation Comments RDW (test code = RDW) 13.5 11.5-14.5 [facility] M[id number] 19:46:00 Test Item Value Reference Range Interpretation Comments MCH (test code = MCH) 31.7 pg 27.0-31.0 [facility] M[id number] 19:46:00 Test Item Value Reference Range Interpretation Comments MCV (test code = MCV) 95.1 80.0-98.0 [facility] M[id number] 19:46:00 Test Item Value Reference Range Interpretation Comments WBC (test code = WBC) 6.6 3.7-10.4 [facility] M[id number] 19:46:00 Test Item Value Reference Range Interpretation Comments Eosinophils (test code = 1.5 See_Comment [A utomated message] The Eosinophils) system which ge nerated this result tra nsmitted reference range : <=4.0. The reference r shanthi was not used to int erpret this result as normal/abnormal . [facility] [id number] 19:46:00 Test Item Value Reference Range Interpretation Comments Basophils (test code = 0.6 See_Comment [Aut omated message] The Basophils) system which ge nerated this result tra nsmitted reference range : <=1.0. The reference r shanthi was not used to int erpret this result as normal/abnormal . [facility] M[id number] 19:46:00 Test Item Value Reference Range Interpretation Comments Segs-Bands # (test code = Segs-Bands #) 4.3 1.5-8.1 [facility] M[id number] 19:46:00 Test Item Value Reference Range Interpretation Comments Monocytes # (test code 0.5 See_Comment [Aut omated message] The = Monocytes #) system which generated this result tra nsmitted reference range : <=0.8. The reference r shanthi was not used to int erpret this result as normal/abnormal . [facility] M[id number] 19:46:00 Test Item Value Reference Range Interpretation Comments Lymphocytes # (test code = Lymphocytes 1.6 1.0-5.5 #) [facility] M[id number] 19:46:00 Test Item Value Reference Range Interpretation Comments Lymphocytes (test code = Lymphocytes) 24.3 20.0-40.0 [facility] M[id number] 19:46:00 Test Item Value Reference Range Interpretation Comments Segs (test code = Segs) 65.7 45.0-75.0 [facility] McK[id number] 19:46:00 Test Item Value Reference Range Interpretation Comments Eosinophils # (test code 0.1 See_Comment [A utomated message] The = Eosinophils #) system whic h generated this result tra nsmitted reference range : <=0.5. The reference r shanthi was not used to int erpret this result as normal/abnormal . [facility] M[id number] 19:46:00 Test Item Value Reference Range Interpretation Comments MPV (test code = MPV) 7.8 7.4-10.4 [facility] M[id number] 19:46:00 Test Item Value Reference Range Interpretation Comments RBC (test code = RBC) 2.48 4.20-5.40 [facility] M[id number] 19:46:00 Test Item Value Reference Range Interpretation Comments Platelet (test code = Platelet) 162 133-450 [facility] M[id number] 19:46:00 Test Item Value Reference Range Interpretation Comments MCHC (test code = MCHC) 33.3 32.0-36.0 [facility] M[id number] 19:46:00 Test Item Value Reference Range Interpretation Comments RDW (test code = RDW) 13.5 11.5-14.5 [facility] M[id number] 19:46:00 Test Item Value Reference Range Interpretation Comments MCH (test code = MCH) 31.7 pg 27.0-31.0 [facility] M[id number] 19:46:00 Test Item Value Reference Range Interpretation Comments MCV (test code = MCV) 95.1 80.0-98.0 [place] [id number] 19:46:00 Test Item Value Reference Range Interpretation Comments WBC (test code = WBC) 6.6 3.7-10.4 [facility]2015-05-11 19:46:00 Test Item Value Reference Range Interpretation Comments eGFR (test code = eGFR) 55 [facility]2015-05-11 19:46:00 Test Item Value Reference Range Interpretation Comments Potassium Lvl (test code = Potassium 4.3 3.5-5.1 Lvl) [facility]2015-05-11 19:46:00 Test Item Value Reference Range Interpretation Comments Chloride Lvl (test code = Chloride Lvl) 112 95-109 [facility]2015-05-11 19:46:00 Test Item Value Reference Range Interpretation Comments CO2 (test code = CO2) 25 24-32 [facility]2015-05-11 19:46:00 Test Item Value Reference Range Interpretation Comments Calcium Lvl (test code = Calcium Lvl) 8.2 8.5-10.5 [facility]2015-05-11 19:46:00 Test Item Value Reference Range Interpretation Comments Glucose Lvl (test code = Glucose Lvl) 141 70-99 [facility]2015-05-11 19:46:00 Test Item Value Reference Range Interpretation Comments Creatinine Lvl (test code = Creatinine 1.0 0.5-1.4 Lvl) [facility]2015-05-11 19:46:00 Test Item Value Reference Range Interpretation Comments Sodium Lvl (test code = Sodium Lvl) 144 135-145 [facility]2015-05-11 19:46:00 Test Item Value Reference Range Interpretation Comments BUN (test code = BUN) 19 7-22 [facility]2015-05-11 19:46:00 Test Item Value Reference Range Interpretation Comments AGAP (test code = AGAP) 11.3 10.0-20.0 [id number] 19:46:00 Test Item Value Reference Range Interpretation Comments Monocytes (test code = Monocytes) 7.9 2.0-12.0 [facility] [id number] 10:49:00 Test Item Value Reference Range Interpretation Comments Antibody Scrn (test Negative (11/29/14 5:49 code = Antibody Scrn) AM) [facility] [place] [id number] 10:49:00 Test Item Value Reference Range Interpretation Comments ABO/Rh (test code = ABO/Rh) O POS [facility] [place] [id number] 10:49:00 Test Item Value Reference Range Interpretation Comments Antibody Scrn (test Negative (11/29/14 5:49 code = Antibody Scrn) AM) [facility] [place] [id number] 10:49:00 Test Item Value Reference Range Interpretation Comments ABO/Rh (test code = ABO/Rh) O [facility]
--- NOTE | 2022-09-06 21:02 | RAD REPORT ---
EXAM DESCRIPTION: CT - Head C Spine Cap [place] Con - 09/06/2022 8:37 pm CLINICAL HISTORY: Head and neck injury with chest and abdominal pain status post fall TECHNIQUE: Computed axial tomography of head, neck, chest, abdomen and pelvis obtained. IV and oral contrast not requested. Coronal and sagittal reconstruction performed. All CT scans are performed using dose optimization technique as appropriate and may include automated exposure control or mA/KV adjustment according to patient size. COMPARISON: 2021 FINDINGS: An intracranial bleed is not seen. The ventricles are normal in caliber. An extra-axial fluid collection is not noted. No significant hy podensity within the brain. . Fluid within the sinuses/mastoids is not seen. A cervical fracture is not seen. No dislocation is noted. Spondylosis involves the cervical spine The evaluation of mediastinum, shona, vessels, solid organs and bowel are limited secondary to the lac k of contrast administration. Mildly to moderately displaced fracture posterior right tenth rib. Comminuted mildly displaced fracture posterior right eleventh rib. Nondisplaced fracture right posterior twelfth rib No mediastinal hematoma. A pleural effusion is not seen. Pulmonary contusion not noted. No pneumothor ax Aortic arch measures 4.8 centimeters. Proximal descending thoracic aorta 4.2 centimeters The liver,spleen, pancreas, adrenals,kidneys and bladder do not demonstrate an acute traumatic injury Postsurgical changes lumbar spine. 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 A cervical fracture is not visualized. 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
[2022-09-06] MEDS ORDERED: HYDROCODONE/APAP 5/325 MG TAB ONE (22:10)
--- NOTE | 2022-09-06 22:10 | ER ---
Nurse's Notes [facility] Name: Mary Norris Age: 82 yrs Sex: Female : 1940 Arrival Date: 09/06/2022 Time: 19:22 Bed 6 Private MD: Diagnosis: Fall on same level from slipping, tripping and stumbling with subsequent striking against furniture, initial encounter;Multiple fractures of ribs;Multiple fractures of ribs, right side, initial encounter for closed fracture Presentation: 09/06 19:35 Chief complaint: Patient states: "I was walking into the pantry and I fell and hit my as6 head and the right side of my body". Coronavirus screen: At this time, the client does not indicate any symptoms associated with coronavirus-19. Ebola Screen: No symptoms or risks identified at this time. Initial Sepsis Screen: Does the patient meet any 2 criteria? No. Patient's initial sepsis screen is negative. Does the patient have a suspected source of infection? No. Patient's initial sepsis screen is negative. Risk Assessment: Do you want to hurt yourself or someone else? Patient reports no desire to harm self or others. Onset of symptoms was September 06, 2022. 19:35 Method Of Arrival: Wheelchair as6 19:35 Acuity: DENNIS 3 as6 19:52 Care prior to arrival: None. Mechanism of Injury: Fall from standing position. Trauma as6 event details: Injury occurred in the [facility], Injury occurred: at home. Injury occurred: September 06, 2022. Triage Assessment: 22:43 General: Appears in no apparent distress. Behavior is calm, cooperative. Pain: kd3 Complains of pain in right mid back and right subscapular area and scalp and right temporal area. Neuro: Level of Consciousness is awake, alert, obeys commands, Oriented to person, place, time, situation. Trauma Activation: Not Applicable Physician: ED Physician; Name: ; Notified At: ; Arrived At: Physician: General Surgeon; Name: ; Notified At: ; Arrived At: Physician: Radiology; Name: ; Notified At: ; Arrived At: Physician: Respiratory; Name: ; Notified At: ; Arrived At: Physician: Lab; Name: ; Notified At: ; Arrived At: Historical: - Allergies: 19:38 No Known Allergies; as6 - Home Meds: 19:38 Metoprolol Tartrate Oral [Active]; amlodipine oral [Active]; valsartan oral [Active]; as6 - PMHx: 19:38 GERD; Hyperlipidemia; Hypertension; Irritable bowel syndrome; Migraines; skin cancer on as6 the nose; - PSHx: 19:38 Total abdominal hysterectomy; Cholecystectomy; Appendectomy; knee; back; shoulder; as6 - Immunization history:: Client reports receiving the 2nd dose of the Covid vaccine, pfizer Pneumococcal vaccine is up to date, Flu vaccine is up to date. - Social history:: Smoking status: Patient denies any tobacco usage or history of. - Immunization history: Last tetanus immunization: - up to date. Screenin:53 [facility] ED Fall Risk Assessment (Adult) History of falling in the last 3 months, as6 including since admission Yes- single mechanical fall (1 pt) Confusion or Disorientation No (0 pts) Intoxicated or Sedated No (0 pts) Impaired Gait No (0 pts) Mobility Assist Device Used Yes (1 pt) Altered Elimination No (0 pt) Score/Fall Risk Level 0 - 2 = Low Risk. Abuse screen: Denies threats or abuse. Denies injuries from another. Nutritional screening: No deficits noted. Tuberculosis screening: No symptoms or risk factors identified. Primary Survey: 19:53 NO uncontrolled hemorrhage observed. A: The client is awake and alert. The airway is as6 patent. Breathing/Chest: Spontaneous respiratory effort, equal unlabored respirations, breath sounds clear bilaterally, regular pattern, symmetrical chest rise and fall. Circulation: No external hemorrhage present. Regular and strong central pulse, skin warm/dry/normal color. Disability Pupils are equal, round, reactive to light and accommodation. Client is alert. 22:44 Reassessment Alertness and Airway: Awake and alert. The airway is patent. Breathing: kd3 Spontaneous respiratory effort, equal unlabored respirations, breath sounds clear bilaterally, regular pattern with symmetrical chest rise and fall. Circulation: No external hemorrhage noted. Regular and strong central pulse, skin warm/dry/normal color. Disability: Pupils Pupils are equal, round, reactive to light and accomodation. 22:45 Exposure/Environment: All clothing and personal items were removed. Forensic evidence kd3 collection is not deemed to be indicated at this time. Items placed in patient belonging bag. There is no evidence of uncontrolled external bleeding. Assessment: 20:55 General: "I would rather sit in the wheelchair" . as6 Vital Signs: 19:35 BP 151 / 64; Pulse 73; Resp 18 S; Temp 97.9(O); Pulse Ox 98% on R/A; Weight 75.75 kg as6 (R); Height 5 ft. 3 in. (160.02 cm) (R); Pain 6/10; 21:00 BP 137 / 80; Pulse 70; Resp 18; Pulse Ox 100% on R/A; oe 22:47 BP 132 / 75; Pulse 72; Resp 19; Pulse Ox 99% on R/A; kd3 19:35 Body Mass Index 29.58 (75.75 kg, 160.02 cm) as6 Pam Coma Score: 19:53 Eye Response: spontaneous(4). Verbal Response: oriented(5). Motor Response: obeys as6 commands(6). Total: 15. Trauma Score (Adult): 19:53 Eye Response: spontaneous(1); Verbal Response: oriented(1); Motor Response: obeys as6 commands(2); Systolic BP: > 89 mm Hg(4); Respiratory Rate: 10 to 29 per min(4); [place] Score: 15; Trauma Score: 12 ED Course: 19:22 Patient arrived in ED. ja2 19:34 Les Cochran MD is Attending Physician. kdr 19:38 Triage completed. as6 19:40 Arm band placed on. as6 20:39 CT Traumagram (Head C Spine CAP wo con) In Process Unspecified. EDMS 20:55 Bed in low position. Call light in reach. Adult w/ patient. as6 20:55 Patient maintains SpO2 saturation greater than 95% on room air. Thermoregulation: warm as6 blanket given to patient. 21:38 Lucille Garcia RN is Primary Nurse. kr3 22:44 Assist provider with laceration repair on right temporal area. Patient did not have IV kd3 access during this emergency room visit. Administered Medications: 22:13 Drug: HYDROcodone-acetaminophen 5 mg-325 mg 1 tabs Route: PO; kr3 22:46 Follow up: Response: No adverse reaction; Pain is decreased kd3 Medication: 22:45 VIS not applicable for this client. kd3 Intake: 19:53 PO: 0ml; Total: 0ml. as6 Outcome: 22:09 Discharge ordered by . kdr 22:45 Discharged to home via wheelchair, with family. kd3 22:45 Condition: stable 22:45 Discharge instructions given to patient, family, Instructed on discharge instructions, follow up and referral plans. Demonstrated understanding of instructions, follow-up care, medications, Prescriptions given X 1. 22:45 Patient's length of stay was not longer than 2 hours. kd3 22:47 Patient left the ED. kd3 Signatures: Dispatcher [employer] EDMS Les Cochran MD MD kdr Espinosa, Orlando oe Alexander, Jessica ja2 Slawson, Ashby, JAM RN as6 Rachel Malcolm RN RN kd3 Lucille Garcia, JAM RN kr3
--- NOTE | 2022-09-06 22:10 | EDPHYS ---
Physician Documentation [facility] Name: Mary Norris Age: 82 yrs Sex: Female : 1940 Arrival Date: 09/06/2022 Time: 19:22 Bed 6 Private MD: ED Physician Les Cochran HPI: 09/06 22:03 This 82 yrs old Female presents to ER via Wheelchair with complaints of Fall Injury, kdr Head Injury Without LOC-Adult, Back Injury. 22:03 Patient states that she was walking into her pantry when she tripped and fell over her kdr own feet. She fell onto her right side. She also hit her head on the cabinet. She denies LOC. She is in a chair and appears generally comfortable. She does not appear toxic nor requiring emergent intervention.. Onset: The symptoms/episode began/occurred suddenly. Severity of symptoms: At their worst the symptoms were mild in the emergency department the symptoms are unchanged. The patient has not experienced similar symptoms in the past. The patient has not recently seen a physician. Historical: - Allergies: 19:38 No Known Allergies; as6 - Home Meds: 19:38 Metoprolol Tartrate Oral [Active]; amlodipine oral [Active]; valsartan oral [Active]; as6 - PMHx: 19:38 GERD; Hyperlipidemia; Hypertension; Irritable bowel syndrome; Migraines; skin cancer on as6 the nose; - PSHx: 19:38 Total abdominal hysterectomy; Cholecystectomy; Appendectomy; knee; back; shoulder; as6 - Immunization history:: Client reports receiving the 2nd dose of the Covid vaccine, pfizer Pneumococcal vaccine is up to date, Flu vaccine is up to date. - Social history:: Smoking status: Patient denies any tobacco usage or history of. - Immunization history: Last tetanus immunization: - up to date. ROS: 22:03 Constitutional: Negative for fever, chills, and weight loss, Eyes: Negative for injury, kdr pain, redness, and discharge, ENT: Negative for injury, pain, and discharge, Neck: Negative for injury, pain, and swelling, Cardiovascular: Negative for chest pain, palpitations, and edema, Respiratory: Negative for shortness of breath, cough, wheezing, and pleuritic chest pain, Abdomen/GI: Negative for abdominal pain, nausea, vomiting, diarrhea, and constipation, Back: Negative for injury and pain, : Negative for injury, bleeding, discharge, and swelling, MS/Extremity: Negative for injury and deformity, Neuro: Negative for headache, weakness, numbness, tingling, and seizure activity. Psych: Negative for depression, anxiety, suicide ideation, homicidal ideation, and hallucinations, Allergy/Immunology: Negative for hives, rash, and allergies, Endocrine: Negative for neck swelling, polydipsia, polyuria, polyphagia, and marked weight changes, Hematologic/Lymphatic: Negative for swollen nodes, abnormal bleeding, and unusual bruising. 22:03 Skin: Positive for laceration(s), of the right temporal area, Negative for abrasions. Exam: 22:03 Constitutional: This is a well developed, well nourished patient who is awake, alert, kdr and in no acute distress. Eyes: Pupils equal round and reactive to light, extra-ocular motions intact. Lids and lashes normal. Conjunctiva and sclera are non-icteric and not injected. Cornea within normal limits. Periorbital areas with no swelling, redness, or edema. Neck: Trachea midline, no thyromegaly or masses palpated, and no cervical lymphadenopathy. Supple, full range of motion without nuchal rigidity, or vertebral point tenderness. No Meningismus. Chest/axilla: Normal chest wall appearance and motion. Nontender with no deformity. No lesions are appreciated. Cardiovascular: Regular rate and rhythm with a normal S1 and S2. No gallops, murmurs, or rubs. Normal PMI, no JVD. No pulse deficits. Respiratory: Lungs have equal breath sounds bilaterally, clear to auscultation and percussion. No rales, rhonchi or wheezes noted. No increased work of breathing, no retractions or nasal flaring. Abdomen/GI: Soft, non-tender, with normal bowel sounds. No distension or tympany. No guarding or rebound. No evidence of tenderness throughout. Skin: Warm, dry with normal turgor. Normal color with no rashes, no lesions, and no evidence of cellulitis. MS/ Extremity: Pulses equal, no cyanosis. Neurovascular intact. Full, normal range of motion. Neuro: Awake and alert, GCS 15, oriented to person, place, time, and situation. Cranial nerves II-XII grossly intact. Motor strength 5/5 in all extremities. Sensory grossly intact. Cerebellar exam normal. Normal gait. Psych: Awake, alert, with orientation to person, place and time. Behavior, mood, and affect are within normal limits. 22:03 Back: pain, that is mild, that is moderate, of the right subscapular area and right mid back, CVA tenderness, that is moderate, is noted on the right, vertebral tenderness, is not appreciated, muscle spasm, is not present. Vital Signs: 19:35 BP 151 / 64; Pulse 73; Resp 18 S; Temp 97.9(O); Pulse Ox 98% on R/A; Weight 75.75 kg as6 (R); Height 5 ft. 3 in. (160.02 cm) (R); Pain 6/10; 21:00 BP 137 / 80; Pulse 70; Resp 18; Pulse Ox 100% on R/A; oe 22:47 BP 132 / 75; Pulse 72; Resp 19; Pulse Ox 99% on R/A; kd3 19:35 Body Mass Index 29.58 (75.75 kg, 160.02 cm) as6 Pam Coma Score: 19:53 Eye Response: spontaneous(4). Verbal Response: oriented(5). Motor Response: obeys as6 commands(6). Total: 15. Trauma Score (Adult): 19:53 Eye Response: spontaneous(1); Verbal Response: oriented(1); Motor Response: obeys as6 commands(2); Systolic BP: > 89 mm Hg(4); Respiratory Rate: 10 to 29 per min(4); Pam Score: 15; Trauma Score: 12 Laceration: 22:03 Wound Repair of 1.5cm ( 0.6in ) subcutaneous laceration to right temporal area. Distal kdr neuro/vascular/tendon intact. Anesthesia: Local anesthetic administered with 1% lidocaine. Wound prep: Moderate cleansing with hibiclenz by production line technician by nurse. Skin closed with 2 1-0 Ophelia using simple sutures and sterile technique. Dressed with Bacitracin. Patient tolerated well. MDM: 22:09 Patient medically screened. kdr 23:13 Data reviewed: vital signs, nurses notes, radiologic studies. I considered the kdr following discharge prescriptions or medication management in the emergency department Medications were administered in the Emergency Department. See 19:41 Order name: CT Traumagram (Head C Spine CAP wo con); Complete Time: 21:39 as6 Administered Medications: 22:13 Drug: HYDROcodone-acetaminophen 5 mg-325 mg 1 tabs Route: PO; kr3 22:46 Follow up: Response: No adverse reaction; Pain is decreased kd3 Disposition Summary: 09/06/22 22:09 Discharge Ordered Location: Home kdr Problem: new kdr Symptoms: have improved kdr Condition: Stable kdr Diagnosis - Fall on same level from slipping, tripping and stumbling with subsequent striking kdr against furniture, initial encounter - Multiple fractures of ribs kdr - Multiple fractures of ribs, right side, initial encounter for closed fracture kdr Followup: kdr - With: Private Physician - When: 2 - 3 days - Reason: If symptoms return, Further diagnostic work-up, Recheck today's complaints, Continuance of care, Re-evaluation by your physician Discharge Instructions: - Discharge Summary Sheet kdr - How to Use an Incentive Spirometer kdr - Fall Prevention in the Home, Adult, Swzl-af-Ptbg kdr - Rib Fracture, Cgax-mb-Logi kdr Forms: - Medication Reconciliation Form kdr - Thank You Letter kdr - Prescription Opioid Use kdr Prescriptions: - Tylenol-Codeine #3 300 mg-30 mg Oral - take 1 tablet by ORAL route every 4-6 hours As needed; 20 tablet; Refills: 0, kdr Product Selection Permitted Signatures: Dispatcher [employer] EDMS Les Cochran MD MD kdr Milo Mao RN RN as6 Rachel Malcolm RN RN kd3 Lucille Garcia RN RN kr3 Corrections: (The following items were deleted from the chart) 20:21 19:56 Head C Spine MPR Wo Con+CT.RAD.BRZ ordered. EDMS EDMS
[2022-09-06 23:12] VITALS: BP 132/75; O2SAT 99
[2022-09-06 23:47] VITALS: TEMP 97.9
== END 2022-09-06 22:47 | disposition home or self-care (01) ==
LOC: ER 19:18
PROC: 0HQ1XZZ Repair Face Skin, External Approach (ICD-10-PCS; principal; 2022-09-06)
DX: S01.81XA Laceration without foreign body of other part of head, initial encounter (principal); S22.41XA Multiple fractures of ribs, right side, initial encounter for closed fracture; W01.10XA Fall on same level from slipping, tripping and stumbling with subsequent striking against unspecified object, initial encounter; I10 Essential (primary) hypertension; E78.5 Hyperlipidemia, unspecified
CPT/HCPCS: 70450; 71250; 72125; 99284

== ENCOUNTER 2022-09-14 09:06 | Emergency (ER) | payer OTHER, MEDICARE ==
--- OUTSIDE RECORDS SUMMARY | 2022-09-14 09:15 | XMS REPORT | Continuity of Care Document ---
:1940 Author Organization [facility] t Address [address] [place] [address] Care Team Providers Name Role Phone Luz Marina Gallo MD Primary Care Physician [phone] GABBI TIPTON Attending Clinician Unavailable Uyen Leyva MD Attending Clinician Nguyen POLK, Kymberly Attending Clinician Unavailable Maeve Reyes MA Attending Clinician Unavailable Agustín BARAKAT, Phyllis Harry Attending Clinician Carson Lopez MD Attending Clinician [phone] Caity Maldonado MD Attending Clinician John Vasquez MD Attending Clinician Daniela BARAKAT, Lalito Guaman Attending Clinician Wendy Brown Attending Clinician Gildardo Lovelace Attending Clinician Maikel Kirkland Attending Clinician GABBI TIPTON Admitting Clinician Unavailable CARSON LOPEZ Admitting Clinician Unavailable Maikel Kirkland Admitting Clinician Payers Payer Name Policy Type Policy Number Effective Date Expiration Date Michelle benavides MEDICARE A B [id number] 2022 00:00:00 [facility] [id number] 2021 HEALTHCARE 00:00:00 Problems Condition Condition Condition [...] LOW B THY, LOW B Active 11/19/2014 [facility] Low back Low back Problem Active 2013-072021-07-28 Memoria pain pain 0-24 01:24:14 l (disorder) (disorder) 00:00: He rmann Active 00 05/14/2014 Problem 07/28/2021 Data migrated from [place] on 03/15/15. JI Hubbard, JI [facility] Lumbar Lumbar Problem Active 2013-072021-07-28 Royce macario radiculopa radiculopa 0-24 01:24:14 l thy thy 00:00: Stevie (disorder) (disorder) 00 Active 05/14/2014 Problem 07/28/2021 Data migrated from [place] on 03/15/15. [facility], JI Hubbard, JI Davenport,M Lexi OPID [facility] Atrial Atrial Problem Resolve 2021-07-28 Mem oria fibrillati fibrillati d 01:24:14 l on on Stevie (disorder) (disorder) Resolved Problem 07/28/2021 [facility], JI Hubbard, JI Davenport,M H OPID [facility] Gastroesop Problem Active 2021-07-28 M emoria hageal Gastroesop 01:24:14 l reflux hageal Stevie disease reflux (disorder) disease (disorder) Active Problem 07/28/2021 [facility], JI Hubbard, JI Davenport,M H OPID [facility] Hyperlipid Hyperlipi Problem Active 2021-07-28 Memoria emia demia 01:24:14 l (disorder) (disorder) He rmann Active Problem 07/28/2021 [facility], JI Hubbard, JI Davenport,M OPID [facility] Hypertensi Hypertens Problem Active 2021-07-28 Memoria ve geni 01:24:14 l disorder, disorder, Herm hipolito systemic systemic arterial arterial (disorder) (disorder) Active Problem 07/28/2021 [facility], JI Hubbard, JI Davenport,M H OPID [facility] Spinal Spinal Problem Active 2021-07-28 Royce macario stenosis stenosis 01:24:14 l of lumbar of lumbar Herm hipolito region region (disorder) (disorder) Active Problem 07/28/2021 [facility], JI Hubbard, JI Davenport,M OPID [facility] Obesity Obesity Problem Active 2021-07-28 Me moria (disorder) (disorder) 01:24:14 l Active Spencer Problem 07/28/2021 [facility], JI Hubbard, JI Davenport,M H OPID [facility] Pain Pain Problem Active 2021-07-28 Memor ia (finding) (finding) 01:24:14 l Active Stevie Problem 07/28/2021 [facility], JI Hubbard, JI Davenport,M H OPID [facility] Spondylosi Spondylos Problem Active 2021-07-28 Memoria s is 01:24:14 l (disorder) (disorder) He rmann Active Problem 07/28/2021 Lumbar [facility], JI Hubbard, JI Davenport,M H JI [facility] LUMBOSACRA LUMBOSACR Diagnosis Active 2014-12-08 Memoria L AL 21:54:00 l SPONDYLOSI SPONDYLOSI He rmann S S Active [facility] LUMBOSACRA LUMBOSACR Diagnosis Active 2014-12-08 Memoria L NEURITIS AL 21:54:00 l NOS NEURITIS Stevie NOS Active [facility] LUMBAGO LUMBAGO Diagnosis Active 2014-12-08 Memoria Active 21:54:00 l [facility] No known No known Disease Metho di active active st problems problems Hospit a l Allergies, Adverse Reactions, Alerts Allergy Allergy Status Severity Reaction(s) Onset Inactive Treating Comm ents Source Name Type Date Date Clinician No Known DA Active U 2018-07 [facility] 08[facility] [place] [facility] No Known DA Active U [facility] 09-24 [place] [facility] No Known Propensi Active Method i Drug ty to 01-15 st Allergie adverse 00:00: Hospita s reaction 00 l s to drug No Known DA Active U 2011-07 [facility] Allergie 09-17 [place] 00:[facility] No Known No Known Active Memori a Medicati Medicati l on on Stevie Allergie Allergie s s Family History Family Member Diagnosis Comments Start Date Stop Date Source Natural father Pancreatic cancer Met [facility] Social History Social Habit Start Date Stop Date Quantity Comments Source Alcohol intake 2022-04-26 2022-04-26 Current Church 00:00:00 00:00:00 non-drinker of Hospital alcohol (finding) Tobacco use and 2022-04-26 2022-04-26 Smokeless tobacco Me thodist exposure 00:00:00 00:00:00 non-user [facility] Social History 2014-11-29 2014-11-[address] [facility] 12:41:06 12:41:06 Sex Ass[birth year] At [birth year] [facility] 00:00:00 00:00:00 Hospital Smoking Status Start Date Stop Date Source Never smoked tobacco [facility] Medications Ordered Filled Start Stop Current [...] (AMLODIPINE 10:52: Hospit a ORAL) 38 l escitalopra 2021-07 Yes 5mg QD Take 1 [...] 75mg QD Take 1.5 Meth inés (DESYREL) 9-[address] 50 MG 16:40: (75 mg Hospita tablet 05 total) by l mouth nightly as needed for sleep. UNABLE TO Med Name: Me pham MITCHELL 04-[address] 16:40: 00:00 Shots - Hospita 05 :00 weekly l clopidogreL 2021- No 75mg QD Take 1 Met hodi (PLAVIX) 75 04-04 tablet (75 s t mg tablet 16:40: 00:00 mg total) Ho spita 05 :00 by mouth l daily. amLODIPine 2021- No 2.5mg QD Take 1 Met hodi (NORVASC) 04-[address] 2.5 mg 16:40: 00:00 (2.5 mg Hospita tablet 05 :00 total) by l mouth daily. UNABLE TO Med Name: Me pham MITCHELL 04-[address] 16:40: 00:00 Shots - Hospita 05 :00 weekly l clopidogreL 2021- No 75mg QD Take 1 Met hodi (PLAVIX) 75 04-04 tablet (75 s t mg tablet 16:40: 00:00 mg total) Ho spita 05 :00 by mouth l daily. amLODIPine 2021- No 2.5mg QD Take 1 Met hodi (NORVASC) 04-[address] 2.5 mg 16:40: 00:00 (2.5 mg Hospita tablet 05 :00 total) by l mouth daily. UNABLE TO Med Name: Me pham MITCHELL 04-[address] 16:40: 00:00 Shots - Hospita 05 :00 weekly l clopidogreL 2021- No 75mg QD Take 1 Met hodi [...] daily. Hospita tablet 47 :00 l olmesartan 0 2021- No 40mg QD Take 40 mg Methodi (BENICAR) 04-[address] 40 MG 17:52: 00:00 daily. Hospita tablet 47 :00 l olmesartan 2021-0 2021- No 40mg QD Take 40 mg Methodi (BENICAR) 04-[address] 40 MG 17:52: 00:00 daily. Hospita tablet 47 :00 l escitalopra 0 Yes 5mg QD Take 1 Meth inés m (LEXAPRO) 04-03 tablet (5 st 5 MG tablet 17:52: mg total) H ospita 40 by mouth l daily. nortriptyli 0 Yes 25mg QD Take 25 mg Methodi ne 04-[address] (PAMELOR) 17:52: nightly. Hosp karina 25 MG 40 l capsule pregabalin 0 Yes 150mg Q.5D Take 1 Meth inés (LYRICA) 04-[address] 150 MG 17:52: (150 mg Hospita capsule 40 total) by l mouth 2 (two) times a day. atorvastati 0 Yes 40mg QD Take 40 mg Methodi n (LIPITOR) 04-[address] 40 MG 17:52: daily. Hospita tablet 40 l traMADoL 2021-0 Yes [id number] 50mg Q8H Take 1 Method i (ULTRAM) 50 9-13 tablet (50 st mg tablet 00:00: mg total) Hos angela 00 by mouth l every 8 (eight) hours as needed for severe pain .acute pain. traMADoL 2021-0 Yes [id number] 50mg Q8H Take 1 Method i (ULTRAM) 50 9-13 tablet (50 st mg tablet 00:00: mg total) Hos angela 00 by mouth l every 8 (eight) hours as needed for severe pain .acute pain. traMADoL 2021-0 Yes [id number] 50mg Q8H Take 1 Method i (ULTRAM) 50 9-13 tablet (50 st mg tablet 00:00: mg total) Hos angela 00 by mouth l every 8 (eight) hours as needed for severe pain .acute pain. valsartan 2021-2021- No 60mg Q.5D Take 1.5 Met hodi (DIOVAN) 40 9-13 10-[address] MG tablet 00:00: 04:59 (60 mg Hospi ta 00 :00 total) by l mouth 2 (two) times a day for 30 days. sennosides- 2021-2021- No 2{tbl} QD Take 2 M ethodi docusate 9-13 10-[address] sodium 00:00: 04:59 mouth Hospita (SENOKOT-S) 00 :00 nightly l 8.6-50 mg for 30 per tablet days. polyethylen 2021-2021- No 17g Q.5D Take 17 g Methodi e glycol 9-13 10-[address] (MIRALAX) 00:00: 04:59 (two) Hospit a 17 gram 00 :00 times a l packet day for 30 days. valsartan 2021-2021- No 60mg Q.5D Take 1.5 Met hodi (DIOVAN) 40 9-13 10-[address] MG tablet 00:00: 04:59 (60 mg Hospi ta 00 :00 total) by l mouth 2 (two) times a day for 30 days. sennosides- 2021-2021- No 2{tbl} QD Take 2 M ethodi docusate 9-13 10-[address] sodium 00:00: 04:59 mouth Hospita (SENOKOT-S) 00 :00 nightly l 8.6-50 mg for 30 per tablet days. polyethylen 2021-2021- No 17g Q.5D Take 17 g Methodi e glycol 9-13 10-[address] (MIRALAX) 00:00: 04:59 (two) Hospit a 17 gram 00 :00 times a l packet day for 30 days. valsartan 2021-2021- No 60mg Q.5D Take 1.5 Met hodi (DIOVAN) 40 9-13 10-[address] MG tablet 00:00: 04:59 (60 mg Hospi ta 00 :00 total) by l mouth 2 (two) times a day for 30 days. sennosides- 2022021- No 2{tbl} QD Take 2 M ethodi docusate 04-03 10-[address] sodium 00:00: 04:59 mouth Hospita (SENOKOT-S) 00 :00 nightly l 8.6-50 mg for 30 per tablet days. polyethylen 2021- No 17g Q.5D Take 17 g Methodi e glycol 04-[address] (MIRALAX) 00:00: 04:59 [...] No 500mg Q6H Take 500 Methodi en 03-[address] (TYLENOL) 10:30: 00:00 mouth [...] 22 l capsule pregabalin 2018-07 Yes 100mg [id number] Take 100 Methodi (LYRICA) 0-[id number] 100 MG 15:24: 3D [...] Memoria 5-13 porcine l 21:00: heparin Stevie heparin No Notes: Memoria 5-13 porcine l 21:00: heparin Stevie heparin No Notes: Memoria 5-13 porcine l 21:00: heparin Spencer Valium No Notes: Memoria 5-13 (Same as: l 15:30: Valium) Spencer Valium No Notes: Memoria 5-13 (Same as: l 15:30: Valium) Spencer Valium No Notes: Memoria 5-13 (Same as: l 15:30: Valium) Spencer Acetaminoph No Notes: Royce macario en 325 MG / 5-13 (Same as: l Hydrocodone 12:00: Glen Allan Mildred nn Bitartrate 00 325/5) Do 5 MG Oral not exceed Tablet 4gm/day of [Glen Allan acetaminop 5/325] hen. Acetaminoph No Notes: Royce macario en 325 MG / 5-13 (Same as: l Hydrocodone 12:00: Glen Allan Mildred nn Bitartrate 00 325/5) Do 5 MG Oral not exceed Tablet 4gm/day of [Glen Allan acetaminop 5/325] hen. Acetaminoph No Notes: Royce macario en 325 MG / 5-13 (Same as: l Hydrocodone 12:00: Glen Allan Mildred nn Bitartrate 00 325/5) Do 5 MG Oral not exceed Tablet 4gm/day of [Glen Allan acetaminop 5/325] hen. Sodium Yes 1,000 mL, Memori a Chloride 5-13 1,000 l 0.154 10:18: ml/hr, Spencer MEQ/ML 00 Infuse Injectable Over: 1 Solution hr, Route: IV, 1,000, Drug form: INJ, ONCE, Priority: STAT, Dosing Weight 90.909 kg, Start date: 12/01/14 5:18:00, Duration: 1 doses or times, Stop date: 12/01/14 5:18:00 Sodium Yes 1,000 mL, Memori a Chloride 5-13 1,000 l 0.154 10:18: ml/hr, Stevie MEQ/ML 00 Infuse Injectable Over: 1 Solution hr, Route: IV, 1,000, Drug form: INJ, ONCE, Priority: STAT, Dosing Weight 90.909 kg, Start date: 12/01/14 5:18:00, Duration: 1 doses or times, Stop date: 12/01/14 5:18:00 Sodium 2015-0 Yes 1,000 mL, Memori a Chloride 5-13 1,000 l 0.154 10:18: ml/hr, Spencer MEQ/ML 00 Infuse Injectable Over: 1 Solution hr, Route: IV, 1,000, Drug form: INJ, ONCE, Priority: STAT, Dosing Weight 90.909 kg, Start date: 12/01/14 5:18:00, Duration: 1 doses or times, Stop date: 12/01/14 5:18:00 Sodium 2015-0 Yes 250 mL, Memoria Chloride 5-13 250 ml/hr, l 0.154 09:28: Infuse Stevie MEQ/ML 00 Over: 1 Injectable hr, Route: Solution IV, 250, Drug form: INJ, ONCE, Priority: STAT, Dosing Weight 90.909 kg, Start date: 12/01/14 4:28:00, Duration: 1 doses or times, Stop date: 12/01/14 4:28:00 Sodium 2015-0 Yes 250 mL, Memoria Chloride 5-13 250 ml/hr, l 0.154 09:28: Infuse Stevie MEQ/ML 00 Over: 1 Injectable hr, Route: Solution IV, 250, Drug form: INJ, ONCE, Priority: STAT, Dosing Weight 90.909 kg, Start date: 12/01/14 4:28:00, Duration: 1 doses or times, Stop date: 12/01/14 4:28:00 Sodium 2015-0 Yes 250 mL, Memoria Chloride 5-13 250 ml/hr, l 0.154 09:28: Infuse Stevie MEQ/ML 00 Over: 1 Injectable hr, Route: Solution IV, 250, Drug form: INJ, ONCE, Priority: STAT, Dosing Weight 90.909 kg, Start date: 12/01/14 4:28:00, Duration: 1 doses or times, Stop date: 12/01/14 4:28:00 Losartan 2015-0 No Notes: Memoria 5-12 (Same as: l 14:00: Cozaar) Spencer Prevacid 2015-0 No 30 mg, Memoria 5-12 Route: PO, l 14:00: Drug form: Stevie 00 DRC, Daily, Dosing Weight 90.909, kg, Start date: 11/30/14 9:00:00, Duration: 30 day, Stop date: 12/29/14 9:00:00 Lexapro No Notes: Memoria 5-12 (Same as: l 14:00: Lexapro) Atenolol 50 No Notes: Royce macario MG Oral 5-12 (Same l Tablet 14:00: As:Tenormi Mildred nn 00 n) Losartan No Notes: [...] Tablet 14:00: As:Tenormi Mildred nn 00 n) Losartan No Notes: [...] Herm hipolito capsule 00 cap, 0 Refill(s) Acetaminoph Yes [...] Herm hipolito capsule 00 cap, 0 Refill(s) Acetaminoph Yes [...] Notes: Memoria 5-12 (Same l 02:00: as:Pamelor Spencer 00 , Aventyl) gabapentin No Notes: Memor ia 300 MG Oral 5-12 (Same as: l Capsule 02:00: Neurontin) Herm hipolito 00 Atenolol 50 No Notes: Royce macario MG Oral 5-12 (Same l Tablet 02:00: As:Tenormi Mildred nn 00 n) Saline No Notes: Memoria Flush 0.9% 5-12 Same as: l 02:00: BD Stevie 00 Posiflush Sterile sennosides, No Notes: Royce macario CUSTODIAL 5-12 (Same as: l 02:00: Senokot) Stevie 00 Docusate No Notes: Memoria 5-12 (Same as: l 02:00: Colace) Stevie 00 (Do Not Crush) Pamelor No Notes: Memoria 5-12 (Same l 02:00: as:Pamelor Stevie 00 , Aventyl) gabapentin No Notes: Memor ia 300 MG Oral 5-12 (Same as: l Capsule 02:00: Neurontin) Herm hipolito 00 Atenolol 50 No Notes: Royce macario MG Oral 5-12 (Same l Tablet 02:00: As:Tenormi Mildred nn 00 n) Saline No Notes: Memoria Flush 0.9% 5-12 Same as: l 02:00: BD Spencer 00 Posiflush Sterile sennosides, No Notes: Royce macario CUSTODIAL 5-12 (Same as: l 02:00: Senokot) Spencer 00 Docusate No Notes: Memoria 5-12 (Same as: l 02:00: Colace) Spencer 00 (Do Not Crush) Pamelor No Notes: Memoria 5-12 (Same l 02:00: as:Pamelor Stevie 00 , Aventyl) gabapentin No Notes: Memor ia 300 MG Oral 12 (Same as: l Capsule 02:00: Neurontin) Herm hipolito Atenolol 50 No Notes: Royce macario MG Oral 5-12 (Same l Tablet 02:00: As:Tenormi Mildred nn 00 n) Saline No Notes: Memoria Flush 0.9% 11-30 Same as: l 02:00: BD Spencer 00 Posiflush Sterile sennosides, No Notes: Royce macario CUSTODIAL -12 (Same as: l 02:00: Senokot) Stevie 00 Docusate No Notes: Memoria 5-12 (Same as: l 02:00: Colace) Stevie 00 (Do Not Crush) Acetaminoph No Notes: Do M emoria en 325 MG / -11 not exceed l Hydrocodone 21:00: 4gm/day of Spencer Bitartrate 00 acetaminop 10 MG Oral hen. (Same Tablet as: Glen Allan [Glen Allan 325/10) 10/325] ceFAZolin No Notes: Memori a (SCIP) 5-11 (Same As: l 21:00: Ancef, Spencer 00 Kefzol) MEDICATION WASTE Product Size: 1000 mg Product Wasted: ___ mg Acetaminoph No Notes: Do M emoria en 325 MG / 5-11 not exceed l Hydrocodone 21:00: 4gm/day of Spencer Bitartrate 00 acetaminop 10 MG Oral hen. (Same Tablet as: Glen Allan [Glen Allan 325/10) 10/325] ceFAZolin No Notes: Memori a (SCIP) 5-11 (Same As: l 21:00: Ancef, Spencer 00 Kefzol) MEDICATION WASTE Product Size: 1000 mg Product Wasted: ___ mg Acetaminoph No Notes: Do M emoria en 325 MG / 11-29 not exceed l Hydrocodone 21:00: 4gm/day of Stevie Bitartrate 00 acetaminop 10 MG Oral hen. (Same Tablet as: Glen Allan [Glen Allan 325/10) 10/325] ceFAZolin No Notes: Memori a (SCIP) 11-29 (Same As: l 21:00: Ancef, Stevie Kefzol) MEDICATION WASTE Product Size: 1000 mg Product Wasted: ___ mg Naloxone No Notes: Memoria 11-29 Same as l 19:50: Narcan Ondansetron No Notes: Royce macario 11 (Same as: l 19:50: Zofran) 00 MEDICATION WASTE Product Size: 4 mg Product Wasted: __0_ mg Labetalol No 10 mg, 2 Royce macario 5-11 mL, Route: l 19:50: IVP, Drug form: INJ, Q5Min, Dosing Weight 90.909, kg, PRN Elevated BP, Start date: 11/29/14 14:50:00, Duration: 5 doses or times, Stop date: 11/30/14 0:00:00 Hydromorpho No Notes: Royce macario ne 11-29 Same as: l 19:50: Dilaudid Flumazenil No Notes: Memor ia 11-29 (Same as: l 19:50: Romazicon) Naloxone No Notes: Memoria 11-29 Same as l 19:50: Narcan Ondansetron No Notes: Royce macario 5-11 (Same as: l 19:50: Zofran) 00 MEDICATION WASTE Product Size: 4 mg [...] macario 5-11 (Same as: l 19:50: Zofran) MEDICATION WASTE [...] ia 5-11 (Same as: l 19:50: Romazicon) Valium No Notes: Memoria 5-11 (Same as: l 17:00: Valium) Naloxone No Notes: Memoria 5-11 Same as l 17:00: Narcan Morphine No Notes: Memoria 5-11 Dose: l 17:00: Delay: Basal rate: 4hr limit: (Same as:Dima duarte) Regular No 60 units) Royce macario Insulin, 5-11 Stable for l Human 100 17:00: [facility] Injectable temperatur Solution e Expires in days from ____Date Dextrose No 12.5 gm, Memor ia 50% Syringe 5-11 25 mL, l 17:00: Route: Spencer 00 IVP, Drug Form: INJ, Dosing Weight [...] 5-11 Rate: 75 l 0.154 17:00: ml/hr, Stevie MEQ/ML Infuse Injectable over: 13.3 Solution hr, Route: [...] Syringe 5-11 25 mL, l 17:00: Route: Spencer 00 IVP, Drug Form: INJ, Dosing Weight [...] 5-11 Rate: 75 l 0.154 17:00: ml/hr, Spencer MEQ/ML 00 Infuse Injectable over: 13.3 Solution [...] Route: PO, l Hydrocodone 17:00: Drug Form: Spencer Bitartrate 00 TAB, 10 MG Oral Dosing Tablet Weight 90.909, kg, Q6H, Start date: 11/29/14 12:00:00, Duration: 30 day, Stop date: 12/29/14 6:00:00 Sodium 2014- No 1,000 mL, Memori a Chloride 5-11 Rate: 75 l 0.154 17:00: ml/hr, Spencer MEQ/ML 00 Infuse Injectable over: 13.3 Solution [...] dose = 30 mL [266 mg]) bupivacaine No Notes: Royce macario liposome 5-11 (Same as: l 12:52: Exparel) Spencer 00 NOT FOR IV use Postoperat geni [...] dose = 30 mL [266 mg]) bupivacaine No Notes: Royce macario liposome 5-11 (Same as: l 12:52: Exparel) Stevie 00 NOT FOR IV use Postoperat geni [...] dose = 30 mL [266 mg]) ceFAZolin 2014-0 No 2 gm, 50 Royce macario 5-11 mL, Route: l 12:00: IVPB, Drug form: INJ, PRE OP, Start date: 11/29/14 7:00:00, Duration: 1 day, Stop date: 11/30/14 6:59:00 ceFAZolin 2014-0 No 2 gm, 50 Royce macario 5-11 [...] 28 cap, 0 Capsule Refill(s) [Align] Bifidobacte 2015-0 Yes 4 mg = 1 Me moria rium 5-07 cap, PO, l Infantis 4 15:18: Daily, # Her bacon MG Oral 00 28 cap, 0 Capsule Refill(s) [Align] Bifidobacte 2015-0 Yes 4 mg = 1 Me moria rium 5-07 cap, PO, l Infantis 4 15:18: Daily, # Her bacon MG Oral 00 28 cap, 0 Capsule Refill(s) [Align] Aspirin Low 2014-0 Yes PO, Daily, Memoria Dose 81 mg 5-07 0 l oral tablet 15:15: Refill(s) H erm Tylenol 2014-0 Yes PO, PRN, 0 Royce macario 5-07 Refill(s) l 15:15: Spencer 00 gabapentin 2014-0 Yes 300 mg = 1 M emoria 300 MG Oral 5-07 cap, PO, l Capsule 15:15: TID, 0 Spencer 00 Refill(s) Aspirin Low 2014-0 Yes PO, Daily, Memoria Dose 81 mg 5-07 0 l oral tablet 15:15: Refill(s) H erm 00 Tylenol 2014-0 Yes PO, PRN, 0 Royce macario 5-07 Refill(s) l 15:15: Stevie 00 gabapentin 2014-0 Yes 300 mg = 1 M emoria 300 MG Oral 5-07 cap, PO, l Capsule 15:15: TID, 0 Spencer 00 Refill(s) Aspirin Low 2014-0 Yes PO, Daily, Memoria Dose 81 mg 5-07 0 l oral tablet 15:15: Refill(s) H ermann 00 Tylenol 2014-0 Yes PO, PRN, 0 Royce macario 5-07 Refill(s) l 15:15: Spencer 00 gabapentin Yes 300 mg = 1 M emoria 300 MG Oral 5-07 cap, PO, l Capsule 15:15: TID, 0 Stevie 00 Refill(s) Nortriptyli Yes 25 mg = 1 M emoria ne 25 MG 5-07 cap, PO, l Oral 15:14: TID, 0 Spencer Capsule 00 Refill(s) [Pamelor] Atenolol 50 Yes [...] cap, PO, l Oral 15:14: TID, 0 Spencer Capsule 00 Refill(s) [Pamelor] Atenolol 50 Yes [...] cap, PO, l Oral 15:14: TID, 0 Spencer Capsule 00 Refill(s) [Pamelor] Atenolol 50 Yes [...] tab, PO, l tablet 15:13: Daily, # Spencer 00 30 tab, 0 Refill(s) Atenolol 50 Yes 50 mg = 1 M emoria MG Oral 5-07 tab, PO, l Tablet 15:13: Daily, # Spencer 00 30 tab, 0 Refill(s) Centrum Yes [...] tab, PO, l Tablet 15:13: Daily, # Spencer 00 30 tab, 0 Refill(s) Centrum Yes [...] tab, PO, l Tablet 15:13: Daily, # Spencer 00 30 tab, 0 Refill(s) Escitalopra 0 Yes 10 mg = 1 M emoria m 10 MG 5-07 tab, PO, l Oral Tablet 15:12: Daily, Iva Palma rmann [Lexapro] 00 30 tab, 0 Refill(s) Escitalopra 0 Yes 10 mg = 1 M emoria m 10 MG 5-07 tab, PO, l Oral Tablet 15:12: Daily, # Louie rmhipolito [Lexapro] 00 30 tab, 0 Refill(s) Escitalopra 0 Yes 10 mg = 1 M emoria [...] [Celebrex] 00 30 cap, 0 Refill(s) celecoxib 0 Yes 200 mg = 1 Me moria 200 MG Oral 5-07 cap, PO, l Capsule 15:11: Daily, # Renato n [Celebrex] 00 30 cap, 0 Refill(s) Immunizations Ordered Immunization Filled Immunization Date Status Commen ts Source Name Name [facility] COVID-19 MRNA 2020-08-29 Completed Meth odist VACCINATION 00:00:00 [facility] PFIZER COVID-19 MRNA 2020-08-29 Completed Meth odist VACCINATION 00:00:00 [facility] COVID-19 MRNA 2020-08-29 Completed Meth odist VACCINATION 00:00:00 [facility] COVID-19 MRNA 2020-08-29 Completed Meth odist VACCINATION 00:00:00 [facility] COVID-19 MRNA 2020-08-08 Completed Meth odist VACCINATION 00:00:00 Hospital PFIZER COVID-19 MRNA 2020-08-08 Completed Meth odist VACCINATION 00:00:00 [facility] PFIZER COVID-19 MRNA 2020-08-08 Completed Meth odist VACCINATION 00:00:00 [facility] PFIZER COVID-19 MRNA 2020-08-08 Completed Meth odist VACCINATION 00:00:00 [facility] FLUCELVAX QUAD PF 2019-04-[address] 00:00:00 Hospital Pneumococcal 2019-04-21 Completed [facility] Conjugate [facility]ent 00:00:00 Hospi bonnie FLUCELVAX QUAD PF 2019-04-[address] 00:00:00 Hospital Pneumococcal 2019-04-21 Completed [facility] Conjugate 13-[facility]ent 00:00:00 Hospi bonnie FLUCELVAX QUAD PF 2019-04-[address] 00:00:00 Hospital Pneumococcal 2019-04-21 Completed Church Conjugate 13-Valent 00:00:00 Hospi bonnie FLUCELVAX QUAD PF 2019-04-[address] 00:00:00 [facility] Pneumococcal 2019-04-21 Completed Church Conjugate 13-Valent 00:00:00 Hospi bonnie Vital Signs Vital Name Observation Time Observation Value Comments Source Systolic blood 2022-04-26 15:48:00 135 mm[Hg] Method [facility] Hospital pressure Diastolic blood 2022-04-26 15:48:00 78 mm[Hg] [facility] pressure Heart rate 2022-04-26 15:48:00 73 /min [facility] Body temperature 2022-04-26 15:48:00 36.56 Petty [facility] Body height 2022-04-26 15:48:00 165.1 cm [facility] Body weight 2022-04-26 15:48:00 77.565 kg [facility] BMI 2022-04-26 15:48:00 28.46 kg/m2 [facility] Oxygen saturation in 2022-04-26 15:48:00 99 /min [facility] Arterial blood by Pulse oximetry Respiratory rate 2022-04-03 20:45:28 18 /min [facility] Systolic blood 2022-04-03 20:45:28 123 mm[Hg] Method [facility] pressure Diastolic blood 2022-04-03 20:45:28 75 mm[Hg] [facility] pressure Heart rate 2022-04-03 20:45:28 96 /min [facility] Body temperature 2022-04-03 20:45:28 36.56 Petty Meth [facility] Oxygen saturation in 2022-04-03 20:45:28 99 /min [facility] Arterial blood by Pulse oximetry Body weight 2022-04-03 09:54:58 75.341 kg [facility] BMI 2022-04-03 09:54:58 27.64 kg/m2 [facility] Temperature Oral (F) 2014-12-02 14:15:00 94 F [facility] Respitory Rate 2014-12-02 14:15:00 [facility] Systolic (mm Hg) 2014-12-02 14:15:00 [facility] Diastolic (mm Hg) 2014-12-02 14:15:00 [facility] Heart Rate 2014-12-02 14:15:00 [facility] Systolic (mm Hg) 2014-12-02 09:09:00 Royce rial Stevie Diastolic (mm Hg) 2014-12-02 09:09:00 Mem orial Spencer Respitory Rate 2014-12-02 09:09:00 Memori al [facility] Heart Rate 2014-12-02 09:09:00 [facility] Temperature Oral (F) 2014-12-02 09:09:00 98.8 F [facility] Temperature Oral (F) 2014-12-02 07:02:00 99.0 F [facility] Respitory Rate 2014-12-02 06:42:00 Mem[facility] al [facility] Heart Rate 2014-12-02 06:42:00 [facility] Systolic (mm Hg) 2014-12-02 06:42:00 Royce rial Stevie Diastolic (mm Hg) 2014-12-02 06:42:00 Mem orial Spencer Weight 2014-12-01 14:00:00 [facility] BMI Calculated 2014-11-29 10:35:00 Memori al Stevie Weight 2014-11-29 10:35:00 [facility] Height 2014-11-29 10:35:00 165.1 cm [facility] Procedures Procedure Date / Time Performing Clinician Source Performed CT ANGIOGRAM CHEST ABDOMEN 2022-04-26 15:23:51 Uyen Leyva [facility] PELVIS W AND OR WITHOUT CONTRAST COVID-19 QUALITATIVE 2022-04-03 12:26:00 Vasquez, [facility] RT-PCR CBC WITH PLATELET AND 2022-04-03 09:47:00 Vasquez, [facility] DIFFERENTIAL BASIC METABOLIC PANEL 2022-04-03 09:47:00 Vasquez, [facility] MAGNESIUM LEVEL 2022-04-03 09:47:00 Vasquez, [facility] PHOSPHORUS LEVEL 2022-04-03 09:47:00 Vasquez, [facility] ESTIMATED GFR 2022-04-03 09:47:00 Vasquez, [facility] SMEAR REVIEW 2022-04-03 09:47:00 Vasquez, [facility] CBC WITH PLATELET AND 2022-04-02 10:20:00 Daniela [facility] DIFFERENTIAL COMPREHENSIVE METABOLIC 2022-04-02 10:20:00 Daniela Lalito [facility] PANEL ESTIMATED GFR 2022-04-02 10:20:00 Daniela, [facility] ospital CT ANGIOGRAM PE CHEST 2022-04-01 21:30:13 Daniela, [facility] CBC WITH PLATELET AND 2022-04-01 10:17:00 Suarez, [facility] DIFFERENTIAL COMPREHENSIVE METABOLIC 2022-04-01 10:17:00 Daniela, Lalito [facility] PANEL ESTIMATED GFR 2022-04-01 10:17:00 Daniela [facility] ospital MAGNESIUM LEVEL 2022-03-31 10:29:00 Octain, [facility] PHOSPHORUS LEVEL 2022-03-31 10:29:00 [facility] PROTHROMBIN TIME WITH INR 2022-03-31 10:29:00 Octain, [facility] PARTIAL THROMBOPLASTIN 2022-03-31 10:29:00 [facility] TIME (PTT) CBC WITH PLATELET AND 2022-03-31 10:29:00 Daniela [facility] DIFFERENTIAL COMPREHENSIVE METABOLIC 2022-03-31 10:29:00 SuarezLalito brenner [facility] PANEL ESTIMATED GFR 2022-03-31 10:29:00 Suarez, Lalito [facility] ospital MAGNESIUM LEVEL 2022-03-30 09:48:00 Octain, [facility] PHOSPHORUS LEVEL 2022-03-30 09:48:00 Octain, [facility] PROTHROMBIN TIME WITH INR 2022-03-30 09:48:00 Octain, [facility] PARTIAL THROMBOPLASTIN 2022-03-30 09:48:00 Octain, David [facility] TIME (PTT) CBC WITH PLATELET AND 2022-03-30 09:48:00 [facility] COMPREHENSIVE METABOLIC 2022-03-30 09:48:00 Suarez, Lalito Guaman [facility] PANEL ESTIMATED GFR 2022-03-30 09:48:00 Suarez, Lalito [facility] ospital PROTHROMBIN TIME WITH INR 2022-03-29 11:05:00 Octain, [facility] PARTIAL THROMBOPLASTIN 2022-03-29 11:05:00 Octain, David [facility] TIME (PTT) CBC WITH PLATELET AND 2022-03-29 11:05:00 Suarez, [facility] DIFFERENTIAL [facility] METABOLIC 2022-03-29 11:05:00 Suarez, Lalito [facility] PANEL ESTIMATED GFR 2022-03-29 11:05:00 Suarez, Lalito [facility] ospital MAGNESIUM LEVEL 2022-03-29 11:05:00 Suarez, Lalito [facility] ospital PHOSPHORUS LEVEL 2022-03-29 11:05:00 Suarez, [facility] COMPREHENSIVE METABOLIC 2022-03-28 07:17:00 Octain, David Jolley [facility] PANEL CBC WITH PLATELET AND 2022-03-28 07:17:00 Octain, David [facility] DIFFERENTIAL MAGNESIUM LEVEL 2022-03-28 07:17:00 Octain, [facility] PHOSPHORUS LEVEL 2022-03-28 07:17:00 Octain, [facility] PROTHROMBIN TIME WITH INR 2022-03-28 07:17:00 David Russ [facility] PARTIAL THROMBOPLASTIN 2022-03-28 07:17:00 David Russ [facility] TIME (PTT) ESTIMATED GFR 2022-03-28 07:17:00 [facility] IONIZED CALCIUM 2022-03-28 07:17:00 [facility] POC GLUCOSE 2022-03-28 02:11:00 Lalito Suarez [facility] ospital POTASSIUM LEVEL 2022-03-27 22:58:00 [facility] MAGNESIUM LEVEL 2022-03-27 22:58:00 [facility] PHOSPHORUS LEVEL 2022-03-27 22:58:00 [facility] IONIZED CALCIUM 2022-03-27 22:58:00 [facility] CV MRA ABDOMEN PELVIS W WO 2022-03-27 18:32:35 [facility] CONTRAST [place] CV MRA CHEST (THORACIC 2022-03-27 18:32:06 [facility] AORTA OR PULMONARY ARTERY) [place] US DUPLEX VENOUS UPPER 2022-03-27 14:27:00 David Russ [facility] EXTREMITY LEFT CBC WITH PLATELET AND 2022-03-27 06:00:00 [facility] DIFFERENTIAL BASIC METABOLIC PANEL 2022-03-27 06:00:00 [facility] PHOSPHORUS LEVEL 2022-03-27 06:00:00 [facility] ESTIMATED GFR 2022-03-27 06:00:00 [facility]ital IONIZED CALCIUM 2022-03-27 06:00:00 [facility] MAGNESIUM LEVEL 2022-03-27 06:00:00 [facility] ospital HEMOGLOBIN & HEMATOCRIT 2022-03-27 01:21:00 PrattTiffanie wylie [facility] TRANSFERRIN LEVEL 2022-03-26 14:46:00 [facility] [place] TOTAL IRON BINDING 2022-03-26 14:46:00 [facility] CAPACITY [place] FERRITIN LEVEL 2022-03-26 14:46:00 [facility] CBC WITH PLATELET AND 2022-03-26 05:52:00 [facility] BASIC METABOLIC PANEL 2022-03-26 05:52:00 [facility]ESI[facility] LEVEL 2022-03-26 05:52:00 [facility] 2022-03-26 05:52:00 [facility]CI[facility] 2022-03-26 05:52:00 Maribeth Fraser [facility] ESTIMATED GFR 2022-03-26 05:52:00 [facility] HEMOGLOBIN & HEMATOCRIT 2022-03-25 23:40:00 Douglas Harrison [facility] XR PICC CHEST PORTABLE 2022-03-25 19:41:53 [facility] 2022-03-25 19:31:45 Helen Morales [facility] VA ARTL CATHJ/CANNULJ 2022-03-25 11:32:08 Maribeth Fraser [facility] MNTR/TRANSFUSION SPX PRQ CBC WITH PLATELET AND 2022-03-25 05:23:00 [facility]FFERENTIAL BASIC METABOLIC PANEL 2022-03-25 05:23:00 [facility]NESIUM LEVEL 2022-03-25 05:23:00 [facility] PHOSPHORUS LEVEL 2022-03-25 05:23:00 [facility] ESTIMATED GFR 2022-03-25 05:23:00 [facility] IONIZED CALCIUM 2022-03-25 05:23:00 [facility] XR CHEST 1 VW PORTABLE 2022-03-24 12:02:26 [facility] POC GLUCOSE 2022-03-24 10:58:00 [facility] ANTI-SPIKE IGG 2022-03-24 10:18:00 Andrew Adams [facility] ANTIBODY TITER Prudencio CBC WITH PLATELET AND 2022-03-24 10:18:00 Vasquez, [facility] DIFFERENTIAL BASIC METABOLIC PANEL 2022-03-24 10:18:00 Vasquez, [facility] MAGNESIUM LEVEL 2022-03-24 10:18:00 Vasquez, [facility] PHOSPHORUS LEVEL 2022-03-24 10:18:00 [facility]quez, [facility] SEROLOGY 2022-03-24 10:18:00 [facility] PATIENT SURVEILLANCE Prudencio ESTIMATED GFR 2022-03-24 10:18:00 Vasquez, [facility] SMEAR REVIEW 2022-03-24 10:18:00 Vasquez, [facility] ECG 12-LEAD 2022-03-24 09:59:07 Evelio, [facility] TTE COMPLETE, W CONTRAST, 2022-03-24 09:00:00 Kaylah Hamlin [facility] W DOPPLER ([id number]) CBC WITH PLATELET AND 2022-03-23 09:55:00 [facility] DIFFERENTIAL [facility] COMPREHENSIVE METABOLIC 2022-03-23 09:55:00 [facility] Rahul LACTIC ACID LEVEL 2022-03-23 09:55:00 [facility] Rahul MAGNESIUM LEVEL 2022-03-23 09:55:00 [facility] ESTIMATED GFR 2022-03-23 09:55:00 [facility] TROPONIN T 2022-03-23 09:55:00 [facility] LACT[facility] ACID LEV[facility], SEPSIS 2022-03-23 04:55:00 Tu, SoleJosé Antonio [facility] - NOW AND REPEAT 2X EVERY 3 HOURS TROPONIN T 2022-03-23 04:55:00 Tu, [facility] TROPONIN T 2022-03-23 00:24:00 Tu, [facility] LACTIC ACID LEVEL, SEPSIS 2022-03-23 00:24:00 Tu, [facility] - NOW AND REPEAT 2X EVERY 3 HOURS VA CRITICAL CARE 2022-03-22 22:56:22 Tu, [facility] ILL/INJURED PATIENT INIT 30-74 MIN ECG ED PRELIMINARY 2022-03-22 22:56:22 Tu, [facility] INTERPRETATION COVID-19 QUALITATIVE 2022-03-22 22:38:00 Tu, [facility] RT-PCR CT ANGIOGRAM CHEST ABDOMEN 2022-03-22 21:50:00 Tu, [facility] PELVIS W AND OR WITHOUT CONTRAST XR CHEST 1 VW PORTABLE 2022-03-22 21:32:16 Tu, [facility] LACTIC ACID LEVEL, SEPSIS 2022-03-22 21:24:00 Tu, [facility] - NOW AND REPEAT 2X EVERY 3 HOURS CBC WITH PLATELET AND 2022-03-22 21:21:00 Tu, [facility] DIFFERENTIAL PROTHROMBIN TIME WITH INR 2022-03-22 21:21:00 Tu, [facility] PARTIAL THROMBOPLASTIN 2022-03-22 21:21:00 Tu, [facility] TIME (PTT) COMPREHENSIVE METABOLIC 2022-03-22 21:21:00 Tu, [facility] PANEL TROPONIN T 2022-03-22 21:21:00 Tu, [facility] B NATRIURETIC PEPTIDE 2022-03-22 21:21:00 Tu, [facility] ESTIMATED GFR 2022-03-22 21:21:00 Tu, [facility] TYPE AND SCREEN 2022-03-22 21:21:00 Tu, [facility] ECG 12-LEAD 2022-03-22 21:12:15 Tu, [facility] CT CHEST EXTERNAL STUDY 2022-03-22 18:29:00 [facility], [facility] Append[facility] Cholecystectomy [facility] Hysterectomy [facility] Knee arthroplasty [facility] nn Plan of Care Planned Activity Planned Date Details Comments Source Future Scheduled 2022-09-14 SHINGLES VACCINES (1 Met [facility] Test 09:10:44 of 2) [code = SHINGLES VACCINES (1 of 2)] Future Scheduled 2022-09-14 65+ [facility]OCCAL [facility] 09:10:44 VACCINE (2 - PPSV23 if available, else PCV20) [code = 65+ PNEUMOCOCCAL VACCINE (2 - PPSV23 if available, else PCV20)] Future Scheduled 2022-09-14 INFLUENZA VACCINE Method [facility] Test 09:10:44 [code = INFLUENZA VACCINE] Future Scheduled 2022-09-14 COVID-19 VACCINE (5 - Me [facility] Test 09:10:44 Booster for Pfizer series) [code = COVID-19 VACCINE (5 - Booster for Pfizer series)] Future Scheduled 2022-09-04 SHINGLES VACCINES (1 Met [facility] Test 08:06:53 of 2) [code = SHINGLES VACCINES (1 of 2)] Future Scheduled 2022-09-04 65+ [facility]OCOCCAL [facility] 08:06:53 VACCINE (2 - PPSV23 if available, else PCV20) [code = 65+ PNEUMOCOCCAL VACCINE (2 - PPSV23 if available, else PCV20)] Future Scheduled 2022-09-04 INFLUENZA VACCINE Method [facility] Test 08:06:53 [code = INFLUENZA VACCINE] Future Scheduled 2022-09-04 COVID-19 VACCINE (5 - Me [facility] Test 08:06:53 Booster for Pfizer series) [code = COVID-19 VACCINE (5 - Booster for Pfizer series)] Future Scheduled 2022-04-10 HEPATITIS B VACCINES Met [facility] Test 07:47:13 (1 of 3 - 3-dose series) [code = HEPATITIS B VACCINES (1 of 3 - 3-dose series)] Future Scheduled 2022-04-10 SHINGLES VACCINES (1 Met [facility] Test 07:47:13 of 2) [code = SHINGLES VACCINES (1 of 2)] Future Scheduled 2022-04-10 65+ PNEUMOCOCCAL [facility] Hospital Test 07:47:13 VACCINE (2 - PPSV23 or PCV20) [code = 65+ PNEUMOCOCCAL VACCINE (2 - PPSV23 or PCV20)] Future Scheduled 2022-04-10 INFLUENZA VACCINE Method is Hospital Test 07:47:13 [code = INFLUENZA VACCINE] Future Scheduled 2022-04-10 COVID-19 VACCINE (5 - Me [facility] Test 07:47:13 Booster for Pfizer series) [code = COVID-19 VACCINE (5 - Booster for Pfizer series)] Future Scheduled 2022-03-08 HEPATITIS B VACCINES Met [facility] Test 12:57:49 (1 of 3 - 3-dose series) [code = HEPATITIS B VACCINES (1 of 3 - 3-dose series)] Future Scheduled 2022-03-08 SHINGLES VACCINES (1 Met [facility] Test 12:57:49 of 2) [code = SHINGLES VACCINES (1 of 2)] Future Scheduled 2022-03-08 65+ PNEUMOCOCCAL [facility] Test 12:57:49 VACCINE (2 - PPSV23 or PCV20) [code = 65+ PNEUMOCOCCAL VACCINE (2 - PPSV23 or PCV20)] Future Scheduled 2022-03-08 COVID-19 VACCINE (3 - Me [facility] Hospital Test 12:57:49 Booster for Pfizer series) [code = COVID-19 VACCINE (3 - Booster for Pfizer series)] Future Scheduled 2022-03-08 INFLUENZA VACCINE Method [facility] Test 12:57:49 [code = INFLUENZA VACCINE] Encounters Start End Encounter Admission Attending Care Care Encounter Source Date/Time Date/Time Type Type Clinicians Facility Department ID 2022-03-22 Outpatient [facility] Surgery [id number] [facility] 15:08:58 [facility]UP 2022-04-26 2022-04-26 [facility] AutumnUyen 1.2.840.1 [id number] Methodi 08:39:52 23:59:00 Encounter 76771.1.1 [facility] 3.430.2.7 Hospit a .3.810811 l .8 2022-04-26 2022-04-26 [facility] AutumnUyen 1.2.840.1 [id number] Methodi 08:39:52 23:59:[address] 3.430.2.7 Hospit a .3.672842 l .8 2022-04-26 2022-04-26 Office Uyen Leyva 1.2.840.1 [id number] Methodi 10:40:00 12:34:[address] 3.430.2.7 Hospit a .3.761357 l .8 2022-04-26 2022-04-26 Office Uyen Leyva 1.2.840.1 [id number] Methodi 10:40:00 12:34:[address] 3.430.2.7 Hospit a .3.690638 l .8 2022-04-26 2022-04-26 [facility] Uyen Leyva 1.2.840.1 [id number] Methodi 08:36:53 08:38:[address] 3.430.2.7 Hospit a .3.723073 l .8 2022-04-26 2022-04-26 [facility] Uyen Leyva 1.2.840.1 [id number] Methodi 08:36:53 08:38:[address] 3.430.2.7 Hospit a .3.404273 l .8 2022-04-26 2022-04-26 Telephone Nguyen 1.2.840.1 [id number] Methodi 00:00:00 00:00:00 , Kymberly [address]73.1.[address] 3.430.2.7 Hospit a .3.040376 l .8 2022-04-26 2022-04-26 Orders Eric 1.2.840.1 [id number] Methodi 00:00:00 00:00:00 Only Maeve 90564.1.[address] 3.430.2.7 Hospit a .3.202208 l .8 2022-04-26 2022-04-26 Travel 1.2.840.1 1.2.411.650 0730 [id number] Methodi 00:00:00 00:00:[address] 3.430.2.7 0.2.7.3.698 Ho spita .3.999737 084.8 l .8 2022-04-26 2022-04-26 Telephone [place] 1.2.840.1 [id number] Methodi 00:00:00 00:00:00 , Kymberly 60572.1.[address] 3.430.2.7 Hospit a .3.289989 l .8 2022-04-26 2022-04-26 Orders Eric, 1.2.840.1 [id number] Methodi 00:00:00 00:00:00 Only Maeve 57957.1.[address] 3.430.2.7 Hospit a .3.478690 l .8 2022-04-26 2022-04-26 Travel 1.2.840.1 1.2.508.712 [id number] Methodi 00:00:00 00:00:[address] 3.430.2.7 0.2.7.3.698 Ho spita .3.434623 084.8 l .8 2022-04-25 2022-04-25 Abstract Eric, 1.2.840.1 [id number] Methodi 00:00:00 00:00:[address] 3.430.2.7 Hospit a .3.265372 l .8 2022-04-25 2022-04-25 Abstract Eric, 1.2.840.1 [id number] Methodi 00:00:00 00:00:[address] 3.430.2.7 Hospit a .3.995186 l .8 2022-03-22 2022-04-03 [facility] Phyllis Randolph 1.2.840.1 10 [id number] Methodi 16:09:00 16:40:00 Encounter Uyen Leyva 80746.1.[address] [place], [place] 3.430.2.7 Hospita JoelCaity .3.650780 l Vasquez, John Elías Deniz .8 Lalito Suarez 2022-03-22 2022-04-03 [facility] 1.2.840.1 10 [id number] Methodi 16:09:00 16:40:00 Encounter Uyen Leyva 71033.1.[address] [place], Ern[place] Lynette 3.430.2.7 Hospita Caity Maldonado .3.057045 l Vasquez, John Elías Deniz .8 Lalito Suarez 2022-03-29 2022-03-29 Telephone [place] 1.2.840.1 [id number] Methodi 00:00:00 00:00:00 , Kymberly [address]26.1.[address] 3.430.2.7 Hospit a .3.114316 l .8 2022-03-29 2022-03-29 Telephone [place] 1.2.840.1 [id number] Methodi 00:00:00 00:00:00 , Kymberly 08227.1.[address] 3.430.2.7 Hospit a .3.533821 l .8 2021-07-25 2021-07-[address] [facility] [id number] Memoria 18:11:00 05:59:00 Services r Outpatient 05 l Imaging - Renato Calle 2021-07-25 2021-07-26 [place] [id number] Memoria 18:11:00 05:59:00 Services r Outpatient 05 l Imaging - Renato Calle 2021-07-25 2021-07-[id number] 12:11:00 23:59:00 Wendy Bojorquez 2020-08-29 2020-08-29 Outpatient [facility] [id number] [address] [place] [address] 00:00:00 00:00:[address] 2020-08-08 2020-08-08 Outpatient [facility] [id number] 076 [place] 00:00:00 00:00:[address] 2017-04-24 2017-04-[address] [facility] [id number] Memoria 16:37:00 04:59:00 Services r Outpatient 00 l Imaging Terrell ortiz Luc 2017-04-24 2017-04-[address] [facility] [id number] Memoria 16:37:00 04:59:00 Services r Outpatient 00 l Imaging Terrell ortiz Luc 2017-04-24 2017-04-[address] [facility] [id number] 11:37:00 23:59:00 Wendy Appiah 2015-06-22 2015-06-[address] [facility] [id number] Memoria 15:46:00 05:59:00 Services r Outpatient 04 l Imaging Stevie Hubbard 2015-06-22 2015-06-[address] [facility] [id number] Memoria 15:46:00 05:59:00 Services r Outpatient 04 l Imaging Stevie Hubbard 2015-06-22 2015-06-22 Outpatient [place] [facility] [id number] 09:46:00 23:59:00 Gildardo Duke 2015-06-22 2015-06-22 Outpatient [facility] [place] [id number] Memoria 13:15:00 13:15:00 00 mauricio Hubbard 2015-06-22 2015-06-22 Outpatient [facility] [id number] Memoria 13:15:00 13:15:00 00 mauricio Hubbard 2015-03-24 2015-03-[address] [facility] [id number] Memoria 15:26:00 04:59:00 Services r Outpatient 03 l Imaging Stevie Hubbard 2015-03-24 2015-03-[address] [facility] [id number] Memoria 15:26:00 04:59:00 Services r Outpatient 03 l Imaging Stevie Hubbard 2015-03-24 2015-03-24 Outpatient [place] [facility] [id number] 10:26:00 23:59:00 Gildardo Montero 03 2015-01-13 2015-01-[address] [facility] [id number] Memoria 15:10:00 04:59:00 Services r Outpatient 01 l Imaging - Renato ortiz [facility] 2015-01-13 2015-01-[address] [facility] [id number] Memoria 15:10:00 04:59:00 Services r Outpatient 01 l Imaging Terrell ortiz [facility] 2015-01-13 2015-01-13 Outpatient Isael, 2.16.840. 2.16.840.1. [id number] 10:10:00 23:59:00 Maikel 1.785610. 563698.3.61 01 Sachi 3.615.0.1 5.0.005 70 3757-06-24 2015-01-[address] [facility] [id number] Memoria 14:48:00 04:59:00 Services r Outpatient 00 l Imaging [facility] 2015-01-12 2015-01-[address] [facility] [id number] Memoria 14:48:00 04:59:00 Services r Outpatient 00 l Imaging [facility] 2015-01-12 2015-01-12 Outpatient Isael, 2.16.840. 2.16.840.1. [id number] 09:48:00 23:59:00 Maikel 1.687459. 034375.3.61 00 Sachi 3.615.0.1 5.0.214 78 7268-05-11 2014-12-02 Inpatient nullFlavo [facility] [id number] Memoria 10:15:00 16:20:[address] [facility] 2014-11-29 2014-12-02 Inpatient nullFlavo [facility] [id number] Memoria 10:15:00 16:20:[address] [facility] 2014-11-29 2014-12-02 Outpatient Isael 2.16.840. 2.16.840.1. [id number] 05:15:00 11:20:00 Maikel 1.704555. 650023.3.61 00 Sachi 3.615.0.1 5.0.101 01 Results Test Description Test Time Test Comments Results Result Comments Source SARS-CoV-2 (COVID-19) RNA [Presence] in Respiratory sp ecimen by 2022-04-03 13:04:58 MILY with probe detection Test Item Value Reference Range Interpretation Comme nts SARS-CoV-2 (COVID-19) RNA [Presence] in Respiratory specimen by Not detected MILY with probe detection (test code = 76113-0) Whether patient is employed in a healthcare setting (test code = Un known 16563-7) Whether the patient has symptoms related to condition of interest U nknown (test code = 72332-3) Whether the patient was hospitalized for condition of interest Unkn own (test code = 18101-3) Whether the patient was admitted to intensive care unit (ICU) for U nknown condition of interest (test code = 48889-6) Whether patient resides in a congregate care setting (test code = U nknown 19490-1) status (test code = 07763-6) Unknown Date and time of symptom onset (test code = 96707-7) Unknown [facility]2022-09-07 02:13:00 Test Item Value Reference Range Interpretation Comments POC glucose (test code = 118 mg/dL 65-99 H Ope rator Name: 33727-1) Christin Carpenter~De vice ID: [id number]~Chhaya tabl e: [facility] Notified lamp wirer Interpretation (test Abnormal code = 46824-7) [facility]2022-09-07 02:13:00 Test Item Value Reference Range Interpretation Comments POC glucose (test code = 118 mg/dL 65-99 H Ope rator Name: [id number]) Christin Carpenter~De vice ID: [id number]~Chhaya tabl e: [facility] Notified lamp wirer Interpretation (test Abnormal code = 92222-5) [facility]2022-09-07 02:13:00 Test Item Value Reference Range Interpretation Comments POC glucose (test code = 118 mg/dL 65-99 H Ope rator Name: [id number]) Christin Carpenter~De vice ID: [id number]~Chhaya tabl e: [facility] Notified lamp wirer Interpretation (test Abnormal code = 73111-6) [address]2022-09-03 19:50:48 Test Item Value Reference Range Interpretation Comments Ventricular rate (test 68 code = 253) Atrial rate (test code 68 = 255) VA interval (test code 214 = 266) QRSD [...] of 22-MAR-2022 16:12,-No significant change was found- [address]2022-09-03 19:50:48 Test Item Value Reference Range Interpretation Comments Ventricular rate (test code = 253) Atrial rate (test code = 255) VA interval (test code = 266) QRSD interval [...] of 22-MAR-2022 16:12,-No significant change was found- [address]2022-09-03 19:50:48 Test Item Value Reference Range Interpretation Comments Ventricular rate (test 68 code = 253) Atrial rate (test code 68 = 255) VA interval (test code 214 = 266) QRSD [...] of 22-MAR-2022 16:12,-No significant change was found- [facility] Preliminary Interpretation - Not an Vjpjw1653-50-90 22:56:22 Test Item Value Reference Range Interpretation Comments DEVON (test code = DEVON) Phyllis Randolph MD 03/23/2022 1:47 [facility] ED Preliminary Interpretation - Not an OrderPerformed by: Phyllis Randolph MDAuthorized by: Phyllis Randolph MD ECG reviewed by ED Physician in the absence of a timber estimator: yes Previous ECG: Previous ECG: UnavailableInterpretat ion: Interpretation: abnormal Quality: Tracing quality: Limited by artifactRate: ECG rate: 77 ECG rate assessment: normal Rhythm: Rhythm: sinus rhythm Ectopy: Ectopy: none QRS: QRS axis: Normal QRS intervals: NormalConduction: Conduction: normal ST segments: ST segments: NormalT waves: T waves: normal Other findings: Other findings: LVH Lab Interpretation Abnormal (test code = 19816-1) [facility] ED Preliminary Interpretation - Not an Hzaqo8663-25-76 22:56:22 Test Item Value Reference Range Interpretation Comments DEVON (test code = DEVON) Phyllis Randolph MD 03/23/2022 1:47 [facility] ED Preliminary Interpretation - Not an OrderPerformed by: Phyllis Randolph, MDAuthorized by: Phyllis Randolph MD ECG reviewed by ED Physician in the absence of a timber estimator: yes Previous ECG: Previous ECG: UnavailableInterpretat ion: Interpretation: abnormal Quality: Tracing quality: Limited by artifactRate: ECG rate: 77 ECG rate assessment: normal Rhythm: Rhythm: sinus rhythm Ectopy: Ectopy: none QRS: QRS axis: Normal QRS intervals: NormalConduction: Conduction: normal ST segments: ST segments: NormalT waves: T waves: normal Other findings: Other findings: LVH Lab Interpretation Abnormal (test code = 72526-5) [facility] ED Preliminary Interpretation - Not an Kxaca3296-93-50 22:56:22 Test Item Value Reference Range Interpretation Comments DEVON (test code = DEVON) Phyllis Randolph MD 03/23/2022 1:47 [facility] ED Preliminary Interpretation - Not an OrderPerformed by: Phyllis Randolph MDAuthorized by: Phyllis Randolph MD ECG reviewed by ED Physician in the absence of a timber estimator: yes Previous ECG: Previous ECG: UnavailableInterpretat ion: Interpretation: abnormal Quality: Tracing quality: Limited by artifactRate: ECG rate: 77 ECG rate assessment: normal Rhythm: Rhythm: sinus rhythm Ectopy: Ectopy: none QRS: QRS axis: Normal QRS intervals: NormalConduction: Conduction: normal ST segments: ST segments: NormalT waves: T waves: normal Other findings: Other findings: LVH Lab Interpretation Abnormal (test code = 52511-3) [facility] QwixupoqIIJF-LfL-7 (COVID-19) RNA [Presence] in Respiratory specimen by MILY with probe rhkvaxeab6830-82-78 21:44:48 Test Item Value Reference Range Interpretation Comments SARS-CoV-2 (COVID-19) RNA Not detected [Presence] in Respiratory specimen by MILY with probe detection (test code = 58118-8) Whether patient is employed in a Unknown healthcare setting (test code = 02491-1) Whether the patient has symptoms Unknown related to condition of interest (test code = 65513-8) Whether the patient was Unknown hospitalized for condition of interest (test code = 58108-4) Whether the patient was admitted Unknown to intensive care unit (ICU) for condition of interest (test code = 53820-8) Whether patient resides in a Unknown congregate care setting (test code = 81697-7) status (test code = Unknown 49475-7) Date and time of symptom onset Unknown (test code = 82032-9) MINISTERIO JOVEL XR FLUORO FOR SPINE PEO7464-75-67 12:19:00 Patient Name: PATSY NORRIS Unit No: [id number] EXAMS: CPT CODE: [id number] XR FLUORO FOR SPINE INJ 08902 LUMBAR TRANSFORAMINAL INJECTION REFERRING PHYSICIAN: PREOPERATIVE DIAGNOSIS: Degenerative Lumbar Disc Disease. POSTOPERATIVE DIAGNOSIS: Lumbar radiculopathy PROCEDURES PERFORMED 1. Fluoroscopically guided needle localization of the left L3, left L4, left S1 spinal nerve/nerves with transforaminal epidural steroid injection/injections. 2. Transforaminal epidurogram/epidurograms at leftL3, left L4, left S1. FINDINGS: Poor filling [...] was injected to produce the epidurograms. No paresthesiaswere elicited with needle insertion or injection and there were no signs of intravascular or intrathecal uptake. Then, with 1 ml of 4% lidocaine and 10 mg of triamcinolone was injected incrementally with frequent negative aspirations. There were no signs of intravascular or intrathecal uptake. Each subsequent level was done using the same technique and medications. The patient's vital signs remainedstable. The patient was taken to the PACU in good condition. at 1219 Reported and signed by: Jasiel Mccormick M.D. [facility] NAME: MALKAPATSYBRIANNA GARCÍA [address] [facility] PHYS: DOCUD - Jasiel Mccormick MD [place], [place] [address] : 1940 AGE: 78 SEX: F LOC: RENNY PHONE #: [phone] EXAM DATE: 06/26/2019 STATUS: [place] [facility] [place] FAX #: [phone] RAD #: [id number] D/C DT PAGE 1 Signed Report (CONTINUED)Patient Name: PATSY NORRIS RICKY Unit No: [id number] EXAMS: CPT CODE: [id number] XR FLUORO FOR SPINE INJ 79874 (Continued) CC: Jasiel Mccormick MD Technologist: RONALD CAZARES RT(R) Transcribed D/ (1219) tBRODYRJAYDOND [facility] NAME: PATSY NORRIS [address] [place] [address] PHYS: Jasiel Rahman MD [place] [address] : 1940 AGE: 78 SEX: F LOC: RENNY PHONE #: [phone] EXAM DATE: 06/26/2019 STATUS: [facility] [place] [facility] [place] FAX #: [phone] RAD #: [id number] D/C DT PAGE 2 Signed Report Patient Name: PATSY NORRIS Unit No: [id number] EXAMS: CPT CODE: [id number] XR FLUORO FOR SPINE INJ 49906 (Continued) Orig Print D/T: S: 06/26/2019 (1222) [facility] NAME: PATSY NORRIS [address] PHYS: Jasiel Rahman MD [place] [address] : 1940 AGE: 78 SEX: F LOC: RENNY PHONE #: [phone] EXAM DATE: 06/26/2019 STATUS: [facility] [place] [facility] [place] FAX #: [phone] RAD #: [id number] D/C DT PAGE 3 Signed Report- XR FLUORO FOR SPINE VJF3800-39-21 13:54:00 Patient Name: PATSY NORRIS Unit No: [id number] EXAMS: CPT CODE: [id number] XR FLUORO FOR SPINE INJ 36966 LUMBAR TRANSFORAMINAL INJECTION REFERRING PHYSICIAN: PREOPERATIVE DIAGNOSIS: Degenerative Lumbar Disc Disease. POSTOPERATIVE DIAGNOSIS: Left lumbar radiculopathy PROCEDURES PERFORMED 1. Fl uoroscopically guided needle localization of the left L3, [...] the patient was taken to the fluoroscopy suiteand placed in a prone position with all [...] were elicited with needle insertion or injection andthere were no signs of intravascular or intrathecal uptake. Then, with 1 ml of 4% lidocaine and 10 mg of triamcinolone was injected incrementally with frequent negative aspirations. There were no signsof intravascular or intrathecal uptake. Each subsequent level was done using the same technique and medications. The patient's vital signs remained stable. The patient was taken to the PACU in good condition. at 1354 Reported and signed by:Jasiel Mccormick M.D. [facility] NAME: PATSY NORRIS [address] [facility] PHYS: DOCUD - Jasiel Mccormick MD [place], [place] [address] : 1940 AGE: 78 SEX: F LOC: RENNY PHONE #: [phone] EXAM DATE: 05/27/2019 STATUS: [facility] [place] [facility] [place] FAX #: [phone] RAD #: [id number] D/C DT PAGE 1 Signed Report (CONTINUED) Patient Name: PATSY NORRIS Unit No: [id number] EXAMS: CPT CODE: [id number] XR FLUORO FOR SPINE INJ 90186 (Continued) CC: Technologist: Milana Melgar(R) Transcribed D/ (6828) AvinashUVD [facility] NAME: PATSY NORRIS [address] [place] [address] PHYS: Jasiel Rahman MD [place] [address] : 1940 AGE: 78 SEX: F LOC: RENNY PHONE #: [phone] EXAM DATE: 05/27/2019 STATUS: [facility] [place] [facility] [place] FAX #: [phone] RAD #: [id number] D/C DT PAGE 2 Signed Report Patient Name: PATSY NORRIS Unit No: [id number] EXAMS: CPT CODE: [id number] XR FLUORO FOR SPINE INJ 61124 (Continued) Orig Print D/T: S: 05/27/2019 (3799) [facility] NAME: PATSY NORRIS [address] [place] [address] PHYS: Jasiel Rahman MD [place], [place] [address] : 1940 AGE: 78 SEX: F LOC: RENNY PHONE #: [phone] EXAM DATE: 05/27/2019 STATUS: REG SD FAX #: [phone] RAD #: [id number] D/C DT PAGE 3 Signed Report- XR FLUORO FOR SPINE [id number] 12:09:00 Patient Name: PATSY NORRIS Unit No: [id number] EXAMS: CPT CODE: [id number] XR FLUORO FOR SPINE INJ 39176 CERVICAL TRANSFORAMINAL INJECTION REFERRING PHYSICIAN: PREOPERATIVE DIAGNOSIS: Cervical radiculitis POSTOPERATIVE DIAGNOSIS: Bilateral cervical radiculopathy PROCEDURES PERFORMED: Fluoroscopically guided needle localization of the bilateral C5, bilateral C6 spinal nerves with transforaminal epidural steroid injection/injections. 2. Transforaminal epidurogram/epidurograms at bilateral C5, bilateral C6 FINDINGS: Poor filling all. Concordant provocation bilateral C6 shoulders, left C5 neck. Pain relief- 80%. Some mild shoulder pain consider bilateral C7 nerve roots ANTIBIOTICS:Cefazolin ESTIMATED BLOOD LOSS: Minimal ANESTHESIA: (TIVA ) Total intravenous anesthetic (patient intolerant tosedatives and hypnotics) COMPLICATIONS: None DETAILS OF PROCEDURE: [...] taken to the PACU in good condition. [facility] NAME: PATSY NORRIS [address] [facility] PHYS: Jasiel Rahman MD [place], [place] [address] : 1940 AGE: 78 SEX: F LOC: RENNY PHONE #: [phone] EXAM DATE: 09/24/2018 STATUS: [facility] [place] [facility] [place] FAX #: [phone] RAD #: [id number] D/C DT PAGE 1 Signed Report (CONTINUED) Patient Name: PATSY NORRISUn No: [id number] EXAMS: CPT CODE: [id number] XR FLUORO FOR SPINE INJ 39076 (Continued) at 1209 Reported and signed by: Jasiel Mccormick M.D. CC: Jasiel Mccormick MD Technologist: OSORIO GARCÍA RT(R) Transcribed D/ (1125) tBRODYR.UVD [facility] NAME: PATSY NORRIS [address] [facility] PHYS: Jasiel Rahman MD [place], [place] [address] : 1940 AGE: 78 SEX: F LOC: RENNY PHONE #: [phone] EXAM DATE: 09/24/2018 STATUS: [facility] [place] FAX #: [phone] RAD #: [id number] D/CDT PAGE 2 Signed Report Patient Name: PATSY NORRIS Unit No: [id number] EXAMS: CPT CODE: [id number] XR FLUORO FOR SPINE INJ 35963 (Continued) Orig Print D/T: S: 09/24/2018 (1212) [facility] NAME: PATSY NORRIS [address] [place] [address] PHYS: Jasiel Rahman MD [place], [place] [address] : 1940 AGE: 78 SEX: F LOC: RENNY PHONE #: [phone] EXAM DATE: 09/24/2018 STATUS: [facility] [place] [facility] [place] FAX #: [phone] RAD #: [id number] D/C DT PAGE 3 Signed Report- XR C-SPINE 6+R9725-17-22 16:44:00 Patient Name: PATSY NORRIS Unit No: [id number] EXAMS: CPT CODE: [id number] XR C-SPINE 6+V 95908 MRI OF THE CERVICAL SPINE: DIAGNOSIS: 1. [...] degeneration. 3 to 4 mm disc osteophyte complexflattens the ventral thecal sac. Moderate to marked central canal stenosis. Left foraminal moderate to marked right foraminal stenosis. Mild to moderate facet arthropathy. 6. At C7-T1, there is solid interbody fusion. Mild central canal stenosis. Moderate foraminal stenosis. COMMENT: COMPARISON: No pr ior exams available. Sagittal T1, T2 and STIR and axial T2 and gradient-echo sequences are obtained of the cervical spine. Cervical vertebrae are within normal limits in signal. The findings are as above. 7 view cervical spine with flexion and extension COMMENT: Marked degeneration of the C4-5, C5-6 and C6-7 discs. No abnormal motion seen on flexion or extension. Solid interbody fusion C7-T1 and T1-2levels. Prevertebral soft tissues are within normal is. No abnormal motion is seen on flexion or extension. at 3104 Reported and signed by:Cruz Galvan MD [facility] NAME: PATSY NORRIS [address] [place] [address] PHYS: Jasiel Rahman MD : 1940 AGE: 78 SEX: F [place] [address] : Y.MRI PHONE #: [phone] EXAM DATE: 09/09/2018 STATUS: REG CLI FAX #: [phone] RAD #: [id number] D/C DT PAGE 1 Signed Report (CONTINUED) Patient Name: PATSY NORRIS Unit No: [id number] EXAMS: CPT CODE: [id number] XR C-SPINE 6+V 50476 (Continued) CC: Jasiel Mccormick MD Technologist: RT. Pranay(R) Transcribed D/ (7134) SamaraG [facility] NAME:PATSY NORRIS [address] [place] [address] PHYS: Jasiel Rahman MD : 1940 AGE: 78 SEX: F [place] [address] LOC: Y.MRI PHONE #: [phone] EXAM DATE: 09/09/2018 STATUS: REG CLI FAX #: [phone] RAD #: [id number] D/C DT PAGE 2 Signed Report Patient Name: PATSY NORRIS Unit No: [id number] EXAMS: CPT CODE: [id number] XR C-SPINE 6+V 28641 (Continued) Orig Print D/T: S: 09/09/2018 (1647) [facility] NAME: PATSY NORRIS [address] [facility] PHYS: SELVIN - Doctor,Jasiel Arellano MD : 1940 AGE: 78 SEX: F [place], [place] [address] LOC: Y.MRI PHONE #: [phone] EXAM DATE: 09/09/2018 STATUS: REG CLI FAX #: [phone] RAD #: [id number] D/C DT PAGE 3 Signed Report- MRI C-SPINE W/O [id number] 16:44:00 Patient Name: PATSY NORRIS Unit No: [id number] EXAMS: CPT CODE: [id number] MRI C- SPINE W/OCONT 31514 MRI OF THE CERVICAL SPINE: DIAGNOSIS: 1. At C2-3, moderate disc degeneration. Mild disc bulging. No central canal stenosis. Moderate to marked left foraminal moderate right foraminal stenosis. Moderate facet arthropathy. 2. At C3-4, mild/moderate disc degeneration. No central canal stenosis. Moderate to marked left foraminal and moderate right foraminal stenosis. Moderate to marked rightfacet and moderate left facet arthropathy. 3. At C4-5, there is solid interbody fusion. Moderate central canal stenosis. Moderate to marked bilateral bony foraminal stenosis. 4. At C5-6,moderate disc degeneration. Mild central canal stenosis. Moderate to marked left foraminal moderate right foraminal stenosis. Moderate facet arthropathy. 5. At C6-7, marked disc degeneration. 3 to 4 mm disc osteophytecomplex flattens the ventral thecal sac. Moderate to marked central canal stenosis. Left foraminal moderate to marked right foraminal stenosis. Mild to moderate facet arthropathy. 6. At C7-T1, there issolid interbody fusion. Mild central canal stenosis. Moderate foraminal stenosis. COMMENT: COMPARISON: No prior exams available. Sagittal T1, T2 and STIR and axial T2 and gradient-echo sequences are obtained of the cervical spine. Cervical vertebrae are within normal limits in signal. The findings areas above. 7 view cervical spine with flexion and extension COMMENT: Marked degeneration of the C4-5,C5-6 and C6-7 discs. No abnormal motion seen on flexion or extension. Solid interbody fusion C7-T1 and T1-2 levels. Prevertebral soft tissues are within normal is. No abnormal motion is seen on flexionor extension. at 1644 Reported and signed by: Cruz Galvan MD [facility] NAME: PATSY NORRIS [address] [facility] PHYS: Jasiel Rahman MD : 1940 AGE: 78 SEX: F [place] [address] LOC: Y.MRI PHONE #: [phone] EXAM DATE: 09/09/2018 STATUS: REG CLI FAX #: [phone] RAD #: [id number] D/C DT PAGE 1 Signed Report (CONTINUED) Patient Name: PATSY NORRIS Unit No: [id number] EXAMS: CPT CODE: [id number] MRI C- SPINE W/O CONT 15687 (Continued) CC: Jasiel Mccormick MD Technologist: Latosha Nielsen, RT(R) Transcribed D/ (9254) AvinashGVG [facility] NAME: PATSY NORRIS [address] [facility] PHYS: Jasiel Rahman MD : 1940 AGE: 78 SEX: F [place] [address] LOC: Y.MRI PHONE #: [phone] EXAMDATE: 09/09/2018 STATUS: REG CLI FAX #: [phone] RAD #: [id number] D/C DT PAGE 2 Signed Report Patient Name: PATSY NORRIS Unit No: [id number] EXAMS: CPT CODE: [id number] MRI C-SPINE W/O CONT 21285 (Continued) Orig Print D/T: S: 09/09/2018 (1647) [facility] NAME: PATSY NORRIS [address] [facility] PHYS: SELVIN - DoctorJasiel MD : 1940 AGE: 78 SEX: F [place], [place] [address] LOC: Y.MRI PHONE #: [phone] EXAM DATE: 09/09/2018 STATUS: REG CLI FAX #: [phone] RAD #: [id number] D/C DT PAGE 3 Signed Report- XR FLUORO FOR SPINE [id number] 12:30:00 Patient Name: PATSY NORRIS Unit No: [id number] EXAMS: CPT CODE: [id number] XR FLUORO FOR SPINE INJ 17402 LUMBAR DISCOGRAM AND PLACEMENT OF INTRADISCAL STEROIDS [...] then passed through the introducer and [facility] NAME: PATSY NORRIS [address] [facility] PHYS: SELVIN - DoctorJasiel MD [place], [place] [address] : 1940 AGE: 78 SEX: F LOC: RENNY PHONE #: [phone] EXAM DATE: 08/19/2018 STATUS: REG SDC FAX #: [phone] RAD #: [id number] D/C DT PAGE 1 Signed Report (CONTINUED) Patient Name: PATSY NORRIS Unit No: [id number] EXAMS: CPT CODE: [id number] XR FLUORO FOR SPINE INJ 77479 (Continued) advanced into the center of the [...] L4. Concordant provocation left L4 hip. Pain relief- 100%. ANTIBIOTIC: Cefazolin ESTIMATED BLOOD LOSS: Minimal ANESTHESIA: [...] AP view, final positioning was obtained outside the6 on the clock position on the pedicle. Then, 1 ml of Isovue-300 contrast was injected to produce the epidurograms. No paresthesias were elicited with needle insertion or injection and there were no signs of intravascular or intrathecal uptake. Then, with 1 ml of 4% lidocaine and 10 mg of triamcinolone was injected incrementally with frequent negative aspirations. There were no signs of intravascularor intrathecal uptake. Each subsequent level was done using the same [facility] NAME: PATSY NORRIS [address] [facility] PHYS: Jasiel Rahman MD [place], [place] [address] : 1940 AGE: 78 SEX: F LOC: RENNY PHONE #: [phone] EXAM DATE: 08/19 STATUS: [facility] [place] [facility] [place] FAX #: [phone] RAD #: [id number] D/C DT PAGE 2 Signed Report (CONTINUED) Patient Name: PATSY NORRIS Unit No: [id number] EXAMS: CPT CODE: [id number] XR FLUORO FOR SPINE INJ 86500 (Continued) technique and medications. The patient's vital signs remained stable. The patient was taken to the PACU in good condition. at 1230 Reported and signed by: Jasiel Mccormick M.D. CC: Jasiel Mccormick MD Technologist: OSORIO GARCÍA RT(R) Transcribed D/ (1230) tGARRET [facility] NAME: PATSY NORRIS [address] [facility] PHYS: Jasiel Rahman MD [place], [place] [address] : 1940 AGE: 78 SEX: F LOC: RENNY PHONE #: [phone] EXAM DATE: 08/19/2018STATUS: [facility] [place] [facility] [place] FAX #: [phone] RAD #: [id number] D/C DT PAGE 3 Signed Report Patient Name: PATSY NORRIS Unit No: [id number] EXAMS: CPT CODE: [id number] XR FLUORO FOR SPINE INJ 35956 (Roxie nued) Orig Print D/T: S: 08/19/2018 (1234) [facility] NAME: PATSY NORRIS [address] [facility] PHYS: SELVIN - Doctor,Jasiel Arellano MD [place], [place] [address] : 1940 AGE: 78 SEX: F LOC: RENNY PHONE #: [phone] EXAM DATE: 08/19/2018 STATUS: [facility] [place] [facility] [place] FAX #: [phone] RAD #: [id number] D/C DT PAGE 4 Signed BdmdhdMRIOCGQZPX4562-85-37 05:12:00 Test Item Value Reference Range Interpretation Comments Hgb (test code = Hgb) 8.4 12.0-16.0 [facility]FcogfwvFMCFPXBPYN7540-49-31 05:12:00 Test Item Value Reference Range Interpretation Comments Hct (test code = Hct) 24.8 36.0-48.0 [facility]VLWSCMDQAJ7481-10-59 05:12:00 Test Item Value Reference Range Interpretation Comments Hgb (test code = Hgb) 8.4 12.0-16.0 [facility]andJxqjawmTTNLQZSOPD9721-56-71 05:12:00 Test Item Value Reference Range Interpretation Comments Hct (test code = Hct) 24.8 36.0-48.0 [facility]andBbdbbahOXZTAFIPXA8618-04-47 05:12:00 Test Item Value Reference Range Interpretation Comments Hgb (test code = Hgb) 8.4 12.0-16.0 [facility]andDjeodbdQEELLETZRP4341-41-64 05:12:00 Test Item Value Reference Range Interpretation Comments Hct (test code = Hct) 24.8 36.0-48.0 [facility]andEyxtmqtMTVAXSMSGD3332-49-62 17:23:00 Test Item Value Reference Range Interpretation Comments Hgb (test code = Hgb) 8.5 12.0-16.0 [facility]andIqxbtyoQBDQHGCNRR0698-72-40 17:23:00 Test Item Value Reference Range Interpretation Comments Hct (test code = Hct) 25.4 36.0-48.0 [facility]andEfbrapmJQCJPSOQFC9713-07-91 17:23:00 Test Item Value Reference Range Interpretation Comments Hgb (test code = Hgb) 8.5 12.0-16.0 [facility]nsdwkzBWETQNIROQ4770-23-19 17:23:00 Test Item Value Reference Range Interpretation Comments Hct (test code = Hct) 25.4 36.0-48.0 [facility]bergPucvhusBYTVDRYDQJ2954-61-18 17:23:00 Test Item Value Reference Range Interpretation Comments Hgb (test code = Hgb) 8.5 12.0-16.0 [facility] KlebergCrgbcubTAPDROWUUE9293-48-30 17:23:00 Test Item Value Reference Range Interpretation Comments Hct (test code = Hct) 25.4 36.0-48.0 [facility] LGJQNJZ1699-58-29 07:36:33 Test Item Value Reference Range Interpretation Comments RBC product (test code Product available = RBC product) (12/01/14 2:36 AM) [facility] GKNPGGS1939-58-06 07:36:33 Test Item Value Reference Range Interpretation Comments RBC product (test code Product available = RBC product) (12/01/14 2:36 AM) [facility] [employer] FUJWRQV7565-80-56 07:36:33 Test Item Value Reference Range Interpretation Comments RBC product (test code Product available = RBC product) (12/01/14 2:36 AM) [facility] KlebergYulbuygAZXHFWYAWP3996-24-92 05:55:00 Test Item Value Reference Range Interpretation Comments Hct (test code = Hct) 21.1 36.0-48.0 [facility] KlebergNpvwglkIFFAULQRGT8524-01-08 05:55:00 Test Item Value Reference Range Interpretation Comments Hgb (test code = Hgb) 6.9 12.0-16.0 [facility] KlebergNigsmxpGARKJLXSUY4520-04-42 05:55:00 Test Item Value Reference Range Interpretation Comments Hct (test code = Hct) 21.1 36.0-48.0 [facility] KlebergYbysrarXDEKDZVHZJ2778-05-92 05:55:00 Test Item Value Reference Range Interpretation Comments Hgb (test code = Hgb) 6.9 12.0-16.0 [facility] KlebergVfaxhnqFACYRUQCTH8018-10-05 05:55:00 Test Item Value Reference Range Interpretation Comments Hct (test code = Hct) 21.1 36.0-48.0 [facility] KlebergJahzlbrDYZLQZPKCF5312-01-85 05:55:00 Test Item Value Reference Range Interpretation Comments Hgb (test code = Hgb) 6.9 12.0-16.0 [facility]2015-05-11 19:46:00 Test Item Value Reference Range Interpretation Comments eGFR (test code = eGFR) 55 [facility]2015-05-11 19:46:00 Test Item Value Reference Range Interpretation Comments Potassium Lvl (test code = Potassium 4.3 3.5-5.1 Lvl) [facility]2015-05-11 19:46:00 Test Item Value Reference Range Interpretation Comments Chloride Lvl (test code = Chloride Lvl) 112 95-109 [facility]2015-05-11 19:46:00 Test Item Value Reference Range Interpretation Comments CO2 (test code = CO2) 25 24-32 [facility]2015-05-11 19:46:00 Test Item Value Reference Range Interpretation Comments Calcium Lvl (test code = Calcium Lvl) 8.2 8.5-10.5 [facility]2015-05-11 19:46:00 Test Item Value Reference Range Interpretation Comments Glucose Lvl (test code = Glucose Lvl) 141 70-99 [facility]2015-05-11 19:46:00 Test Item Value Reference Range Interpretation Comments Creatinine Lvl (test code = Creatinine 1.0 0.5-1.4 Lvl) [facility]2015-05-11 19:46:00 Test Item Value Reference Range Interpretation Comments Sodium Lvl (test code = Sodium Lvl) 144 135-145 [facility]2015-05-11 19:46:00 Test Item Value Reference Range Interpretation Comments BUN (test code = BUN) 19 7-22 [facility]2015-05-11 19:46:00 Test Item Value Reference Range Interpretation Comments AGAP (test code = AGAP) 11.3 10.0-20.0 [facility]EcuahvkUVMNYYJTRA0556-47-67 19:46:00 Test Item Value Reference Range Interpretation Comments Monocytes (test code = Monocytes) 7.9 2.0-12.0 [facility]bergMebijbzHPQTIFQMMI1934-14-11 19:46:00 Test Item Value Reference Range Interpretation Comments Eosinophils (test code = 1.5 See_Comment [A utomated message] The Eosinophils) system which ge nerated this result tra nsmitted reference range : <=4.0. The reference r shanthi was not used to int erpret this result as normal/abnormal . [facility]bergDhzbabfVGJNRRHSHE7436-15-06 19:46:00 Test Item Value Reference Range Interpretation Comments Basophils (test code = 0.6 See_Comment [Aut omated message] The Basophils) system which ge nerated this result tra nsmitted reference range : <=1.0. The reference r shanthi was not used to int erpret this result as normal/abnormal . [facility]bergYepitqgNDPBPZXNXL1449-44-97 19:46:00 Test Item Value Reference Range Interpretation Comments Segs-Bands # (test code = Segs-Bands #) 4.3 1.5-8.1 [facility] KlebergBemftvsPETRIIWEKY0122-12-84 19:46:00 Test Item Value Reference Range Interpretation Comments Monocytes # (test code 0.5 See_Comment [Aut omated message] The = Monocytes #) system which generated this result tra nsmitted reference range : <=0.8. The reference r shanthi was not used to int erpret this result as normal/abnormal . [facility]bergFbjuxxoFXURMHKVSW1991-75-29 19:46:00 Test Item Value Reference Range Interpretation Comments Lymphocytes # (test code = Lymphocytes 1.6 1.0-5.5 #) [facility]bergHffrysoBBCBAGDRZV9657-81-82 19:46:00 Test Item Value Reference Range Interpretation Comments Lymphocytes (test code = Lymphocytes) 24.3 20.0-40.0 [facility]bergUytsgnjDXNDMZPTDV2418-63-09 19:46:00 Test Item Value Reference Range Interpretation Comments Segs (test code = Segs) 65.7 45.0-75.0 [facility]bergNqmjrvkORCOLWIPFJ7720-61-66 19:46:00 Test Item Value Reference Range Interpretation Comments Eosinophils # (test code 0.1 See_Comment [A utomated message] The = Eosinophils #) system whic h generated this result tra nsmitted reference range : <=0.5. The reference r shanthi was not used to int erpret this result as normal/abnormal . [facility]bergCuhkiypYMMEYUXGVZ3810-41-44 19:46:00 Test Item Value Reference Range Interpretation Comments MPV (test code = MPV) 7.8 7.4-10.4 [facility]bergGnnuotbJZWIACHVHS4944-89-14 19:46:00 Test Item Value Reference Range Interpretation Comments RBC (test code = RBC) 2.48 4.20-5.40 [facility]bergWvtvywtKGJVNRNOQE7655-97-46 19:46:00 Test Item Value Reference Range Interpretation Comments Platelet (test code = Platelet) 162 133-450 [facility] KlebergBwjcduoZLGZLWOFZI7678-53-03 19:46:00 Test Item Value Reference Range Interpretation Comments MCHC (test code = MCHC) 33.3 32.0-36.0 [facility] KlebergZpbkhxwPTHHIALZRS5778-35-91 19:46:00 Test Item Value Reference Range Interpretation Comments RDW (test code = RDW) 13.5 11.5-14.5 [facility] KlebergFdbjarbOEZRKZXNSM9841-50-99 19:46:00 Test Item Value Reference Range Interpretation Comments MCH (test code = MCH) 31.7 pg 27.0-31.0 [facility]bergDnzlcfqWXHKYGJDXC9247-55-57 19:46:00 Test Item Value Reference Range Interpretation Comments MCV (test code = MCV) 95.1 80.0-98.0 [facility]bergFvspewvYTRXFBLEJJ0056-51-76 19:46:00 Test Item Value Reference Range Interpretation Comments WBC (test code = WBC) 6.6 3.7-10.4 [facility]2015-05-11 19:46:00 Test Item Value Reference Range Interpretation Comments eGFR (test code = eGFR) 55 [facility]2015-05-11 19:46:00 Test Item Value Reference Range Interpretation Comments Potassium Lvl (test code = Potassium 4.3 3.5-5.1 Lvl) [facility]2015-05-11 19:46:00 Test Item Value Reference Range Interpretation Comments Chloride Lvl (test code = Chloride Lvl) 112 95-109 [facility]2015-05-11 19:46:00 Test Item Value Reference Range Interpretation Comments CO2 (test code = CO2) 25 24-32 [facility]2015-05-11 19:46:00 Test Item Value Reference Range Interpretation Comments Calcium Lvl (test code = Calcium Lvl) 8.2 8.5-10.5 [facility]2015-05-11 19:46:00 Test Item Value Reference Range Interpretation Comments Glucose Lvl (test code = Glucose Lvl) 141 70-99 [facility]2015-05-11 19:46:00 Test Item Value Reference Range Interpretation Comments Creatinine Lvl (test code = Creatinine 1.0 0.5-1.4 Lvl) [facility]2015-05-11 19:46:00 Test Item Value Reference Range Interpretation Comments Sodium Lvl (test code = Sodium Lvl) 144 135-145 [facility]2015-05-11 19:46:00 Test Item Value Reference Range Interpretation Comments BUN (test code = BUN) 19 7-22 [place] 021735-05-11 19:46:00 Test Item Value Reference Range Interpretation Comments AGAP (test code = AGAP) 11.3 10.0-20.0 [facility]bergWsvjqzgSULIIBVQBX3906-05-05 19:46:00 Test Item Value Reference Range Interpretation Comments Monocytes (test code = Monocytes) 7.9 2.0-12.0 [facility] KlebergLsisdtgFYWBQVFDUC7987-49-03 19:46:00 Test Item Value Reference Range Interpretation Comments Eosinophils (test code = 1.5 See_Comment [A utomated message] The Eosinophils) system which ge nerated this result tra nsmitted reference range : <=4.0. The reference r shanthi was not used to int erpret this result as normal/abnormal . [facility]bergXzxuahvBTJBFIKSPM9660-40-07 19:46:00 Test Item Value Reference Range Interpretation Comments Basophils (test code = 0.6 See_Comment [Aut omated message] The Basophils) system which ge nerated this result tra nsmitted reference range : <=1.0. The reference r shanthi was not used to int erpret this result as normal/abnormal . [facility] KlebergZummyzxIBEOGXBHQB6117-77-10 19:46:00 Test Item Value Reference Range Interpretation Comments Segs-Bands # (test code = Segs-Bands #) 4.3 1.5-8.1 [facility]bergHdhdzknMFYUDVHYND6463-21-51 19:46:00 Test Item Value Reference Range Interpretation Comments Monocytes # (test code 0.5 See_Comment [Aut omated message] The = Monocytes #) system which generated this result tra nsmitted reference range : <=0.8. The reference r shanthi was not used to int erpret this result as normal/abnormal . [facility] KlebergTzezqyeUXHROGXKNU0362-82-25 19:46:00 Test Item Value Reference Range Interpretation Comments Lymphocytes # (test code = Lymphocytes 1.6 1.0-5.5 #) [facility] KlebergSzffotoYKXZINCLYI2130-27-58 19:46:00 Test Item Value Reference Range Interpretation Comments Lymphocytes (test code = Lymphocytes) 24.3 20.0-40.0 [facility] KlebergJhyviwlTSWIMRZEKX0578-10-56 19:46:00 Test Item Value Reference Range Interpretation Comments Segs (test code = Segs) 65.7 45.0-75.0 [facility] KlebergBfwakddIFCSFCIHYD4174-31-20 19:46:00 Test Item Value Reference Range Interpretation Comments Eosinophils # (test code 0.1 See_Comment [A utomated message] The = Eosinophils #) system X BODYic h generated this result tra nsmitted reference range : <=0.5. The reference r shanthi was not used to int erpret this result as normal/abnormal . [facility] KlebergDlrcjejWFUQAWNRDT8482-90-62 19:46:00 Test Item Value Reference Range Interpretation Comments MPV (test code = MPV) 7.8 7.4-10.4 [facility] KlebergVorqoieOPKHYUWBGP3797-95-33 19:46:00 Test Item Value Reference Range Interpretation Comments RBC (test code = RBC) 2.48 4.20-5.40 [facility]bergNsgcuhjHPICSSIUVO7051-91-75 19:46:00 Test Item Value Reference Range Interpretation Comments Platelet (test code = Platelet) 162 133-450 [facility] KlebergSzmnwnaSKSTBHCOKI8731-16-95 19:46:00 Test Item Value Reference Range Interpretation Comments MCHC (test code = MCHC) 33.3 32.0-36.0 [facility] KlebergBmzzpenKAKFERADBT4726-46-14 19:46:00 Test Item Value Reference Range Interpretation Comments RDW (test code = RDW) 13.5 11.5-14.5 [facility]bergEmyelghBXNNGKVHNK3044-58-67 19:46:00 Test Item Value Reference Range Interpretation Comments MCH (test code = MCH) 31.7 pg 27.0-31.0 [facility] KlebergTjvkxmfHSRSOFSKVX4781-66-84 19:46:00 Test Item Value Reference Range Interpretation Comments MCV (test code = MCV) 95.1 80.0-98.0 [facility] KlebergLgyackqCLNAYIIWFJ0120-40-42 19:46:00 Test Item Value Reference Range Interpretation Comments WBC (test code = WBC) 6.6 3.7-10.4 [facility]bergIsmnlfdQHBZXJWFKW7120-07-90 19:46:00 Test Item Value Reference Range Interpretation Comments Monocytes (test code = Monocytes) 7.9 2.0-12.0 [facility] KlebergHfwrrwnROFEAWGWUA6482-72-45 19:46:00 Test Item Value Reference Range Interpretation Comments Eosinophils (test code = 1.5 See_Comment [A utomated message] The Eosinophils) system which ge nerated this result tra nsmitted reference range : <=4.0. The reference r shanthi was not used to int erpret this result as normal/abnormal . [facility] KlebergUksgzexKCYCRCCQRI1247-93-25 19:46:00 Test Item Value Reference Range Interpretation Comments Basophils (test code = 0.6 See_Comment [Aut omated message] The Basophils) system which ge nerated this result tra nsmitted reference range : <=1.0. The reference r shanthi was not used to int erpret this result as normal/abnormal . [facility] KlebergCutjqucTASDGYVJZU5301-86-87 19:46:00 Test Item Value Reference Range Interpretation Comments Segs-Bands # (test code = Segs-Bands #) 4.3 1.5-8.1 [facility] KlebergFohwmitRFMKLQZLWW7358-80-56 19:46:00 Test Item Value Reference Range Interpretation Comments Monocytes # (test code 0.5 See_Comment [Aut omated message] The = Monocytes #) system which generated this result tra nsmitted reference range : <=0.8. The reference r shanthi was not used to int erpret this result as normal/abnormal . [facility] KlebergSlsugyuNGIWQVOCPC0282-18-06 19:46:00 Test Item Value Reference Range Interpretation Comments Lymphocytes # (test code = Lymphocytes 1.6 1.0-5.5 #) [facility] KlebergNbnyprnSRYBKVTSHU9410-72-03 19:46:00 Test Item Value Reference Range Interpretation Comments Lymphocytes (test code = Lymphocytes) 24.3 20.0-40.0 [facility] KlebergWigfjicDOPVEHXLVH3719-48-95 19:46:00 Test Item Value Reference Range Interpretation Comments Segs (test code = Segs) 65.7 45.0-75.0 [facility] KlebergGmkeiesJWVMAXJBNA1653-16-04 19:46:00 Test Item Value Reference Range Interpretation Comments Eosinophils # (test code 0.1 See_Comment [A utomated message] The = Eosinophils #) system whic h generated this result tra nsmitted reference range : <=0.5. The reference r shanthi was not used to int erpret this result as normal/abnormal . [facility] KlebergWxzddfgMQJOCEUHPU2718-06-21 19:46:00 Test Item Value Reference Range Interpretation Comments MPV (test code = MPV) 7.8 7.4-10.4 [facility] KlebergEathvnwJOKGDEGTAD5555-91-45 19:46:00 Test Item Value Reference Range Interpretation Comments RBC (test code = RBC) 2.48 4.20-5.40 [facility] KlebergRfucqzfADYOCIMSKU5175-67-74 19:46:00 Test Item Value Reference Range Interpretation Comments Platelet (test code = Platelet) 162 133-450 [facility] KlebergBzgnojzENXLDQUEQD2076-32-84 19:46:00 Test Item Value Reference Range Interpretation Comments MCHC (test code = MCHC) 33.3 32.0-36.0 [facility] KlebergXxsxdjiXYPYXQUCEU6585-49-14 19:46:00 Test Item Value Reference Range Interpretation Comments RDW (test code = RDW) 13.5 11.5-14.5 [facility] KlebergSmhswjaUGUFXDZSOX5509-63-40 19:46:00 Test Item Value Reference Range Interpretation Comments MCH (test code = MCH) 31.7 pg 27.0-31.0 [facility] KlebergSiqmxfaGWKUPJTFGQ6035-58-01 19:46:00 Test Item Value Reference Range Interpretation Comments MCV (test code = MCV) 95.1 80.0-98.0 [facility] KlebergImthrxfPPVFHYNVTR3742-38-96 19:46:00 Test Item Value Reference Range Interpretation Comments WBC (test code = WBC) 6.6 3.7-10.4 [facility]2015-05-11 19:46:00 Test Item Value Reference Range Interpretation Comments eGFR (test code = eGFR) 55 [facility]2015-05-11 19:46:00 Test Item Value Reference Range Interpretation Comments Potassium Lvl (test code = Potassium 4.3 3.5-5.1 Lvl) [facility]2015-05-11 19:46:00 Test Item Value Reference Range Interpretation Comments Chloride Lvl (test code = Chloride Lvl) 112 95-109 [facility]2015-05-11 19:46:00 Test Item Value Reference Range Interpretation Comments CO2 (test code = CO2) 25 24-32 [facility]2015-05-11 19:46:00 Test Item Value Reference Range Interpretation Comments Calcium Lvl (test code = Calcium Lvl) 8.2 8.5-10.5 [facility]2015-05-11 19:46:00 Test Item Value Reference Range Interpretation Comments Glucose Lvl (test code = Glucose Lvl) 141 70-99 [facility]2015-05-11 19:46:00 Test Item Value Reference Range Interpretation Comments Creatinine Lvl (test code = Creatinine 1.0 0.5-1.4 Lvl) [facility]2015-05-11 19:46:00 Test Item Value Reference Range Interpretation Comments Sodium Lvl (test code = Sodium Lvl) 144 135-145 [facility]2015-05-11 19:46:00 Test Item Value Reference Range Interpretation Comments BUN (test code = BUN) 19 7-22 [facility]2015-05-11 19:46:00 Test Item Value Reference Range Interpretation Comments AGAP (test code = AGAP) 11.3 10.0-20.0 [facility] [employer] [facility] [id number] 10:49:00 Test Item Value Reference Range Interpretation Comments Antibody Scrn (test Negative (11/29/14 5:49 code = Antibody Scrn) AM) [facility]andOnK[employer]Like[employer] [facility] [id number] 10:49:00 Test Item Value Reference Range Interpretation Comments ABO/Rh (test code = ABO/Rh) O POS [facility]andJ[facility] [employer] [facility] [id number] 10:49:00 Test Item Value Reference Range Interpretation Comments Antibody Scrn (test Negative (11/29/14 5:49 code = Antibody Scrn) AM) [facility] [id number] 10:49:00 Test Item Value Reference Range Interpretation Comments ABO/Rh (test code = ABO/Rh) O POS [facility]andJ[employer] [facility] [id number] 10:49:00 Test Item Value Reference Range Interpretation Comments Antibody Scrn (test Negative (11/29/14 5:49 code = Antibody Scrn) AM) [facility] [id number] 10:49:00 Test Item Value Reference Range Interpretation Comments ABO/Rh (test code = ABO/Rh) O POS [facility]
--- NOTE | 2022-09-14 09:36 | ER ---
Nurse's Notes [facility] Name: Mary Norris Age: 82 yrs Sex: Female : 1940 Arrival Date: 09/14/2022 Time: 09:09 Bed IW4 Private MD: Diagnosis: Encounter for removal of sutures Presentation: 09/14 09:23 Chief complaint: Chief complaint: [place] to head 09/06, here for removal. hb 09:24 Coronavirus screen: At this time, the client does not indicate any symptoms associated hb with coronavirus-19. Ebola Screen: No symptoms or risks identified at this time. Initial Sepsis Screen: Does the patient meet any 2 criteria? No. Patient's initial sepsis screen is negative. Does the patient have a suspected source of infection? No. Patient's initial sepsis screen is negative. Risk Assessment: Do you want to hurt yourself or someone else? Patient reports no desire to harm self or others. Onset of symptoms was September 14, 2022. 09:24 Method Of Arrival: Wheelchair hb 09:25 Acuity: DENNIS 4 hb Historical: - Allergies: :24 No Known Drug Allergies; hb - PMHx: :24 GERD; Hyperlipidemia; Hypertension; Irritable bowel syndrome; Migraines; skin cancer on hb the nose; - PSHx: :24 Appendectomy; back; Cholecystectomy; knee; Shoulder; Total abdominal hysterectomy; hb - Immunization history:: Adult Immunizations up to date. - Social history:: Smoking status: . Assessment: 10:12 Reassessment: Pt seen, treated and discharged from triage. jl7 Vital Signs: :25 BP 88 / 51; Pulse 62; Resp 16; Temp 97.7; Pulse Ox 100% ; hb ED Course: 09:09 Patient arrived in ED. rg4 09:11 [facility]C [facility] sn[facility] 09:11 Fortunato Mckeon MD is Attending Physician. snw 09:25 Arm band placed on. hb 09:26 Triage completed. hb Administered Medications: No medications were administered Outcome: 09:35 Discharge ordered by . snw 10:12 Discharged to home jl7 10:12 Condition: stable 10:12 Discharge instructions given to patient, Instructed on discharge instructions, follow up and referral plans. Demonstrated understanding of instructions, Discharged by JULIA Tang 10:14 Patient left the ED. jl7 Signatures: Kitty Soria, PHARMACY COORDINATOR-C PHARMACY COORDINATOR-Csnw Alejandra Yang RN RN Shireen Olivia rg4 Antonio Plummer RN RN jl7 Corrections: (The following items were deleted from the chart) 09:26 09:23 Chief complaint: hb hb
--- NOTE | 2022-09-14 09:36 | EDPHYS ---
Physician Documentation [facility] Name: Mary Norris Age: 82 yrs Sex: Female : 1940 Arrival Date: 09/14/2022 Time: 09:09 Bed IW4 Private MD: TRACIE Physician Fortunato Mckeon HPI: 09/14 09:51 This 82 yrs old Female presents to ER via Wheelchair with complaints of Staple Removal. snw 09:51 The patient has marycarmen on the right side of the back of head. Previous treatment: the snw care was rendered at [facility], Outpatient prescription(s): The patient was given prescription(s) for Tylenol #3. Sutures/marycarmen progress: The patient has no c/o's. The wound is well-healing with no redness, swelling, discharge, or dehiscence reported. The patient has not experienced similar symptoms in the past. as noted. Historical: - Allergies: 09:24 No Known Drug Allergies; hb - PMHx: 09:24 GERD; Hyperlipidemia; Hypertension; Irritable bowel syndrome; Migraines; skin cancer on hb the nose; - PSHx: 09:24 Appendectomy; back; Cholecystectomy; knee; Shoulder; Total abdominal hysterectomy; hb - Immunization history:: Adult Immunizations up to date. - Social history:: Smoking status: . ROS: 09:51 Constitutional: Negative for fever, chills, and weight loss, Eyes: Negative for injury, snw pain, redness, and discharge, ENT: Negative for injury, pain, and discharge, Neck: Negative for injury, pain, and swelling, Cardiovascular: Negative for chest pain, palpitations, and edema, Respiratory: Negative for shortness of breath, cough, wheezing, and pleuritic chest pain, Abdomen/GI: Negative for abdominal pain, nausea, vomiting, diarrhea, and constipation, Back: Negative for injury and pain, : Negative for injury, bleeding, discharge, and swelling, MS/Extremity: Negative for injury and deformity, Skin: Negative for injury, rash, and discoloration, Neuro: Negative for headache, weakness, numbness, tingling, and seizure, Psych: Negative for depression, anxiety, suicide ideation, homicidal ideation, and hallucinations. Exam: 09:52 Constitutional: This is a well developed, well nourished patient who is awake, alert, snw and in no acute distress. Eyes: Pupils equal round and reactive to light, extra-ocular motions intact. Lids and lashes normal. Conjunctiva and sclera are non-icteric and not injected. Cornea within normal limits. Periorbital areas with no swelling, redness, or edema. ENT: Nares patent. No nasal discharge, no septal abnormalities noted. Tympanic membranes are normal and external auditory canals are clear. Oropharynx with no redness, swelling, or masses, exudates, or evidence of obstruction, uvula midline. Mucous membranes moist. Neck: Trachea midline, no thyromegaly or masses palpated, and no cervical lymphadenopathy. Supple, full range of motion without nuchal rigidity, or vertebral point tenderness. No Meningismus. Chest/axilla: Normal chest wall appearance and motion. Nontender with no deformity. No lesions are appreciated. Cardiovascular: Regular rate and rhythm with a normal S1 and S2. No gallops, murmurs, or rubs. Normal PMI, no JVD. No pulse deficits. Respiratory: Lungs have equal breath sounds bilaterally, clear to auscultation and percussion. No rales, rhonchi or wheezes noted. No increased work of breathing, no retractions or nasal flaring. Abdomen/GI: Soft, non-tender, with normal bowel sounds. No distension or tympany. No guarding or rebound. No evidence of tenderness throughout. Back: No spinal tenderness. No costovertebral tenderness. Full range of motion. Skin: Warm, dry with normal turgor. Normal color with no rashes, no lesions, and no evidence of cellulitis. MS/ Extremity: Pulses equal, no cyanosis. Neurovascular intact. Full, normal range of motion. Neuro: Awake and alert, GCS 15, oriented to person, place, time, and situation. Cranial nerves II-XII grossly intact. Motor strength 5/5 in all extremities. Sensory grossly intact. Cerebellar exam normal. Normal gait. Psych: Awake, alert, with orientation to person, place and time. Behavior, mood, and affect are within normal limits. 09:52 Head/face: Noted is a laceration(s), that is linear, of the right side of the back of head. Vital Signs: 09:25 BP 88 / 51; Pulse 62; Resp 16; Temp 97.7; Pulse Ox 100% ; hb MDM: 09:27 Patient medically screened. [facility] 09:48 Data reviewed: vital signs, nurses notes. Care significantly affected by the following snw chronic conditions: Hypertension. Counseling: I had a detailed discussion with the patient and/or guardian regarding: the historical points, exam findings, and any diagnostic results supporting the discharge/admit diagnosis, Pt has been having lower than her norm blood pressure in the mornings. Denies symptoms, denies nausea, dizziness. Pt had fallen in the pantry and sustained fx ribs and a closed head injury. 2 marycarmen removed from right parieto-occipital area. Pt encouraged to continue incentive spirometer during every commercial. RTED precautions given. Response to treatment: the patient's symptoms have mildly improved after treatment. Special discussion: Based on the history and exam findings, there is no indication for further emergent testing or inpatient evaluation. I discussed with the patient/guardian the need to see the primary care provider for further evaluation of the symptoms. 09/14 09:34 Order name: Suture Removal; Complete Time: 10:14 snw Administered Medications: No medications were administered Disposition Summary: 09/14/22 09:35 Discharge Ordered Location: Home snw Condition: Stable snw Diagnosis - Encounter for removal of sutures snw Followup: snw - With: Emergency Department - When: As needed - Reason: Worsening of condition Followup: snw - With: Private Physician - When: 2 - 3 days - Reason: Recheck today's complaints, Continuance of care, Re-evaluation by your physician Discharge Instructions: - Discharge Summary Sheet snw - Laceration Care, Adult snw - Orthostatic Hypotension snw - Suture Removal, Care After snw - Form - Blood Pressure Record Sheet snw Forms: - Medication Reconciliation Form snw - Thank You Letter snw - Antibiotic Education snw - Prescription Opioid Use snw Signatures: Fortunato Mckeon MD MD cha Waters, Shelly, BUSINESS CENTER REPRESENTATIVE-C BUSINESS CENTER REPRESENTATIVE-Csnw Alejandra Yang, RN RN
[2022-09-14 10:18] VITALS: BP 88/51; TEMP 97.7; O2SAT 100
== END 2022-09-14 10:14 | disposition home or self-care (01) ==
LOC: ER 09:06
DX: Z48.02 Encounter for removal of sutures (principal)
CPT/HCPCS: 99281

== ENCOUNTER 2024-01-13 15:47 | Emergency (ER) | payer OTHER, MEDICARE ==
[2024-01-13 17:34] LABS: Absolute Eosinophils 0.1 K/uL (0-0.5); Absolute Lymphocytes (CBC) 0.8 K/uL (0.7-4.9); Absolute Monocytes 0.6 K/uL (0.1-1.3); Basophils % 1.1 % (0-1.3); Eosinophils % 3.5 % (0-4.4); Hematocrit 36.5 % (36.0-45.0); Hemoglobin 12.4 g/dL (12.0-15.0); MCH 31.3 pg (27.0-35.0); MCHC 33.9 g/dL (32.0-36.0); MCV 92.2 fL (80-100); Monocytes % 16.3 % (3.3-12.3); Neutrophils % 57.1 % (41.7-73.7); Nucleated Red Blood Cells % 0.1 % (0-0); Platelets 173 thou/uL (152-406); RBC Red Blood Cell Count 3.95 M/uL (3.86-4.86); Red Cell Distribution Width 14.4 % (12.1-15.2)
[2024-01-13 17:38] LABS: PT Prothrombin Time 12.9 SECONDS (9.4-12.5); Protime INR 1.18
[2024-01-13 17:54] LABS: Albumin 3.5 g/dL (3.4-5.0); Anion Gap 6.9 mEq/L (5.0-15.0); Bilirubin Direct 0.2 mg/dL (0-0.2); Bilirubin Indirect, Calculated 0.6 mg/dL (0.2-0.8); Bilirubin Total 0.8 mg/dL (0.2-1.0); Globulin 3.5 g/dL (2.3-3.5); Potassium 2.9 mEq/L (3.5-5.1); Troponin High Sensitivity 12.1 pg/mL (<58.9)
--- NOTE | 2024-01-13 19:00 | RAD REPORT ---
EXAM DESCRIPTION: CT - Angio Aorta For Dissection - 01/13/2024 6:34 pm CLINICAL HISTORY: . Chest and abd pain COMPARISON: 2018 TECHNIQUE: Computed tomography angiography of the chest, abdomen pelvis were obtained. 100 cc Isovue 370 was administered intravenously. Coronal and sagittal reconstruction were performed. MIP 3D reconstruction was performed All CT scans are performed using dose optimization technique as appropriate and may include automated exposure control or mA/KV adjustment according to patient size. 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 It contains an intramural he matoma measuring 1.1 centimeters in diameter. The craniocaudal length of the dissection is 7.7 centim eters. 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 No abdominal aortic aneurysm/dissection The celiac, SMA and JESSICA are patent . Renal arteries patent A lung consolidation is not present. A pericardial effusion is not seen. A pleural effusion is not no nadege. The liver,spleen, pancreas,adrenals and kidneys demonstrate no significant abnormality. There no evidence diverticulitis. Postsurgical changes lumbar spine. 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 Aneurysm descending thora cic aorta 4.7 centimeters
--- NOTE | 2024-01-13 19:17 | RAD REPORT ---
EXAM DESCRIPTION: North Single View01/13/2024 4:55 pm CLINICAL HISTORY: Chest pain COMPARISON: CT chest January 13, 2024 FINDINGS: The mediastinum is mildly prominent. The lungs appear clear of acute infiltrate. The heart is mildly enlarged IMPRESSION: Mediastinum is mildly prominent. CT chest same date demonstrates an aortic aneurysm
--- NOTE | 2024-01-13 19:30 | ER ---
Nurse's Notes [facility] Name: Mary Norris Age: 83 yrs Sex: Female : 1940 Arrival Date: 01/13/2024 Time: 15:47 Bed 18 Private MD: Diagnosis: Thoracic aortic aneurysm, ruptured-With hematoma, descending Presentation: 01/12 16:11 Chief complaint: Patient states: Chest pressure off and on for a few weeks, hx aortic ph aneurysm. Coronavirus screen: Vaccine status: Patient reports receiving the 2nd dose of the covid vaccine. Ebola Screen: No symptoms or risks identified at this time. Initial Sepsis Screen: Does the patient meet any 2 criteria? No. Patient's initial sepsis screen is negative. Does the patient have a suspected source of infection? No. Patient's initial sepsis screen is negative. Risk Assessment: Do you want to hurt yourself or someone else? Patient reports no desire to harm self or others. Onset of symptoms was January 13, 2024. 16:11 Method Of Arrival: Wheelchair ph 16:11 Acuity: DENNIS 2 ph Historical: - Allergies: 16:14 No Known Drug Allergies; ph - PMHx: 16:14 GERD; Hyperlipidemia; Hypertension; Irritable bowel syndrome; Migraines; skin cancer on ph the nose; aortic aneurysm (Total abdominal hysterectomy); - PSHx: 16:14 Appendectomy; back; Cholecystectomy; knee; Shoulder; Total abdominal hysterectomy; ph - Immunization history:: Adult Immunizations unknown. - Infectious Disease History:: Denies. - Social history:: Smoking status: Patient denies any tobacco usage or history of. - Family history:: not pertinent. - Hospitalizations: : No recent hospitalization is reported. Screenin:15 [facility] ED Fall Risk Assessment (Adult) History of falling in the last 3 months, me1 including since admission No falls in past 3 months (0 pts) Confusion or Disorientation No (0 pts) Intoxicated or Sedated No (0 pts) Impaired Gait No (0 pts) Mobility Assist Device Used No (0 pt) Altered Elimination No (0 pt) Score/Fall Risk Level 0 - 2 = Low Risk Maintained a safe environment, Provided non-skid footwear, Hourly rounding (assess needs \\T\\ fall precautionary measures) done. Abuse screen: Denies threats or abuse. Nutritional screening: No deficits noted. Tuberculosis screening: No symptoms or risk factors identified. Assessment: 16:15 General: Appears comfortable, well groomed, well developed, well nourished, Behavior is me1 calm, cooperative, appropriate for age, Reports c/o chest pressure off and on for a few weeks. Pain at this time is 1/10 and worse is 6/10. Pain: Complains of pain in chest Pain does not radiate. Pain currently is 1 out of 10 on a pain scale. at worst was 6 out of 10 on a pain scale. Quality of pain is described as pressure, Pain began gradually, Is intermittent. Neuro: Level of Consciousness is awake, alert, obeys commands, Oriented to person, place, time, situation, Appropriate for age. Cardiovascular: Capillary refill < 3 seconds Patient's skin is warm and dry. Cardiovascular: Reports chest pain. Respiratory: Airway is patent Respiratory effort is even, unlabored, Respiratory pattern is regular, symmetrical. GI: No signs and/or symptoms were reported involving the gastrointestinal system. : No signs and/or symptoms were reported regarding the genitourinary system. EENT: No signs and/or symptoms were reported regarding the EENT system. Derm: Skin is intact, is healthy with good turgor, Skin is pink, warm \\T\\ dry. Musculoskeletal: No signs and/or symptoms reported regarding the musculoskeletal system. Vital Signs: 16:11 BP 98 / 45 RA; Pulse 54; Resp 18; Temp 97.5; Pulse Ox 97% on R/A; Weight 77.11 kg; ph Height 5 ft. 3 in. ; 17:00 BP 103 / 54; Pulse 50; Resp 17; Pulse Ox 95% on R/A; me1 18:00 BP 150 / 69; Pulse 15; Resp 15; Pulse Ox 97% on R/A; me1 19:00 BP 162 / 64; Pulse 67; Resp 16; Pulse Ox 97% on R/A; me1 20:00 BP 141 / 86; Pulse 66; Resp 18; Pulse Ox 96% ; me1 20:45 BP 125 / 75; rn 16:11 Body Mass Index 30.11 (77.11 kg, 160.02 cm) ph ED Course: 15:48 Patient arrived in ED. rg4 16:06 Cachorro Sánchez MD is Attending Physician. rn 16:14 Triage completed. ph 16:15 Arm band placed on. ph 16:15 Patient has correct armband on for positive identification. Bed in low position. Call ak1 light in reach. Side rails up X2. Provided Education on: POC. Verbalized understanding. . Client placed on continuous cardiac and pulse oximetry monitoring. NIBP monitoring applied. court recording monitor on. Pulse ox on. NIBP on. 16:15 No provider procedures requiring assistance completed. me1 16:57 XRAY Chest (1 view) In Process Unspecified. EDMS 17:01 Radiology exam delayed due to lab results not completed at this time. (BUN/Creatinine). sj 17:01 Radiology exam delayed due to IV insertion attempt and/or patient not having sj appropriate IV at this time. 17:07 Shayy Multani, RN is Primary Nurse. [facility] 17:27 Initial lab(s) drawn, by me, sent to lab. Inserted saline lock: 22 gauge in right ak1 antecubital area, using aseptic technique. 17:27 Basic Metabolic Panel Sent. ak1 17:27 CBC with Diff Sent. [facility] 17:27 LFT's Sent. ak1 17:27 NT PRO-BNP Sent. ak1 17:27 PT-INR Sent. ak1 17:27 Troponin HS Sent. [facility] 17:47 EKG done, by ED staff, reviewed by Cachorro Sánchez MD. ak1 18:36 CT Aorta for Dissection In Process Unspecified. EDMS 19:25 Initiated transfer with [facility], per pt request. 192: Spoke with ashwin. [facility] 19:38 notified me that pt was confused: Pt's dr is located at [place] 19:39 initiated tranfers with francis \\T\\ [place] 19:47 doc to doc with [facility] also doc to doc with [facility] 19:53 pt accepted to [facility], Pt will go to [place] [id number]. Accepting albertina Ardon \\T\\ 1952. Admin Approval given by Francis Xie \\T\\1952. Francis will call back to connect nurse to nurse report. 19:54 Ashwin called back with approval, i let him know that pt had been accepted to [facility] ashwin Gaines replied "all that work for nothing." I thanked him for his work and apologized for the miscommunication on patient preference. 19:54 life flight to transfer pt. kmf 20:24 Patient transferred, IV remains in place. me1 Administered Medications: 20:51 Drug: morphine IVP or IV 2 mg IVP once over 4 mins Route: IVP; Infused Over: 4 mins; me1 Site: left antecubital; 20:52 Follow up: Response: No adverse reaction; Pain is decreased me1 20:51 Drug: Ondansetron IVP 4 mg IVP once; over 2 minutes Route: IVP; Site: left antecubital; me1 20:51 Follow up: Response: No adverse reaction; Nausea is decreased me1 Medication: 16:15 VIS not applicable for this client. me1 Outcome: 19:29 ER care complete, transfer ordered by . rn 20:24 Transferred by helicopter to [facility], Transfer form completed. Note: me1 Report given to JAM Harry 20:24 Condition: stable 20:24 Instructed on the need for transfer, 20:52 Patient left the ED. me1 Signatures: Dispatcher [employer] Lauren Negrete Roman, MD MD rn Hall, Patricia, RN RN Shireen Perez 4 Shayy Multani RN RN ak1 Larisa Garland [facility] Corrections: (The following items were deleted from the chart) 16:15 16:14 PMHx: aortic aneurysm (Total abdominal hysterectomy); ph ph 20:23 19:00 BP 141 / 86; Pulse 66bpm; Resp 18bpm; Pulse Ox 96%; me1 me1
--- NOTE | 2024-01-13 19:30 | EDPHYS ---
Physician Documentation [facility] Name: Mary Norris Age: 83 yrs Sex: Female : 1940 Arrival Date: 01/13/2024 Time: 15:47 Bed 18 Private MD: ED Physician Cachorro Sánchez HPI: 01/12 16:34 This 83 yrs old Female presents to ER via Wheelchair with complaints of Chest rn Discomfort. 16:34 The patient or guardian reports chest pain that is located primarily in the substernal rn area. Onset: 3 week(s) ago. The pain radiates to The chest pain is described as a heaviness, a pressure. Duration: The patient or guardian reports multiple episodes, that are intermittent. Modifying factors: The symptoms are alleviated by nothing. the symptoms are aggravated by nothing. Severity of pain: At its worst the pain was moderate in the emergency department the pain has improved. The patient has not experienced similar symptoms in the past. Patient reports substernal chest pain for the last few weeks, radiation to the neck and the right arm. Has known aortic aneurysm but surgery not indicated and they have just been watching it. Patient denies any injury or trauma. No fever or chills. No cough or shortness of breath.. Historical: - Allergies: 16:14 No Known Drug Allergies; ph - PMHx: 16:14 GERD; Hyperlipidemia; Hypertension; Irritable bowel syndrome; Migraines; skin cancer on ph the nose; aortic aneurysm (Total abdominal hysterectomy); - PSHx: 16:14 Appendectomy; back; Cholecystectomy; knee; Shoulder; Total abdominal hysterectomy; ph - Immunization history:: Adult Immunizations unknown. - Infectious Disease History:: Denies. - Social history:: Smoking status: Patient denies any tobacco usage or history of. - Family history:: not pertinent. - Hospitalizations: : No recent hospitalization is reported. ROS: 16:35 Constitutional: Negative for fever, chills, and weight loss, Cardiovascular: Positive rn for chest pain Respiratory: Negative for shortness of breath, cough, wheezing, and pleuritic chest pain, Abdomen/GI: Negative for abdominal pain, nausea, vomiting, diarrhea, and constipation, Back: Negative for injury and pain, MS/Extremity: Negative for injury and deformity, Skin: Negative for injury, rash, and discoloration, Neuro: Negative for headache, weakness, numbness, tingling, and seizure, Exam: 16:35 Constitutional: This is a well developed, well nourished patient who is awake, alert, rn and in no acute distress. Cardiovascular: Bradycardic, regular. No pulse deficits. Respiratory: No increased work of breathing, no retractions or nasal flaring. Abdomen/GI: Soft, non-tender MS/ Extremity: Pulses equal, no cyanosis. Neuro: Awake and alert, GCS 15 Vital Signs: 16:11 BP 98 / 45 RA; Pulse 54; Resp 18; Temp 97.5; Pulse Ox 97% on R/A; Weight 77.11 kg; ph Height 5 ft. 3 in. ; 17:00 BP 103 / 54; Pulse 50; Resp 17; Pulse Ox 95% on R/A; me1 18:00 BP 150 / 69; Pulse 15; Resp 15; Pulse Ox 97% on R/A; me1 19:00 BP 162 / 64; Pulse 67; Resp 16; Pulse Ox 97% on R/A; me1 20:00 BP 141 / 86; Pulse 66; Resp 18; Pulse Ox 96% ; me1 20:45 BP 125 / 75; rn 16:11 Body Mass Index 30.11 (77.11 kg, 160.02 cm) ph MDM: 16:06 Patient medically screened. rn 19:27 Differential diagnosis: acute myocardial infarction, stable angina, thoracic aortic rn disection, unstable angina. Data reviewed: vital signs, nurses notes, lab test result(s), EKG, radiologic studies, CT scan, and as a result, I will admit patient. Consideration of Admission/Observation Patient was admitted/placed on observation. Escalation of care including admission/observation considered. Counseling: I had a detailed discussion with the patient and/or guardian regarding the historical points, exam findings, and any diagnostic results supporting the discharge/admit diagnosis, lab results, radiology results, the need to transfer to another facility, for higher level of care, [facility] does not immediately have the required specialist. Response to treatment: the patient's symptoms have mildly improved after treatment, and as a result, I will admit patient. ED course: CT aorta shows contained descending aortic aneurysm with small hematoma. Current blood pressure is 115 systolic, will monitor blood pressure closely for blood pressure management. Organizing transfer emergently to [facility] ICU. Patient is not on anticoagulation.. 19:54 ED course: Spouse initially told me that her doctors were at [facility] so transfer was rn initially accepted at [facility]. Immediately after the family told me that her doctors were actually at [facility] so transfer changed to [facility] who also accepted patient rapidly. Accepted by Dr. Jeffries who accepts transfer and currently does not recommend any antihypertensive especially due to bradycardia and patient has not had blood pressure higher than 130 systolic.. ED course: I personally spent 35 minutes engaged in work directly related to the individual patient's care. This does not include any time spent performing procedures. The patient has been deemed critically ill because of aortic aneurysm with rupture, requiring transfer and helicopter transfer for higher level of care.. 01/12 16:19 Order name: Basic Metabolic Panel; Complete Time: 17:55 01/12 16:19 Order name: CBC with Diff; Complete Time: 17:55 01/12 16:19 Order name: LFT's; Complete Time: 17:55 01/12 16:19 Order name: NT PRO-BNP; Complete Time: 17:55 01/12 16:19 Order name: PT-INR; Complete Time: 17:55 rn 01/12 16:19 Order name: Troponin HS; Complete Time: 17:55 rn 01/12 16:19 Order name: XRAY Chest (1 view); Complete Time: 19:19 rn 01/12 16:19 Order name: CT Aorta for Dissection; Complete Time: 19:19 rn 01/12 16:19 Order name: EKG; Complete Time: 16:19 rn 01/12 16:19 Order name: Cardiac monitoring; Complete Time: 17:47 rn 01/12 16:19 Order name: EKG - Nurse/Tech; Complete Time: 17:47 rn 01/12 16:19 Order name: IV Saline Lock; Complete Time: 17:27 rn 01/12 16:19 Order name: Labs collected and sent; Complete Time: 17:27 rn 01/12 16:19 Order name: O2 Per Protocol; Complete Time: 17:27 rn 01/12 16:19 Order name: O2 Sat Monitoring; Complete Time: 17:27 rn Administered Medications: 20:51 Drug: morphine IVP or IV 2 mg IVP once over 4 mins Route: IVP; Infused Over: 4 mins; me1 Site: left antecubital; 20:52 Follow up: Response: No adverse reaction; Pain is decreased me1 20:51 Drug: Ondansetron IVP 4 mg IVP once; over 2 minutes Route: IVP; Site: left antecubital; me1 20:51 Follow up: Response: No adverse reaction; Nausea is decreased me1 Disposition: 19:27 Critical Care:. 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 Jeffries(01/13/24 20:52) me1 Diagnosis - Thoracic aortic aneurysm, ruptured - With hematoma, descending rn Forms: - Medication Reconciliation Form rn - SBAR form rn Signatures: Dispatcher [employer] Cachorro Mott MD MD rn Hall, Patricia, RN RN Shayy Multani RN RN me1 Corrections: (The following items were deleted from the chart) 16:15 16:14 PMHx: aortic aneurysm (Total abdominal hysterectomy); ph ph 16:20 16:19 BASIC METABOLIC PANEL+C.LAB.BRZ ordered. EDMS EDMS 16:20 16:19 CBC+H.LAB.BRZ ordered. EDMS EDMS 16:20 16:19 HEPATIC FUNCTION+C.LAB.BRZ ordered. EDMS EDMS 16:20 16:19 PROBNP+C.LAB.BRZ ordered. EDMS EDMS 16:20 16:19 PROTIME (+INR)+COAG.LAB.BRZ ordered. EDMS EDMS 16:20 16:19 Troponin High Sensitivity+C.LAB.BRZ ordered. EDMS EDMS 16:36 16:34 The patient has not experienced similar symptoms in the past, rn rn 16:36 16:34 Patient reports substernal chest pain. rn rn 19:54 19:29 rn rn 19:54 19:29 [facility] rn rn 20:52 19:54 Dr. Jeffries rn me1
[2024-01-13] MEDS ORDERED: MORPHINE 4 MG/ML SYR ONE (20:42)
[2024-01-13] MEDS ORDERED: ONDANSETRON 4 MG/2 ML VIAL ONE (20:42)
[2024-01-14 03:45] VITALS: BP 125/75; TEMP 97.5; O2SAT 96
--- NOTE | 2024-01-14 12:44 | EKG ---
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
== END 2024-01-13 20:52 | disposition short-term general hospital (02) ==
LOC: ER 15:47
DX: I71.13 Aneurysm of the descending thoracic aorta, ruptured (principal); I10 Essential (primary) hypertension
CPT/HCPCS: 93005; 85025; 80048; 36415; 85610; 80076; 84484; 83880; 71275; 74175; 71045; 96375; 96374; 99285; Q9967; J2405